=== PATIENT | female | born 1975 | race Caucasian/White ===

== ENCOUNTER → 2018-01-31 07:08 | Outpatient (CLI) | payer BC, SELFPAY ==
[2018-01-31 10:29] LABS: Absolute Lymphocyte Count 1.59 X10^3/ul (0.83-4.51); Basophil# 0.04 X10^3/uL; Basophil% 0.5 % (0-1); Hematocrit 39.9 % (37-47); Hemoglobin 13.3 g/dl (12.0-15.0); Lymphocyte # 1.59 X10^3/ul (4.0); Lymphocyte % 21.1 % (19-41); Mean Corp Hgb Conc 33.3 g/gl (32-36); Mean Corpuscular Hgb 31.9 pg (27.0-32.0); Mean Corpuscular Volume 95.7 fL (81-99); Mean Platelet Vol. 10.4 fl (6.2-12.0); Monocyte# 0.61 X10^3/uL; Monocyte% 8.1 % (0-10); Neutrophil # 4.98 X10^3/uL (2.7-7.7); Platelet Count 283 K/mm3 (150-450); RBC Distribution Width CV 13.1 % (11.6-14.6); RBC Distribution Width SD 44.7 fl (35.1-43.9); Red Blood Count 4.17 M/mm3 (4.2-5.4); White Blood Count 7.5 K/mm3 (4.4-11.0)
[2018-01-31 10:34] LABS: POSITIVE COUNT NO; POSITIVE DIFFERENTIAL NO; POSITIVE MORPHOLOGY NO
[2018-01-31 10:53] LABS: Anion Gap 8 (5-15); BUN 7 mg/dL (7-18); BUN/Creat Ratio 8.9 RATIO (10-20); Chloride 105 mmol/L (98-107); Cholesterol 204 mg/dL (200); Creatinine, Serum 0.79 mg/dL (0.55-1.02); EST Glomerular Filtration Rate 85 mL/min (>60); Est Glom Filt Rate - Afr Amer 103 mL/min (>60); Ferritin 51 ng/mL (8-252); Glucose 83 mg/dL (74-106); High Density Lipoprotein 56 mg/dL; Iron 87 ug/dL (50-170); Potassium 3.6 mmol/L (3.5-5.1); Sodium Level 139 mmol/L (136-145); T4 Free Direct 0.72 ng/dL (0.76-1.46); Triglycerides 93 mg/dL; Very Low Density Lipoprotein 19 mg/dL (5-40)
== END ==
PROVIDERS: Family Provider Family Medicine; PCP Family Medicine; Visit Provider Family Medicine
DX: E03.9 Hypothyroidism, unspecified (principal); R25.2 Cramp and spasm; D64.9 Anemia, unspecified; R45.1 Restlessness and agitation; Z13.220 Encounter for screening for lipoid disorders
CPT/HCPCS: 36415; 80048; 80061; 82728; 83540; 83735; 84439; 84443; 85025

== ENCOUNTER → 2018-07-31 16:20 | Outpatient (CLI) | payer BC, SELFPAY ==
[2018-07-31 18:08] LABS: T4 Free Direct 1.15 ng/dL (0.76-1.46); Thyroid Stim Hormone (TSH) 6.14 uIU/mL (0.358-3.74)
== END ==
LOC: LAB.FUTURE 16:21 → BFHLAB 05-31 08:58
PROVIDERS: Family Provider Family Medicine; PCP Family Medicine; Visit Provider Family Medicine
DX: E03.9 Hypothyroidism, unspecified (principal)
CPT/HCPCS: 36415; 84439; 84443

== ENCOUNTER → 2018-09-25 15:45 | Outpatient (CLI) | payer BC, SELFPAY ==
[2018-09-25 17:10] LABS: T4 Free Direct 1.35 ng/dL (0.76-1.46); Thyroid Stim Hormone (TSH) 0.02 uIU/mL (0.358-3.74)
== END ==
LOC: LAB.FUTURE 15:45 → BFHLAB 05-31 08:58
PROVIDERS: Family Provider Family Medicine; PCP Family Medicine; Visit Provider Family Medicine
DX: E03.9 Hypothyroidism, unspecified (principal)
CPT/HCPCS: 36415; 84439; 84443

== ENCOUNTER → 2019-05-29 11:23 | Outpatient (CLI) | payer BC, SELFPAY ==
[2016-10-17 13:19] VITALS: BMI 29.5
[2019-05-29 16:10] LABS: Thyroid Stim Hormone (TSH) 6.95 uIU/mL (0.358-3.74)
== END ==
PROVIDERS: Family Provider Family Medicine; PCP Family Medicine; Visit Provider Family Medicine
DX: E03.9 Hypothyroidism, unspecified (principal)
CPT/HCPCS: 36415; 84443

== ENCOUNTER → 2019-10-22 | Outpatient (CLI) | payer BC, SELFPAY ==
[2019-10-22 17:30] LABS: T4 Free Direct 1.18 ng/dL (0.76-1.46); Thyroid Stim Hormone (TSH) 6.62 uIU/mL (0.358-3.74)
== END | disposition home or self-care (01) ==
PROVIDERS: Visit Provider Family Medicine
DX: E03.9 Hypothyroidism, unspecified (principal)
CPT/HCPCS: 84439; 84443

== ENCOUNTER → 2020-07-23 | Outpatient (CLI) | payer OTHER, SELFPAY | END | disposition home or self-care (01) | LOC: LABSPEC 13:33 | PROVIDERS: PCP Family Medicine; Visit Provider Family Medicine | DX: U07.1 COVID-19 (principal) | CPT/HCPCS: 87635; U0005; U0003 ==

== ENCOUNTER 2021-09-01 07:23 | Outpatient (CLI) | payer BC, SELFPAY ==
--- NOTE | 2021-09-01 07:30 | US_ITS ---
STUDY: ABDOMINAL ULTRASOUND - RIGHT UPPER QUADRANT REASON FOR VISIT: Female, 45 years old. Chronic intermittent nausea with generalized abdominal pain. TECHNIQUE: Ultrasound evaluation of the right upper quadrant was performed with real-time and static pagan-scale imaging. TECHNICAL QUALITY: Adequate. COMPARISON: None. FINDINGS: Liver: The liver measures 13.7 cm. There is normal echogenicity of the liver. The bile ducts are within normal limits. There is hepatic color flow. The direction of portal flow is hepatopetal. There is no demonstrated mass lesion. Gallbladder: Normal distended gallbladder. The gallbladder wall measures 2 mm. There is a negative sonographic Evans''s sign. There is no pericholecystic fluid. There are no gallstones. Common Bile Duct (C.B.D.): The common bile duct measures 2.5 mm. Pancreas: Normal size of the head, body and tail of the pancreas. There is normal echogenicity of the pancreas. There is no demonstrated pancreatic mass or cyst. Right Kidney: Normal size of the right kidney. The right kidney measures 10 cm. Normal renal cortex. The right cortex measures 1.4 cm. There is no demonstrated renal mass or cyst. There is no right hydronephrosis. US/Abdomen Limited IMPRESSION: Normal right upper quadrant ultrasound examination. Electronically Signed: Yordy Lyman DO at 22:46 EST ,
== END 2021-09-01 23:59 | disposition home or self-care (01) ==
PROVIDERS: PCP Family Medicine; Referring Provider Family Medicine; Visit Provider Family Medicine
DX: R11.0 Nausea (principal)
CPT/HCPCS: 76705

== ENCOUNTER 2021-09-07 11:38 | Outpatient (CLI) | payer BC, SELFPAY ==
[2021-09-07 12:54] LABS: Erythrocyte Sedimentation Rate 8 mm/hr (0-30)
[2021-09-07 13:29] LABS: Vitamin B12 537 pg/mL (211-911)
[2021-09-07 13:44] LABS: CRP < 2.90 mg/L (0.0-3.0); LDH 84 U/L (84-246); Rheumatoid Factor < 10.0 IU/mL (<15); Thyroid Stim Hormone (TSH) 2.56 uIU/mL (0.358-3.74)
[2021-09-08 13:08] LABS: Anti-Centromere B Ab <0.2 AI (0.0-0.9); Anti-Chromatin <0.2 AI (0.0-0.9); Anti-Jo <0.2 AI (0.0-0.9); Anti-Scleroderma-70 AB <0.2 AI (0.0-0.9); RNP Ab 0.2 AI (0.0-0.9); SJOGREN'S Anti-SS-A test 0.2 AI (0.0-0.9); SJOGREN'S Anti-SS-B test < 0.2 AI (0.0-0.9); Smith Ab <0.2 AI (0.0-0.9)
[2021-09-08 16:13] LABS: Anti-dsDNA Ab 2 IU/mL (0-9)
[2021-09-11 11:09] LABS: Cytoplasmic Ab (C-ANCA) <1:20 titer (Neg:<1:20); Endomysial Antibody IgA Negative (Negative); Immunoglobulin A 95 mg/dL (87-352); Immunoglobulin E 50 IU/mL (6-495); Immunoglobulin G 895 mg/dL (586-1602)
[2021-09-11 19:26] LABS: CCP IgG Antibodies 7 units (0-19); Immunoglobulin M 92 mg/dL (26-217); Perinuclear Ab (P-ANCA) <1:20 titer (Neg:<1:20); t-Transglutaminase IgA <2 U/mL (0-3)
== END 2021-09-07 23:59 | disposition home or self-care (01) ==
LOC: LAB 11:39
PROVIDERS: PCP Family Medicine; Visit Provider Internal Medicine Gastroenterology
DX: R10.9 Unspecified abdominal pain (principal); R11.10 Vomiting, unspecified; R19.7 Diarrhea, unspecified
CPT/HCPCS: 36415; 82607; 82784; 82785; 83516; 83615; 84443; 85652; 86140; 86200; 86225; 86235; 86255; 86256; 86431

== ENCOUNTER 2021-09-09 06:52 | Outpatient (CLI) | payer BC, SELFPAY ==
[2021-09-10 16:11] LABS: Giardia Lamblia, Stool EIA Negative (Negative)
[2021-09-21 15:03] LABS: Calprotectin, Stool <16 ug/g (0-120); Fats, Neutral Normal (.); Fats, Total Normal (.)
== END 2021-09-09 23:59 | disposition home or self-care (01) ==
PROVIDERS: PCP Family Medicine; Visit Provider Internal Medicine Gastroenterology
DX: R10.9 Unspecified abdominal pain (principal); R11.10 Vomiting, unspecified; R19.7 Diarrhea, unspecified
CPT/HCPCS: 82705; 83993; 87329; 87493; 87506

== ENCOUNTER 2021-10-05 06:13 | Outpatient (CLI) | payer BC, SELFPAY ==
[2021-10-05 08:41] LABS: HIV - WCH Non-Reactive (Nonreactive)
== END 2021-10-05 23:59 | disposition home or self-care (01) ==
LOC: LAB 06:14
PROVIDERS: PCP Family Medicine; Referring Provider Internal Medicine Gastroenterology; Visit Provider Internal Medicine Gastroenterology
DX: R19.5 Other fecal abnormalities (principal)
CPT/HCPCS: 36415; 86703

== ENCOUNTER 2021-10-11 06:15 | Outpatient (CLI) | payer BC, SELFPAY | END 2021-10-11 23:59 | disposition home or self-care (01) | LOC: LAB 06:16 → LABSPEC 06:19 | PROVIDERS: PCP Family Medicine; Referring Provider Internal Medicine Gastroenterology; Visit Provider Internal Medicine Gastroenterology | DX: R19.5 Other fecal abnormalities (principal) ==

== ENCOUNTER → 2021-10-21 | Outpatient (CLI) | payer BC, SELFPAY ==
--- NOTE | 2021-10-21 13:19 | CT_ITS ---
STUDY: CT ABDOMEN WITHOUT CONTRAST REASON FOR EXAM: Female, 46 years old. abd pain, pancreatic insufficiency -- and oral please RADIATION DOSAGE (If Supplied By Facility): CTDIvol = ( 15.68 ) mGy, DLP = ( 543.21 ) mGycm TECHNIQUE: Transaxial images were obtained without intravenous contrast, and oral contrast. Sagittal and coronal images were reconstructed. Individualized dose optimization techniques were used for this CT. COMPARISON: None. FINDINGS: The visualized lung bases are unremarkable. The visualized portions of the heart are within normal limits. Normal liver. Normal gallbladder and extrahepatic biliary system. Normal spleen. Normal pancreas. Normal bilateral adrenal glands. Normal right kidney. Normal left kidney. Normal visualized stomach. Normal small intestine. Normal colon. The appendix is visualized and appears normal. Normal abdominal aorta. Normal inferior vena cava. Normal retroperitoneum. Normal abdominal wall. Normal osseous structures. CT/Abdomen without IV Contrast IMPRESSION: Normal unenhanced CT of the abdomen. Electronically Signed: Anish Lund MD at 4:37 EDT ,
== END | disposition home or self-care (01) ==
PROVIDERS: PCP Family Medicine; Referring Provider Internal Medicine Gastroenterology; Visit Provider Internal Medicine Gastroenterology
DX: R10.9 Unspecified abdominal pain (principal)
CPT/HCPCS: 74150

== ENCOUNTER 2021-11-24 05:28 | Day surgery (SDC) | payer BC, SELFPAY ==
[2021-11-24 05:57] VITALS: BP 114/83; PULSE 87; RESP 18; TEMP 36.8; O2SAT 99; BMI 29.2
[2021-11-24] MEDS: Lactated Ringers 1,000 ML 15 ML IV (06:10)
--- NOTE | 2021-11-24 06:28 | PCM.HP.BLA ---
History and Physical Date of Admission: 11/24/21 ISAURA MORGAN, is a 45 F who presents to the office today for Evaluation of nausea and diarrhea. Isaura established with this clinic 3 with referral from PCP for symptoms of nausea and diarrhea. Onset early 2020 with intermittent symptoms of diarrhea alternating with constipation and decreased appetite causing weight loss. Hot flashes have been an issue for her lately also. She is a current smoker with two cigarettes a day. Additional medical history includes hypothyroidism, depression (Wellbutrin, Lexapro). US abd 3.9.22 with liver measurement 13.7cm. Overall an unremarkably normal exam. She has been having issues with nausea starting early 2020. Diarrhea and abdominal cramping for the last few weeks. For all of her memory she has had issues with constipation and diarrhea alternating with normal bowel movements with unknown frequency. For the last several weeks there has been just diarrhea. Denies aggravating or alleviating factors. Pepto-bismol helps nausea but does not eliminate it. Denies history of EGD or colonoscopy. Presented to PCP for these issues who has just been monitoring over the last few years, with progression he referred to this clinic. Reports that she has been having increased stress recently with somewhat worsened depression symptoms, but she feels these are manageable and is working on stress reduction. Recently her child was diagnosed with asthma and has been in and out of the hospital for management and this has increased her stress level. ROS Const Constitutional: No anorexia, fatigue, fever(s), weight change or sleep problems Eyes Eyes: No change in vision ENT ENT: No abnormal hearing, difficulty swallowing, mouth lesions, tongue swelling or throat swelling Resp Respiratory: No cough or shortness of breath Cardio Cardiology: No chest pain at rest, chest pain with exertion, shortness of breath or dyspnea on exertion Gastro GI: No difficulty swallowing Genitourinary-Female: No difficulty urinating or burning urination Musc Musculoskeletal: No joint pain, joint swelling, muscle weakness or decreased muscle mass Skin Skin: No hair loss in leg, yellowing of the eye, itchy eyes, rash, skin ulcer or skin swelling Neuro Neurology: No abnormal hearing, abnormal movements, confusion, unsteady gait/balance or memory loss Psych Psychiatric: No anxiety, No confusion and No memory loss Endo Endocrine: No fatigue or weight change Aller/Imm Allergy/Immunologic: No itchy eyes, throat swelling or tongue swelling Levon/Lymp Hematologic/Lymphatic: No easy bleeding, easy bruising or enlarged lymph nodes Exam Const General: cooperative and comfortable Nutritional Appearance: average body habitus and well nourished [facility] Head: normal to inspection Ears: hearing grossly normal bilaterally Nose: external nose normal Face and sinus: normal facial exam Mouth: oral mucosae normal Throat: posterior oropharynx normal Eyes General: appearance normal, both eyes and all related structures Neck Neck: normal visual inspection Chest Chest palpation & inspection: normal inspection of the chest and normal palpation of entire chest wall Resp Effort & Inspection: normal respiratory effort Auscultation: Bilateral: Clear to Auscultation Cardio Palpation: normal PMI Rate: regular rate Rhythm: regular rhythm GI Inspection: normal to inspection Auscultation: normal bowel sounds Percussion: normal to percussion Palpation: no hepatosplenomegaly Skin General: no rashes or lesions noted Neuro General: patient alert Extrem General: normal to inspection Psych Affect: normal affect Quality Reporting Tobacco Screening ([facility] 138) Smoking Status: Current every day smoker Assessment and Plan Assessment and Plan (1) Abdominal pain, vomiting, and diarrhea: Status: Acute Orders: Orders: CRP Today LDH Today Erythrocyte Sed Rate Today STELLA Comprehensive Panel Today ANCA Today Celiac Disease Profile Today Immunoglobulin A Today Immunoglobulin E Today Immunoglobulin G Today Immunoglobulin M Today Calprotectin, Stool Today ENTERIC PATHOGEN PANEL STOOL Today Giardia Lamblia, Stool EIA Today Rheumatoid Factor Today CCP IgG Antibodies Today Fecal Fat, Qualitative Today Thyroid Stim Hormone (TSH) Today CDIFF (PCR) Today Plan - Dr. 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 pylori. We will do a biochemical profile and stool studies along with an upper and lower endoscopy. She was explained alternatives, risk, benefits including not withstanding bleeding, infection, sepsis, perforation, need for emergent urgent . She will have an ASA of 1. Also give her pantoprazole to take 40 mg twice a day due to her frequent usage of ibuprofen and Carafate therapy. I have re-examined the patient. There are no clinical changes since date of exam.
--- NOTE | 2021-11-24 06:30 | EGD_PTH ---
PATIENT: ZACHARIAH MORGAN LOC: EN U#:[id number] AGE/SX: 46/F ROOM: RE11/24/[address]: Dr. Stephen aMrte DO : 1975 BED: DIS: 11/24/2021 SPEC #: [id number] RECD: 11/24/21 12:56 STATUS: TAN ERNESTO #: [id number] RUI: 11/24/21 06:[address]: Stephen Marte DEPT: SURGICAL PATHOLOGY RECD BY: Lucie Mena ENTERED: 11/24/21 13:58 SP TYPE: EGD BIOPSY [facility] DR: Dr. Oscar Blas MD Tissues: A - Duodenum, NOS B - Gastric mucous membrane C - Esophagus, NOS D - Esophagus, NOS E - Gastric mucous membrane F - Rectum, NOS G - Ileum, NOS H - COLON BIOPSY I - Cecum, NOS Procedures: Special Stain Group II Surgery Specimen Level IV Alcian Blue/PAS (control) HEADER OPERATION: Colonoscopy with biopsy and polypectomy, EGD with biopsy [place] [place] PRE-OP DIAGNOSIS: Abdominal pain, vomiting, diarrhea TISSUE SUBMITTED: A ? Duodenal bulb biopsy, B ? Gastric body biopsy, C ? Distal esophagus biopsy, D ? Random esophagus biopsy, E ? Gastric inlet biopsy, F ? Rectal polyp, G ? Terminal ileum biopsy, H ? Random colon biopsy, I ? Cecal cap biopsy MICROSCOPIC DIAGNOSIS A. Duodenal bulb, biopsy: Consistent with gastric metaplasia. B. Gastric body, biopsy: Chronic gastritis. See comment. C. Distal esophagus, biopsy: Gastroesophageal junctional mucosa with chronic inflammation. No evidence of goblet cell metaplasia. See comment. D. Esophagus, random biopsy: No pathologic change. E. Gastric inlet, biopsy: Fragments of benign squamous mucosa. Rare fragments of benign glandular mucosa. F. Rectal polyp, biopsy: Hyperplastic polyp. G. Terminal ileum, biopsy: No pathologic change. H. Colon, random biopsy: Mild melanosis coli. I. Cecal cap, biopsy: Mild cryptitis. See comment. AM:tanja 11/25/2021 COMMENT B. The results of immunohistochemistry for Helicobacter pylori will be reported separately ([id number]). C. Alcian blue/PAS stain with matched control supports the above diagnosis. I. Rare neutrophils are seen in the glandular mucosa. Clinical correlation is suggested. MICROSCOPIC DESCRIPTION Slides are reviewed. GROSS DESCRIPTION A - Received in fixative is one container labeled with the patient's name and designated duodenal bulb biopsy. The specimen consists of two irregular fragments of light chen soft tissue that in aggregate measure 0.5 x 0.3 x 0.1 cm. The specimen is totally submitted in one cassette. B - Received in fixative is one container labeled with the patient's name and designated gastric body biopsy. The specimen consists of multiple irregular fragments of light chen soft tissue that in aggregate measure 1 x 0.2 x 0.1 cm. The specimen is totally submitted in one cassette. C - Received in fixative is one container labeled with the patient's name and designated distal esophagus biopsy. The specimen consists of two irregular fragments of light chen soft tissue that in aggregate measure 0.6 x 0.6 x 0.1 cm. The specimen is totally submitted in one cassette. D - Received in fixative is one container labeled with the patient's name and designated random esophagus biopsy. The specimen consists of multiple irregular fragments of light chen soft tissue that in aggregate measure 1.3 x 0.1 x 0.1 cm. The specimen is totally submitted in one cassette. E - Received in fixative is one container labeled with the patient's name and designated gastric inlet biopsy. The specimen consists of one irregular fragment of light chen soft tissue that measures 0.2 x 0.2 x 0.1 cm. The specimen is totally submitted in one cassette. F - Received in fixative is one container labeled with the patient's name and designated rectal polyp. The specimen consists of one irregular fragment of light chen soft tissue that measures 0.5 x 0.2 x 0.1 cm. The specimen is totally submitted in one cassette. G - Received in fixative is one container labeled with the patient's name and designated terminal ileum biopsy. The specimen consists of two irregular fragments of light chen soft tissue that in aggregate measure 0.6 x 0.3 x 0.1 cm. The specimen is totally submitted in one cassette. H - Received in fixative is one container labeled with the patient's name and designated random colon biopsy. The specimen consists of multiple irregular fragments of light chen soft tissue that in aggregate measure 2 x 1 x 0.1 cm. The specimen is totally submitted in one cassette. I - Received in fixative is one container labeled with the patient's name and designated cecal cap biopsy. The specimen consists of one irregular fragment of light chen soft tissue that measures 0.2 x 0.2 x 0.1 cm. The specimen is totally submitted in one cassette. / AM:tanja 11/24/2021 TC:2 CPT: 04710 x9, 24947
--- NOTE | 2021-11-24 06:30 | IMM_PTH ---
PATIENT: ZACHARIAH MORGAN LOC: EN U#:[id number] AGE/SX: 46/F ROOM: RE11/24/[address]: Dr. Stephen Marte DO : 1975 BED: DIS: 11/24/2021 SPEC #: [id number] RECD: 11/24/21 14:26 STATUS: TAN REQ #: [id number] RUI: 11/24/21 06:[address]: Stephen Marte DEPT: IMMUNOHISTOCHEMISTRY RECD BY: Rebecca Rodríguez ENTERED: 11/24/21 14:28 SP TYPE: IMMUNO OTHR DR: Dr. Oscar Blas MD Tissues: B - Stomach, NOS Procedures: H Pylori (initial) PHYSICIAN & INSTITUTION [place] [id number] SPECIMEN INFORMATION: Tissue Source: B - Gastric body biopsy Clinical Info: Abdominal pain, vomiting and diarrhea Specimen Number: [id number] CPT code: 46258 METHODOLOGY: Deparaffinized sections of prefer/formalin-fixed tissue or PAP/DQ stained slides are incubated with monoclonal/polyclonal antibodies/oligonucleotide probes. Localization is made via biotin free immunoperoxidase method. Appropriate controls are performed and reacted as expected. Results on target cell population are indicated in the following table: RESULTS: ANTIBODY / CLONE RESULT Block B H Pylori (polyclonal) negative These tests were developed and their performance characteristics determined by [facility]. They may not have been cleared or approved by the U.S. Food and Drug Administration. The FDA has determined that such clearance or approval is not necessary. The above immunohistochemical/dualISH markers are ordered and reviewed by the Pathologist. INTERPRETATION: B. Gastric body, biopsy: Negative for Helicobacter pylori organisms. AM:tanja 11/25/2021
[2021-11-24 07:16] VITALS: BP 102/69; BP 114/83; PULSE 84; RESP 16; TEMP 36.1; O2SAT 100
[2021-11-24 07:20] VITALS: BP 100/70; BP 114/83; PULSE 82; RESP 16; O2SAT 98
--- NOTE | 2021-11-24 07:23 | OP.EGD_ITS ---
Patient Name: Isaura Spears Procedure Date: 11/24/2021 6:20 AM Date of : 1975 Age: 46 Procedure: Upper GI endoscopy Indications: Epigastric abdominal pain, Dyspepsia, Indigestion, Failure to respond to medical treatment Providers: Stephen Marte DO Medicines: Monitored Anesthesia Care Patient Profile: This is a 46 year old female. Refer to note in patient chart for documentation of history and physical. Patient has symptoms. The symptoms first began June. Complications: No immediate complications. Procedure: Pre-Anesthesia Assessment: - Prior to the procedure, a History and Physical was performed, and patient medications and allergies were reviewed. The patient is competent. The risks and benefits of the procedure and the sedation options and risks were discussed with the patient. All questions were answered and informed consent was obtained. Patient identification and proposed procedure were verified by the physician in the pre-procedure area. Mental Status Examination: alert and oriented. Airway Examination: normal oropharyngeal airway and neck mobility. Respiratory Examination: clear to auscultation. CV Examination: normal. Prophylactic Antibiotics: The patient does not require prophylactic antibiotics. Prior Anticoagulants: The patient has taken no previous anticoagulant or antiplatelet agents. ASA Grade Assessment: II - A patient with mild systemic disease. After reviewing the risks and benefits, the patient was deemed in satisfactory condition to undergo the procedure. The anesthesia plan was to use moderate sedation / analgesia (conscious sedation). Immediately prior to administration of medications, the patient was re-assessed for adequacy to receive sedatives. The heart rate, respiratory rate, oxygen saturations, blood pressure, adequacy of pulmonary ventilation, and response to care were monitored throughout the procedure. The physical status of the patient was re-assessed after the procedure. After obtaining informed consent, the endoscope was passed under direct vision. Throughout the procedure, the patient's blood pressure, pulse, and oxygen saturations were monitored continuously. The Colonoscope was introduced through the mouth, and advanced to the second part of duodenum. The upper GI endoscopy was accomplished without difficulty. The patient tolerated the procedure well. Scope In: 6:38:37 AM Scope Out: 6:49:02 AM Total Procedure Duration Time 0 hours 10 minutes 25 seconds Findings: A single area of ectopic gastric mucosa was found in the upper third of the esophagus, 23 cm from the incisors. Biopsies were taken with a cold forceps for histology. Verification of patient identification for the specimen was done. Estimated blood loss was minimal. Mucosal changes including longitudinal furrows and small-caliber esophagus were found in the middle third of the esophagus and in the lower third of the esophagus. Biopsies were obtained from the proximal and distal esophagus with cold forceps for histology of suspected eosinophilic esophagitis. Verification of patient identification for the specimen was done. Estimated blood loss was minimal. LA Grade A (one or more mucosal breaks less than 5 mm, not extending between tops of 2 mucosal folds) esophagitis with no bleeding was found 36 to 38 cm from the incisors. Biopsies were taken with a cold forceps for histology. Verification of patient identification for the specimen was done. Estimated blood loss was minimal. Patchy mildly erythematous mucosa without bleeding was found in the gastric body. Biopsies were taken with a cold forceps for histology. Verification of patient identification for the specimen was done. Estimated blood loss was minimal. Patchy mildly erythematous mucosa without active bleeding and with no stigmata of bleeding was found in the duodenal bulb. Biopsies were taken with a cold forceps for histology. Verification of patient identification for the specimen was done. Estimated blood loss was minimal. Impression: - Ectopic gastric mucosa in the upper third of the esophagus. Biopsied. - Esophageal mucosal changes suspicious for eosinophilic esophagitis. Biopsied. - LA Grade A reflux esophagitis. Biopsied. - Erythematous mucosa in the gastric body. Biopsied. - Erythematous duodenopathy. Biopsied. Recommendation: - Discharge patient to home. - Resume previous diet. - Continue present medications. - Await pathology results. Procedure Code(s): --- Professional --- 36163, Esophagogastroduodenoscopy, flexible, transoral; with biopsy, single or multiple CPT copyright 2017 [employer]. All rights reserved. The codes documented in this report are preliminary and upon mellowing machine operator review may be revised to meet current compliance requirements. Stephen Marte DO 11/24/2021 7:23:18 AM This report has been signed electronically. Number of Addenda: 1 Note Initiated On: 11/24/2021 6:20 AM Addendum Number: 1 Addendum Date: 03/29/2022 6:33:36 AM MAC was used as sedation for this procedure. Stephen Marte DO 03/29/2022 6:33:40 AM This report has been signed electronically.
--- NOTE | 2021-11-24 07:24 | OP.CCLET_ITS ---
03/29/2022 Oscar Blas Re : Upper GI endoscopy procedure for Isaura Spears Dear [place] This procedure was performed on Wednesday, November 24, 2021. My impressions and recommendations are as follows: Impressions : - Ectopic gastric mucosa in the upper third of the esophagus. Biopsied. - Esophageal mucosal changes suspicious for eosinophilic esophagitis. Biopsied. - LA Grade A reflux esophagitis. Biopsied. - Erythematous mucosa in the gastric body. Biopsied. - Erythematous duodenopathy. Biopsied. Recommendations : - Discharge patient to home. - Resume previous diet. - Continue present medications. - Await pathology results. My findings are described in the full procedure note, which is enclosed. If I can be of further assistance, please feel free to contact me at . Sincerely, Stephen Marte, 11/24/2021 7:23:18 AM This report has been signed electronically.
[2021-11-24 07:25] VITALS: BP 102/77; BP 114/83; PULSE 86; RESP 16; O2SAT 98
--- NOTE | 2021-11-24 07:28 | OP.CCLET_ITS ---
03/29/2022 Oscar Blas Re : Colonoscopy procedure for Isaura Spears [place] This procedure was performed on Wednesday, November 24, 2021. My impressions and recommendations are as follows: Impressions : - One 5 mm polyp in the rectum, removed with a cold snare. Resected and retrieved. - Congested mucosa in the sigmoid colon, in the transverse colon and in the ascending colon. Biopsied. - The examined portion of the ileum was normal. Biopsied. Recommendations : - Discharge patient to home. - Resume previous diet. - Continue present medications. - Await pathology results. - Repeat colonoscopy in 5 years for surveillance. - Return to GI office. My findings are described in the full procedure note, which is enclosed. If I can be of further assistance, please feel free to contact me at . Sincerely, Stephen Marte, 11/24/2021 7:27:59 AM This report has been signed electronically.
--- NOTE | 2021-11-24 07:28 | OP.COLON_ITS ---
Patient Name: Isaura Spears Procedure Date: 11/24/2021 6:49 AM Date of : 1975 Age: 46 Procedure: Colonoscopy Indications: Screening for colorectal malignant neoplasm Providers: Stephen Marte DO Medicines: Monitored Anesthesia Care Patient Profile: This is a 46 year old female. Refer to note in patient chart for documentation of history and physical. Patient has symptoms. The symptoms first began June. Last Colonoscopy: none. The patient's first colonoscopy is today. Complications: No immediate complications. Procedure: Pre-Anesthesia Assessment: - Prior to the procedure, a History and Physical was performed, and patient medications and allergies were reviewed. The patient is competent. The risks and benefits of the procedure and the sedation options and risks were discussed with the patient. All questions were answered and informed consent was obtained. Patient identification and proposed procedure were verified by the physician in the pre-procedure area. Mental Status Examination: alert and oriented. Airway Examination: normal oropharyngeal airway and neck mobility. Respiratory Examination: clear to auscultation. CV Examination: normal. Prophylactic Antibiotics: The patient does not require prophylactic antibiotics. Prior Anticoagulants: The patient has taken no previous anticoagulant or antiplatelet agents. ASA Grade Assessment: II - A patient with mild systemic disease. After reviewing the risks and benefits, the patient was deemed in satisfactory condition to undergo the procedure. The anesthesia plan was to use moderate sedation / analgesia (conscious sedation). Immediately prior to administration of medications, the patient was re-assessed for adequacy to receive sedatives. The heart rate, respiratory rate, oxygen saturations, blood pressure, adequacy of pulmonary ventilation, and response to care were monitored throughout the procedure. The physical status of the patient was re-assessed after the procedure. After I obtained informed consent, the scope was passed under direct vision. Throughout the procedure, the patient's blood pressure, pulse, and oxygen saturations were monitored continuously. The Colonoscope was introduced through the anus and advanced to the terminal ileum. The colonoscopy was performed without difficulty. The patient tolerated the procedure well. The quality of the bowel preparation was good. Scope In: 6:51:37 AM Scope Withdrawal Time 0 hours 13 minutes 23 seconds Scope Out: 7:11:19 AM Total Procedure Duration Time 0 hours 19 minutes 42 seconds Findings: The perianal and digital rectal examinations were normal. A 5 mm polyp was found in the rectum. The polyp was sessile. The polyp was removed with a cold snare. Resection and retrieval were complete. Verification of patient identification for the specimen was done. Estimated blood loss was minimal. An area of mildly congested mucosa was found in the sigmoid colon, in the transverse colon and in the ascending colon. Biopsies were taken with a cold forceps for histology. Verification of patient identification for the specimen was done. Estimated blood loss was minimal. The terminal ileum appeared normal. Biopsies were taken with a cold forceps for histology. Verification of patient identification for the specimen was done. Estimated blood loss was minimal. Impression: - One 5 mm polyp in the rectum, removed with a cold snare. Resected and retrieved. - Congested mucosa in the sigmoid colon, in the transverse colon and in the ascending colon. Biopsied. - The examined portion of the ileum was normal. Biopsied. Recommendation: - Discharge patient to home. - Resume previous diet. - Continue present medications. - Await pathology results. - Repeat colonoscopy in 5 years for surveillance. - Return to GI office. Procedure Code(s): --- Professional --- 67251, Colonoscopy, flexible; with removal of tumor(s), polyp(s), or other lesion(s) by snare technique 84666, 59, Colonoscopy, flexible; with biopsy, single or multiple CPT copyright 2017 [employer]. All rights reserved. The codes documented in this report are preliminary and upon carpenter streetcar review may be revised to meet current compliance requirements. Stephen Marte DO 11/24/2021 7:27:59 AM This report has been signed electronically. Number of Addenda: 1 Note Initiated On: 11/24/2021 6:49 AM Addendum Number: 1 Addendum Date: 03/29/2022 6:33:48 AM MAC was used as sedation for this procedure. Stephen Marte DO 03/29/2022 6:33:52 AM This report has been signed electronically.
[2021-11-24 07:31] VITALS: BP 110/78; BP 114/83; PULSE 77; RESP 16; TEMP 36.2; O2SAT 98
[2021-11-24 07:44] VITALS: BP 114/83
== END 2021-11-24 07:58 | disposition home or self-care (01) ==
LOC: EN 05:28 → AC 05:29
PROVIDERS: PCP Family Medicine; Referring Provider Family Medicine; Visit Provider Internal Medicine Gastroenterology
PROC: 0DJD8ZZ Inspection of Lower Intestinal Tract, Via Natural or Artificial Opening Endoscopic (ICD-10-PCS; CPT 45378; principal; 2021-11-24 06:25)
DX: Z12.11 Encounter for screening for malignant neoplasm of colon (principal); K29.50 Unspecified chronic gastritis without bleeding; K21.00 Gastro-esophageal reflux disease with esophagitis, without bleeding; K62.89 Other specified diseases of anus and rectum; K62.1 Rectal polyp; F41.9 Anxiety disorder, unspecified; F32.A Depression, unspecified; G25.81 Restless legs syndrome; E03.9 Hypothyroidism, unspecified; Z79.899 Other long term (current) drug therapy; F17.210 Nicotine dependence, cigarettes, uncomplicated
CPT/HCPCS: 45385; 45380; 43239; 88305; 88313; 88342; J7120; J2405

== ENCOUNTER → 2021-12-03 | Outpatient (CLI) | payer BC, SELFPAY ==
[2021-12-06 15:07] LABS: Albumin 3.8 g/dL (2.9-4.4); Alpha-1-Globulins 0.3 g/dL (0.0-0.4); Alpha-2-Globulins 0.6 g/dL (0.4-1.0); Immunoglobulin A 106 mg/dL (87-352); Immunoglobulin G 917 mg/dL (586-1602); Immunoglobulin M 94 mg/dL (26-217); PROEL- TOTAL PROTEIN 6.6 g/dL (6.0-8.5)
== END | disposition home or self-care (01) ==
LOC: LAB 12:33 → LABSPEC 12:34
PROVIDERS: PCP Family Medicine; Visit Provider Internal Medicine Gastroenterology
DX: R19.7 Diarrhea, unspecified (principal)
CPT/HCPCS: 36415; 82784; 83630; 84165; 86334

== ENCOUNTER 2022-05-11 09:58 | Day surgery (SDC) | payer BC, SELFPAY ==
--- NOTE | 2022-05-11 10:13 | PCM.HP.BLA ---
History and Physical Date of Admission: 05/11/22 STELLA MORGAN, is a 46 F who presents to the office today for Follow up visit. Crystal established with this clinic 09.07.21 with referral from PCP for symptoms of nausea and diarrhea. Onset early 2020 with intermittent symptoms of diarrhea alternating with constipation and decreased appetite causing weight loss. Hot flashes have been an issue for her lately also. She is a current smoker with two cigarettes a day. ?PMH includes hypothyroidism, depression (Wellbutrin, Lexapro). Uses NSAIDs frequently for pain. FH mother bone cancer; paternal side with brain, lung and unknown cancers between three people. ?US abd 3..22 with liver measurement 13.7cm. Overall an unremarkably normal exam. Biochemical workup 09.07.21 ESR, LDH, CRP, Vit B12, TSH, GAME, ANCA, STELLA comp all WNL Stool testing for fecal fats, calprotectin and giardia WNL. 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 H.Pylori negative. Colonoscopy Hyperplastic polyp removed from rectum; mild melanosis coli; congested mucosa of sigmoid, transverse and ascending colons; mild cryptitis of cecal cap. Stool lactoferrin and ZHAO ordered. Biochemical workup ZHAO, JULIA, PEP, globulin without pertinent abnormal results. [facility] Crohn?s workup found two of four markers elevated indicating positive IBD disease behavior. Stool testing lactoferrin WNL. Plan last visit 12.09.21: Diarrhea ? most likely bacterial overgrowth that has caused decrease in fecal elastase. Start budesonide. Pancreatic insufficiency ? does not show signs of pancreatic insufficiency. Gastric intestinal metaplasia ? continue PPI, repeat EGD one year. Feels she is doing OK since LV. Diarrhea continues and occurs three days a week, on other days she has 2-3 BM a day with soft stool; nausea is much improved and feels it is food triggered. She would like to pursue treatment for gastric metaplasia because of her strong family history. History of precancer cells in her cervix/uterus prompting total hysterectomy. ROS Const Constitutional: Positive for fatigue; No fever(s) or weight change ENT ENT: No difficulty swallowing Cardio Cardiology: No leg pain with exertion Gastro GI: Positive for bloating, change in bowel habits, diarrhea and nausea/dyspepsia; No abdominal pain, heartburn, difficulty swallowing, Vomiting blood/hematemesis, Blood in stool or vomiting Musc Musculoskeletal: Positive for back pain, sciatica, restless legs and leg pain at night; No joint pain, joint swelling, muscle cramps, muscle weakness, Arthritis or leg pain with exertion Skin Skin: No dry skin, lesions, itchy eyes or rash Neuro Neurology: Positive for restless legs Psych Psychiatric: Positive for anxiety, Positive for depression, Positive for difficulty concentrating, No irritability, No paranoia, No Behavioral Problems, No Compulsive Behavior, No hyperactivity, No inattentiveness, No obsessions/compulsions and No Temper Tantrums Endo Endocrine: Positive for fatigue; No weight change Aller/Imm Allergy/Immunologic: No itchy eyes Exam Const General: cooperative and well developed HENMT Head: normal to inspection and atraumatic Ears: hearing grossly normal bilaterally, EAC's normal and TM abnormal bulging on the left and erythematous on the left Nose: nasal discharge clear Face and sinus: normal facial exam Mouth: oral mucosae normal Throat: abnormal tonsil bilaterally hypertrophy 1+ Resp Effort & Inspection: normal respiratory effort and no audible wheezes Auscultation: Bilateral: Clear to Auscultation Cardio Palpation: normal PMI Rate: regular rate Rhythm: regular rhythm Neuro General: patient alert and CN's II-XI intact bilaterally Psych Appearance: grossly normal Mental Status: mental status grossly normal Quality Reporting Tobacco Screening ([facility]) Smoking Status: Current every day smoker Assessment and Plan Assessment and Plan (1) Crohn disease: ?Status:?Chronic ?Plan: She had biochemical profile consistent with Crohn's disease along with having inflammation on her cecal that and showed cryptitis possibly secondary to Crohn's disease.? She will need to undergo repeat biochemical testing including ESR, CRP, stool for fecal calprotectin and capsule endoscopy for further recommendations regarding treatment.? She is not having less diarrhea at this time compared to how she previously was having diarrhea every day. (2) Gastric intestinal metaplasia: ?Status:?Chronic ?Plan: We will repeat her upper endoscopy and perform an endoscopic lift procedure with removal of the gastric intestinal metaplasia.? At that time capsule endoscopy so the small bowel can also be evaluated. ? ? ? Orders: Orders CRP Today K31.A0 - Gastric intestinal metaplasia, unspecified, K50.90 - Crohn's disease, unspecified, without complications ? Erythrocyte Sed Rate Today K31.A0 - Gastric intestinal metaplasia, unspecified, K50.90 - Crohn's disease, unspecified, without complications ? Calprotectin, Stool Today K31.A0 - Gastric intestinal metaplasia, unspecified, K50.90 - Crohn's disease, unspecified, without complications ? Stool Lactoferrin/WBC Today K31.A0 - Gastric intestinal metaplasia, unspecified, K50.90 - Crohn's disease, unspecified, without complications, K58.9 - Irritable bowel syndrome without diarrhea ? I have examined the patient and the H&P has been reviewed. There are no clinical changes since date of exam.
[2022-05-11 10:21] VITALS: BP 129/83; PULSE 84; RESP 16; TEMP 36.6; O2SAT 100; BMI 28.5
[2022-05-11] MEDS: Lactated Ringers 1,000 ML 15 ML IV (10:25)
--- NOTE | 2022-05-11 11:17 | OP.CCLET_ITS ---
05/11/2022 Oscar Blas Re : Upper GI endoscopy procedure for Isaura Spears Dear Roopa This procedure was performed on Wednesday, May 11, 2022. My impressions and recommendations are as follows: Impressions : - Normal esophagus. - Normal stomach. - No gross lesions in the second portion of the duodenum. - Successful completion of the Video Capsule Enteroscope placement. - No specimens collected. Recommendations : - Discharge patient to home. - Resume previous diet. - Continue present medications. My findings are described in the full procedure note, which is enclosed. If I can be of further assistance, please feel free to contact me at . Sincerely, Stephen Marte, 05/11/2022 11:16:53 AM This report has been signed electronically.
--- NOTE | 2022-05-11 11:17 | OP.EGD_ITS ---
Patient Name: Isaura Spears Procedure Date: 05/11/2022 11:07 AM Date of : 1975 Age: 46 Procedure: Upper GI endoscopy Indications: Epigastric abdominal pain, Iron deficiency anemia, Functional Dyspepsia Providers: Stephen Marte DO Medicines: Monitored Anesthesia Care Patient Profile: This is a 46 year old female. Refer to note in patient chart for documentation of history and physical. Patient has symptoms of chronic abdominal cramping, chronic global abdominal pain and chronic dyspepsia. Complications: No immediate complications. Procedure: Pre-Anesthesia Assessment: - Prior to the procedure, a History and Physical was performed, and patient medications and allergies were reviewed. The risks and benefits of the procedure and the sedation options and risks were discussed with the patient. All questions were answered and informed consent was obtained. Patient identification and proposed procedure were verified by the physician in the pre-procedure area. Mental Status Examination: alert and oriented. Airway Examination: normal oropharyngeal airway and neck mobility. Respiratory Examination: clear to auscultation. CV Examination: normal. Prophylactic Antibiotics: The patient does not require prophylactic antibiotics. Prior Anticoagulants: The patient has taken no previous anticoagulant or antiplatelet agents. ASA Grade Assessment: II - A patient with mild systemic disease. After reviewing the risks and benefits, the patient was deemed in satisfactory condition to undergo the procedure. The anesthesia plan was to use monitored anesthesia care (MAC). Immediately prior to administration of medications, the patient was re-assessed for adequacy to receive sedatives. The heart rate, respiratory rate, oxygen saturations, blood pressure, adequacy of pulmonary ventilation, and response to care were monitored throughout the procedure. The physical status of the patient was re-assessed after the procedure. After obtaining informed consent, the endoscope was passed under direct vision. Throughout the procedure, the patient's blood pressure, pulse, and oxygen saturations were monitored continuously. The gastroscope was introduced through the mouth, and advanced to the second part of duodenum. The upper GI endoscopy was accomplished without difficulty. The patient tolerated the procedure well. Scope In: 11:07:25 AM Scope Out: 11:11:15 AM Total Procedure Duration Time 0 hours 3 minutes 50 seconds Findings: The examined esophagus was normal. The entire examined stomach was normal. No gross lesions were noted in the second portion of the duodenum. Using the endoscope, the video capsule enteroscope was advanced into the second portion of the duodenum. The video capsule was positioned 60 cm from the incisors. Impression: - Normal esophagus. - Normal stomach. - No gross lesions in the second portion of the duodenum. - Successful completion of the Video Capsule Enteroscope placement. - No specimens collected. Recommendation: - Discharge patient to home. - Resume previous diet. - Continue present medications. Procedure Code(s): --- Professional --- 96034, Esophagogastroduodenoscopy, flexible, transoral; diagnostic, including collection of specimen(s) by brushing or washing, when performed (separate procedure) CPT copyright 2017 [employer]. All rights reserved. The codes documented in this report are preliminary and upon dinner cook review may be revised to meet current compliance requirements. Stephen Marte DO 05/11/2022 11:16:53 AM This report has been signed electronically. Number of Addenda: 0 Note Initiated On: 05/11/2022 11:07 AM
[2022-05-11 11:18] VITALS: BP 106/73; BP 129/83; PULSE 72; RESP 18; TEMP 36.8; O2SAT 93
[2022-05-11 11:20] VITALS: BP 104/71; BP 129/83; PULSE 77; RESP 18; O2SAT 94
[2022-05-11 11:25] VITALS: BP 115/78; BP 129/83; PULSE 72; RESP 18; O2SAT 95
[2022-05-11 11:33] VITALS: BP 114/80; BP 129/83; PULSE 78; RESP 18; TEMP 37; O2SAT 94
[2022-05-11 11:50] VITALS: BP 129/83
== END 2022-05-11 12:04 | disposition home or self-care (01) ==
LOC: EN 10:00 → AC 10:00
PROVIDERS: PCP Family Medicine; Referring Provider Internal Medicine Gastroenterology; Visit Provider Internal Medicine Gastroenterology
PROC: 0DJ08ZZ Inspection of Upper Intestinal Tract, Via Natural or Artificial Opening Endoscopic (ICD-10-PCS; CPT 43235; principal; 2022-05-11 10:55)
DX: K50.90 Crohn's disease, unspecified, without complications (principal); R19.7 Diarrhea, unspecified; F41.9 Anxiety disorder, unspecified; F32.A Depression, unspecified; F17.210 Nicotine dependence, cigarettes, uncomplicated; E07.9 Disorder of thyroid, unspecified; Z79.899 Other long term (current) drug therapy
CPT/HCPCS: 43235; J7120; J2405

== ENCOUNTER → 2022-11-03 | Outpatient (CLI) | payer BC, SELFPAY ==
[2022-11-03 10:45] LABS: Erythrocyte Sedimentation Rate 1 mm/hr (0-30)
[2022-11-03 10:47] LABS: Absolute Lymphocyte Count 1.81 X10^3/uL (0.83-4.51); Absolute Neutrophil Count 3.8 X10^3/uL (2.0-7.7); Basophil# 0.07 X10^3/uL; Basophil% 1.1 % (0-1); Eosinophil# 0.22 X10^3/uL; Eosinophils% 3.4 % (0-5); Hematocrit 40.3 % (37-47); Hemoglobin 13.7 g/dL (12.0-15.0); Lymphocyte # 1.81 X10^3/ul (0.83-4.51); Lymphocyte % 27.9 % (19-41); Mean Corpuscular Hgb 33.3 pg (27.0-32.0); Mean Corpuscular Volume 98.1 fL (81-99); Mean Platelet Vol. 9.7 fl (6.2-12.0); Monocyte% 9.3 % (0-10); NRBC Flagged by Analyzer 0 % (0-5); Neutrophil # 3.75 X10^3/uL (2.7-7.7); Neutrophil % 57.8 % (47-70); Platelet Count 323 K/mm3 (150-450); RBC Distribution Width CV 12.9 % (11.6-14.6); RBC Distribution Width SD 46.5 fl (35.1-43.9); Red Blood Count 4.11 M/mm3 (4.2-5.4); White Blood Count 6.5 K/mm3 (4.4-11.0)
[2022-11-03 10:51] LABS: ALB/GLOB Ratio 1.2 RATIO (0.9-2.4); AST(SGOT) 22 U/L (15-37); Alanine Aminotransfer ALT/SGPT 37 U/L (13-56); Albumin, Serum 4.1 g/dL (3.2-5.0); Alkaline Phosphatase 76 U/L (45-117); Anion Gap 7 (5-15); BUN 5 mg/dL (7-18); BUN/Creat Ratio 7.1 RATIO (10-20); CRP < 2.90 mg/L (0.0-3.0); Calcium,Total 8.6 mg/dL (8.5-10.1); Chloride 103 mmol/L (98-107); EST Glomerular Filtration Rate 96 mL/min (>60); Est Glom Filt Rate - Afr Amer 116 mL/min (>60); Globulin 3.4 g/dL (2.2-4.2); Glucose 90 mg/dL (74-106); Potassium 3.9 mmol/L (3.5-5.1); Protein, Total 7.5 g/dL (6.4-8.2); Sodium Level 138 mmol/L (136-145)
[2022-11-04 15:08] LABS: Endomysial Antibody IgA Negative (Negative); Immunoglobulin A 129 mg/dL (87-352); t-Transglutaminase IgA <2 U/mL (0-3)
[2022-11-07 20:07] LABS: Pancreatic Elastase, Fecal 106 (>200)
[2022-11-10 09:08] LABS: Calprotectin, Stool 22 ug/g (0-120)
== END | disposition home or self-care (01) ==
LOC: LAB 08:39
PROVIDERS: PCP Nurse Practitioner Family; Referring Provider Internal Medicine Gastroenterology; Visit Provider Internal Medicine Gastroenterology
DX: K50.90 Crohn's disease, unspecified, without complications (principal)
CPT/HCPCS: 36415; 80053; 82653; 82784; 83516; 83630; 83993; 85025; 85652; 86140; 86255

== ENCOUNTER → 2022-11-16 | Outpatient (CLI) | payer BC, SELFPAY ==
[2022-11-16 18:19] LABS: T4 Free Direct 1.32 ng/dL (0.76-1.46); Thyroid Stim Hormone (TSH) 3.99 uIU/mL (0.358-3.74)
== END | disposition home or self-care (01) ==
LOC: BFHLAB 14:15
PROVIDERS: PCP Nurse Practitioner Family; Referring Provider Nurse Practitioner Family; Visit Provider Nurse Practitioner Family
DX: E03.9 Hypothyroidism, unspecified (principal)
CPT/HCPCS: 36415; 84439; 84443

== ENCOUNTER → 2023-05-09 | Outpatient (CLI) | payer BC, SELFPAY ==
[2023-05-12 09:08] LABS: Alternaria alternata 2.69 kU/L (Class III); Aspergillus fumigatus <0.10 kU/L (Class 0); Bahia Grass <0.10 kU/L (Class 0); Bermuda Grass 0.14 kU/L (Class 0/I); Bluegrass, Kentucky <0.10 kU/L (Class 0); Cat Hair/Dander, Standard <0.10 kU/L (Class 0); Cedar, Mountain <0.10 kU/L (Class 0); Cladosporium herbarum <0.10 kU/L (Class 0); Cockroach, American 0.41 kU/L (Class I); D farinae Mite 0.46 kU/L (Class I); Dog Epithelia <0.10 kU/L (Class 0); Elm, American White <0.10 kU/L (Class 0); Hazelnut Tree <0.10 kU/L (Class 0); Hickory, White <0.10 kU/L (Class 0); Johnson Grass <0.10 kU/L (Class 0); Maple/Box Elder <0.10 kU/L (Class 0); Mucor racemosus <0.10 kU/L (Class 0); Mugwort <0.10 kU/L (Class 0); Mulberry, White <0.10 kU/L (Class 0); Nettle <0.10 kU/L (Class 0); Oak, White <0.10 kU/L (Class 0); Penicillium chrysogen <0.10 kU/L (Class 0); Pigweed, Rough <0.10 kU/L (Class 0); Plantain, English <0.10 kU/L (Class 0); Ragweed, Short/Common 0.14 kU/L (Class 0/I); Sheep Sorrel(Dock) <0.10 kU/L (Class 0); Stemphylium herbarum <0.10 kU/L (Class 0); Sweet Gum <0.10 kU/L (Class 0); Sycamore, American <0.10 kU/L (Class 0)
== END | disposition home or self-care (01) ==
LOC: LAB 08:25
PROVIDERS: PCP Nurse Practitioner Family; Referring Provider Internal Medicine Gastroenterology; Visit Provider Internal Medicine Gastroenterology
DX: R19.7 Diarrhea, unspecified (principal); K50.90 Crohn's disease, unspecified, without complications; K31.A0 Gastric intestinal metaplasia, unspecified
CPT/HCPCS: 36415; 86003

== ENCOUNTER → 2023-05-22 | Outpatient (CLI) | payer BC, SELFPAY | END | disposition home or self-care (01) | LOC: BFHLAB 09:06 | PROVIDERS: PCP Nurse Practitioner Family; Visit Provider Nurse Practitioner Family | DX: E03.9 Hypothyroidism, unspecified (principal) | CPT/HCPCS: 36415; 84439; 84443 ==

== ENCOUNTER → 2023-05-26 | Outpatient (CLI) | payer BC, SELFPAY ==
[2023-06-01 13:07] LABS: Beef <0.10 kU/L (Class 0); Chocolate <0.10 kU/L (Class 0); Codfish <0.10 kU/L (Class 0); Corn <0.10 kU/L (Class 0); Egg, Whole <0.10 kU/L (Class 0); Milk (Cow) <0.10 kU/L (Class 0); Mussels <0.10 kU/L (Class 0); Peanut <0.10 kU/L (Class 0); Pork <0.10 kU/L (Class 0); Salmon <0.10 kU/L (Class 0); Shrimp 0.42 kU/L (Class I); Soybean <0.10 kU/L (Class 0); Tuna <0.10 kU/L (Class 0); Wheat <0.10 kU/L (Class 0)
== END | disposition home or self-care (01) ==
PROVIDERS: PCP Nurse Practitioner Family; Referring Provider Internal Medicine Gastroenterology; Visit Provider Internal Medicine Gastroenterology
DX: R19.7 Diarrhea, unspecified (principal)
CPT/HCPCS: 36415; 86003; 86005

== ENCOUNTER → 2023-09-11 | Outpatient (CLI) | payer BC, SELFPAY ==
--- NOTE | 2023-09-11 07:24 | RAD_ITS ---
INDICATION: BACK PAIN WITH LEFT SIDED RADICULOPATHY EXAMINATION/TECHNIQUE: X-RAY - XR Spine Lumbar Min 4 Views COMPARISON: No relevant prior comparison study available FINDINGS: VERTEBRAE: Preserved vertebral body height. No fracture. 1-2 anterolisthesis of L5 over S1 with bilateral spondylolysis at L5 somewhat obscured by overlying bowel gas on the oblique views. Preservation of the normal lumbar lordosis. No substantial scoliosis. DISCS: Severe narrowing of L5-S1 disc space. The remainder of the disc spaces are within normal limits. INCLUDED ABDOMEN: Nonspecific dilated gaseous small bowel loops with air-fluid levels RAD/L/S Spine Min 4 Views IMPRESSION: Anterolisthesis of L5 over S1 with bilateral spondylolysis and narrowing of L4-L5 disc space. Electronically Signed: Marco Burns MD at 8:16 EDT ,
--- NOTE | 2023-09-11 07:24 | RAD_ITS ---
INDICATION: BACK PAIN WITH LEFT SIDED RADICULOPATHY EXAMINATION/TECHNIQUE: X-RAY - XR Spine Thoracic 3 Views COMPARISON: No relevant prior comparison study available FINDINGS: VERTEBRAE: Preserved vertebral body height. No fracture. No spondylolisthesis. Mild increased kyphosis of the thoracic spine. No substantial scoliosis. DISCS: Disc spaces are within normal limits. Mild endplate spondylosis. INCLUDED CHEST/ABDOMEN: No acute abnormalities. RAD/Thoracic Spine 3 Views IMPRESSION: Mild degenerative changes. Electronically Signed: Marco Burns MD at 9:05 EDT ,
[2023-09-11 11:32] LABS: T4 Free Direct 0.83 ng/dL (0.76-1.46); Thyroid Stim Hormone (TSH) 8.97 uIU/mL (0.358-3.74)
== END | disposition home or self-care (01) ==
PROVIDERS: PCP Nurse Practitioner Family; Referring Provider Nurse Practitioner Family; Visit Provider Nurse Practitioner Family
DX: E03.9 Hypothyroidism, unspecified (principal); M54.50 Low back pain, unspecified; M54.6 Pain in thoracic spine; M54.10 Radiculopathy, site unspecified
CPT/HCPCS: 36415; 72072; 72100; 72110; 84439; 84443

== ENCOUNTER 2023-10-23 07:00 | Outpatient (RCR) | payer BC, SELFPAY ==
--- NOTE | 2023-09-19 07:55 | HP.PTEVAL_ITS ---
Patient's Visit Information Visit Information Visit Information: ZACHARIAH MORGAN is a 47 year old F referred to Physical Therapy by Dr. Fran Pride MD with a diagnosis of Spondylolisthesis, [place]. Date of Evaluation: 09/19/23 Physical Therapist: Jodi Pennington DPT Visit Plan Frequency: 2x /Week Duration: 4 Weeks Plan: Aquatic therapy- focus on core strength/stabilization and decreasing p eripheralization Subjective Subjective: Patient reports that 2 months ago she was stepping outside and she jerked around and hurt her back and it was getting better going to the chiropractor minor adjustments and stim and then helping more a plantar about 4 weeks ago bent over and felt it go and its been really bad ever since- and she continued with chiro and it has not gotten better. So she went to see ortho and he said that she has a spondy that is worse now and he is going to do and MRI and wants you to do PT for a few weeks to see if you can have relief and if not she will go back and see him. She has not continued chiro this week but is not sure if she will or won't go back. She may order a stim unit online. Yesterday was the best day she has had. She is still going to work. 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 The pain is located along both side of the back below the bra line and comes around the flank. Does radiate down the left leg into the calf. Only when she walks or stands- 1/4 a mile. When she sits down the numbness goes away after about 10 minutes. Worst: 8/10 Agg: standing, walking, laying on her belly, flat on her back on a hard surface. Eases: sitting, TENS unit Best: 08/05. Describes the pain as shooting or biting pains with coughing, sneezing when she is changing positions. But when she is just sitting its more dull and achy. She feels that todays its just staying the same but yesterday was a good day. Sleep: disturbed- she can't just roll over. Prior to this she was active but this is limiting her mobility. No loss or change in bowel or bladder. She has had therapy for her shoulder prior and did well. PMHx/Meds: no changes since ortho visit. Objective Objective: Posture: guarded- upright Gait: guarded- decreased arm swing and trunk rotation HR/TR: able no deviation noted Lumbar ROM: Forward Flexion: hands to knees, Extn: mod limited, SB: WNL, Rot: mod limited. All limitations with discomfort- movements with hesitation. All other LE ROM WFL Palpation: tender along paraspinals of the lumbar and thoracic spine left. Strength: Ankle: 5/5 bilateral. Knee: 5/5 Bilateral, Hip: Right: 4+/5 throughout, Left: Flexion: 4/5, Extn: 4/5 IR/ER: 4/5, Abd: 4+/5 Add: 4+/5 all hip testing reports discomfort Flex: HS: severe, Gastroc: severe Reflex: 2+ patellar bilateral Sensation: WNL to gross touch bilateral LE Special Tests: Dural signs: positive All testing performed in sitting due to increased s/s in supine/prone Special Tests L/S Slump test left side: Positive L/S Slump test right side: Positive Balance/Special Test Scores Oswestry Low Back Score: 19 Goals Goal 1:: Patient will report participation in home exercise program activities a minimum of 5 days per week, as adjunct to skilled physical therapy intervention in preparation for independent home management upon discharge. Goal Time Frame: 4-6 Weeks Goal 2:: Patient will maintain proper posture t/o tx session to demo increased core s/s Goal Time Frame: 4-6 Weeks Goal 3:: Patient will report no s/s down her left leg for 1 week Goal Time Frame: 4-6 Weeks Goal 4:: Patient will report 80% improvement Goal Time Frame: 4-6 Weeks Rehabilitation Potential Physical Therapy Diagnosis: Patient presents with decreased ROM, LE and core strength/stabilization, flexibility and muscular endurance leading to increased dural signs with decreased ability to perform ADL's Rehabilitation Potential: Fair Anticipated Interventions Patient/Client Instruction: Educate patient on: Benefits of Fitness Program Therapeutic Exercise to Include: Strength training, Endurance training, Body mechanics, Postural training, Neuromotor development, In an aquatic setting, Dynamic Lumbar Stabilization and Scapular Strength/Stabilization For the Purpose of:: To improve muscle performance and motor function Text: Thank you for the opportunity to evaluate your patient. For Medicare and Medicare HMO plans, please review the plan of care and approve it. It will need to be FAXED BACK to us at [phone] for Medicare purposes. For Medicare only, by signing this I certify the plan of care. Please let me know if there are questions or concerns regarding this plan of care. Physician Signature: Date:
--- NOTE | 2023-10-23 07:16 | HP.PTDCSUM ---
Discharge Summary D/C summary: It has been my pleasure to treat ZACHARIAH MORGAN referred by Dr. Fran Pride MD, with the diagnosis of Spondylolisthesis, Lumbar Region for a total of 9 visit(s). Discharge Date: Please see the following information for a summary of their discharge status. Subjective Subjective: Patient reports that the pain is a lot better but its still the hips- she still having difficulty and pain standing and walking long distances. She walks half a block inside and then her left leg still does the N/T sensation. If she sits down the pain decreases. She feels that she is 50% better. She does not have a return visit to the MD but plans to make and apt when she is finished with PT. The N/T sensation is the same amount. Sleep is still disturbed. She is not as slow with her movements but still not as smooth as before. Pain LB: Pain Intensity (Out of 10): 2 Overall Improvement % Improvement: 50 Objective Objective/Function: Posture: slightly guarded- upright Gait: good arm swing and rotation- good pace HR/TR: able no deviation noted Lumbar ROM: Forward Flexion: hands ankles, Extn: mild limited, SB: WNL, Rot: mod limited. All limitations with mild discomfort- movements with hesitation. All other LE ROM WFL Palpation: not tender to touch Strength: Ankle: 5/5 bilateral. Knee: 5/5 Bilateral, Hip: Right: 4+/5 throughout, Left: 4+/5 throughout no pain Flex: HS: mod, Gastroc: mod Reflex: 2+ patellar bilateral Sensation: WNL to gross touch bilateral LE Special Tests: Dural signs: positive Goals Goal 1:: Patient will report participation in home exercise program activities a minimum of 5 days per week, as adjunct to skilled physical therapy intervention in preparation for independent home management upon discharge. Goal Progress: Goal Met Goal 2:: Patient will maintain proper posture t/o tx session to demo increased core s/s Goal Progress: Progressing Goal 3:: Patient will report no s/s down her left leg for 1 week Goal Progress: Not Progressing Goal 4:: Patient will report 80% improvement Goal Progress: Progressing Plan Plan: 10/22: Discharge to return to MD for further evaluation- educated to continue exercises and when N/T start to attempt to decrease as soon as possible as this is pressure on the nerve root. IE: Aquatic therapy- focus on core strength/stabilization and decreasing peripheralization D/C Information d/c sentence: If there are questions or concerns regarding this patient's physical therapy, please feel free to call me at [phone]. Thank you for the referral of this patient. Sincerely, Jodi Pennington, DPT Balance/Gait/Functional tests Balance/Special Test Scores Oswestry Low Back Score: 22 Improvement % Improvement: 50
== END 2023-10-23 12:23 | disposition home or self-care (01) ==
LOC: PT 07:00
PROVIDERS: PCP Nurse Practitioner Family; Referring Provider Orthopaedic Surgery Orthopaedic Surgery of the Spine; Visit Provider Orthopaedic Surgery Orthopaedic Surgery of the Spine
DX: M43.16 Spondylolisthesis, lumbar region (principal)
CPT/HCPCS: 97014; 97113; 97162; 97164; G0283

== ENCOUNTER → 2023-12-19 | Outpatient (CLI) | payer BC, SELFPAY ==
[2023-12-19 08:45] LABS: ALB/GLOB Ratio 1.2 RATIO (0.9-2.4); AST(SGOT) 29 U/L (15-37); Alanine Aminotransfer ALT/SGPT 46 U/L (13-56); Albumin, Serum 3.6 g/dL (3.2-5.0); Alkaline Phosphatase 55 U/L (45-117); Anion Gap 5 (5-15); BUN 6 mg/dL (7-18); BUN/Creat Ratio 7.4 RATIO (10-20); Calcium,Total 8.9 mg/dL (8.5-10.1); Chloride 103 mmol/L (98-107); Cholesterol 216 mg/dL (200); Creatinine, Serum 0.81 mg/dL (0.55-1.02); EST Glomerular Filtration Rate 81 mL/min (>60); Est Glom Filt Rate - Afr Amer 98 mL/min (>60); Globulin 3.1 g/dL (2.2-4.2); Glucose 87 mg/dL (74-106); High Density Lipoprotein 103 mg/dL; Potassium 3.7 mmol/L (3.5-5.1); Protein, Total 6.7 g/dL (6.4-8.2); Sodium Level 136 mmol/L (136-145); T4 Free Direct 0.83 ng/dL (0.76-1.46); Triglycerides 86 mg/dL; Very Low Density Lipoprotein 17 mg/dL (5-40)
[2023-12-19 09:41] LABS: Absolute Neutrophil Count 3.3 X10^3/uL (2.0-7.7); Basophil# 0.08 X10^3/uL; Basophil% 1.3 % (0-1); Eosinophil# 0.13 X10^3/uL; Hematocrit 40.1 % (37-47); Lymphocyte % 34.4 % (19-41); Mean Corp Hgb Conc 32.4 g/dL (32-36); Mean Corpuscular Hgb 32.3 pg (27.0-32.0); Mean Corpuscular Volume 99.8 fL (81-99); Mean Platelet Vol. 10.1 fl (6.2-12.0); Monocyte# 0.63 X10^3/uL; Monocyte% 9.9 % (0-10); NRBC Flagged by Analyzer 0 % (0-5); Neutrophil # 3.31 X10^3/uL (2.7-7.7); Neutrophil % 51.8 % (47-70); Platelet Count 306 K/mm3 (150-450); RBC Distribution Width CV 12.8 % (11.6-14.6); RBC Distribution Width SD 47.2 fl (35.1-43.9); Red Blood Count 4.02 M/mm3 (4.2-5.4); White Blood Count 6.4 K/mm3 (4.4-11.0)
== END | disposition home or self-care (01) ==
LOC: LAB 08:01
PROVIDERS: PCP Nurse Practitioner Family; Referring Provider Nurse Practitioner Family; Visit Provider Nurse Practitioner Family
DX: Z00.01 Encounter for general adult medical examination with abnormal findings (principal); E03.9 Hypothyroidism, unspecified
CPT/HCPCS: 36415; 80053; 80061; 84439; 84443; 85025

== ENCOUNTER → 2024-01-29 | Outpatient (CLI) | payer BC, SELFPAY ==
[2024-01-29 16:59] LABS: Free T3 1.7 pg/mL (2.18-3.98)
[2024-02-10 02:08] LABS: Anti-Thyroglobulin AB > 2250.0 IU/mL (0.0-0.9); Thyroglobulin RIA 14 ng/mL (.); Thyroid Peroxidase AB 170 IU/mL (0-34); Thyroxin Bind Glob (TBG) 11 ug/mL (13-39)
== END | disposition home or self-care (01) ==
LOC: LAB 14:40
PROVIDERS: PCP Nurse Practitioner Family; Referring Provider Internal Medicine Gastroenterology; Visit Provider Internal Medicine Gastroenterology
DX: R19.5 Other fecal abnormalities (principal); R19.7 Diarrhea, unspecified
CPT/HCPCS: 36415; 84432; 84442; 84481; 86376; 86800

== ENCOUNTER 2024-12-12 21:03 | Emergency (ER) | payer BC, SELFPAY ==
[2024-12-12 21:03] VITALS: BP 126/84; PULSE 90; RESP 16; TEMP 36.6; O2SAT 98; BMI 28.9
--- NOTE | 2024-12-12 22:09 | CT_ITS ---
PROCEDURE: BRAIN/HEAD WITHOUT CONTRAST 12/12/2024 REASON FOR EXAM: HEADACHE TECHNIQUE: BRAIN/HEAD WITHOUT CONTRAST Coronal and Sagittal reconstruction series were provided. One or more dose reduction techniques were used (e.g., Automated exposure control, adjustment of the mA and/or kV according to patient size, use of iterative reconstruction technique. RADIATION DOSE SUMMARY: CTDlvol: 44.99 mGy DLP: 863.60 mGycm COMPARISON: None FINDINGS: CT SCAN OF THE BRAIN WITHOUT IV CONTRAST CLINICAL INDICATION: Migraine headache TECHNIQUE: Axial and reformatted sagittal and coronal images of the brain obtained without IV contrast administration. Normal size of the ventricles and extra-axial spaces for the patient's age. Normal white matter tracts of the supratentorial brain. Normal basal ganglia and thalami. Normal brainstem. Normal cerebellum. There is no demonstrated extra-axial, intraparenchymal, or intraventricular hemorrhage. There are no findings of an acute ischemic infarction. Normal calvarium. There is no demonstrated fracture. Normal soft tissue structures. Normal visualized paranasal sinuses. CT/Brain/Head without Contrast IMPRESSION: Unremarkable CT scan of the brain. Reading [facility]
--- OUTSIDE RECORDS SUMMARY | 2024-12-12 22:12 | XMS RPT_ITS | CCD ---
Author Organization [facility] Care Team Providers Care Service Architect Name Role Phone Dr. Marium Jeffery Primary Care Provider [phone] Dr. Marium Jeffery Referring Provider Dr. Chirag Marte Attending Provider [phone] Dr. Oscar Blas Primary Care Provider [phone] Dr. Oscar Blas Referring Provider Dr. Chirag Marte Other Provider [phone] Oscar Blas MD Primary Care Provider Dr. Oscar Blas Primary Care Provider Dr. Oscar Blas Referring Provider Dr. Letty Kurtz Attending Provider [phone] JASPER Espana Attending Provider Dr. Chirag Marte Attending Provider [phone] Dr. Chirag Marte Referring Provider [phone] Dr. Chirag Marte Other Provider [phone] Dr. Oscar Blas Primary Care Provider Dr. Oscar Blas Referring Provider Dr. Chirag Marte Attending Provider [phone] Dr. Oscar Blas Referring Provider Unavailable Dr. Chirag Marte Attending Provider [phone] JOHN Barajas Primary Care Provider [phone] Oscar Blas MD Primary Care Provider [phone] Karl, MEDICAID NURSE-C [place] Primary Care Provider Karl, MEDICAID NURSE-C [place] Referring Provider Friend, Dr. Mitchell Attending Provider [phone] Dr. Fran Pride Attending Provider Dr. Abdullahi Martinez Attending Provider Roopa URRUTIA, Oscar Valdez Primary Care Provider OSCAR BLAS Primary Care Unavailable DILCIA DELUCA Attending Unavailable ROOPA, OSCAR VALDEZ Primary Care Unavailable ROOPA, OSCAR VALDEZ Referring Unavailable FRIEND, CHIRAG Cantu Referring Unavailable ROOPA, OSCAR VALDEZ Primary Care Unavailable VINITA TOBAR Attending Unavailable Karl, Indy Primary Care Unavailable Friend, Chirag Attending Unavailable Friend, Chirag Referring Unavailable Karl, Indy Primary Care Unavailable Karl, Indy Attending Unavailable Karl, Indy Referring Unavailable Fran Pride Attending Unavailable Fran Pride Referring Unavailable Karl, Indy Primary Care Unavailable Karl, Indy Attending Unavailable Karl, Indy Referring Unavailable Karl, Indy Primary Care Unavailable Friend, Chirag Attending Unavailable Friend, Chirag Referring Unavailable Karl, Indy Primary Care Unavailable Friend, Chirag Referring Unavailable Karl, Indy Primary Care Unavailable Friend, Chirag Attending Unavailable Friend, Chirag Attending Unavailable Karl, Indy Referring Unavailable Karl, Indy Primary Care Unavailable Roopa, Oscar Referring Unavailable Karl, Indy Primary Care Unavailable Friend, Chirag Attending Unavailable Karl, Indy Primary Care Unavailable Friend, Chirag Attending Unavailable Karl, Indy Referring Unavailable Fran Pride Attending Unavailable Karl, Indy Referring Unavailable Karl, Indy Primary Care Unavailable Abdullahi Martinez Attending Unavailable Karl, Indy Primary Care Unavailable Karl, Indy Primary Care Unavailable Karl, Indy Attending Unavailable Allergies Allergy Classification Reported Allergen(s) Allergy Type Date of Onset Reaction(s) Facility (20 sources) Cortisone; Translations: [CORTISONE] Drug Allergy 09-30-2015 Hives [facility] (20 sources) Penicillins; Translations: [PENICILLINS] Allergy to substance 03-09-2005 Unknown [facility] (7 sources) Amoxicillin; Translations: [AMOXICILLIN] Drug Allergy 09-21-2015 Unknown [facility] (7 sources) Doxycycline; Translations: [DOXYCYCLINE] Drug Allergy 09-21-2015 Unknown [facility] (1 source) Cortisone Drug Allergy 09-14-2023 [facility] Repository Medications Current Medications Medication Drug Class(es) Dates Sig (Normalized) Sig (Original) acetaminophen 325 mg / HYDROcodone bitartrate 5 mg oral tablet (4 sources) Opioid Agonist Start: 10-11-2016 take 1 tablet by mouth every four hours as needed Hydrocodone-Aceta minophen Active 1 - 2 TABLET PO EVERY 4 HOURS NEEDED October 11, 2016 11:48am 12 hr buPROPion hydrochloride 150 mg extended release oral tablet (19 sources) Aminoketone Start: 10-11-2016 take 150 mg by mouth twice daily Bupropion Hcl Active 150 MG PO TWICE A DAY October 11, 2016 11:48am Start: 10-11-2016 take 150 mg by mouth twice naresh ly Bupropion Hcl Active 150 MG PO TWICE A DAY October 11, 2016 12:00am take 1 tablet by keeley twice daily buPROPion XL (WELLBUTRIN XL) 150 mg 24 hr tablet Take 150 mg by mouth twice daily. Active Comment on above: Take 150 mg by mouth twice daily. Diltiazem 2% / Lidocaine 5% Ointment (Compound) [Diltiazem 2%/Lidocaine 5% Ointment (Compound)] (Diltiazem 2%/Lidocaine 5% ) ointment (7 sources) Start: 01-17-2022 Diltiazem 2% / Lidocaine 5% Ointment (Compound) [Diltiazem 2%/Lidocaine 5% Ointment (Compound)] (Diltiazem 2%/Lidocaine 5% ) ointment Active 0 .ROUTE January 17, 2022 12:00am apply to area two to three times daily Start: 01-17-2022 Diltiazem 2% / Lidocaine 5% Ointment (Compound) [Diltiazem 2%/Lidocaine 5% Ointment (Compound)] (Diltiazem 2%/Lidocaine 5% ) ointment Active 0 .ROUTE January 16, 2022 11:00pm apply to area two to three times daily docusate sodium 100 mg oral capsule (4 sources) Start: 10-18-2016 take 1 capsule by mouth twice daily Docusate Sodium (Colace) 100 MG capsule Active 100 MG PO TWICE A DAY October 18, 2016 8:05am escitalopram 20 mg oral tablet (19 sources) Serotonin Reuptake Inhibitor Start: 02-06-2014 take 1 tablet by mouth once daily escitalopram oxalate (LEXAPRO) 20 mg tablet Indications: Adjustment disorder with depressed mood Take 1 tablet by mouth once daily. 30 tablet 0 02/06/2014 Active Comment on above: Take 1 tablet by keeley th once daily. ibuprofen 600 mg oral tablet (4 sources) Nonsteroidal Anti-inflammatory Drug Start: 10-18-2016 take 600 mg by mouth every six hours Ibuprofen Active 600 MG PO EVERY 6 HOURS October 18, 2016 8:05am levothyroxine sodium 0.05 mg oral tablet (20 sources) l-Thyroxine Start: 08-29-2015 levothyroxine (SYNTHROID) 50 mcg tablet Take 75 mcg by mouth once daily. 08/29/2015 Active Start: 08-29-2015 levothyroxine (SYNTHROID) 75 mcg tablet Take 175 mcg by mouth once daily. 0 08/29/2015 Active Start: 02-09-2015 take 175 ug by mouth once shailesh y Levothyroxine Active 175 MCG PO DAILY February 09, 2015 10:42am Start: 02-09-2015 End: 09-14-2023 take 250 ug by mouth once daily Levothyroxine Active 2 50 MCG PO DAILY September 14, 2023 8:59am take 1 tablet by keeley th once daily before breakfast levothyroxine (SYNTHROID) 200 mcg tablet Take 200 mcg by mouth daily before breakfast. Active Comment on above: Take 175 mcg by mout h once daily. MEDICATION, NON-DATABASE (6 sources) MEDICATION, NON- DATABASE Amberen Active MEDICATION, NON- DATABASE Amberen 0 Active Comment on above: Amberen naproxen 500 mg oral tablet (2 sources) Nonsteroidal Anti-inflammatory Drug Start: 024 take 500 mg by mouth twice daily Naproxen Active 500 MG PO TWICE A DAY September 14, 2023 12:00am phenazopyridine hydrochloride 200 mg oral tablet (4 sources) Start: 017 take 1 tablet by mouth every eight hours Phenazopyridine (Pyridium) 200 MG tablet Active 200 MG PO EVERY 8 HOURS October 18, 2016 8:05am Completed/Discontinued Medications Medication Drug Class(es) Dates Sig (Normalized) Sig (Original) azithromycin 250 mg oral tablet (7 sources) Macrolide Antimicrobial Start: 02-21-2022 End: 02-21-2022 Azithromycin Discontinued 0 PO .COMPLEX 6 February 21, 2022 12:00am February 21, 2022 7:26am take 500 mg today (day 1), then 250 mg for 4 days (days 2-5) PO benzonatate 100 mg oral capsule (5 sources) Non-narcotic Antitussive Start: 12-19-2018 End: 02-15-2024 take 2 capsules by mouth three times daily as needed for cough benzonatate (TESSALON PERLE) 100 mg capsule Indications: Sinobronchitis Take 2 capsules by mouth three times daily as needed for Cough. 30 capsule 12/19/2018 02/15/2024 Discontinued Comment on above: Take 2 capsules by m outh three times daily as needed for Cough. budesonide 3 mg delayed release oral capsule (20 sources) Corticosteroid Start: 11-30-2021 End: 06-22-2023 take 6 mg by mouth once daily Budesonide Discontinued 6 MG PO DAILY 60 February 13, 2023 10:57am June 22, 2023 10:34am Comment on above: Take 6 mg by mouth o nce daily. cephalexin 500 mg oral capsule (7 sources) Cephalosporin Antibacterial Start: 02-21-2022 End: 03-03-2022 take 500 mg by mouth every twelve hours Cephalexin Discontinued 500 MG PO Q12H 20 February 21, 2022 12:00am March 03, 2022 12:03am doxycycline hyclate 100 mg oral tablet (6 sources) Tetracycline-class Drug Start: 11-08-2022 End: 08-03-2023 take 100 mg by mouth twice daily Doxycycline Hyclate Discontinued 100 MG PO TWICE A DAY 60 November 08, 2022 12:00am August 03, 2023 9:29am folic acid 0.8 mg oral tablet (20 sources) Start: 07-06-2022 End: 04-17-2023 take 0.8 mg by mouth once daily Folic Acid Discontinued 0.8 MG PO DAILY 30 January 09, 2023 9:51am April 17, 2023 12:21pm mesalamine 500 mg extended release oral tablet (6 sources) Aminosalicylate Start: 05-27-2022 End: 07-06-2022 take 2 capsules by mouth twice daily Mesalamine (Pentasa) 500 mg capsule, extended release Discontinued 1000 MG PO TWICE A DAY May 27, 2022 1:00am July 06, 2022 5:33pm pantoprazole 40 mg delayed release oral tablet (17 sources) Proton Pump Inhibitor Start: 09-07-2021 End: 08-03-2023 take 40 mg by mouth once daily Pantoprazole Discontinued 40 MG PO DAILY November 30, 2021 3:08pm August 03, 2023 9:30am Comment on above: Take 40 mg by mouth once daily. sucralfate 100 mg/ml oral suspension (13 sources) Aluminum Complex Start: 09-07-2021 End: 10-07-2021 take 1 mL by mouth twice daily Sucralfate (Carafate) 100 mg/mL suspension Discontinued 10 ML PO TWICE A DAY 600 September 07, 2021 12:00am October 07, 2021 12:03am sulfaSALAzine 500 mg delayed release oral tablet (20 sources) Aminosalicylate Start: 07-06-2022 End: 04-17-2023 take 0.5 g by mouth twice daily Sulfasalazine Discontinued 0.5 GM PO TWICE A DAY January 09, 2023 9:51am April 17, 2023 12:21pm take 500 mg by mouth twice daily SULFASALAZINE ORAL Take 500 mg by mouth two times a day. Active Problems Active Problems Problem Classification Problem Date Documented Da te Episodic/Chronic Abdominal pain (19 sources) Abdominal pain; Translations: [Unspecified abdominal pain] Episodic Adjustment disorders (6 sources) Adjustment disorder with depressed mood; Translations: [Adjustment disorder with depressed mood] Onset: 10-03-2005 05-15-2009 Chronic Anal and rectal conditions (8 sources) Anal fissure; Translations: [Anal fissure, unspecified] Episodic Menstrual disorders (20 sources) Menorrhagia; Translations: [Excessive and frequent menstruation with regular cycle] 10-17-2016 Chronic Nonmalignant breast conditions (8 sources) Fibrocystic disease of breast; Translations: [Diffuse cystic mastopathy of unspecified breast] Onset: 09-30-2015 09-30-2015 Chronic Other acquired deformities (2 sources) Lumbar spondylolisthesis; Translations: [Spondylolisthesis, lumbar region] 09-14-2023 Episodic Other acquired deformities (2 sources) Spondylolisthesis, lumbar region; Translations: [Acquired spondylolisthesis] 09-14-2023 Episodic Other disorders of stomach and duodenum (15 sources) Intestinal metaplasia of gastric mucosa; Translations: [Intestinal metaplasia of stomach] Episodic Other gastrointestinal disorders (6 sources) Irritable bowel syndrome; Translations: [Irritable bowel syndrome without diarrhea] Onset: 03-09-2005 05-15-2009 Chronic Other gastrointestinal disorders (1 source) Intestinal malabsorption; Translations: [Intestinal malabsorption, unspecified] 02-15-2024 Chronic Other gastrointestinal disorders (11 sources) Contents of stool - finding; Translations: [Other fecal abnormalities] 09-23-2021 Episodic Other gastrointestinal disorders (8 sources) Diarrhea; Translations: [Diarrhea, unspecified] 11-30-2021 Episodic Other gastrointestinal disorders (8 sources) Diarrhea, unspecified; Translations: [Diarrhea] Onset: 01-29-2024 08-18-2022 Episodic Other gastrointestinal disorders (1 source) Other fecal abnormalities; Translations: [Other fecal abnormalities] Onset: 02-29-2024 Episodic Other nervous system disorders (13 sources) Abnormal sensation; Translations: [Other disturbances of skin sensation] 04-29-2015 Episodic Other skin disorders (13 sources) Mass of head; Translations: [Localized swelling, mass and lump, head] 04-29-2015 Episodic Otitis media and related conditions (8 sources) Acute left otitis media; Translations: [Otitis media, unspecified, left ear] Episodic Pancreatic disorders (not diabetes) (10 sources) Pancreatic insufficiency; Translations: [Other specified diseases of pancreas] 10-18-2021 Episodic Regional enteritis and ulcerative colitis (16 sources) Crohn's disease; Translations: [Crohn's disease, unspecified, without complications] Onset: 05-09-2023 Chronic Spondylosis; intervertebral disc disorders; other back problems (6 sources) Lumbosacral spondylosis without myelopathy; Translations: [Spondylosis without myelopathy or radiculopathy, lumbosacral region] Onset: 11-24-2000 05-15-2009 Chronic Substance-related disorders (19 sources) Smoker; Translations: [Nicotine dependence, unspecified, uncomplicated] Onset: 07-16-2008 05-15-2009 Chronic Thyroid disorders (9 sources) Hypothyroidism; Translations: [Hypothyroidism, unspecified] Onset: 01-15-2009 05-15-2009 Chronic Unclassified (1 source) Low back pain, unspecified; Translations: [Low back pain, unspecified] Onset: 09-14-2023 Unclassified (1 source) Gastric intestinal metaplasia, unspecified; Translations: [Gastric intestinal metaplasia, unspecified] Onset: 05-09-2023 Past or Other Problems Problem Classification Problem Date Documented Date Episodic/Chronic Hemorrhoids (13 sources) Hemorrhoids; Translations: [Unspecified hemorrhoids] Onset: 03-09-2005 05-15-2009 Episodic Nonmalignant breast conditions (6 sources) Breast lump; Translations: [Unspecified lump in unspecified breast] Onset: 09-30-2015 09-30-2015 Episodic Other screening for suspected conditions (not mental disorders or infectious disease) (16 sources) Patient encounter status; Translations: [Encounter for screening mammogram for malignant neoplasm of breast] Onset: 09-29-2016 Episodic Residual codes; unclassified (6 sources) Family history of ischemic heart disease and other diseases of the circulatory system; Translations: [Family history of other cardiovascular diseases] Onset: 07-16-2008 05-15-2009 Episodic Spondylosis; intervertebral disc disorders; other back problems (8 sources) Low back pain; Translations: [Lumbago] Onset: 03-09-2005 05-15-2009 Episodic Results Test Name Value Interpretation Reference Range Facility [facility] 02-15-2024 CNOV Office Visit (ENAGST ) ZACHARIAH SPEARS ([id number]) 1975 F Date Time Provider Department 02/15/24 9:00 AM VINITA TOBAR During your visit today, we recorded the following information about you: Pulse Blood pressure Weight Height 77/minute 147/97 71.7 kg 1.575 m Jonathan Owens MD 02/15/2024 10:21 AM Addendum PCP: Oscar Blas MD. Referring Provider: Chirag Marte DO. Gastroenterology Subjective The history is provided by the patient. Zachariah Spears is a 48 year old White female with PMHx of Hypothyroidism, fibrocystic disease of breast , Crohn's disease, depression who presented to the endocrine clinic for hypothyroidism evaluation and management. History of present illness Initial History: (02/15/24) 48 year old female was referred by her GI doctor for Hypothyroidism. Was initially diagnosed with hypothyroidism in early . Had evaluation for galactorrhea from right breast in 2008 [place]. At that time TSH was elevated to 21, states that she was already on Synthroid at that time. Underwent milk ducts removal surgery in right breast. No other albs found in [facility] prior to 2008. Follows with Gynecology for yearly mammogram, has a lump in left breast and fibrocystic disease, has undergone breast biopsies in past consistent with fibroadenoma, fibrocystic disease and benign breast tissue. Diagnosed with Crohn's disease 2 years ago- On Budesonide and Sulfasalazine. She had multiple labs done at [facility], records currently unavailable in [facility], will try to get records. During office visit she had TSH from November 2023 which was elevated to 14. Her dose of Levothyroxine was increased to 275 mcg 3 months ago. Patient takes levothyroxine with other medications in morning around 7 am. She takes 275 mcg- 200 mcg +50 mcg +half of 50 mcg tablet. No coffee or food for a couple of hours after medications. Does not take PPI, antacids, multivitamins, calcium biotin supplements. Has chronic diarrhea due to Crohn's which she says is better than before now. No anterior neck enlargement, neck pressure, choking, globus sensation, hoarseness of voice, snoring, or trouble swallowing No history of tempeture intolerance, weight gain, hair loss, dry skin or nail changes. Does have occasional night sweats. No history of radiation treatment for chest, head or neck, prior thyroid US or biopsies. No family history of thyroid conditions or thyroid cancer. Obstetric History: . Last 2009. Menses are regular. Hysterectomy 2015 at [facility], had endometrial biopsies and LEEP due to postcoital bleeding and was advised hysterectomy Review of Systems Constitutional: Positive for malaise/fatigue. Negative for chills, fever and weight loss. Night sweats Eyes: Negative for blurred vision. Respiratory: Negative for cough, shortness of breath and stridor. Cardiovascular: Negative for chest pain and palpitations. Gastrointestinal: Positive for diarrhea (crohns). Negative for nausea and vomiting. Musculoskeletal: Positive for back pain. Negative for myalgias. Neurological: Positive for tremors (anxiety after driving in traffic). Negative for dizziness and headaches. HISTORY REVIEWED (electronic chart updated): PAST MEDICAL HISTORY 05/26/2014: Abnormal findings on diagnostic imaging of breast No date: Adjustment disorder with depressed mood 08/26/2014: Breast lump Comment: bilateral multiple palpable nodularities No date: Carpal tunnel syndrome, bilateral No date: Crohn's disease (HCC) 05/20/2014: Discharge from nipple Comment: right breast, intermittent 08/26/2014: Fibrocystic disease of breast Comment: stable No date: Hypothyroid 01/2005: Irritable bowel syndrome 11/2000: Lumbosacral spondylosis without myelopathy Comment: L5-S1 No date: Tobacco use disorder 02/18/2014: Vitamin D deficiency PAST SURGICAL HISTORY 2003: APPENDECTOMY 05/16/2014: BREAST BIOPSY Comment: right breast 0 oclock excisional biopsy - fibroadenoma. Excisional biopsy left breast 11 oclock - unremarkable adipose tissue, possiblity of a lipoma cannot be exdluded, however clinical and radiographic correlation is required 05/20/2019: BREAST BIOPSY CORE; Left Comment: benign breast tissue with focal stromal fibrosis, 12 oclock 8 cm from nipple No date: CARPAL TUNNEL 05/28/2010: DELIVERY ONLY Comment: , low transverse Dr. Moss 12/01/11: I AND D ABSCESS Comment: anal abscess No date: PAST SURGICAL HISTORY OF Comment: wisdom tooth extraction x 2 2008: PAST SURGICAL HISTORY OF Comment: milk duct removal on right breast FAMILY HISTORY Problem Relation Age of Onset Ischemic Heart Disease Mother heart attack age 55 Allergies Mother Cancer Mother lung and bone Cancer Paternal Uncle lung, metastatic Cancer Paternal Grandfather (more content not included)... [facility] Telephone ([employer]) ZACHARIAH SPEARS ([id number]) 1975 F Date Time Provider Department 02/15/24 VINITA TOBAR During your visit today, we recorded the following information about you: Vinita Tobar MD 02/15/2024 10:49 AM Signed Please obtain the most recent thyroid labs from PCP, or from [facility] lab Marci Chau 02/15/2024 2:07 PM Signed I called the PCP to get thyroid labs records LVM in there office General family medicine # [phone]. Marci Chau February 15, 2024 2:07 PM Aura Mo 02/20/2024 9:33 AM Addendum Sent fax to [phone] to request records for thyroid. Didn't appear anything was sent, didn't see anything in the patients chart that was recent. Fax confirmation job number: [id number] There were a few things in the outside charts scanned into docs for the nurse/MA to review or forward to the doctor. While we wait for the PCP office to send what they have. Aura Mo February 20, 2024 9:32 AM Allergies As of Date: 02/15/2024 Noted Allergy Reaction AMOXICILLIN 09/21/2015 16 - Unknown CORTISONE 09/30/2015 4 - Hives DOXYCYCLINE 09/21/2015 16 - Unknown PENICILLINS 03/09/2005 16 - Unknown Comments: childhood Date Reviewed: 02/15/2024 Reviewed by: Vinita Tobar MD - Fully Assessed Reason for Visit: Release Of Medical Records [2017] Cmt: Thyroid function test Prescriptions as of 02/20/2024 - SULFASALAZINE ORAL Take 500 mg by mouth two times a day. - levothyroxine (SYNTHROID) 200 mcg tablet Take 200 mcg by mouth daily before breakfast. - budesonide, enteric coated (ENTOCORT EC) 3 mg 24 hr capsule Take 6 mg by mouth once daily. - pantoprazole DR (PROTONIX) 40 mg tablet Take 40 mg by mouth once daily. - MEDICATION, NON-DATABASE Amberen - levothyroxine (SYNTHROID) 50 mcg tablet Take 75 mcg by mouth once daily. - buPROPion XL (WELLBUTRIN XL) 150 mg 24 hr tablet Take 150 mg by mouth twice daily. - escitalopram oxalate (LEXAPRO) 20 mg tablet Take 1 tablet by mouth once daily. Problem List As Of Date 02/15/2024 Noted Resolved Irritable Bowel Syndrome [K58.9] 03/09/2005 Unspecified Hemorrhoids without Mention of Comp*03/09/2005 LOW BACK PAIN [M54.50] 03/09/2005 Lumbosacral Spondylosis without Myelopathy [M47*11/24/2000 Adjustment Disorder with Depressed Mood [F43.21]10/03/2005 Routine Gynecological Examination [Z01.419] 07/16/2008 Class: Chronic Family History of Other Cardiovascular Diseases*07/16/2008 Tobacco Use Disorder [F17.200] 07/16/2008 Unspecified Hypothyroidism [E03.9] 01/15/2009 Fibrous breast lumps [N63.0] 09/30/2015 Fibrocystic breast disease (FCBD) in female [N6*09/30/2015 Visit for screening mammogram [Z12.31] 09/29/2016 Abnormal finding on breast imaging [R92.8] 10/13/2017 Encounter Status:Closed by MARCI CHAU on 02/15/24 Normal [facility] Thyroglobulin w/Anti-TG ABon 02-10-2024 Anti-TG AB > 2250.0 High 0.0-0.9 [facility] Comment on above: Order Comment: Reaso n for Laboratory Test hypothyroidism Result Comment: Thyr oglobulin Antibody measured by Abdelrahman Malden Methodology It should be noted that the presence of thyroglobulin antibodies may not be pathogenic nor diagnostic, especially at very low levels. The assay ironworker apprentice shop has found that four percent of individuals without evidence of thyroid disease or autoimmunity will have positive TgAb levels up to 4 IU/mL. Performed By: #### L 3400.2300, L3300.6820, [id number], L3300.6750 ####[facility] [id number] [place], [place], [id number] TG-ANUSHA 14 ng/mL Normal . [facility] Comment on above: Order Comment: Reaso n for Laboratory Test hypothyroidism Result Comment: This test was developed and its performance characteristics determined by [facility]. It has not been cleared or approved by the Food and Drug Administration. Reference Range: Pubertal Children and Adults: <40 According to the National Academy of Clinical Biochemistry, the reference interval for Thyroglobulin (TG) should be related to euthyroid patients and not for patients who underwent thyroidectomy. TG reference intervals for these patients depend on the residual mass of the thyroid tissue left after surgery. Establishing a post-operative baseline is recommended. The assay quantitation limit is 2.0 ng/mL. Performed By: #### L 3400.2300, L3300.6820, [id number], L3300.6750 ####[facility] [id number] [place], [place], [id number] Thyroid Antibodieson 08-17-2 024 THYR PEROX AB 170 IU/mL High 0-34 [facility] Comment on above: Order Comment: Reaso n for Laboratory Test hypothyroidism Performed By: #### L 3400.2300, [id number], [id number], L3300.6750 ####[facility] [facility] [address] [place], [place], [address] Thyroxin Bind Glob (TBG)on 0 02-10-2024 THYROXIN B GLOB 11 ug/mL Low 13-39 [facility] Comment on above: Order Comment: Reaso n for Laboratory Test hypothyroidism Result Comment: Perf ormed at: - [facility] [id number] [employer]: Chele Simms PhD, Phone: [phone] Performed at: [employer] [address] [place] [id number] [employer]: Popeye Whitaker MD, Phone: [phone] Performed at: - [facility] [id number] [employer]: Epifanio Horne MD, Phone: [phone] Performed By: #### L 3400.2300, L3300.6820, L501.44676, L3300.6750 ####[facility] [address] [place], [address] Free T3on 01-29-2024 Free T3 [Mass/Vol] 1.7 pg/mL Low 2.18-3.98 [facility] Comment on above: Order Comment: [id number] Performed By: #### L 3400.2300, L3300.6820, [id number], L3300.6750 ####[facility] [address], [address] Gastroenterology Visit Repor ton 01-29-2024 Gastroenterology Visit Report [facility] [address] [place] [address] OFFICE VISIT Date of Service: 01/29/24 MR#: [id number] Acct: [id number] Name: ZACHARIAH SPEARS Rep #: [id number] : 1975 Provider: Chirag Marte DO Age/Sex: 48/F Location: [facility] Status: Signed Intake Vital Signs 05/11/22 11:22 09/14/23 08:58 Height 5 ft 3 in 5 ft 2 in Intake Visit Reasons: 6 M FU Allergies Penicillins Allergy (Unknown, Verified 09/14/23 08:58) PT UNSURE OF REACTION cortisone Allergy (Verified 09/14/23 08:58) Hives Medications ???Medication ???Instructions ???Recorded ???Confirmed ???Type escitalopram oxalate 20 mg tablet 20 mg PO DAILY 02/09/15 01/29/24 History bupropion HCl 150 mg tablet,12 hr 150 mg PO BID 10/11/16 01/29/24 History sustained-release folic acid 800 mcg tablet 0.8 mg PO DAILY #30 tabs 04/17/23 01/29/24 Rx sulfasalazine 500 mg 0.5 g PO BID #60 tabs 04/17/23 01/29/24 Rx tablet,delayed release budesonide 3 mg 6 mg (2 x 3 mg) PO DAILY #60 ea 06/22/23 01/29/24 Rx capsule,delayed,extend ed release levothyroxine 175 mcg tablet 250 mcg PO DAILY 09/14/23 01/29/24 History naproxen 500 mg tablet 500 mg PO BID 09/14/23 01/29/24 History PFSH Medical History Abdominal pain, vomiting, and diarrhea Alcohol use Anemia Anxiety Back pain Blister Depression History of Crohn's disease History of IBS Leg cramps Migraine headache Pancreatic insufficiency Restless legs Shortness of breath on exertion Smoker Thyroid disease Wears glasses Surgical History History of History of lumpectomy of left breast History of lumpectomy of right breast Hx of appendectomy Hx of breast biopsy Hx of colonoscopy Hx of hysterectomy Hx of shoulder surgery Family History (Updated 09/14/23 @ 09:07 by Julianne Ortiz MA) Mother Cancer Arthritis Lumbar spondylosis Social History (Updated 09/14/23 @ 09:08 by Julianne Ortiz MA) household members: spouse and children Smoking Status: Current every day smoker tobacco type: cigarettes alcohol intake: current HPI HPI Details: ZACHARIAH SPEARS, is a 48 F who presents to the office today for follow up. PMH includes hypothyroidism, depression (Wellbutrin, Lexapro). Uses NSAIDs frequently for pain. FH mother bone cancer; paternal side with brain, lung and unknown cancers between three people. Prior imaging: ? US abd 3.9.22 with liver measurement 13.7cm. Overall an unremarkably normal exam. *BGI established 3.15.22 with referral from PCP for nausea and diarrhea alternating with constipation and decreased appetite causing weight loss; onset early 2020. Hot flashes have been an issue for her lately also. She is a current smoker with two cigarettes a day. ? Biochemical workup ESR, LDH, CRP, Vit B12, TSH, GAME, ANCA, STELLA comp all WNL Stool testing for fecal fats, calprotectin and giardia WNL.? 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 H.Pylori negative. Colonoscopy Hyperplastic polyp removed from rectum; mild melanosis coli; congested mucosa of sigmoid, transverse and ascending colons; mild cryptitis of cecal cap. OV 6.16.22 with continued use of budesonide with 2-3 formed BM/day Biochemical workup ZHAO, JULIA, without pertinent abnormal results. Crohn???s suggestive (ALCA, AMCA) Stool testing elastase, lactoferrin WNL. OV 9.8.22 with varying stool frequency/consistency. Diarrhea continues and occurs three days a week, on other days she has 2-3 BM a day with soft stool; nausea is much improved and feels it is food triggered. She would like to pursue treatment for gastric metaplasia because of her strong family history. History of precancer cells in her cervix/uterus prompting total hysterectomy. EGD with capsule placement . without abnormality noted. Capsule endoscopy placed. Capsule endoscopy one area of erosion with ulcerative base; mild enteritis. Pentasa 1g BID, expensive. Changed to sulfasalazine and folic acid OV 2.23.23 Nausea mostly resolved save dietary triggers. Stools continue to be frequent 4-5 times a day with soft consistency. Since starting sulfasalazine she has had improvement of frequency. OV 5.11.23 BM 2-3 times a day which is not particularly bothersome; notes mild flare this week with increased BM frequency which she feels is r/t not paying attention to her diet. Stop mesalamine, continue budesonide and sulfasalazine. ? (more content not included)... Normal [facility] CBC W/Diff, Automatedon 06-2 Absolute Lymph 2.20 X10 3/uL Normal 0.83-4.51 [facility] Comment on above: Performed By: #### L 500.4100, L506.0400, L100.0100, L500.4050, L501.9520 ####[facility] [address] [place], [address] Absolute Neut 3.3 X10 3/uL Normal 2.0-7.7 [facility] Comment on above: Performed By: #### L 500.4100, L506.0400, L100.0100, L500.4050, L501.9520 ####[facility] [address] [place], [address] Basophils/100 WBC (Bld) 1.3 % High 0-1 [facility] Comment on above: Performed By: #### L 500.4100, L506.0400, L100.0100, L500.4050, L501.9520 ####[facility] [address] [place], [address] Eosinophils/100 WBC (Bld) 2.0 % Normal 0-5 [facility] Comment on above: Performed By: #### L 500.4100, L506.0400, L100.0100, L500.4050, L501.9520 ####[facility] [address] [place], [address] Erythrocyte distribution width (RBC) [Ratio] 12.8 % Normal 11.6-14.6 [facility] Comment on above: Performed By: #### L 500.4100, L506.0400, L100.0100, L500.4050, L501.9520 ####[facility] [address] [place], [address] Hematocrit (Bld) [Volume fraction] 40.1 % Normal 37-47 [facility] Comment on above: Performed By: #### L 500.4100, L506.0400, L100.0100, L500.4050, L501.9520 ####[facility] [address] [place], [address] Hemoglobin (Bld) [Mass/Vol] 13.0 g/dL Normal 12.0-15.0 [facility] Comment on above: Performed By: #### L 500.4100, L506.0400, L100.0100, L500.4050, L501.9520 ####[facility] [address] [place], [address] IG% 0.600 Normal 0.0-0.9 [facility] Comment on above: Result Comment: IG% - Immature Granulocytes (promyelocytes, myelocytes and metamyelocytes) > 1% indicates that a LEFT SHIFT is Present. Performed By: #### L 500.4100, L506.0400, L100.0100, L500.4050, L501.9520 ####[facility] [address] [place], [address] Lymphocytes/100 WBC (Bld) 34.4 % Normal 19-41 [facility] Comment on above: Performed By: #### L 500.4100, L506.0400, L100.0100, L500.4050, L501.9520 ####[facility] [address] [place], [address] MCH (RBC) [Entitic mass] 32.3 pg High 27.0-32.0 [facility] Comment on above: Performed By: #### L 500.4100, L506.0400, L100.0100, L500.4050, L501.9520 ####[facility] [address] [place], [address] MCHC (RBC) [Mass/Vol] 32.4 g/dL Normal 32-36 [facility] Comment on above: Performed By: #### L 500.4100, L506.0400, L100.0100, L500.4050, L501.9520 ####[facility] [address] [place], [address] MCV (RBC) [Entitic vol] 99.8 fL High 81-99 [facility] Comment on above: Performed By: #### L 500.4100, L506.0400, L100.0100, L500.4050, L501.9520 ####[facility] [address] [place], [address] Monocytes/100 WBC (Bld) 9.9 % Normal 0-10 [facility] Comment on above: Performed By: #### L 500.4100, L506.0400, L100.0100, L500.4050, L501.9520 ####[facility] [address] [place], [address] Neutrophils/100 WBC (Bld) 51.8 % Normal 47-70 [facility] Comment on above: Performed By: #### L 500.4100, L506.0400, L100.0100, L500.4050, L501.9520 ####[facility] [address] [place], [address] Nucleated RBC (Bld) [#/Vol] 0 10*3/uL Normal 0-5 [facility] Comment on above: Performed By: #### L 500.4100, L506.0400, L100.0100, L500.4050, L501.9520 ####[facility] [address] [place], [address] Platelet mean volume (Bld) [Entitic vol] 10.1 fL Normal 6.2-12.0 [facility] Comment on above: Performed By: #### L 500.4100, L506.0400, L100.0100, L500.4050, L501.9520 ####[facility] [address] [place], [address] Platelets (Bld) [#/Vol] 306 10*3/uL Normal 150-450 [facility] Comment on above: Performed By: #### L 500.4100, L506.0400, L100.0100, L500.4050, L501.9520 ####[facility] [address] [place], [address] RBC (Bld) [#/Vol] 4.02 10*6/uL Low 4.2-5.4 [facility] Comment on above: Performed By: #### L 500.4100, L506.0400, L100.0100, L500.4050, L501.9520 ####[facility] [address] [place], [address] RDW SD 47.2 fl High 35.1-43.9 [facility] Comment on above: Performed By: #### L 500.4100, L506.0400, L100.0100, L500.4050, L501.9520 ####[facility] [address] [place], [address] WBC (Bld) [#/Vol] 6.4 10*3/uL Normal 4.4-11.0 [facility] Comment on above: Performed By: #### L 500.4100, L506.0400, L100.0100, L500.4050, L501.9520 ####[facility] [address] [place], [address] [facility] Metabolic [facility] 12-19-2023 Albumin [Mass/Vol] 3.6 g/dL Normal 3.2-5.0 [facility] Comment on above: Performed By: #### L 500.4100, L506.0400, L100.0100, L500.4050, L501.9520 #### [facility] [address] [place], [address] Albumin/Globulin [Mass ratio] 1.2 {ratio} Normal 0.9-2.4 [facility] Comment on above: Performed By: #### L 500.4100, L506.0400, L100.0100, L500.4050, L501.9520 #### [facility] [address] [place], [address] ALK P 55 U/L Normal 45-117 [facility] Comment on above: Performed By: #### L 500.4100, L506.0400, L100.0100, L500.4050, L501.9520 #### [facility] [address] [place], [address] ALT [Catalytic activity/Vol] 46 U/L Normal 13-56 [facility] Comment on above: Performed By: #### L 500.4100, L506.0400, L100.0100, L500.4050, L501.9520 #### [facility] [address] [place], [address] AST [Catalytic activity/Vol] 29 U/L Normal 15-37 [facility] Comment on above: Performed By: #### L 500.4100, L506.0400, L100.0100, L500.4050, L501.9520 #### [facility] [address] [place], [address] Bilirubin [Mass/Vol] 0.50 mg/dL Normal 0.20-1.00 [facility] Comment on above: Result Comment: For patients on eltrombopag therapy, use of Dimension [place] TBIL is not recommended. Performed By: #### L 500.4100, L506.0400, L100.0100, L500.4050, L501.9520 #### [facility] [address] [place], [address] BUN/CRE 7.4 RATIO Low 10-20 [facility] Comment on above: Performed By: #### L 500.4100, L506.0400, L100.0100, L500.4050, L501.9520 #### [facility] [address] [place], [address] CA,Total 8.9 mg/dL Normal 8.5-10.1 [facility] Comment on above: Performed By: #### L 500.4100, L506.0400, L100.0100, L500.4050, L501.9520 #### [facility] [address] [place], [address] Chloride [Moles/Vol] 103 mmol/L Normal 98-107 [facility] Comment on above: Performed By: #### L 500.4100, L506.0400, L100.0100, L500.4050, L501.9520 #### [facility] [address] [place], [address] CO2 [Moles/Vol] 28.0 mmol/L Normal 21.0-32.0 [facility] Comment on above: Performed By: #### L 500.4100, L506.0400, L100.0100, L500.4050, L501.9520 #### [facility] [address] [place], [address] Creatinine [Mass/Vol] 0.81 mg/dL Normal 0.55-1.02 [facility] Comment on above: Result Comment: The validity of the calculated GFR GFRAA in patients over 70 years has not been determined. Clinical correlation is essential. Performed By: #### L 500.4100, L506.0400, L100.0100, L500.4050, L501.9520 #### [facility] [address] [place], [address] EST GFR - AA 98 mL/min Normal >60 [facility] Comment on above: Result Comment: Afri can Singaporean GFR Calc Performed By: #### L 500.4100, L506.0400, L100.0100, L500.4050, L501.9520 #### [facility] [address] [place], [address] GAP 5 Normal 5-15 [facility] Comment on above: Performed By: #### L 500.4100, L506.0400, L100.0100, L500.4050, L501.9520 #### [facility] [address] [place], [address] GFR/1.73 sq M.predicted among non-blacks MDRD (S/P/Bld) [Vol rate/Area] 81 mL/min/{1.73_m2} Normal >60 [facility] Comment on above: Result Comment: Non- GFR Calc Performed By: #### L 500.4100, L506.0400, L100.0100, L500.4050, L501.9520 #### [facility] [address] [place], [address] Globulin (S) [Mass/Vol] 3.1 g/dL Normal 2.2-4.2 [facility] Comment on above: Performed By: #### L 500.4100, L506.0400, L100.0100, L500.4050, L501.9520 #### [facility] [address] [place], [address] Glucose [Mass/Vol] 87 mg/dL Normal 74-106 [facility] Comment on above: Performed By: #### L 500.4100, L506.0400, L100.0100, L500.4050, L501.9520 #### [facility] [address] [place], [address] Potassium [Moles/Vol] 3.7 mmol/L Normal 3.5-5.1 [facility] Comment on above: Performed By: #### L 500.4100, L506.0400, L100.0100, L500.4050, L501.9520 #### [facility] [address] [place], [address] Sodium [Moles/Vol] 136 mmol/L Normal 136-145 [facility] Comment on above: Performed By: #### L 500.4100, L506.0400, L100.0100, L500.4050, L501.9520 #### [facility] [address] [place], [address] T PROT 6.7 g/dL Normal 6.4-8.2 [facility] Comment on above: Performed By: #### L 500.4100, L506.0400, L100.0100, L500.4050, L501.9520 #### [facility] [address] [place], [address] Urea nitrogen [Mass/Vol] 6 mg/dL Low 7-18 [facility] Comment on above: Performed By: #### L 500.4100, L506.0400, L100.0100, L500.4050, L501.9520 #### [facility] [address] [place], [address] Lipid Profileon 12-19-2023 Cholesterol [Mass/Vol] 216 mg/dL High 200 [facility] Comment on above: Result Comment: <200 mg/dL Desirable 200-240 mg/dL Borderline >240 mg/dL High Risk Performed By: #### L 500.4100, L506.0400, L100.0100, L500.4050, L501.9520 #### [facility] [address] [place], [address] Cholesterol in HDL [Mass/Vol] 103 mg/dL Normal [facility] Comment on above: Result Comment: The drugs N-Acetylcysteine and Metamizole may falsely depress this assay. Reference Range HDL <40 mg/dL Low HDL Cholesterol HDL >or= 60 mg/dL High HDL Cholesterol Performed By: #### L 500.4100, L506.0400, L100.0100, L500.4050, L501.9520 #### [facility] [address] [place], [address] Cholesterol in LDL [Mass/Vol] 96 mg/dL Normal 0-130 [facility] Comment on above: Performed By: #### L 500.4100, L506.0400, L100.0100, L500.4050, L501.9520 #### [facility] [address] [place], [address] Cholesterol in VLDL [Mass/Vol] 17 mg/dL Normal 5-40 [facility] Comment on above: Performed By: #### L 500.4100, L506.0400, L100.0100, L500.4050, L501.9520 #### [facility] [address] [place], [address] Triglyceride [Mass/Vol] 86 mg/dL Normal [facility] Comment on above: Result Comment: The drugs N-Acetylcysteine and Metamizole may falsely depress this assay. Serum Triglycerides Reference Interval Normal <150 mg/dL Borderline high 150 - 199 mg/dL High 200 - 499 mg/dL Very High > or = 500 mg/dL Performed By: #### L 500.4100, L506.0400, L100.0100, L500.4050, L501.9520 #### [facility] [address] [place], [address] T4 Free Directon 12-19-2023 T4 FREE DIRECT 0.83 ng/dL Normal 0.76-1.46 [facility] Comment on above: Performed By: #### L 500.4100, L506.0400, L100.0100, L500.4050, L501.9520 #### [facility] [address] [place], [address] Thyroid Stim Hormone (TSH)on 12-19-2023 TSH 14.70 uIU/mL High 0.358-3.74 [facility] Comment on above: Performed By: #### L 500.4100, L506.0400, L100.0100, L500.4050, L501.9520 #### [facility] [address] [place], [address] PT D/C Summary (1)on 024 PT D/C Summary (1) [facility] [address] [place] [address] / REHABILITATION SERVICES DISCHARGE SUMMARY MR#: [id number] Acct: [id number] Name: ZACHARIAH SPEARS Rep #: [id number] : 1975 48 From: Jodi Pennington DPT Referring Dr.: Dr. Fran Pride MD Status: REG RCR Insurance: [employer] SELF PAY INSURANCE Discharge Summary D/C summary: It has been my pleasure to treat ZACHARIAH SPEARS referred by Dr. Fran Pride MD, with the diagnosis of Spondylolisthesis, Lumbar Region for a total of 9 visit(s). Discharge Date: Please see the following information for a summary of their discharge status. Subjective Subjective: Patient reports that the pain is a lot better but its still the hips- she still having difficulty and pain standing and walking long distances. She walks half a block inside and then her left leg still does the N/T sensation. If she sits down the pain decreases. She feels that she is 50% better. She does not have a return visit to the MD but plans to make and apt when she is finished with PT. The N/T sensation is the same amount. Sleep is still disturbed. She is not as slow with her movements but still not as smooth as before. Pain LB: Pain Intensity (Out of 10): 2 Overall Improvement % Improvement: 50 Objective Objective/Function: Posture: slightly guarded- upright Gait: good arm swing and rotation- good pace HR/TR: able no deviation noted Lumbar ROM: Forward Flexion: hands ankles, Extn: mild limited, SB: WNL, Rot: mod limited. All limitations with mild discomfort- movements with hesitation. All other LE ROM WFL Palpation: not tender to touch Strength: Ankle: 5/5 bilateral. Knee: 5/5 Bilateral, Hip: Right: 4+/5 throughout, Left: 4+/5 throughout no pain Flex: HS: mod, Gastroc: mod Reflex: 2+ patellar bilateral Sensation: WNL to gross touch bilateral LE Special Tests: Dural signs: positive Goals Goal 1:: Patient will report participation in home exercise program activities a minimum of 5 days per week, as adjunct to skilled physical therapy intervention in preparation for independent home management upon discharge. Goal Progress: Goal Met Goal 2:: Patient will maintain proper posture t/o tx session to demo increased core s/s Goal Progress: Progressing Goal 3:: Patient will report no s/s down her left leg for 1 week Goal Progress: Not Progressing Goal 4:: Patient will report 80% improvement Goal Progress: Progressing Plan Plan: 10/22: Discharge to return to MD for further evaluation- educated to continue exercises and when N/T start to attempt to decrease as soon as possible as this is pressure on the nerve root. IE: Aquatic therapy- focus on core strength/stabilization and decreasing peripheralization D/C Information d/c sentence: If there are questions or concerns regarding this patient's physical therapy, please feel free to call me at [phone]. Thank you for the referral of this patient. Sincerely, Jodi Pennington, DPT Balance/Gait/Functiona l tests Balance/Special Test Scores Oswestry Low Back Score: 22 Improvement % Improvement: 50 10/23/23 0716 CC: MEDICAID NURSENancy Barajas; Dr. Fran Pride MD ELR Signed Normal [facility] Inital Evaluation (1) - PTon 09-19-2023 Inital Evaluation (1) - PT [facility] [address] [place] [address] / REHABILITATION SERVICES INITIAL EVALUATION MR#: [id number] Acct: [id number] Name: ZACHARIAH SPEARS Rep #: [id number] : 1975 47 From: Jodi Pennington DPT Referring Dr.: Dr. Fran Pride MD Status: REG R Insurance: [employer] SELF PAY INSURANCE Patient's Visit Information Visit Information Visit Information: ZACHARIAH SPEARS is a 47 year old F referred to Physical Therapy by Dr. Fran Pride MD with a diagnosis of Spondylolisthesis, [place] Region. Date of Evaluation: 09/19/23 Physical Therapist: Jodi Pennington DPT Visit Plan Frequency: 2x /Week Duration: 4 Weeks Plan: Aquatic therapy- focus on core strength/stabilization and decreasing peripheralization Subjective Subjective: Patient reports that 2 months ago she was stepping outside and she jerked around and hurt her back and it was getting better going to the chiropractor minor adjustments and stim and then helping more a plantar about 4 weeks ago bent over and felt it go and its been really bad ever since- and she continued with chiro and it has not gotten better. So she went to see ortho and he said that she has a spondy that is worse now and he is going to do and MRI and wants you to do PT for a few weeks to see if you can have relief and if not she will go back and see him. She has not continued chiro this week but is not sure if she will or won't go back. She may order a stim unit online. Yesterday was the best day she has had. She is still going to work. 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 The pain is located along both side of the back below the bra line and comes around the flank. Does radiate down the left leg into the calf. Only when she walks or stands- 1/4 a mile. When she sits down the numbness goes away after about 10 minutes. Worst: 02/02 Agg: standing, walking, laying on her belly, flat on her back on a hard surface. Eases: sitting, TENS unit Best: 08/05. Describes the pain as shooting or biting pains with coughing, sneezing when she is changing positions. But when she is just sitting its more dull and achy. She feels that todays its just staying the same but yesterday was a good day. Sleep: disturbed- she can't just roll over. Prior to this she was active but this is limiting her mobility. No loss or change in bowel or bladder. She has had therapy for her shoulder prior and did well. PMHx/Meds: no changes since ortho visit. Objective Objective: Posture: guarded- upright Gait: guarded- decreased arm swing and trunk rotation HR/TR: able no deviation noted Lumbar ROM: Forward Flexion: hands to knees, Extn: mod limited, SB: WNL, Rot: mod limited. All limitations with discomfort- movements with hesitation. All other LE ROM WFL Palpation: tender along paraspinals of the lumbar and thoracic spine left. Strength: Ankle: 5/5 bilateral. Knee: 5/5 Bilateral, Hip: Right: 4+/5 throughout, Left: Flexion: 4/5, Extn: 4/5 IR/ER: 4/5, Abd: 4+/5 Add: 4+/5 all hip testing reports discomfort Flex: HS: severe, Gastroc: severe Reflex: 2+ patellar bilateral Sensation: WNL to gross touch bilateral LE Special Tests: Dural signs: positive All testing performed in sitting due to increased s/s in supine/prone Special Tests L/S Slump test left side: Positive L/S Slump test right side: Positive Balance/Special Test Scores Oswestry Low Back Score: 19 Goals Goal 1:: Patient will report participation in home exercise program activities a minimum of 5 days per week, as adjunct to skilled physical therapy intervention in preparation for independent home management upon discharge. Goal Time Frame: 4-6 Weeks Goal 2:: Patient will maintain proper posture t/o tx session to demo increased core s/s Goal Time Frame: 4-6 Weeks Goal 3:: Patient will report no s/s down her left leg for 1 week Goal Time Frame: 4-6 Weeks Goal 4:: Patient will report 80% improvement Goal Time Frame: 4-6 Weeks Rehabilitation Potential Physical Therapy Diagnosis: Patient presents with decreased ROM, LE and core strength/stabilization , flexibility and muscular endurance leading to increased dural signs with decreased ability to perform ADL's Rehabilitation Potential: Fair Anticipated Interventions Patient/Client Instruction: Educate patient on: Benefits of Fitness Program Therapeutic Exercise to Include: Strength training, Endurance training, Body mechanics, Postural training, Neuromotor development, In an aquatic setting, Dynamic Lumbar Stabilization and Scapular Strength/Stabilization For the Purpose of:: To improve muscle performance and motor function Text: Thank you for the opportunity to evaluate your patient. For Medicare and Medicare HMO plans, please review the plan of ca (more content not included)... Normal [facility] L/S Spine Bending Flex/[place] 09-14-2023 L/S Spine Bending Flex/Ext [facility] [address] [place] [address] L/S Spine Bending Flex/Ext MR#: [id number] Acct: [id number] Name: ZACHARIAH SPEARS Rep #: [id number] : 1975 F 47 From: Dima dodge MD PCP: JOHN Melchor Status: DEP AMB Study: L/S Spine Bending Flex/Ext Date of Exam: 09/13 Exam# [id number] Ordering Dr: Fran Pride MD [id number] STUDY: X-RAY - LUMBAR SPINE REASON FOR EXAM: Female, 47 years old. Low back pain -- Please do flexion-extension only TECHNIQUE: 2 flexion and extension view(s) of the lumbar spine were obtained. COMPARISON: None FINDINGS: Grade 2 anterolisthesis of L5 on S1 with spondylolysis of the pars interarticularis of the L5 vertebrae. This worsens during the flexion maneuver. RAD/L/S Spine Bending Flex/Ext IMPRESSION: Grade 2 anterolisthesis of L5 on S1 with spondylolysis of the pars intraarticularis of the L5 vertebrae. This worsens during the flexion maneuver. Electronically Signed: Dima Zarate MD at 12:20 EDT , CC: JOHN Barajas; Dr. Fran Pride MD Apparel Machinery Instructor: Signed Normal [facility] Orthopedic Visit Reporton Orthopedic Visit Report [facility] [address] [place] [id number] OFFICE VISIT Date of Service: 09/14/23 MR#: [id number] Acct: [id number] Name: ZACHARIAH SPEARS Rep #: [id number] : 1975 Provider: Dr. Fran Pride MD Age/Sex: 47/F Location: [facility] Status: Signed Intake Vital Signs 05/11/22 11:22 09/14/23 08:58 Height 5 ft 3 in 5 ft 2 in Weight: 159 lb 8 oz BMI 29.1 Intake Visit Reasons: LUMBAR SPINE Accompanied by: Self Is patient in pain?: Yes (7) Allergies Penicillins Allergy (Unknown, Verified 09/14/23 08:58) PT UNSURE OF REACTION cortisone Allergy (Verified 09/14/23 08:58) Hives Medications escitalopram oxalate 20 mg tablet 20 mg PO DAILY 02/09/15 [History Confirmed 09/14/23] bupropion HCl 150 mg tablet,12 hr sustained-release 150 mg PO BID 10/11/16 [History Confirmed 09/14/23] Diltiazem 2% / Lidocaine 5% ointment (compound) (Diltiazem 2%/Lidocaine 5% ointment (compound)) #30 grams 01/17/22 [Rx Confirmed 05/11/22] folic acid 800 mcg tablet 0.8 mg PO DAILY #30 tabs 04/17/23 [Rx Confirmed 09/14/23] sulfasalazine 500 mg tablet,delayed release 0.5 g PO BID #60 tabs 04/17/23 [Rx Confirmed 09/14/23] budesonide 3 mg capsule,delayed,extend ed release 6 mg (2 x 3 mg) PO DAILY #60 ea 06/22/23 [Rx Confirmed 09/14/23] levothyroxine 175 mcg tablet 250 mcg PO DAILY 09/14/23 [History Confirmed 09/14/23] naproxen 500 mg tablet 500 mg PO BID 09/14/23 [History Confirmed 09/14/23] [facility] Medical History Abdominal pain, vomiting, and diarrhea Alcohol use Anemia Anxiety Back pain Blister Depression History of Crohn's disease History of IBS Leg cramps Migraine headache Pancreatic insufficiency Restless legs Shortness of breath on exertion Smoker Thyroid disease Wears glasses Surgical History History of History of lumpectomy of left breast History of lumpectomy of right breast Hx of appendectomy Hx of breast biopsy Hx of colonoscopy Hx of hysterectomy Hx of shoulder surgery Family History (Updated 09/14/23 @ 09:07 by Julianne Ortiz MA) Mother Cancer Arthritis Lumbar spondylosis Social History (Updated 09/14/23 @ 09:08 by Julianne Ortiz MA) household members: spouse and children Smoking Status: Current every day smoker tobacco type: cigarettes alcohol intake: current HPI LUMBAR SPINE Details: This documentation accurately reflects the service provided and the decisions made by me, Dr. Fran Pride MD 09/14/23 0856. Part of today???s visit was documented by Julianne DELGADO , acting as scribe. ZACHARIAH SPEARS is a 47 year old F here today for Lumbar Pain. Patient states that it is her lower back. Patient states this has been going on for about 2 months. Patient states when it first happen she was stepping down and she twisted her ankle and she grabbed something for she wouldn't fall and she twisted her back. Patient states that about 2.5 weeks ago she also messed her back up again moving a planter with her . Patient states that if she walks to much she get's numbness and tingling down her left side of her leg. Patient states that has been going on for 2 years or so. Patient has never had injection for her back. Patient has done PT but it was about 18 years ago. Patient takes Naproxen 500mg bid for 2 weeks. Patient goes to a Chiropractor weekly sometimes twice a week and it had been helping but within in the last 2 weeks it hasn't been. Zachariah has now had multiple episodes of severe flareup of the lower back pain going down the left lower extremity. The first episode was about 18 years ago which took a few months to get better with physical therapy. She has been going to a chiropractor for many years now. Every couple of years she started to have a flareup which lasted at least 2 weeks at a time which for which she often has to take time off of work. Over the last 2 years she has also noticed severe radiation of pain going to the left hamstrings and into the calf. She denies any right-sided symptoms. She has not had any epidural injections, and says that she is likely allergic to cortisone as she got severe hives with a left shoulder injection at some point in the past. She has done physical therapy in the past but none recently. She has been doing chiropractic treatment as recently as earlier this week. Her most recent episode was about 2-1/2 weeks ago which caused her severe lower back pain and aggravation of symptoms. She is able to walk less than 2 blocks at a time after which she has significant pain in the back and left leg which makes her stop and sit. She has severe difficulty standing for long peers of time. 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 Normal [facility] L/S Spine Min 4 Viewson 08-24 L/S Spine Min 4 Views [facility] Services [address] [place] [address] L/S Spine Min 4 Views MR#: [id number] Acct: [id number] Name: ZACHARIAH SPEARS Rep #: [id number] : 1975 F 47 From: Marco Narvaez PCP: JOHN Melchor Status: REG CLI Study: L/S Spine Min 4 Views Date of Exam: 09/11/23 Exam# [id number] Ordering Dr: Indy Barajas [id number] INDICATION: BACK PAIN WITH LEFT SIDED RADICULOPATHY EXAMINATION/TECHNIQUE: X-RAY - XR Spine Lumbar Min 4 Views COMPARISON: No relevant prior comparison study available FINDINGS: VERTEBRAE: Preserved vertebral body height. No fracture. 1-2 anterolisthesis of L5 over S1 with bilateral spondylolysis at L5 somewhat obscured by overlying bowel gas on the oblique views. Preservation of the normal lumbar lordosis. No substantial scoliosis. DISCS: Severe narrowing of L5-S1 disc space. The remainder of the disc spaces are within normal limits. INCLUDED ABDOMEN: Nonspecific dilated gaseous small bowel loops with air-fluid levels RAD/L/S Spine Min 4 Views IMPRESSION: Anterolisthesis of L5 over S1 with bilateral spondylolysis and narrowing of L4-L5 disc space. Electronically Signed: Marco Burns MD at 8:16 EDT , CC: JOHN Barajas Apparel Machinery Instructor: Signed Normal [facility] Serum or plasma thyroid stim ulating hormone (TSH) measurement (units/volume)Ordered By: Indy Barajas on 09-11-2023 TSH Qn 8.97 uIU/mL 0.358-3.74 [facility] T4 Free Directon 09-11-2023 T4 FREE DIRECT 0.83 ng/dL Normal 0.76-1.46 [facility] Comment on above: Performed By: #### L 506.0400, L501.9520 #### [facility] [address] [place], [address] Thin prep Papanicolaou smear with manual screeningOrdered By: Indy Barajas on 09-11-2023 Thin prep Papanicolaou smear with manual screening 0.83 ng/dL 0.76-1.46 [facility] Thoracic Spine 3 Viewson Thoracic Spine 3 Views [facility] [address] [place] [address] Thoracic Spine 3 Views MR#: [id number] Acct: [id number] Name: ZACHARIAH SPEARS Rep #: [id number] : 1975 F 47 From: Marco Narvaez PCP: JOHN Melchor Status: REG CLI Study: Thoracic Spine 3 Views Date of Exam: 09/11/23 Exam# [id number] Ordering Dr: Indy Barajas MEDICAID NURSE-C [id number] INDICATION: BACK PAIN WITH LEFT SIDED RADICULOPATHY EXAMINATION/TECHNIQUE: X-RAY - XR Spine Thoracic 3 Views COMPARISON: No relevant prior comparison study available FINDINGS: VERTEBRAE: Preserved vertebral body height. No fracture. No spondylolisthesis. Mild increased kyphosis of the thoracic spine. No substantial scoliosis. DISCS: Disc spaces are within normal limits. Mild endplate spondylosis. INCLUDED CHEST/ABDOMEN: No acute abnormalities. RAD/Thoracic Spine 3 Views IMPRESSION: Mild degenerative changes. Electronically Signed: Marco Burns MD at 9:05 EDT , CC: JOHN Barajas Apparel Machinery Instructor: Signed Normal [facility] Thyroid Stim Hormone (TSH)on 09-11-2023 TSH 8.97 uIU/mL High 0.358-3.74 [facility] Comment on above: Performed By: #### L 506.0400, L501.9520 #### [facility] [address] [place], [address] Gastroenterology Visit Repor ton 08-03-2023 Gastroenterology Visit Report [facility] [address] [place] [address] OFFICE VISIT Date of Service: 08/03/23 MR#: [id number] Acct: [id number] Name: ZACHARIAH SPEARS Brice Rep #: [id number] : 1975 Provider: Chirag Marte DO Age/Sex: 47/F Location: [facility] Status: Signed Intake Vital Signs 05/11/22 11:22 Height 5 ft 3 in Intake Visit Reasons: FU Chief Complaint: follow up abd pain, change in bowel habits Etl Analyst Developer Required: No Is patient in pain?: No Allergies Penicillins Allergy (Unknown, Verified 08/03/23 08:29) PT UNSURE OF REACTION cortisone Allergy (Verified 08/03/23 08:29) Hives Medications escitalopram oxalate 20 mg tablet 20 mg PO DAILY 02/09/15 [History Confirmed 08/03/23] levothyroxine 175 mcg tablet 250 mcg PO DAILY 02/09/15 [History Confirmed 08/03/23] bupropion HCl 150 mg tablet,12 hr sustained-release 150 mg PO BID 10/11/16 [History Confirmed 08/03/23] Diltiazem 2% / Lidocaine 5% ointment (compound) (Diltiazem 2%/Lidocaine 5% ointment (compound)) #30 grams 01/17/22 [Rx Confirmed 05/11/22] folic acid 800 mcg tablet 0.8 mg PO DAILY #30 tabs 04/17/23 [Rx Confirmed 08/03/23] sulfasalazine 500 mg tablet,delayed release 0.5 g PO BID #60 tabs 04/17/23 [Rx Confirmed 08/03/23] budesonide 3 mg capsule,delayed,extend ed release 6 mg (2 x 3 mg) PO DAILY #60 ea 06/22/23 [Rx Confirmed 08/03/23] Is last menstrual period known: No Post menopausal: No Patient : No PFSH Medical History (Updated 05/09/23 @ 08:08 by Jina Hill) Abdominal pain, vomiting, and diarrhea Alcohol use Anemia Anxiety Back pain Blister Depression History of Crohn's disease History of IBS Leg cramps Migraine headache Pancreatic insufficiency Restless legs Shortness of breath on exertion Smoker Thyroid disease Wears glasses Surgical History (Updated 05/09/22 @ 10:55 by Debi Brandon) History of History of lumpectomy of left breast History of lumpectomy of right breast Hx of breast biopsy Hx of colonoscopy Hx of hysterectomy Hx of shoulder surgery Social History Smoking Status: Current every day smoker tobacco type: cigarettes HPI HPI Chief Complaint: follow up abd pain, change in bowel habits Details: ZACHARIAH SPEARS, is a 47 F who presents to the office today for PMH includes hypothyroidism, depression (Wellbutrin, Lexapro). Uses NSAIDs frequently for pain. FH mother bone cancer; paternal side with brain, lung and unknown cancers between three people. Prior imaging: ? US abd 3.03.17 with liver measurement 13.7cm. Overall an unremarkably normal exam. *BGI established 09.07.21 with referral from PCP for nausea and diarrhea alternating with constipation and decreased appetite causing weight loss; onset early 2020. Hot flashes have been an issue for her lately also. She is a current smoker with two cigarettes a day. ? Biochemical workup ESR, LDH, CRP, Vit B12, TSH, GAME, ANCA, STELLA comp all WNL Stool testing for fecal fats, calprotectin and giardia WNL.? 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 H.Pylori negative. Colonoscopy Hyperplastic polyp removed from rectum; mild melanosis coli; congested mucosa of sigmoid, transverse and ascending colons; mild cryptitis of cecal cap. OV 6.16. with continued use of budesonide with 2-3 formed BM/day Biochemical workup ZHAO, JULIA, without pertinent abnormal results. Crohn???s suggestive (ALCA, AMCA) Stool testing elastase, lactoferrin WNL. OV 9.8.22 with varying stool frequency/consistency. Diarrhea continues and occurs three days a week, on other days she has 2-3 BM a day with soft stool; nausea is much improved and feels it is food triggered. She would like to pursue treatment for gastric metaplasia because of her strong family history. History of precancer cells in her cervix/uterus prompting total hysterectomy. EGD with capsule placement 05.11.22 without abnormality noted. Capsule endoscopy placed. Capsule endoscopy one area of erosion with ulcerative base; mild enteritis. Pentasa 1g BID, expensive. Changed to sulfasalazine and folic acid OV 2..23 Nausea mostly resolved save dietary triggers. Stools continue to be frequent 4-5 times a day with soft consistency. Since starting sulfasalazine she has had improvement of frequency. OV 5..23 BM 2-3 times a day which is not particularly bothersome; notes mild flare this week with increased BM frequency which she feels is r/t not paying attention to her diet. Stop mesalamine, contin (more content not included)... Normal [facility] L5500.0550on 06-01-2023 BEEF <0.10 Normal Class 0 [facility] Comment on above: Performed By: #### L 5500.0550 #### [facility] [address] [place], [place], [address] CHOCOLATE <0.10 Normal Class 0 [facility] Comment on above: Performed By: #### L 5500.0550 #### [facility] [address] [place], [place], [address] CODFISH <0.10 Normal Class 0 [facility] Comment on above: Performed By: #### L 5500.0550 #### [facility] [address] [place], [place], [address] COMMENT Comment Normal . [facility] Comment on above: Result Comment: Mara solomon of Specific IgE Class Description of Class ----- < 0.10 0 Negative 0.10 - 0.31 0/I Equivocal/Low 0.32 - 0.55 I Low 0.56 - 1.40 II Moderate 1.41 - 3.90 III High 3.91 - 19.00 IV Very High 19.01 - 100.00 V Very High >100.00 Very High Performed By: #### L 5500.0550 #### [facility] [address] [place], [address] CORN <0.10 Normal Class 0 [facility] Comment on above: Performed By: #### L 5500.0550 #### [facility] [address] [place], [address] EGG, WHOLE <0.10 Normal Class 0 [facility] Comment on above: Result Comment: Perf ormed at: [facility] - [facility] [address] [id number] [employer] Oil Press Tender: Epifanio Horne MD, Phone: [phone] Performed By: #### L 5500.0550 #### [facility] [address] [place], [address] MILK (COW) <0.10 Normal Class 0 [facility] Comment on above: Performed By: #### L 5500.0550 #### [facility] [address] [place], [address] MUSSELS <0.10 Normal Class 0 [facility] Comment on above: Performed By: #### L 5500.0550 #### [facility] [address] [place], [address] PEANUT <0.10 Normal Class 0 [facility] Comment on above: Performed By: #### L 5500.0550 #### [facility] [address] [place], [address] PORK <0.10 Normal Class 0 [facility] Comment on above: Performed By: #### L 5500.0550 #### [facility] [address] [place], [address] SALMON <0.10 Normal Class 0 [facility] Comment on above: Performed By: #### L 5500.0550 #### [facility] [address] [place], [address] SHRIMP 0.42 kU/L Abnormal Class I [facility] Comment on above: Performed By: #### L 5500.0550 #### [facility] [address] [place], [place], [id number] SOYBEAN <0.10 Normal Class 0 [facility] Comment on above: Performed By: #### L 5500.0550 #### [facility] [address] [place], [place], [id number] TUNA <0.10 Normal Class 0 [facility] Comment on above: Performed By: #### L 5500.0550 #### [facility] [address] [place], [address] WHEAT <0.10 Normal Class 0 [facility] Comment on above: Performed By: #### L 5500.0550 #### [facility] [address] [place], [address] Chocolate IgE serumOrdered B y: Chirag Marte on 05-26-2023 Chocolate IgE Qn (S) <0.10 kU/L Class 0 [facility] - Miscellaneous t estsOrdered By: Chirag Marte on 05-26-2023 Service comment (Unsp spec) [Interp] Comment . [facility] Comment on above: Levels of Specific I gE Class Description of Class ----- < 0.10 0 Negative 0.10 - 0.31 0/I Equivocal/Low 0.32 - 0.55 I Low 0.56 - 1.40 II Moderate 1.41 - 3.90 III High 3.91 - 19.00 IV Very High 19.01 - 100.00 V Very High >100.00 Very High No Panel InformationOrdered By: Chirag Marte on 05-26-2023 Mussel Allergen IgE Antibody <0.10 kU/L Class 0 [facility] Shrimp Allergen 0.42 kU/L Class I [facility] Serum beef IgE antibody assa y (units/volume)Ordered By: Chirag Marte on 05-26-2023 Beef IgE Qn (S) <0.10 kU/L Class 0 [facility] Serum codfish IgE antibody a ssay (units/volume)Ordered By: Chirag Marte on 05-26-2023 Codfish IgE Qn (S) <0.10 kU/L Class 0 [facility] Serum corn IgE antibody assa y (units/volume)Ordered By: Chirag Marte on 05-26-2023 Novi IgE Qn (S) <0.10 kU/L Class 0 [facility] Serum cow milk IgE antibody assay (units/volume)Ordered By: Chirag Marte on 05-26-2023 Cow milk IgE Qn (S) <0.10 kU/L Class 0 [facility] Serum peanut IgE antibody as say (units/volume)Ordered By: Chirag Marte on 05-26-2023 Peanut IgE Qn (S) <0.10 kU/L Class 0 [facility] Serum pork IgE antibody assa y (units/volume)Ordered By: Chirag Marte on 05-26-2023 Pork IgE Qn (S) <0.10 kU/L Class 0 [facility] Serum salmon IgE antibody as say (units/volume)Ordered By: Chirag Marte on 05-26-2023 Gwinn IgE Qn (S) <0.10 kU/L Class 0 [facility] Serum soybean IgE antibody a ssay (units/volume)Ordered By: Chirag Marte on 05-26-2023 Soybean IgE Qn (S) <0.10 kU/L Class 0 [facility] Serum tuna IgE antibody assa y (units/volume)Ordered By: Chirag Marte on 05-26-2023 Tuna IgE Qn (S) <0.10 kU/L Class 0 [facility] Serum wheat IgE antibody ass ay (units/volume)Ordered By: Chirag Marte on 05-26-2023 Wheat IgE Qn (S) <0.10 kU/L Class 0 [facility] Serum whole egg IgE antibody assay (units/volume)Ordered By: Chirag Marte on 05-26-2023 Whole Egg IgE Qn (S) <0.10 kU/L Class 0 [facility] Comment on above: Performed at: [address] [id number] Director: Epifanio Horne MD, Phone: [phone] Laboratory - Chemistry and C hemistry - challengeOrdered By: Indy Barajas on 05-22-2023 Free T4 [Mass/Vol] 1.10 ng/dL 0.76-1.46 [facility] No Panel InformationOrdered By: Indy Barajas on 05-22-2023 Thyroid Stimulating Hormone (TSH) 5.30 uIU/mL 0.358-3.74 [facility] T4 Free Directon 05-22-2023 T4 FREE DIRECT 1.10 ng/dL Normal 0.76-1.46 [facility] Comment on above: Performed By: #### L 506.0400, L501.9520 ####[facility] [address] [place], [place], [id number] Thyroid Stim Hormone (TSH)on 05-22-2023 TSH 5.30 uIU/mL High 0.358-3.74 [facility] Comment on above: Performed By: #### L 506.0400, L501.9520 ####[facility] [address] [place], [place], [id number] Allergens, Zone 8on 05-12-20 23 A. ALTERNATA 2.69 kU/L Abnormal Class III [facility] Comment on above: Order Comment: Test( s) [id number] Cockroach, Singaporean; [id number] [place], White; [id number] Sweet Gum were developed and had performance characteristics determined by [employer]. These tests have not been cleared or approved by the U.S. Food and Drug Administration. The FDA has determined that such clearance or approval is not necessary. These tests are used for clinical purposes. These should not be regarded as investigational or for research. Performed By: #### L 5500.0600 #### [facility] [address] [place], [address] ASPERGILLUS FUM <0.10 Normal Class 0 [facility] Comment on above: Order Comment: Test( s) 701291-B394-TaU Cockroach, Singaporean; 826981- X267-ZoB [place], [place]; 712135-A111-EuY Sweet Gum were developed and had performance characteristics determined by [facility]. These tests have not been cleared or approved by the U.S. Food and Drug Administration. The FDA has determined that such clearance or approval is not necessary. These tests are used for clinical purposes. These should not be regarded as investigational or for research. Performed By: #### L 5500.0600 #### [facility] [address] [place], [address] BAHIA GRASS <0.10 Normal Class 0 [facility] Comment on above: Order Comment: Test( s) 955904-M416-JiW Cockroach, [place]; 603961- G079-YmQ [place], [place]; 279834-B165-CzU Sweet Gum were developed and had performance characteristics determined by [facility]. These tests have not been cleared or approved by the U.S. Food and Drug Administration. The FDA has determined that such clearance or approval is not necessary. These tests are used for clinical purposes. These should not be regarded as investigational or for research. Performed By: #### L 5500.0600 #### [facility] [address] [place], [address] BERMUDA GRASS 0.14 kU/L Abnormal Class 0/I [facility] Comment on above: Order Comment: Test( s) 730797-A508-IcK Cockroach, Singaporean; 769064- O858-CnI [place], White; 749687-L694-SzM Sweet Gum were developed and had performance characteristics determined by [facility]. These tests have not been cleared or approved by the U.S. Food and Drug Administration. The FDA has determined that such clearance or approval is not necessary. These tests are used for clinical purposes. These should not be regarded as investigational or for research. Performed By: #### L 5500.0600 #### [facility] [address] [place], [address] [place], [place] <0.10 Normal Class 0 [facility] Comment on above: Order Comment: Test( s) 584642-Z125-YvC Cockroach, Singaporean; 640546- F382-BbT [place], White; 650787-O997-PbV Sweet Gum were developed and had performance characteristics determined by [facility]. These tests have not been cleared or approved by the U.S. Food and Drug Administration. The FDA has determined that such clearance or approval is not necessary. These tests are used for clinical purposes. These should not be regarded as investigational or for research. Performed By: #### L 5500.0600 #### [facility] [address] [place], [address] CAT HAIR/DANDER <0.10 Normal Class 0 [facility] Comment on above: Order Comment: Test( s) 023880-W048-LrQ Cockroach, Singaporean; 459868- Z088-BdU [place], White; 779734-K394-KrV Sweet Gum were developed and had performance characteristics determined by [facility]. These tests have not been cleared or approved by the U.S. Food and Drug Administration. The FDA has determined that such clearance or approval is not necessary. These tests are used for clinical purposes. These should not be regarded as investigational or for research. Performed By: #### L 5500.0600 #### [facility] [address] [place], [address] CLADOSPOR HERB <0.10 Normal Class 0 [facility] Comment on above: Order Comment: Test( s) 646008-Q673-WfP Cockroach, Singaporean; 607168- K968-RyH [place], [place]; 474476-S583-QzD Sweet Gum were developed and had performance characteristics determined by [facility]. These tests have not been cleared or approved by the U.S. Food and Drug Administration. The FDA has determined that such clearance or approval is not necessary. These tests are used for clinical purposes. These should not be regarded as investigational or for research. Performed By: #### L 5500.0600 #### [facility] [address] [place], [address] COCKROACH,AMER 0.41 kU/L Abnormal Class I [facility] Comment on above: Order Comment: Test( s) 487466-P422-GmX Cockroach, Singaporean; 167299- S544-YaL [place], White; 372178-I022-KwU Sweet Gum were developed and had performance characteristics determined by [facility]. These tests have not been cleared or approved by the U.S. Food and Drug Administration. The FDA has determined that such clearance or approval is not necessary. These tests are used for clinical purposes. These should not be regarded as investigational or for research. Performed By: #### L 5500.0600 #### [facility] [address] [place], [address] COMMENT Comment Normal . [facility] Comment on above: Order Comment: Test( s) 582052-F815-EnW Cockroach, Singaporean; 935827- H596-DyC [place], White; 110055-N958-QuH Sweet Gum were developed and had performance characteristics determined by [facility]. These tests have not been cleared or approved by the U.S. Food and Drug Administration. The FDA has determined that such clearance or approval is not necessary. These tests are used for clinical purposes. These should not be regarded as investigational or for research. Result Comment: Mara solomon of Specific IgE Class Description of Class ----- < 0.10 0 Negative 0.10 - 0.31 0/I Equivocal/Low 0.32 - 0.55 I Low 0.56 - 1.40 II Moderate 1.41 - 3.90 III High 3.91 - 19.00 IV Very High 19.01 - 100.00 V Very High >100.00 Very High Performed By: #### L 5500.0600 #### [facility] [address] [place], [address] D FARINAE MITE 0.46 kU/L Abnormal Class I [facility] Comment on above: Order Comment: Test( s) 065522-V659-BzT Cockroach, [place]; 309955- H147-YaF [place], White; 009496-E361-LqX Sweet Gum were developed and had performance characteristics determined by [facility]. These tests have not been cleared or approved by the U.S. Food and Drug Administration. The FDA has determined that such clearance or approval is not necessary. These tests are used for clinical purposes. These should not be regarded as investigational or for research. Performed By: #### L 5500.0600 #### [facility] [address] [place], [address] D PTERONYSSINUS 0.50 kU/L Abnormal Class I [facility] Comment on above: Order Comment: Test( s) 657468-T951-RaQ Cockroach, [place]an; 616363- G834-UgI [place], White; 998360-G677-NfA Sweet Gum were developed and had performance characteristics determined by [facility]. These tests have not been cleared or approved by the U.S. Food and Drug Administration. The FDA has determined that such clearance or approval is not necessary. These tests are used for clinical purposes. These should not be regarded as investigational or for research. Performed By: #### L 5500.0600 #### [facility] [address] [place], [address] DOG EPITHELIA <0.10 Normal Class 0 [facility] Comment on above: Order Comment: Test( s) 904211-K121-XcE Cockroach, [place]an; 960082- N830-NfW [place], White; 086753-L625-AtZ Sweet Gum were developed and had performance characteristics determined by [facility]. These tests have not been cleared or approved by the U.S. Food and Drug Administration. The FDA has determined that such clearance or approval is not necessary. These tests are used for clinical purposes. These should not be regarded as investigational or for research. Performed By: #### L 5500.0600 #### [facility] [address] [place], [place], [id number] ELM,AMER WHITE <0.10 Normal Class 0 [facility] Comment on above: Order Comment: Test( s) 287706-R998-JfX Cockroach, Singaporean; 586537- D378-WhU [place], White; 212829-L483-HiV Sweet Gum were developed and had performance characteristics determined by [facility]. These tests have not been cleared or approved by the U.S. Food and Drug Administration. The FDA has determined that such clearance or approval is not necessary. These tests are used for clinical purposes. These should not be regarded as investigational or for research. Performed By: #### L 5500.0600 #### [facility] [address] [place], [address] HAZELNUT TREE <0.10 Normal Class 0 [facility] Comment on above: Order Comment: Test( s) 134784-C245-MeG Cockroach, Singaporean; 379481- X352-AdA [place], White; 657095-B698-UbE Sweet Gum were developed and had performance characteristics determined by [facility]. These tests have not been cleared or approved by the U.S. Food and Drug Administration. The FDA has determined that such clearance or approval is not necessary. These tests are used for clinical purposes. These should not be regarded as investigational or for research. Performed By: #### L 5500.0600 #### [facility] [address] [place], [address] HICKORY, WHITE <0.10 Normal Class 0 [facility] Comment on above: Order Comment: Test( s) 213561-Y604-VeU Cockroach, [place]an; 143177- I163-GbJ [place], White; 169719-Q388-PkZ Sweet Gum were developed and had performance characteristics determined by [facility]. These tests have not been cleared or approved by the U.S. Food and Drug Administration. The FDA has determined that such clearance or approval is not necessary. These tests are used for clinical purposes. These should not be regarded as investigational or for research. Performed By: #### L 5500.0600 #### [facility] [address] [place], [address] LACHELLE GRASS <0.10 Normal Class 0 [facility] Comment on above: Order Comment: Test( s) 718295-P091-VwX Cockroach, Singaporean; 245584- Z597-EfX [place], White; 390595-L123-YgB Sweet Gum were developed and had performance characteristics determined by [facility]. These tests have not been cleared or approved by the U.S. Food and Drug Administration. The FDA has determined that such clearance or approval is not necessary. These tests are used for clinical purposes. These should not be regarded as investigational or for research. Performed By: #### L 5500.0600 #### [facility] [address] [facility] [place], [address] MAPLE/BOX ELDER <0.10 Normal Class 0 [facility] Comment on above: Order Comment: Test( s) 675932-N294-JsV Cockroach, Singaporean; 216256- F817-LrF [place], White; 613590-K626-DbI Sweet Gum were developed and had performance characteristics determined by [facility]. These tests have not been cleared or approved by the U.S. Food and Drug Administration. The FDA has determined that such clearance or approval is not necessary. These tests are used for clinical purposes. These should not be regarded as investigational or for research. Performed By: #### L 5500.0600 #### [facility] [address] [place], [address] MOUNTAIN CEDAR <0.10 Normal Class 0 [facility] Comment on above: Order Comment: Test( s) 868416-F302-GjT Cockroach, Singaporean; 334976- X785-TlD [place], White; 881560-I278-MoA Sweet Gum were developed and had performance characteristics determined by [facility]. These tests have not been cleared or approved by the U.S. Food and Drug Administration. The FDA has determined that such clearance or approval is not necessary. These tests are used for clinical purposes. These should not be regarded as investigational or for research. Performed By: #### L 5500.0600 #### [facility] [address] [place], [place], [address] MUCOR RACEMOSUS <0.10 Normal Class 0 [facility] Comment on above: Order Comment: Test( s) 929298-T275-VlK Cockroach, [place]; 608836- B361-TpT [place], White; 601610-A321-DcE Sweet Gum were developed and had performance characteristics determined by [facility]. These tests have not been cleared or approved by the U.S. Food and Drug Administration. The FDA has determined that such clearance or approval is not necessary. These tests are used for clinical purposes. These should not be regarded as investigational or for research. Performed By: #### L 5500.0600 #### [facility] [address] [place], [address] MUGWORT <0.10 Normal Class 0 [facility] Comment on above: Order Comment: Test( s) 273840-F389-ZvO Cockroach, Singaporean; 252332- T926-UhR [place], White; 049356-E950-NnY Sweet Gum were developed and had performance characteristics determined by [facility]. These tests have not been cleared or approved by the U.S. Food and Drug Administration. The FDA has determined that such clearance or approval is not necessary. These tests are used for clinical purposes. These should not be regarded as investigational or for research. Performed By: #### L 5500.0600 #### [facility] [address] [place], [place], [address] MULBERRY, WHITE <0.10 Normal Class 0 [facility] Comment on above: Order Comment: Test( s) 126451-K381-NdH Cockroach, Singaporean; 512609- P809-PdF [place], White; 667028-Y992-KsD Sweet Gum were developed and had performance characteristics determined by [facility]. These tests have not been cleared or approved by the U.S. Food and Drug Administration. The FDA has determined that such clearance or approval is not necessary. These tests are used for clinical purposes. These should not be regarded as investigational or for research. Performed By: #### L 5500.0600 #### [facility] [address] [place], [place], [address] NETTLE <0.10 Normal Class 0 [facility] Comment on above: Order Comment: Test( s) 559016-K834-OtY Cockroach, Singaporean; 482138- X586-XwS [place], White; 373075-P141-WoY Sweet Gum were developed and had performance characteristics determined by [facility]. These tests have not been cleared or approved by the U.S. Food and Drug Administration. The FDA has determined that such clearance or approval is not necessary. These tests are used for clinical purposes. These should not be regarded as investigational or for research. Result Comment: Perf ormed at: - [facility] [id number] [employer] Tender: Epifanio Horne MD, Phone: [phone] Performed By: #### L 5500.0600 #### [facility] [address] [place], [place], [address] OAK, WHITE <0.10 Normal Class 0 [facility] Comment on above: Order Comment: Test( s) 188340-J448-ZsZ Cockroach, Singaporean; 130231- D321-AkJ [place], White; 127645-B033-LoO Sweet Gum were developed and had performance characteristics determined by [facility]. These tests have not been cleared or approved by the U.S. Food and Drug Administration. The FDA has determined that such clearance or approval is not necessary. These tests are used for clinical purposes. These should not be regarded as investigational or for research. Performed By: #### L 5500.0600 #### [facility] [address] [place], [place], [address] PEN CHRYSOGEN <0.10 Normal Class 0 [facility] Comment on above: Order Comment: Test( s) 225207-Z278-VuE Cockroach, [place]an; 072942- K702-LfX [place], White; 859392-C222-JeL Sweet Gum were developed and had performance characteristics determined by [facility]. These tests have not been cleared or approved by the U.S. Food and Drug Administration. The FDA has determined that such clearance or approval is not necessary. These tests are used for clinical purposes. These should not be regarded as investigational or for research. Performed By: #### L 5500.0600 #### [facility] [address] [place], [address] PIGWEED, ROUGH <0.10 Normal Class 0 [facility] Comment on above: Order Comment: Test( s) 207432-X205-FuP Cockroach, Singaporean; 080195- V578-KmS [place], White; 774144-M343-RzN Sweet Gum were developed and had performance characteristics determined by [facility]. These tests have not been cleared or approved by the U.S. Food and Drug Administration. The FDA has determined that such clearance or approval is not necessary. These tests are used for clinical purposes. These should not be regarded as investigational or for research. Performed By: #### L 0.0600 #### [facility] [address] [place], [address] PLANTAIN,ENGLSH <0.10 Normal Class 0 [facility] Comment on above: Order Comment: Test( s) 579446-U000-ByU Cockroach, Singaporean; 052733- K878-YtQ [place], White; 410656-J768-FzO Sweet Gum were developed and had performance characteristics determined by [facility]. These tests have not been cleared or approved by the U.S. Food and Drug Administration. The FDA has determined that such clearance or approval is not necessary. These tests are used for clinical purposes. These should not be regarded as investigational or for research. Performed By: #### L 5500.0600 #### [facility] [address] [place], [address] RAGWEED SH/COM 0.14 kU/L Abnormal Class 0/I [facility] Comment on above: Order Comment: Test( s) 054349-Z941-CuY Cockroach, Singaporean; 841552- C787-OmX [place], White; 955155-K668-QzM Sweet Gum were developed and had performance characteristics determined by [facility]. These tests have not been cleared or approved by the U.S. Food and Drug Administration. The FDA has determined that such clearance or approval is not necessary. These tests are used for clinical purposes. These should not be regarded as investigational or for research. Performed By: #### L 5500.0600 #### [facility] [address] [facility] [place], [place], [address] SHEEP SORREL <0.10 Normal Class 0 [facility] Comment on above: Order Comment: Test( s) 548031-N168-DgF Cockroach, Singaporean; 080282- P888-JzK [place], White; 411237-U745-VhO Sweet Gum were developed and had performance characteristics determined by [facility]. These tests have not been cleared or approved by the U.S. Food and Drug Administration. The FDA has determined that such clearance or approval is not necessary. These tests are used for clinical purposes. These should not be regarded as investigational or for research. Performed By: #### L 0.0600 #### [facility] [address] [facility] [place], [place], [id number] STEMPHYLIUM HER <0.10 Normal Class 0 [facility] Comment on above: Order Comment: Test( s) 382333-Q990-NzW Cockroach, Singaporean; 394151- J087-YgJ [place], White; 985663-Z508-MaP Sweet Gum were developed and had performance characteristics determined by [facility]. These tests have not been cleared or approved by the U.S. Food and Drug Administration. The FDA has determined that such clearance or approval is not necessary. These tests are used for clinical purposes. These should not be regarded as investigational or for research. Performed By: #### L 5500.0600 #### [facility] [address] [facility] [place], [address] SWEET GUM <0.10 Normal Class 0 [facility] Comment on above: Order Comment: Test( s) 316449-H417-FoQ Cockroach, Singaporean; 126098- M175-PyQ [place], White; 163302-W079-VrK Sweet Gum were developed and had performance characteristics determined by [facility]. These tests have not been cleared or approved by the U.S. Food and Drug Administration. The FDA has determined that such clearance or approval is not necessary. These tests are used for clinical purposes. These should not be regarded as investigational or for research. Performed By: #### L 5500.0600 #### [facility] [address] [place], [place], [address] SYCAMORE, AMER <0.10 Normal Class 0 [facility] Comment on above: Order Comment: Test( s) 294674-O072-KaY Cockroach, Singaporean; 597131- C872-RhM [place], White; 120160-J272-JzW Sweet Gum were developed and had performance characteristics determined by [facility]. These tests have not been cleared or approved by the U.S. Food and Drug Administration. The FDA has determined that such clearance or approval is not necessary. These tests are used for clinical purposes. These should not be regarded as investigational or for research. Performed By: #### L 5500.0600 #### [facility] [address] [place], [place], [address] [facility] [id number] Author: Coordinator, Mammography Service: ? Author Type: Physician Type: Letter Filed: 05/15/2023 11:34 PM Note Text: [facility] [address] [place] [address] May 11, 2023 PID: [id number] Zachariah Spears [address] [place] [address] Dear Ms. Spears, We are pleased to inform you that the results of your recent breast imaging exam on 05/11/2023 are normal. Early detection of cancer is very important. We also understand recommendations regarding breast cancer screening are controversial. Please discuss with your primary care provider which strategy is best for you and whether a mammogram is right for you. Your imaging studies and report will be kept on file at [facility] as part of your permanent medical record and are available for your continuing care. Thank you for allowing us to help in meeting your health care needs. Sincerely, Dr. Luna Interpreting Radiologist Sales Department Clerk Center (Normal over 40) Normal [facility] CNOVon 05-11-2023 CNOV Office Visit ([facility] R) CATHYZACHARIAH Narvaez ([id number]) 1975 F Date Time Provider Department 05/11/23 10:00 AM DILCIA DELUCA [facility] During your visit today, we recorded the following information about you: Pulse Blood pressure Weight Height 81/minute 115/80 70.3 kg 1.6 m Aspen Ann NA 05/11/2023 10:03 AM Signed Patient presents for follow up after imaging. Denies any new concerns. KRYSTEN Chun Mary K, MD 05/11/2023 4:41 PM Signed Dilcia Deluca MD [facility] [address] [place], [place] [id number] HPI: Ms. Spears is a White 47 year old woman who presents for follow up breast examination after bilateral screening mammogram. The patient denies any new findings or changes on her self breast exam. FAMILY HISTORY Problem Relation Age of Onset Ischemic Heart Disease Mother heart attack age 55 Allergies Mother Cancer Mother lung and bone Cancer Paternal Uncle lung, metastatic Cancer Paternal Grandfather lung Cancer Paternal Uncle lung Allergies Brother PAST MEDICAL HISTORY Diagnosis Date Abnormal findings on diagnostic imaging of breast 05/26/2014 Adjustment disorder with depressed mood Breast lump 08/26/2014 bilateral multiple palpable nodularities Carpal tunnel syndrome, bilateral Crohn's disease (HCC) Discharge from nipple 05/20/2014 right breast, intermittent Fibrocystic disease of breast 08/26/2014 stable Hypothyroid Irritable bowel syndrome 01/2005 Lumbosacral spondylosis without myelopathy 11/2000 L5-S1 Tobacco use disorder Vitamin D deficiency 02/18/2014 PAST SURGICAL HISTORY Procedure Laterality Date APPENDECTOMY 2003 BREAST BIOPSY 05/16/2014 right breast 0 oclock excisional biopsy - fibroadenoma. Excisional biopsy left breast 11 oclock - unremarkable adipose tissue, possiblity of a lipoma cannot be exdluded, however clinical and radiographic correlation is required BREAST BIOPSY CORE Left 05/20/2019 benign breast tissue with focal stromal fibrosis, 12 oclock 8 cm from nipple CARPAL TUNNEL DELIVERY ONLY 05/28/2010 , low transverse Dr. Moss I AND D ABSCESS 12/01/11 anal abscess PAST SURGICAL HISTORY OF wisdom tooth extraction x 2 PAST SURGICAL HISTORY OF 2009 milk duct removal on right breast Social History Tobacco Use Smoking status: Former Packs/day: 0.50 Years: 11.00 Additional pack years: 0.00 Total pack years: 5.50 Types: Cigarettes Quit date: 12/11/2018 Years since quittin.4 Smokeless tobacco: Never Tobacco comments: started 25yo Vaping Still vaping Vaping Use Vaping Use: current everyday user Substance Use Topics Alcohol use: No Drug use: No Comment: caffeine AGE AT MEN[place]HE 17 AGE AT FIRST 35 FAMILY HISTORY OF BREAST CANCER No (IF YES) NUMBER OF FIRST DEGREE RELATIVES WITH BREAST CANCER 0 PREVIOUS BREAST BIOPSIES Yes (x4) (IF YES) PREVIOUS BREAST BIOPSY WITH ATYPICAL HYPERPLASIA No RACE DOT MODEL RISK 5 YEAR 2.6 DOT MODEL RISK LIFETIME 17.9 LAB AND IMAGING RESULTS: BILATERAL DIGITAL SCREENING MAMMOGRAM TOMOSYNTHESIS WITH CAD: 05/11/2023 HISTORY: Visit For Screening Mammogram Routine screening mammogram. Patient reports no breast problems. RESULT: TECHNIQUE: The study was acquired using full field digital technology and interpreted from soft copy. Digital Breast Tomosynthesis (DBT) images were obtained and used to assist in the interpretation of this examination. Current study was also evaluated with a Computer Aided Detection (CAD). Comparison is made to exams dated: 10/08/2019 mammogram, 10/08/2019 ultrasound, 05/06/2021 mammogram, 05/10/2022 mammogram, and 11/05/2018 mammogram - [facility]. There are scattered areas of fibroglandular density. There are benign post operative findings and a biopsy clip in the right breast. There also is a biopsy clip in the left breast. No significant masses, calcifications, or other findings are seen in either breast. There has been no significant interval change. IMPRESSION IMPRESSION: BENIGN FINDING There is no mammographic evidence of malignancy. A 1 year screening mammogram is recommended. Juno carlos/mati:05/11/2023 14:49:26 Pediatric Psychiatrist(s): RT Gokul(R)(M), [facility] letter sent: Normal over 40 Mammogram BI-RADS: 2 Benign finding Review of Systems Constitutional: Negative for chills and fever. PHYSICAL EXAMINATION: BP 115/80 Pulse 81 Ht 160 cm (5' 3) Wt 70.3 kg (155 lb) LMP 01/21/2013 BMI 27.46 kg/m? General appearance: Well appearing, alert, in no acute distress Skin: skin color, texture, turgor normal, no suspicious rashes or lesions Eyes: Anicteric sclera, Pupils are equally round and reactive Extremities: No clubbing, cyanosis, or edema. Neuro: Alert and (more content not included)... Normal [facility] SCREENING W TOMOon 05-11 [facility] SCREENING W MANUELA * * *Final Report* * * DATE OF EXAM: May 11 2023 9:24AM [id number] - ALBINO SCREENING W MANUELA / PROCEDURE REASON: Visit for screening mammogram * * * * Physician Interpretation * * * * #[id number] - [facility] SCREENING W MANUELA BILATERAL DIGITAL SCREENING MAMMOGRAM TOMOSYNTHESIS WITH CAD: 05/11/2023 HISTORY: Visit For Screening Mammogram\ Routine screening mammogram. Patient reports no breast problems. RESULT: TECHNIQUE: The study was acquired using full field digital technology and interpreted from soft copy. Digital Breast Tomosynthesis (DBT) images were obtained and used to assist in the interpretation of this examination. Current study was also evaluated with a Computer Aided Detection (CAD). Comparison is made to exams dated: 10/08/2019 mammogram, 10/08/2019 ultrasound, 05/06/2021 mammogram, 05/10/2022 mammogram, and 11/05/2018 mammogram - [facility]. There are scattered areas of fibroglandular density. There are benign post operative findings and a biopsy clip in the right breast. There also is a biopsy clip in the left breast. No significant masses, calcifications, or other findings are seen in either breast. There has been no significant interval change. IMPRESSION: BENIGN FINDING There is no mammographic evidence of malignancy. A 1 year screening mammogram is recommended. Juno carlos/mati:05/11/2023 14:49:26 Pediatric Psychiatrist(s): RT Gokul(R)(M), [facility] letter sent: Normal over 40 Mammogram BI-RADS: 2 Benign finding Multiple national specialty organizations have released breast cancer screening guidelines for women at average risk for developing breast cancer - guidelines that are based on both evidence and opinion, yet differ on when to start and how often to screen for breast cancer. With representation from Breast Imaging, Internal Medicine, Women's Health, Family Medicine, and Medical/Surgical Oncology, the [facility] has carefully reviewed the data and reached the following consensus: 1) All women should engage in shared decision-making with their providers to decide when to start and how often to screen; 2) All women should have the opportunity to start screening mammography at age 40; 3) For women ages 45-55, we recommend annual screening mammograms; 4) For women ages 55 and over, we support both the transition from an annual to a biennial interval if this aligns more with patient's values and preferences, or continuation with annual screening; 5) All women should discuss with their providers when to stop screening mammograms. [employer] Instructor: Mati Transcribe Date/Time: May 11 2023 9:09A Dictated by : JUNO LUNA MD This examination was interpreted and the report reviewed and electronically signed by: JUNO LUNA MD on May 11 2023 2:49PM EST [id number] Normal [facility] Alternaria alternata IgE ser umOrdered By: Chirag Marte on 05-09-2023 A. alternata IgE Qn (S) 2.69 kU/L Class III [facility] Gastroenterology Visit Repor ton 05-09-2023 Gastroenterology Visit Report [facility] [address] [place] [address] OFFICE VISIT Date of Service: 05/09/23 MR#: [id number] Acct: [id number] Name: ZACHARIAH SPEARS Rep #: [id number] 1 : 1975 Provider: Chirag Marte DO Age/Sex: 47/F Location: [facility] Status: Signed Intake Vital Signs 05/11/22 11:22 Height 5 ft 3 in Intake Visit Reasons: 6 MO FU Allergies Penicillins Allergy (Unknown, Unverified 05/11/22 10:16) PT UNSURE OF REACTION cortisone Allergy (Verified 05/11/22 10:16) Hives PFSH Medical History (Updated 05/09/23 @ 08:08 by Jina Hill) Abdominal pain, vomiting, and diarrhea Alcohol use Anemia Anxiety Back pain Blister Depression History of Crohn's disease History of IBS Leg cramps Migraine headache Pancreatic insufficiency Restless legs Shortness of breath on exertion Smoker Thyroid disease Wears glasses Surgical History (Updated 05/09/22 @ 10:55 by Debi Brandon) History of History of lumpectomy of left breast History of lumpectomy of right breast Hx of breast biopsy Hx of colonoscopy Hx of hysterectomy Hx of shoulder surgery Social History Smoking Status: Current every day smoker tobacco type: cigarettes HPI HPI Details: ZACHARIAH SPEARS, is a 47 F who presents to the office today for PMH includes hypothyroidism, depression (Wellbutrin, Lexapro). Uses NSAIDs frequently for pain. FH mother bone cancer; paternal side with brain, lung and unknown cancers between three people. Prior imaging: ? US abd 3.9.22 with liver measurement 13.7cm. Overall an unremarkably normal exam. *BGI established 09.07.21 with referral from PCP for nausea and diarrhea alternating with constipation and decreased appetite causing weight loss; onset early 2020. Hot flashes have been an issue for her lately also. She is a current smoker with two cigarettes a day. ? Biochemical workup ESR, LDH, CRP, Vit B12, TSH, GAME, ANCA, STELLA comp all WNL Stool testing for fecal fats, calprotectin and giardia WNL.? 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 H.Pylori negative. Colonoscopy Hyperplastic polyp removed from rectum; mild melanosis coli; congested mucosa of sigmoid, transverse and ascending colons; mild cryptitis of cecal cap. OV 6.16.22 with continued use of budesonide with 2-3 formed BM/day Biochemical workup ZHAO, JULIA, without pertinent abnormal results. Crohn???s suggestive (ALCA, AMCA) Stool testing elastase, lactoferrin WNL. OV 9.8.22 with varying stool frequency/consistency. Diarrhea continues and occurs three days a week, on other days she has 2-3 BM a day with soft stool; nausea is much improved and feels it is food triggered. She would like to pursue treatment for gastric metaplasia because of her strong family history. History of precancer cells in her cervix/uterus prompting total hysterectomy. EGD with capsule placement 05.11.22 without abnormality noted. Capsule endoscopy placed. Capsule endoscopy one area of erosion with ulcerative base; mild enteritis. Pentasa 1g BID, expensive. Changed to sulfasalazine and folic acid OV 2.23.23 Nausea mostly resolved save dietary triggers. Stools continue to be frequent 4-5 times a day with soft consistency. Since starting sulfasalazine she has had improvement of frequency. OV 5.11.23 BM 2-3 times a day which is not particularly bothersome; notes mild flare this week with increased BM frequency which she feels is r/t not paying attention to her diet. Stop mesalamine, continue budesonide and sulfasalazine. ? Biochemical CBC, ESR, CMP, LFT, CRP, celiac without pertinent abnormality. ? Stool calprotectin, lactoferrin.? Elastase L106 Contact 11.08.22 with elastase abnormality. Would like to start with doxycycline to treat suspected SIBO and will update clinic in 2-3 weeks. OV 05.09.23 reports that she is doing well overall. Will intermittently have abdominal cramping, bloating and loose stools; she will have a restricted diet for that day and will self-resolve. Notes milk products are a trigger. Continues to avoid raw vegetables/salads. ROS Const Constitutional: Positive for fatigue; No fever(s) or weight change ENT ENT: No difficulty swallowing Cardio Cardiology: No leg pain with exertion Gastro GI: Positive for bloating, change in bowel habits, diarrhea and nausea/dyspepsia; No abdominal pain, heartburn, diffi (more content not included)... Normal [facility] Laboratory - Miscellaneous t estsOrdered By: Chirag Marte on 05-09-2023 Service comment (Unsp spec) [Interp] Comment . [facility] Comment on above: Levels of Specific I gE Class Description of Class ----- < 0.10 0 Negative 0.10 - 0.31 0/I Equivocal/Low 0.32 - 0.55 I Low 0.56 - 1.40 II Moderate 1.41 - 3.90 III High 3.91 - 19.00 IV Very High 19.01 - 100.00 V Very High >100.00 Very High No Panel InformationOrdered By: Chirag Marte on 05-09-2023 Aspergillus fumigatus Allergen <0.10 kU/L Class 0 [facility] Common Ragweed (Short) Allergen 0.14 kU/L Class 0/I [facility] Latvian Plantain Allergen (RAST) <0.10 kU/L Class 0 [facility] Maple ([place]) Allergen IgE Ab <0.10 kU/L Class 0 [facility] [place] Tree Allergen <0.10 kU/L Class 0 [facility] Rough pigweed specific IgE a ntibody assayOrdered By: Chirag Marte on 05-09-2023 Rough Pigweed IgE Qn (S) <0.10 kU/L Class 0 [facility] Serum Bermuda grass IgE anti body assay (units/volume)Ordered By: Chirag Marte on 05-09-2023 Bermuda grass IgE Qn (S) 0.14 kU/L Class 0/I [facility] Serum Cladosporium herbarum IgE antibody assay (units/volume)Ordered By: Chirag Marte on 05-09-2023 C. herbarum IgE Qn (S) <0.10 kU/L Class 0 [facility] Serum Dermatophagoides farin ae specific IgE antibody assay (units/volume)Ordered By: Chirag Marte on 05-09-2023 Singaporean house dust mite IgE Qn (S) 0.46 kU/L Class I [facility] Serum house dust mi te IgE antibody assay (units/volume)Ordered By: Chirag Marte on 05-09-2023 house dust mite IgE Qn (S) 0.50 kU/L Class I [facility] Serum Lachelle grass IgE anti body assay (units/volume)Ordered By: Chirag Marte on 05-09-2023 Lachelle grass IgE Qn (S) <0.10 kU/L Class 0 [facility] Serum [place] blue grass Ig E antibody assay (units/volume)Ordered By: Chirag Marte on 05-09-2023 [place] blue grass IgE Qn (S) <0.10 kU/L Class 0 [facility] Serum Mucor racemosus IgE an tibody assay (units/volume)Ordered By: Chirag Marte on 05-09-2023 Mucor racemosus IgE Qn (S) <0.10 kU/L Class 0 [facility] Serum Penicillium notatum Ig E antibody assay (units/volume)Ordered By: Chirag Marte on 05-09-2023 P. notatum IgE Qn (S) <0.10 kU/L Class 0 [facility] Serum Periplaneta americana IgE antibody assay (units/volume)Ordered By: Chirag Marte on 05-09-2023 Singaporean Cockroach IgE Qn (S) 0.41 kU/L Class I [facility] Serum bahia grass IgE antibo dy assay (units/volume)Ordered By: Chirag Marte on 05-09-2023 Bahia grass IgE Qn (S) <0.10 kU/L Class 0 [facility] Serum cat dander IgE antibod y assay (units/volume)Ordered By: Chirag Marte on 05-09-2023 Cat dander IgE Qn (S) <0.10 kU/L Class 0 [facility] Serum dog epithelium IgE ant ibody assay (units/volume)Ordered By: Chirag Marte on 05-09-2023 Dog epithelium IgE Qn (S) <0.10 kU/L Class 0 [facility] Serum hazelnut pollen IgE an tibody assay (units/volume)Ordered By: Chirag Marte on 05-09-2023 Hazelnut Pollen IgE Qn (S) <0.10 kU/L Class 0 [facility] Serum mountain cedar specifi c IgE antibody assayOrdered By: Chirag Marte on 05-09-2023 Mountain Juniper IgE Qn (S) <0.10 kU/L Class 0 [facility] Serum mugwort IgE antibody a ssay (units/volume)Ordered By: Chirag Marte on 05-09-2023 Mugwort IgE Qn (S) <0.10 kU/L Class 0 [facility] Serum nettle IgE antibody as say (units/volume)Ordered By: Chirag Marte on 05-09-2023 Nettle IgE Qn (S) <0.10 kU/L Class 0 [facility] Comment on above: Performed at: [facility] [address] [id number] Director: Epifanio Horne MD, Phone: [phone] Serum sheep sorrel IgE antib mindi assay (units/volume)Ordered By: Chirag Marte on 05-09-2023 She[place] IgE Qn (S) <0.10 kU/L Class 0 [facility] Serum sweet gum IgE radioall ergosorbent test (RAST) class determinationOrdered By: Chirag Marte on 05-09-2023 Serum sweet gum IgE radioallergosorbent test (RAST) class determination <0.10 kU/L Class 0 [facility] Serum white elm IgE antibody assay (units/volume)Ordered By: Chirag Marte on 05-09-2023 White Elm IgE Qn (S) <0.10 kU/L Class 0 [facility] Serum white hickory IgE anti body assay (units/volume)Ordered By: Chirag Marte on 05-09-2023 White [place] IgE Qn (S) <0.10 kU/L Class 0 [facility] Serum white mulberry IgE ant ibody assay (units/volume)Ordered By: Chirag Marte on 05-09-2023 White mulberry IgE Qn (S) <0.10 kU/L Class 0 [facility] Serum white oak IgE antibody assay (units/volume)Ordered By: Chirag Marte on 05-09-2023 [place] IgE Qn (S) <0.10 kU/L Class 0 [facility] Stemphylium herbarum IgE ser umOrdered By: Chirag Marte on 05-09-2023 Stemphylium botryosum IgE Qn (S) <0.10 kU/L Class 0 [facility] Laboratory - Chemistry and C hemistry - challengeOrdered By: Indy Barajas on 11-16-2022 Free T4 [Mass/Vol] 1.32 ng/dL 0.76-1.46 [facility] No Panel InformationOrdered By: Indy Barajas on 11-16-2022 Thyroid Stimulating Hormone (TSH) 3.99 uIU/mL 0.358-3.74 [facility] Absolute lymphocyte countOrd ered By: Chirag Marte on 11-03-2022 Lymphocytes Auto (Unsp spec) [#/Vol] 1.81 10*3/uL 0.83-4.51 [facility] Basophil percentageOrdered B y: Chirag Marte on 11-03-2022 Basophils/100 WBC (Bld) 1.1 % 0-1 [facility] Bilirubin [Mass/Vol] 0.40 mg/dL 0.20-1.00 [facility] Comment on above: For patients on eltr ombopag therapy, use of Dimension [place] TBIL is not recommended. Chloride [Moles/Vol] 103 mmol/L 98-107 [facility] Eosinophils/100 WBC (Bld) 3.4 % 0-5 [facility] Glucose [Mass/Vol] 90 mg/dL 74-106 [facility] Neutrophils (Bld) [#/Vol] 3.8 10*3/uL 2.0-7.7 [facility] Neutrophils/100 WBC (Bld) 57.8 % 47-70 [facility] Potassium [Moles/Vol] 3.9 mmol/L 3.5-5.1 [facility] Protein [Mass/Vol] 7.5 g/dL 6.4-8.2 [facility] Sodium [Moles/Vol] 138 mmol/L 136-145 [facility] WBC (Bld) [#/Vol] 6.5 10*3/uL 4.4-11.0 [facility] Blood erythrocytes count (nu mber/volume)Ordered By: Chirag Marte on 11-03-2022 RBC (Bld) [#/Vol] 4.11 10*6/uL 4.2-5.4 [facility] Blood hemoglobin measurement (mass/volume)Ordered By: Chirag Marte on 11-03-2022 Hemoglobin (Bld) [Mass/Vol] 13.7 g/dL 12.0-15.0 [facility] Blood lymphocytes/100 leukoc ytesOrdered By: Chirag Marte on 11-03-2022 Lymphocytes/100 WBC (Bld) 27.9 % 19-41 [facility] Blood monocytes/100 leukocyt esOrdered By: Chirag Marte on 11-03-2022 Monocytes/100 WBC (Bld) 9.3 % 0-10 [facility] Blood platelet mean volumeOr dered By: Chirag Marte on 05-11-2023 Platelet mean volume (Bld) [Entitic vol] 9.7 fL 6.2-12.0 [facility] Determination of erythrocyte mean corpuscular volume (MCV)Ordered By: Chirag Marte on 11-03-2022 MCV (RBC) [Entitic vol] 98.1 fL 81-99 [facility] Erythrocyte sedimentation ra teOrdered By: Chirag Marte on 11-03-2022 ESR (Bld) [Velocity] 1 mm[facility]h 0[facility] Hemat[facility] Auto (Bld) [Volum e fraction]Ordered By: Chirag Marte on 11-03-2022 Hematocrit (Bld) [Volume fraction] 40.3 % 37-47 [facility] Laboratory - Chemistry and C hemistry - challengeOrdered By: Chirag Marte on 11-03-2022 ALP [Catalytic activity/Vol] 76 U/L 45-117 [facility] ALT [Catalytic activity/Vol] 37 U/L 13-56 [facility] CO2 [Moles/Vol] 28.0 mmol/L 21.0-32.0 [facility] Globulin (S) [Mass/Vol] 3.4 g/dL 2.2-4.2 [facility] Urea nitrogen/Creatinine [Mass ratio] 7.1 mg/mg 10-20 [facility] Laboratory - Hematology and Cell countsOrdered By: Chirag Marte on 11-03-2022 Erythrocyte distribution width (RBC) [Entitic vol] 46.5 fL 35.1-43.9 [facility] Erythrocyte distribution width (RBC) [Ratio] 12.9 % 11.6-14.6 [facility] Immature granulocytes/100 WBC (Bld) 0.500 % 0.0-0.9 [facility] Comment on above: IG% - Immature Granu locytes (promyelocytes, myelocytes and metamyelocytes) > 1% indicates that a LEFT SHIFT is Present. MCH (RBC) [Entitic mass] 33.3 pg 27.0-32.0 [facility] Nucleated RBC/100 WBC (Bld) [Ratio] 0 % 0-5 [facility] MCHC Auto (RBC) [Mass/Vol]Or dered By: Chirag Marte on 11-03-2022 MCHC (RBC) [Mass/Vol] 34.0 g/dL 32-36 [facility] No Panel InformationOrdered By: Chirag Marte on 11-03-2022 Stool Pancreatic Elastase 106 >200 [facility] Comment on above: Result Units: ug Domonique st./gResults verified by repeat testing Severe Pancreatic Insufficiency: <100 Moderate Pancreatic Insufficiency: 100 - 200 Normal: >200Performed at: [facility] [id number] Director: Epifanio Horne MD, Phone: [phone] Stool Calprotectin 22 ug/g 0-120 [facility] Comment on above: Concentration Interp retation Follow-Up<16 - 50 ug/g Normal None>50 -120 ug/g Borderline Re-evaluate in 4-6 weeks >120 ug/g Abnormal Repeat as clinically indicatedPerformed at: [facility] [id number] Director: Epifanio Horne MD, Phone: [phone] Endomysial IgA Antibody Negative Negative [facility] Estimated GFR (MDRD) Amer 116 mL/min >60 [facility] Comment on above: GFR Calc Estimated GFR (MDRD) Non-Af Amer 96 mL/min >60 [facility] Comment on above: Non- GFR Calc Platelets bldOrdered By: Misael Marte on 11-03-2022 Platelets (Bld) [#/Vol] 323 10*3/uL 150-450 [facility] Serum IgA measurement (units /volume)Ordered By: Chirag Marte on 11-03-2022 IgA Qn (S) 129 mg/dL 87-352 [facility] Comment on above: Performed at: [facility] [employer] [address] [id number] Director: Chele Simms PhD, Phone: [phone] Serum or plasma C reactive p rotein measurement (mass/volume)Ordered By: Chirag Marte on 11-03-2022 CRP [Mass/Vol] mg/L 0.0-3.0 [facility] Comment on above: C-Reactive Protein ( CRP) provides useful information for thediagnosis, therapy and monitoring of inflammatory processesand associated diseases. For the evaluation of Relative Riskfor Cardiovascular Disease, a High Sensitivity CRP (HSCRP)should be ordered. Serum or plasma albumin abby urement (mass/volume)Ordered By: Chirag Marte on 11-03-2022 Albumin [Mass/Vol] 4.1 g/dL 3.2-5.0 [facility] Serum or plasma albumin/glob ulin mass ratioOrdered By: Chirag Marte on 11-03-2022 Albumin/Globulin [Mass ratio] 1.2 {ratio} 0.9-2.4 [facility] Serum or plasma calcium abby urement (mass/volume)Ordered By: Chirag Marte on 11-03-2022 Calcium [Mass/Vol] 8.6 mg/dL 8.5-10.1 [facility] Serum or plasma creatinine m easurement (mass/volume)Ordered By: Chirag Marte on 11-03-2022 Creatinine [Mass/Vol] 0.70 mg/dL 0.55-1.02 [facility] Comment on above: The validity of the calculated GFR & GFRAA in patients over 70 years has not been determined. Clinical correlation is essential. Serum or plasma urea nitroge n measurement (mass/volume)Ordered By: Chirag Marte on 11-03-2022 Urea nitrogen [Mass/Vol] 5 mg/dL 7-18 [facility] Serum tissue transglutaminas e IgA antibody assay (units/volume)Ordered By: Chirag Marte on 11-03-2022 tTG IgA Qn (S) <2 U/mL 0-3 [facility] Comment on above: Negative 0 - 3 Weak Positive 4 - 10 Positive >10 Tissue Transglutaminase (tTG) has been identified as the endomysial antigen. Studies have demonstr- ated that endomysial IgA antibodies have over 99% specificity for gluten sensitive enteropathy. Stool lactoferrin detection by immunoassayOrdered By: Chirag Marte on 11-03-2022 Lactoferrin IA Ql (Stl) [facility] Thin prep Papanicolaou smear with manual screeningOrdered By: Chirag Marte on 11-03-2022 Thin prep Papanicolaou smear with manual screening 22 U/L 15-37 [facility] Thin prep Papanicolaou smear with manual screening 7 11-07 [facility] ALBINO SCREENING W Carole 05-10 [facility] No Panel Informationon 10-10 Miscellaneous Test See comment [facility] Work Phone: Comment on above: TEST RESULT LIMITSPa ncreatic Elastase, Fecal 214 ug Elast./g >200 Severe Pancreatic Insufficiency: <100 Moderate Pancreatic Insufficiency: 100 - 200 Normal: >200 TESTING PERFORMED AT [facility]. ORIGINAL REPORT ON FILE IN LAB CONTAINS ADDITIONAL TEST SITE INFORMATION. HIV 1 and HIV-2 antibody ass ay with HIV-1 p24 antigen detectionon 10-05-2021 HIV 1+2 Ab+HIV1 p24 Ag IA Ql Non-Reactive Nonreactive [facility] Work Phone: Giardia lamblia ag stool EIA on 09-08-2021 G. lamblia Ag IA Ql (Stl) Negative Negative [facility] [facility] Work Phone: Comment on above: Performed at: [address] [id number] Director: Chele Simms PhD, Phone: [phone] No Panel Informationon 09-08 Enteric Bacteriology Norovirus [facility] Work Phone: Miscellaneous Test See comment [facility] Work Phone: Comment on above: TEST RESULT LIMITSPa ncreatic Elastase, Fecal 67 Low ug Elast./g >200 Results verified by repeat testing Severe Pancreatic Insufficiency: <100 Moderate Pancreatic Insufficiency: 100 - 200 Normal: >200 TESTING PERFORMED AT [facility]. ORIGINAL REPORT ON FILE IN LAB CONTAINS ADDITIONAL TEST SITE INFORMATION. Stool Calprotectin <16 ug/g [facility] Work Phone: Comment on above: Concentration Interp retation Follow-Up<16 - 50 ug/g Normal None>50 -120 ug/g Borderline Re-evaluate in 4-6 weeks >120 ug/g Abnormal Repeat as clinically indicatedPerformed at: [facility] Network [employer] [id number] Director: Chele Simms PhD, Phone: [phone] at: [facility] Network [employer] [id number] Director: Epifanio Horne MD, Phone: [phone] Stool Neutral Fats Normal [facility] Work Phone: Comment on above: Normal (<60 Droplets /HPF) Qualitative fecal fat or lip idson 09-08-2021 Fat Ql (Stl) Normal [facility] Work Phone: Comment on above: Normal (<100 Droplet s/HPF) Atypical perinuclear antineu trophil cytoplasmic antibodies measurementon 09-07-2021 Neutrophil cytoplasmic Ab.perinuclear.atypical IF (S) [Titer] <1:20 titer Neg:<1:20 [facility] Work Phone: Comment on above: The atypical pANCA p attern has been observed in asignificant percentage of patients with ulcerative colitis,primary sclerosing cholangitis and autoimmune hepatitis. Basophil percentageon 2021 Basophil percentage 0.2 AI [facility] Work Phone: Basophil percentage < 0.2 AI [facility] Work Phone: Erythrocyte sedimentation ra kalpana 09-07-2021 ESR (Bld) [Velocity] 8 mm/h 0-30 [facility] Work Phone: Laboratory - Chemistry and C hemistry - challengeon 09-07-2021 Cobalamin (Vitamin B12) [Mass/Vol] 537 pg/mL 211-911 [facility] Work Phone: No Panel Informationon 09-07 Centromere B Antibody <0.2 AI [facility] Work Phone: Endomysial IgA Antibody Negative Negative [facility] Work Phone: Immunoglobulin E 50 IU/mL [facility] Work Phone: THREAD ROLLER Antibody 0.2 AI [facility] Work Phone: Thyroid Stimulating Hormone (TSH) 2.56 uIU/mL 0.358-3.74 [facility] Work Phone: Serum DNA double strand anti body assay (units/volume)on 09-07-2021 DNA double strand Ab Qn (S) 2 [IU]/mL [facility] Work Phone: Comment on above: Negative <5 Equivoca l 5 - 9 Positive >9 Serum Trisha-1 antibody assay (u nits/volume)on 09-07-2021 Trisha-1 extractable nuclear Ab Qn (S) <0.2 [facility] Work Phone: Serum Scl-70 extractable nuc lear antibody assay (units/volume)on 09-07-2021 SCL-70 extractable nuclear Ab Qn (S) <0.2 [facility] Work Phone: Serum Ash extractable nucl ear antibody detectionon 09-07-2021 Ash extractable nuclear Ab Ql (S) <0.2 [facility] Work Phone: Serum classic neutrophil cyt oplasmic antibody assay (units/volume)on 09-07-2021 Neutrophil cytoplasmic Ab.classic Qn (S) <1:20 titer Neg:<1:20 [facility] Work Phone: Serum cyclic citrullinated p eptide IgG antibody assay (units/volume)on 09-07-2021 Cyclic citrullinated peptide IgG Qn 7 units [facility] Work Phone: Comment on above: Negative <20 Weak po sitive 20 - 39 Moderate positive 40 - 59 Strong positive >59 Serum or plasma C reactive p rotein measurement (mass/volume)on 09-07-2021 CRP [Mass/Vol] mg/L 0.0-3.0 [facility] Work Phone: Comment on above: C-Reactive Protein ( CRP) provides useful information for thediagnosis, therapy and monitoring of inflammatory processesand associated diseases. For the evaluation of Relative Riskfor Cardiovascular Disease, a High Sensitivity CRP (HSCRP)should be ordered. Serum or plasma IgA measurem ent (mass/volume)on 09-07-2021 IgA [Mass/Vol] 95 mg/dL [facility] Work Phone: Serum or plasma IgG measurem ent (mass/volume)on 09-07-2021 IgG [Mass/Vol] 895 mg/dL [facility] Work Phone: Serum or plasma IgM measurem ent (mass/volume)on 09-07-2021 IgM [Mass/Vol] 92 mg/dL [facility] Work Phone: Comment on above: Performed at: [address] [id number] Director: Chele Simms PhD, Phone: [phone] at: [facility] Lab[address] [id number] Director: Epifanio Horne MD, Phone: [phone] Serum perinuclear neutrophil cytoplasmic antibody titer by immunofluorescenceon 09-07-2021 Neutrophil cytoplasmic Ab.perinuclear IF (S) [Titer] <1:20 titer Neg:<1:20 [facility] Work Phone: Comment on above: The presence of posi tive fluorescence exhibiting P-ANCA orC-ANCA patterns alone is not specific for the diagnosis ofWegener's Granulomatosis (WG) or microscopic polyangiitis.Decisions about treatment should not be based solely onANCA IFA results. The International ANCA Group Consensusrecommends follow up testing of positive sera with both AR-3 and MPO-ANCA enzyme immunoassays. As many as 5% serumsamples are positive only by EIA. Ref. AM J Clin Jciziq6260;111:507-513. Serum rheumatoid factor dete ctionon 09-07-2021 Rheumatoid factor Ql (S) < 10.0 IU/mL <15 [facility] Work Phone: Serum tissue transglutaminas e IgA antibody assay (units/volume)on 09-07-2021 tTG IgA Qn (S) <2 U/mL [facility] Work Phone: Comment on above: Negative 0 - 3 Weak Positive 4 - 10 Positive >10 Tissue Transglutaminase (tTG) has been identified as the endomysial antigen. Studies have demonstr- ated that endomysial IgA antibodies have over 99% specificity for gluten sensitive enteropathy. Thin prep Papanicolaou smear with manual screeningon 09-07-2021 Thin prep Papanicolaou smear with manual screening 84 U/L 84-246 [facility] Work Phone: CNPRosey [facility] ZACH[facility] ([id number]) 1975 F Date Time Provider Department 05/13/21 MADISON JOHNSON [facility] During your visit today, we recorded the following information about you: Madison Johnson APRN.CNP 05/13/2021 8:51 AM Signed Patient notified that labs were normal. If no resolution please follow up with PCP Madison Johnson APRN.CNP Allergies As of Date: 05/13/2021 Noted Allergy Reaction AMOXICILLIN 09/21/2015 16 - Unknown CORTISONE 09/30/2015 4 - Hives DOXYCYCLINE 09/21/2015 16 - Unknown PENICILLINS 03/09/2005 16 - Unknown Comments: childhood Date Reviewed: 05/12/2021 Reviewed by: Ankita Bates MA - Fully Assessed Reason for Visit: Results [95] Prescriptions as of 05/13/2021 - benzonatate (TESSALON PERLE) 100 mg capsule Take 2 capsules by mouth three times daily as needed for Cough. - MEDICATION, NON-DATABASE Amberen - levothyroxine (SYNTHROID) 75 mcg tablet Take 175 mcg by mouth once daily. - buPROPion XL (WELLBUTRIN XL) 150 mg 24 hr tablet Take 150 mg by mouth twice daily. - escitalopram oxalate (LEXAPRO) 20 mg tablet Take 1 tablet by mouth once daily. Problem List As Of Date 05/13/2021 Noted Resolved Irritable Bowel Syndrome [K58.9] 03/09/2005 Unspecified Hemorrhoids without Mention of Comp*03/09/2005 LOW BACK PAIN [M54.50] 03/09/2005 Lumbosacral Spondylosis without Myelopathy [M47*11/24/2000 Adjustment Disorder with Depressed Mood [F43.21]10/03/2005 Routine Gynecological Examination [Z01.419] 07/16/2008 Class: Chronic Family History of Other Cardiovascular Diseases*07/16/2008 Tobacco Use Disorder [F17.200] 07/16/2008 Unspecified Hypothyroidism [E03.9] 01/15/2009 Fibrous breast lumps [N63.0] 09/30/2015 Fibrocystic breast disease (FCBD) in female [N6*09/30/2015 Visit for screening mammogram [Z12.31] 09/29/2016 Abnormal finding on breast imaging [R92.8] 10/13/2017 Encounter Status:Closed by MADISON JOHNSON on 05/13/21 Normal [facility] CBC and Differentialon 05-12 Abs Baso 0.09 k/uL Normal <0.11 [facility] Comment on above: Performed By: #### C BCDIF #### [employer] [facility] [address] [place], [place] [address] Abs [place] 0.69 k/uL Normal <0.87 [facility] Comment on above: Performed By: #### C BCDIF #### [facility] [address] [place], [place] [address] Abs Neut 4.89 k/uL Normal 1.45-7.50 [facility] Comment on above: Performed By: #### C BCDIF #### [place] [address] [place], [place] [address] Absolute nRBC <0.01 Normal <0.01 [facility] Comment on above: Performed By: #### C BCDIF #### [place] [address] [place] [id number] Basophils/100 WBC (Bld) 1.1 % Normal C [facility] Comment on above: Performed By: #### C BCDIF #### [place] [address] [place] [address] DTYPE Auto Diff Normal [facility] Comment on above: Performed By: #### C BCDIF #### [place] [address] [place] [address] Eosinophils (Bld) [#/Vol] 0.19 10*3/uL Normal <0.46 [facility] Comment on above: Performed By: #### C BCDIF #### [place] [address] [place], [place] [address] Eosinophils/100 WBC (Bld) 2.4 % Normal [facility] Comment on above: Performed By: #### C BCDIF #### [place] [address] [place] [id number] Erythrocyte distribution width (RBC) [Ratio] 12.8 % Normal 11.5-15.0 [facility] Comment on above: Performed By: #### C BCDIF #### [place] [address] [place] [id number] Hematocrit (Bld) [Volume fraction] 39.1 % Normal 36.0-46.0 [facility] Comment on above: Performed By: #### C BCDIF #### [facility] [address] [place], [place] [address] Hemoglobin (Bld) [Mass/Vol] 12.6 g/dL Normal 11.5-15.5 [facility] Comment on above: Performed By: #### C BCDIF #### [place] [address] [place], [place] [address] Lymphocytes (Bld) [#/Vol] 2.00 10*3/uL Normal 1.00-4.00 [facility] Comment on above: Performed By: #### C BCDIF #### [place] [address] [place], [place] [address] Lymphocytes/100 WBC (Bld) 25.4 % Normal [facility] Comment on above: Performed By: #### C BCDIF #### [place] [address] MCH 31.1 pG Normal 26.0-34.0 [facility] Comment on above: Performed By: #### C BCDIF #### [place] [address] MCHC (RBC) [Mass/Vol] 32.2 g/dL Normal 30.5-36.0 [facility] Comment on above: Performed By: #### C BCDIF #### [place] [address] MCV (RBC) [Entitic vol] 96.5 fL Normal 80.0-100.0 [facility] Comment on above: Performed By: #### C BCDIF #### [place] [address] [place] [address] Monocytes/100 WBC (Bld) 8.8 % Normal [facility] Comment on above: Performed By: #### C BCDIF #### [place] [address] [place] [address] Neutrophils/100 WBC (Bld) 62.3 % Normal [facility] Comment on above: Performed By: #### Bo BCDIF #### [place] [address] [place] [id number] NRBCs 0.0 /100 WBC Normal 0 [facility] Comment on above: Performed By: #### Bo BCDIF #### [place] [address] Platelet mean volume (Bld) [Entitic vol] 10.8 fL Normal 9.0-12.7 [facility] Comment on above: Performed By: #### Bo BCDIF #### [place] [address] Platelets (Bld) [#/Vol] 315 10*3/uL Normal 150-400 [facility] Comment on above: Performed By: #### Bo BCDIF #### [place] [address] RBC (Bld) [#/Vol] 4.05 10*6/uL Normal 3.90-5.20 [facility] Comment on above: Performed By: #### Bo BCDIF #### [place] [address] WBC (Bld) [#/Vol] 7.86 10*3/uL Normal 3.70-11.00 [facility] Comment on above: Performed By: #### C BCDIF #### [place] [address] [place] 05-12-2021 CNOV Office Visit ([facility] ) ZACHARIAH SPEARS ([id number]) 1975 F Date Time Provider Department 05/12/21 12:30 PM MADISON JOHNSON During your visit today, we recorded the following information about you: Temperature Pulse Respiration Blood pressure 98.2 degrees 82/minute 14/minute 112/72 Weight 76.7 kg Madison Johnson APRN.SQUARE SHEAR OPERATOR 05/12/2021 1:37 PM Signed Will check cbc and call with results Would advise to monitor for any ill symptoms or dental pain If develop see dentist or Dr. Blas Tylenol (generic acetaminophen) 500 mg-2 tabs every 8 hrs. as needed for fever and aches Ibuprofen 600 mg (3-200mg tablets) every 6 hours If no improvement after 1-2 weeks advise to follow up with Dr. Roopa Johnson APRN.SQUARE SHEAR OPERATOR 05/12/2021 1:42 PM Signed Subjective The history is provided by the patient. No human geography instructor was used. HPI Zachariah Spears is a 45 year old female who presents today for CC of pain in anterior neck that started over the past 3 days. She denies any ill symptoms, ear pain or dental pain. She has not used any treatment or medications. No new medications or immunizations BP 112/72 Pulse 82 Temp 36.8 ?C (98.2 ?F) Resp 14 Wt 76.7 kg (169 lb) LMP 01/21/2013 SpO2 98% BMI 29.94 kg/m? Social History Tobacco Use - Smoking status: Former Smoker Packs/day: 0.50 Years: 11.00 Pack years: 5.50 Types: Cigarettes Quit date: 12/11/2018 Years since quittin.4 - Smokeless tobacco: Never Used - Tobacco comment: started 25yo Vaping Still vaping Vaping Use - Vaping Use: Never used Substance Use Topics - Alcohol use: No - Drug use: No Comment: caffeine PAST MEDICAL HISTORY Diagnosis Date - Abnormal findings on diagnostic imaging of breast 05/26/2014 - Adjustment disorder with depressed mood - Breast lump 08/26/2014 bilateral multiple palpable nodularities - Carpal tunnel syndrome, bilateral - Discharge from nipple 05/20/2014 right breast, intermittent - Fibrocystic disease of breast 08/26/2014 stable - Hypothyroid - Irritable bowel syndrome 01/2005 - Lumbosacral spondylosis without myelopathy 11/2000 L5-S1 - Tobacco use disorder - Vitamin D deficiency 02/18/2014 I have confirmed and edited as necessary, the [facility] Review of Systems Constitutional: Negative for chills and fever. HENT: Negative for congestion, ear pain, sinus pain and sore throat. Respiratory: Negative for cough, sputum production, shortness of breath and wheezing. Cardiovascular: Negative for chest pain. Musculoskeletal: Positive for neck pain. Negative for myalgias. Neurological: Negative for headaches. Objective Physical Exam Vitals and nursing note reviewed. HENT: Head: Normocephalic and atraumatic. Right Ear: Tympanic membrane, ear canal and external ear normal. Left Ear: Tympanic membrane, ear canal and external ear normal. Mouth/Throat: Pharynx: Uvula midline. Neck: Thyroid: No thyroid mass, thyromegaly or thyroid tenderness. Trachea: Trachea normal. Meningeal: Brudzinski's sign and Kernig's sign absent. Musculoskeletal: Cervical back: Full passive range of motion without pain and normal range of motion. Lymphadenopathy: Head: Right side of head: No submental, submandibular or tonsillar adenopathy. Left side of head: No submental, submandibular or tonsillar adenopathy. Cervical: Cervical adenopathy present. Right cervical: No superficial, deep or posterior cervical adenopathy. Left cervical: Deep cervical adenopathy present. No superficial or posterior cervical adenopathy. Skin: General: Skin is warm and dry. Neurological: Mental Status: She is alert. Psychiatric: Mood and Affect: Affect normal. ASSESSMENT/PLAN: 1. Neck pain - ICD9: 723.1, ICD10: M54.2 Possible deep lymphadenopathy Will check cbc and call with results Would advise to monitor for any ill symptoms or dental pain If develop see dentist or Dr. Blas Tylenol (generic acetaminophen) 500 mg-2 tabs every 8 hrs. as needed for fever and aches Ibuprofen 600 mg (3-200mg tablets) every 6 hours If no improvement after 1-2 weeks advise to follow up with Dr. Blas - CBC + DIFF Diagnosis and treatment plan were discussed and questions were answered to the patient's satisfaction. Pt acknowledged understanding of concepts and follow up plan. Specific signs and symptoms that would indicate the need for higher level of care were discussed in detail warranting prompt ER evaluation. Madison Johnson, PRINT SHOP HELPER.SQUARE SHEAR OPERATOR Referring Provider: SELF [200] Allergies As of Date: 05/12/2021 Noted Allergy Reaction AMOXICILLIN 09/21/2015 16 - Unknown CORTISONE 09/30/2015 4 - Hives DOXYCYCLINE 09/21/2015 16 - Unknown PENICILLINS 03/09/2005 16 - Unknown Comments: childhood Date Reviewed: 05/12/2021 Reviewed by: Ankita Bates MA - Fully Assessed Reason for Visit: Neck Pain [135] Cmt: L (more content not included)... Normal [facility] DIAGNOSTIC BILon 020 [facility] DIAGNOSTIC ESAU * * *Final Report* * * DATE OF EXAM: Oct 08 2019 1:42PM AAW 0620 - [facility] DIAGNOSTIC ESAU / PROCEDURE REASON: Breast pain, left * * * * Physician Interpretation * * * * #[id number] - [facility] DIAGNOSTIC ESAU #[id number] - [facility] US BREAST LTD LT BILATERAL DIGITAL DIAGNOSTIC MAMMOGRAM WITH CAD: 10/08/2019 HISTORY: Patient presents with left breast pain. RESULT: TECHNIQUE: The study was acquired using full field digital technology and interpreted from soft copy. Current study was also evaluated with a Computer Aided Detection (CAD). Comparison is made to exams dated: 11/05/2018 mammogram, 10/26/2017 mammogram, 05/15/2017 mammogram, and 03/08/2016 mammogram - [facility]. There are scattered fibroglandular elements in both breasts. There is a biopsy clip in both breasts. No significant masses, calcifications, or other findings are seen in either breast. IMPRESSION: INCOMPLETE: NEEDS ADDITIONAL IMAGING EVALUATION There is no abnormality seen in the left breast to correspond with the pain indicated by a triangular marker, however, ultrasound is recommended. LIMITED ULTRASOUND OF LEFT BREAST: 10/08/2019 RESULT: Comparison is made to exams dated: 11/05/2018 mammogram, 10/26/2017 mammogram, 05/15/2017 mammogram, and 03/08/2016 mammogram - [facility]. Real-time ultrasound of the left breast 5-7 o'clock region was performed on the areas of interest. Tanner scale images of the real-time examination were reviewed. No suspicious solid or cystic masses are seen at the 5-7 o'clock position 2-5 cmfn at the site of the patient's reported pain. IMPRESSION: NEGATIVE There is no sonographic evidence of malignancy. There are no abnormalities seen in the left breast to correspond with the pain at 5, 6, and 7 o'clock, however, clinical correlation and clinical followup are recommended. A 1 year screening mammogram is recommended. SUMMARY: The patient is under the care of Dr. Dilcia Deluca. Nelia aldana/mati:10/08/2019 14:46:53 Multiple national specialty organizations have released breast cancer screening guidelines for women at average risk for developing breast cancer - guidelines that are based on both evidence and opinion, yet differ on when to start and how often to screen for breast cancer. With representation from Breast Imaging, Internal Medicine, Women's Health, Family Medicine, and Medical/Surgical Oncology, the [facility] has carefully reviewed the data and reached the following consensus: 1) All women should engage in shared decision-making with their providers to decide when to start and how often to screen; 2) All women should have the opportunity to start screening mammography at age 40; 3) For women ages 45-55, we recommend annual screening mammograms; 4) For women ages 55 and over, we support both the transition from an annual to a biennial interval if this aligns more with patient's values and preferences, or continuation with annual screening; 5) All women should discuss with their providers when to stop screening mammograms. Pediatric Psychiatrist(s): Donn Lara(Yoli)(M), [facility]; Jodi Luna R.D.M.S., [facility] OVERALL STUDY BIRADS: 1 Negative Apparel Machinery Instructor: Mati Transcribe Date/Time: Oct 08 2019 1:42P Dictated by : NELIA LARES MD This examination was interpreted and the report reviewed and electronically signed by: NELIA LARES MD on Oct 08 2019 2:46PM EST Normal [facility] US BREAST LTD LTon 10-07 [facility] US BREAST LTD LT * * *Final Report* * * DATE OF EXAM: Oct 08 2019 2:47PM AAW 0593 - [facility] US BREAST LTD LT / PROCEDURE REASON: Breast pain, left * * * * Physician Interpretation * * * * #[id number] - [facility] DIAGNOSTIC ESAU #[id number] - [facility] US BREAST LTD LT BILATERAL DIGITAL DIAGNOSTIC MAMMOGRAM WITH CAD: 10/08/2019 HISTORY: Patient presents with left breast pain. RESULT: TECHNIQUE: The study was acquired using full field digital technology and interpreted from soft copy. Current study was also evaluated with a Computer Aided Detection (CAD). Comparison is made to exams dated: 11/05/2018 mammogram, 10/26/2017 mammogram, 05/15/2017 mammogram, and 03/08/2016 mammogram - [facility]. There are scattered fibroglandular elements in both breasts. There is a biopsy clip in both breasts. No significant masses, calcifications, or other findings are seen in either breast. IMPRESSION: INCOMPLETE: NEEDS ADDITIONAL IMAGING EVALUATION There is no abnormality seen in the left breast to correspond with the pain indicated by a triangular marker, however, ultrasound is recommended. LIMITED ULTRASOUND OF LEFT BREAST: 10/08/2019 RESULT: Comparison is made to exams dated: 11/05/2018 mammogram, 10/26/2017 mammogram, 05/15/2017 mammogram, and 03/08/2016 mammogram - [facility]. Real-time ultrasound of the left breast 5-7 o'clock region was performed on the areas of interest. Tanner scale images of the real-time examination were reviewed. No suspicious solid or cystic masses are seen at the 5-7 o'clock position 2-5 cmfn at the site of the patient's reported pain. IMPRESSION: NEGATIVE There is no sonographic evidence of malignancy. There are no abnormalities seen in the left breast to correspond with the pain at 5, 6, and 7 o'clock, however, clinical correlation and clinical followup are recommended. A 1 year screening mammogram is recommended. SUMMARY: The patient is under the care of Dr. Dilcia Deluca. Nelia aldana/mati:10/08/2019 14:46:53 Multiple national specialty organizations have released breast cancer screening guidelines for women at average risk for developing breast cancer - guidelines that are based on both evidence and opinion, yet differ on when to start and how often to screen for breast cancer. With representation from Breast Imaging, Internal Medicine, Women's Health, Family Medicine, and Medical/Surgical Oncology, the [facility] has carefully reviewed the data and reached the following consensus: 1) All women should engage in shared decision-making with their providers to decide when to start and how often to screen; 2) All women should have the opportunity to start screening mammography at age 40; 3) For women ages 45-55, we recommend annual screening mammograms; 4) For women ages 55 and over, we support both the transition from an annual to a biennial interval if this aligns more with patient's values and preferences, or continuation with annual screening; 5) All women should discuss with their providers when to stop screening mammograms. Pediatric Psychiatrist(s): Donn Lara(Yoli)(M), [facility]; Gabby MartinSRoberto, [facility] OVERALL STUDY BIRADS: 1 Negative Apparel Machinery Instructor: Mati Transcribe Date/Time: Oct 08 2019 1:42P Dictated by : NELIA LARES MD This examination was interpreted and the report reviewed and electronically signed by: NELIA LARES MD on Oct 08 2019 2:46PM EST [facility] [facility] 05-20-20 19 [facility] DIAGNOSTIC LT * * *Final Report* * * * * * SEE BOTTOM OF REPORT FOR ADDENDED TEXT * * * DATE OF EXAM: May 20 2019 11:07AM AAW 0621 - [facility] DIAGNOSTIC LT / PROCEDURE REASON: Abnormal finding on breast imaging * * * * Physician Interpretation * * * * FINAL REPORT #[id number] - [facility] US BIOPSY BREAST LT #[id number] - [facility] DIAGNOSTIC LT #[id number] - MRI BREAST CLIP PLACEMENT LT -NB ULTRASOUND GUIDED BIOPSY LEFT BREAST WITH MARKING DEVICE INSERTED AND POST DIGITAL MAMMOGRAPHIC, ULTRASOUND, AND MRI IMAGIN05/20/2019 HISTORY: Ultrasound guided biopsy left breast. PATIENT CONSENT: A time out was performed immediately prior to procedure start with the nursing and radiology team, correctly identifying the patient name, date of , procedure, anatomy (including marking of site and side), patient position, relevant diagnostic and radiology test results, safety precautions, and procedure-specific equipment needs. The procedure was explained to the patient including the risks, benefits and alternatives. Medications were also reviewed. The risks, including but not limited to infection and bleeding, were reviewed by the performing physician and the patient agreed to undergo the procedure. Dr. Lares and a mechanical engineering technologist were present throughout the entire procedure. Audible Time Out Time: 1019 Procedure Start Time: 1021 Procedure Stop Time: 1037 Dr. Lares performed the entire procedure without an assistant hairstylist. PROCEDURE: Correlation is made to exams dated: 05/13/2019 ultrasound - [facility] and 05/06/2019 breast MRI - [facility]. An ultrasound guided biopsy using real-time ultrasound was performed for the concerning lesion located in the left breast at 12 o'clock middle depth. This was described on the previous ultrasound and MRI reports. The skin was prepped in the usual manner. Local anesthetic was administered to the access site. A skin leanna was made in the breast. The abnormality was approached from the lateral aspect. A 14 gauge biopsy needle was placed adjacent to the abnormality under ultrasound guidance. Once the needle was documented to be in the correct location, three cores were obtained using a Filmzu biopsy device. A coil type clip was inserted into the biopsy cavity. A skin closure strip and a sterile dressing were applied to the access site. Post procedure digital mammographic, ultrasound, and MRI imaging demonstrates the location device at the targeted area. The specimens were sent to the laboratory for pathological analysis. IMPRESSION: ULTRASOUND GUIDED BIOPSY BENIGN Ultrasound guided biopsy of the lesion in the left breast at 12 o'clock middle depth was successful with no apparent post procedure complications. Pathology indicates benign stromal fibrosis. Pathology results are concordant with imaging findings. A follow-up breast MRI in 6 months is recommended to demonstrate stability. SUMMARY: Pathology results are as follows: FINAL DIAGNOSIS: BREAST, LEFT, CORE BIOPSIES AT 12 O'CLOCK 8 CM FROM THE NIPPLE - BENIGN BREAST TISSUE WITH FOCAL STROMAL FIBROSIS. The patient is under the care of Dr. Dilcia Deluca for follow up of the above benign concordant biopsy results. The patient should return in 6 months for follow up imaging. Nelia aldana/mati:05/22/2019 15:53:34 Attending Technologist(s): Delores Victoria, [facility] Pediatric Psychiatrist(s): Donn Travis(MR), [facility]; Ana Garcia [facility], [facility]; Patricia Torres, [facility] Multiple national specialty organizations have released breast cancer screening guidelines for women at average risk for developing breast cancer - guidelines that are based on both evidence and opinion, yet differ on when to start and how often to screen for breast cancer. With representation from Breast Imaging, Internal Medicine, Women's Health, Family Medicine, and Medical/Surgical Oncology, the [facility] has carefully reviewed the data and reached the following consensus: 1) All women should engage in shared decision-making with their providers to decide when to start and how often to screen; 2) All women should have the opportunity to start screening mammography at age 40; 3) For women ages 45-55, we recommend annual screening mammograms; 4) For women ages 55 and over, we support both the transition from an annual to a biennial interval if this aligns more with patient's values and preferences, or continuation with annual screening; 5) All women should discuss with their providers when to stop screening mammograms. Apparel Machinery Instructor: Mati Transcribe Date/Time: May 20 2019 9:46A Dictated by : NELIA LARES MD This examination was interpreted and the report reviewed and electronically signed by: NELIA LARES MD on May 20 2019 1:39PM EST This document has been addended by: NELIA LARES MD on May 22 2019 3:53PM EST Normal [facility] US BIOPSY BREAST LTon [facility] US BIOPSY BREAST LT * * *Final Repor t* * * * * * SEE BOTTOM OF REPORT FOR ADDENDED TEXT * * * DATE OF EXAM: May 20 2019 10:44AM AAW 0597 - [facility] US BIOPSY BREAST LT / PROCEDURE REASON: Abnormal finding on breast imaging * * * * Physician Interpretation * * * * FINAL REPORT #[id number] - [facility] US BIOPSY BREAST LT #[id number] - [facility] #[id number] - MRI BREAST CLIP PLACEMENT LT -NB ULTRASOUND GUIDED BIOPSY LEFT BREAST WITH MARKING DEVICE INSERTED AND POST DIGITAL MAMMOGRAPHIC, ULTRASOUND, AND MRI IMAGIN05/20/2019 HISTORY: Ultrasound guided biopsy left breast. PATIENT CONSENT: A time out was performed immediately prior to procedure start with the nursing and radiology team, correctly identifying the patient name, date of , procedure, anatomy (including marking of site and side), patient position, relevant diagnostic and radiology test results, safety precautions, and procedure-specific equipment needs. The procedure was explained to the patient including the risks, benefits and alternatives. Medications were also reviewed. The risks, including but not limited to infection and bleeding, were reviewed by the performing physician and the patient agreed to undergo the procedure. Dr. Lares and a mechanical engineering technologist were present throughout the entire procedure. Audible Time Out Time: 1019 Procedure Start Time: 1021 Procedure Stop Time: 1037 Dr. Lares performed the entire procedure without an assistant hairstylist. PROCEDURE: Correlation is made to exams dated: 05/13/2019 ultrasound - [facility] and 05/06/2019 breast MRI - [facility]. An ultrasound guided biopsy using real-time ultrasound was performed for the concerning lesion located in the left breast at 12 o'clock middle depth. This was described on the previous ultrasound and MRI reports. The skin was prepped in the usual manner. Local anesthetic was administered to the access site. A skin leanna was made in the breast. The abnormality was approached from the lateral aspect. A 14 gauge biopsy needle was placed adjacent to the abnormality under ultrasound guidance. Once the needle was documented to be in the correct location, three cores were obtained using a BARD biopsy device. A coil type clip was inserted into the biopsy cavity. A skin closure strip and a sterile dressing were applied to the access site. Post procedure digital mammographic, ultrasound, and MRI imaging demonstrates the location device at the targeted area. The specimens were sent to the laboratory for pathological analysis. IMPRESSION: ULTRASOUND GUIDED BIOPSY BENIGN Ultrasound guided biopsy of the lesion in the left breast at 12 o'clock middle depth was successful with no apparent post procedure complications. Pathology indicates benign stromal fibrosis. Pathology results are concordant with imaging findings. A follow-up breast MRI in 6 months is recommended to demonstrate stability. SUMMARY: Pathology results are as follows: FINAL DIAGNOSIS: BREAST, LEFT, CORE BIOPSIES AT 12 O'CLOCK 8 CM FROM THE NIPPLE - BENIGN BREAST TISSUE WITH FOCAL STROMAL FIBROSIS. The patient is under the care of Dr. Dilcia Deluca for follow up of the above benign concordant biopsy results. The patient should return in 6 months for follow up imaging. Nelia aldana/mati:05/22/2019 15:53:34 Attending Technologist(s): Delores Victoria, [facility] Pediatric Psychiatrist(s): Donn Travis(MR), [facility]; Ana Garcia, [facility], [facility]; Patricia Torres, [facility] [place] Multiple national specialty organizations have released breast cancer screening guidelines for women at average risk for developing breast cancer - guidelines that are based on both evidence and opinion, yet differ on when to start and how often to screen for breast cancer. With representation from Breast Imaging, Internal Medicine, Women's Health, Family Medicine, and Medical/Surgical Oncology, the [facility] has carefully reviewed the data and reached the following consensus: 1) All women should engage in shared decision-making with their providers to decide when to start and how often to screen; 2) All women should have the opportunity to start screening mammography at age 40; 3) For women ages 45-55, we recommend annual screening mammograms; 4) For women ages 55 and over, we support both the transition from an annual to a biennial interval if this aligns more with patient's values and preferences, or continuation with annual screening; 5) All women should discuss with their providers when to stop screening mammograms. Apparel Machinery Instructor: Mati Transcribe Date/Time: May 20 2019 9:46A Dictated by : NELIA LARES MD This examination was interpreted and the report reviewed and electronically signed by: NELIA LARES MD on May 20 2019 1:39PM EST This document has been addended by: NELIA LARES MD on May 22 2019 3:53PM EST Normal [facility] MRI BREAST CLIP PLACEMENT LT -NBon 05-20-2019 MRI BREAST CLIP PLACEMENT LT -NB * * *Final Report* * * * * * SEE BOTTOM OF REPORT FOR ADDENDED TEXT * * * DATE OF EXAM: May 20 2019 11:40AM [facility] 0765 - MRI BREAST CLIP PLACEMENT LT -NB / PROCEDURE REASON: Breast lump * * * * Physician Interpretation * * * * FINAL REPORT #[id number] - [facility] US BIOPSY BREAST LT #[id number] - [facility] DIAGNOSTIC LT #[id number] - MRI BREAST CLIP PLACEMENT LT -NB ULTRASOUND GUIDED BIOPSY LEFT BREAST WITH MARKING DEVICE INSERTED AND POST DIGITAL MAMMOGRAPHIC, ULTRASOUND, AND MRI IMAGIN05/20/2019 HISTORY: Ultrasound guided biopsy left breast. PATIENT CONSENT: A time out was performed immediately prior to procedure start with the nursing and radiology team, correctly identifying the patient name, date of , procedure, anatomy (including marking of site and side), patient position, relevant diagnostic and radiology test results, safety precautions, and procedure-specific equipment needs. The procedure was explained to the patient including the risks, benefits and alternatives. Medications were also reviewed. The risks, including but not limited to infection and bleeding, were reviewed by the performing physician and the patient agreed to undergo the procedure. Dr. Lares and a mechanical engineering technologist were present throughout the entire procedure. Audible Time Out Time: 1019 Procedure Start Time: 1021 Procedure Stop Time: 1037 Dr. Lares performed the entire procedure without an assistant hairstylist. PROCEDURE: Correlation is made to exams dated: 05/13/2019 ultrasound - [facility] and 05/06/2019 breast MRI - [facility]. An ultrasound guided biopsy using real-time ultrasound was performed for the concerning lesion located in the left breast at 12 o'clock middle depth. This was described on the previous ultrasound and MRI reports. The skin was prepped in the usual manner. Local anesthetic was administered to the access site. A skin leanna was made in the breast. The abnormality was approached from the lateral aspect. A 14 gauge biopsy needle was placed adjacent to the abnormality under ultrasound guidance. Once the needle was documented to be in the correct location, three cores were obtained using a BARD biopsy device. A coil type clip was inserted into the biopsy cavity. A skin closure strip and a sterile dressing were applied to the access site. Post procedure digital mammographic, ultrasound, and MRI imaging demonstrates the location device at the targeted area. The specimens were sent to the laboratory for pathological analysis. IMPRESSION: ULTRASOUND GUIDED BIOPSY BENIGN Ultrasound guided biopsy of the lesion in the left breast at 12 o'clock middle depth was successful with no apparent post procedure complications. Pathology indicates benign stromal fibrosis. Pathology results are concordant with imaging findings. A follow-up breast MRI in 6 months is recommended to demonstrate stability. SUMMARY: Pathology results are as follows: FINAL DIAGNOSIS: BREAST, LEFT, CORE BIOPSIES AT 12 O'CLOCK 8 CM FROM THE NIPPLE - BENIGN BREAST TISSUE WITH FOCAL STROMAL FIBROSIS. The patient is under the care of Dr. Dilcia Deluca for follow up of the above benign concordant biopsy results. The patient should return in 6 months for follow up imaging. Nelia aldana/mati:05/22/2019 15:53:34 Attending Technologist(s): Delores Victoria, [facility] Pediatric Psychiatrist(s): Donn Travis(MR), [facility]; Ana Garcia [facility], [facility]; Patricia Torres, [facility] Multiple national specialty organizations have released breast cancer screening guidelines for women at average risk for developing breast cancer - guidelines that are based on both evidence and opinion, yet differ on when to start and how often to screen for breast cancer. With representation from Breast Imaging, Internal Medicine, Women's Health, Family Medicine, and Medical/Surgical Oncology, the [facility] has carefully reviewed the data and reached the following consensus: 1) All women should engage in shared decision-making with their providers to decide when to start and how often to screen; 2) All women should have the opportunity to start screening mammography at age 40; 3) For women ages 45-55, we recommend annual screening mammograms; 4) For women ages 55 and over, we support both the transition from an annual to a biennial interval if this aligns more with patient's values and preferences, or continuation with annual screening; 5) All women should discuss with their providers when to stop screening mammograms. Apparel Machinery Instructor: Mati Transcribe Date/Time: May 20 2019 9:46A Dictated by : NELIA LARES MD This examination was interpreted and the report reviewed and electronically signed by: NELIA LARES MD on May 20 2019 1:39PM EST This document has been addended by: NELIA LARES MD on May 22 2019 3:53PM EST Normal [facility] Surgical Tissue Examon 05-20 Surgical Tissue Exam Test performed at [place] [address] NAME: ZACHARIAH SPEARS REQUESTING: DILCIA DELUCA M.D. COPY TO: NELIA LARES; [facility] RADI[facility] FINAL DIAGNOSIS: BREAST, LEFT, CORE BIOPSIES AT 12 O'CLOCK 8 CM FROM THE NIPPLE - BENIGN BREAST TISSUE WITH FOCAL STROMAL FIBROSIS. SEE COMMENT. COMMENT: Sections demonstrate fragments of benign fibrofatty tissue with only rare disrupted fragments of glandular epithelium present. Definite findings to explain the presence of a mass lesion are not seen. OPERATIVE PROCEDURE: Ultrasound guided left breast biopsy CLINICAL INFORMATION: Left breast mass 12:00 8 cm FN clip: Coil; low suspicion mass r/o malignancy GROSS DESCRIPTION: Obtained 1021 formalin 1022 Received in formalin labeled left breast, 12 o'clock, 8 cm from nipple, are multiple yellow-white soft segments of tissue aggregating to 0.8 x 0.4 x <0.1 cm. The specimens are totally submitted in formalin in one cassette. Time removed from patient is 10:21; time placed in formalin is 10:22. KVB:blanca ALEXIS M.D., PATHOLOGIST (Electronic signature on file) Signed out: 05/22/2019 15:35 PRINTED: 05/22/2019 Page 1 of 1 Normal [facility] Comment on above: Performed By: #### S URG #### [facility] [address] US BREAST LTD LTon 05-13 [facility] US BREAST LTD LT * * *Final Report* * * DATE OF EXAM: May 13 2019 2:01PM AAW 0593 - [employer] BREAST LTD LT / PROCEDURE REASON: Abnormal finding on breast imaging * * * * Physician Interpretation * * * * #[id number] - [facility] [employer] BREAST LTD LT LIMITED ULTRASOUND OF LEFT BREAST: 05/13/2019 HISTORY: Second look ultrasound following abnormal MRI. RESULT: Comparison is made to exam dated: 05/06/2019 breast MRI - [facility]. Color flow, real-time, and continuous wave Doppler ultrasound of the left breast 12 o'clock region were performed. Tanner scale images of the real-time examination were reviewed. There is 0.6 cm x 0.4 cm x 0.6 cm area with an indistinct margin in the left breast at 12 o'clock posterior depth 8 cm from the nipple. This area is of mixed echogenicity. IMPRESSION: SUSPICIOUS FINDING - BIOPSY SHOULD BE CONSIDERED The 0.6 cm x 0.4 cm x 0.6 cm area in the left breast is suspicious of malignancy. An ultrasound guided biopsy is recommended. This is in the expected location of the MRI finding. Therefore, Ultrasound guided biopsy recommended with a post biopsy T1 to follow to confirm clip is at the site of concern. If the clip is not at the MRI finding, patient understands she may need an MRI guided biopsy. SUMMARY: These results and recommendations were discussed with the patient. She signed informed consent in the office today. Dr. Neeraj amado/mati:05/13/2019 14:10:35 Pediatric Psychiatrist(s): Aura Torre R.D.M.S., [facility] Ultrasound BI-RADS: 4 Suspicious finding - Biopsy should be considered Multiple national specialty organizations have released breast cancer screening guidelines for women at average risk for developing breast cancer - guidelines that are based on both evidence and opinion, yet differ on when to start and how often to screen for breast cancer. With representation from Breast Imaging, Internal Medicine, Women's Health, Family Medicine, and Medical/Surgical Oncology, the [facility] has carefully reviewed the data and reached the following consensus: 1) All women should engage in shared decision-making with their providers to decide when to start and how often to screen; 2) All women should have the opportunity to start screening mammography at age 40; 3) For women ages 45-55, we recommend annual screening mammograms; 4) For women ages 55 and over, we support both the transition from an annual to a biennial interval if this aligns more with patient's values and preferences, or continuation with annual screening; 5) All women should discuss with their providers when to stop screening mammograms. Apparel Machinery Instructor: Mati Transcribe Date/Time: May 13 2019 12:48P Dictated by : NEERAJ ROJO MD This examination was interpreted and the report reviewed and electronically signed by: NEERAJ ROJO MD on May 13 2019 2:10PM EST Normal [facility] MRI BREAST WO/W IVCON BILon 05-06-2019 MRI BREAST WO/W IVCON ESAU * * *Final Report* * * DATE OF EXAM: May 06 2019 2:14PM [facility] 0773 - MRI BREAST WO/W IVCON ESAU / PROCEDURE REASON: multiple diagnoses * * * * Physician Interpretation * * * * #[id number] - MRI BREAST WO/W IVCON ESAU SCREENING BREAST MRI OF BOTH BREASTS- WITH CAD: 05/06/2019 CLINICAL: Patient at documented high risk for breast cancer, presenting for MRI screening exam. Comparison is made to exams dated: 05/04/2018 breast MRI, 10/12/2017 breast MRI, 09/26/2016 breast MRI, 09/11/2015 breast MRI - [facility], 10/26/2017 MRI biopsy - [facility], and 11/05/2018 mammogram - [facility]. Interpretation of this MRI was correlated with available mammograms, previous MRI scans, and clinical information. MRI images were obtained with a dedicated breast coil. TECHNIQUE: MRI images were obtained with a dedicated breast coil. The patient was studied using the dedicated breast coil in the Siemens 1.5 Manju scanner. Initial axial STIR imaging was carried out followed by axial T1-weighted GRE imaging both before and after IV administration of 16 ml of Prohance. Subsequently, subtraction imaging and 3-D reconstruction were completed on an independent workstation. An additional 4 minute high resolution sequence was performed after the first two 1 minute post-contrast sequences. RESULT: Bilateral background breast enhancement is mild. Current study was also evaluated with a Computer Aided Detection (CAD) system. There is 0.6 cm oval mass in the left breast at 12 o'clock middle depth. This shows homogeneous enhancement. This is best seen, for example, on axial subtraction image 417, TP3, Dynacad 3. It is T2 hyperintense and subthreshold on the angiographic map. However, the finding is new compared to prior MRI exams. No suspicious masses, abnormal enhancement, or other significant abnormalities are seen in the right breast. Clip artifact is demonstrated at the site of prior benign MRI guided biopsy. There are no abnormalities seen in the axillary nodes region or internal mammary nodes. IMPRESSION: SUSPICIOUS OF MALIGNANCY The 0.6 cm oval mass in the left breast at 12 o'clock middle depth is at a low suspicion for malignancy. A second look ultrasound is recommended. If no sonographic correlate is identified, MRI guided biopsy is recommended in this high risk patient, as the finding is new. No MRI evidence of malignancy in the right breast. SUMMARY: The patient is under the care of Dr. Dilcia Deluca for the above results and follow up. Nelia aldana/mati:05/06/2019 15:39:55 Pediatric Psychiatrist(s): Jane Kay RT (R) (MR), [facility] MRI BI-RADS: 4a Suspicious abnormality - low suspicion for malignancy Apparel Machinery Instructor: Mati Transcribe Date/Time: May 06 2019 1:48P Dictated by : NELIA LARES MD This examination was interpreted and the report reviewed and electronically signed by: NELIA LARES MD on May 06 2019 3:39PM EST Normal [facility] Vital Signs Date Time Vital Sign Value Performing Clinician María miguel 02-15-2024 09:03-0400 Body height 157.5 cm Vinita Tobar MD Work Phone: [facility] 02-15-2024 09:03-0400 Body mass index (BMI) [Ratio] 28.9 kg/m2 Vinita Tobar MD Work Phone: [facility] 02-15-2024 09:03-0400 Body weight 71.67 kg Vinita Tobar MD Work Phone: [facility] 02-15-2024 09:03-0400 Diastolic blood pressure 97 mm[Hg] Vinita Tobar MD Work Phone: [facility] 02-15-2024 09:03-0400 Heart rate 77 /min Vinita Tobar MD Work Phone: [facility] 02-15-2024 09:03-0400 Systolic blood pressure 147 mm[Hg] Vinita Tobar MD Work Phone: [facility] 09-14-2023 08:58-0400 Body height 157.48 cm MEDICAID NURSE-Bo Barajas Work Phone: [facility] 09-14-2023 08:58-0400 Body mass index (BMI) [Ratio] 29.1 kg/m2 MEDICAID NURSE-Bo Barajas Work Phone: [facility] 09-14-2023 08:58-0400 Body weight 72.34 kg MEDICAID NURSE-Bo Barajas Work Phone: [facility] [facility]23 10:01-0500 Body height 160 cm Dilcia Deluca MD Work Phone: [facility] 05-11-2023 10:01-0500 Body weight 70.31 kg Dilcia Deluca MD Work Phone: [facility] 05-11-2023 10:01-0500 Diastolic blood pressure 80 mm[Hg] Dilcia Deluca MD Work Phone: [facility] 05-11-2023 10:01-0500 Heart rate 81 /min Dilcia Deluca MD Work Phone: [facility] 05-11-2023 10:01-0500 Systolic blood pressure 115 mm[Hg] Dilcia Deluca MD Work Phone: [facility] 05-11-2022 11:33-0500 Body temperature 98.6 [degF] Dr. Oscar Blas Work Phone: [facility] Work Phone: 05-11-2022 11:33-0500 Diastolic blood pressure 80 mm[Hg] Dr. Oscar Blsa Work Phone: [facility] Work Phone: 05-11-2022 11:33-0500 Heart rate 78 /min Dr. Oscar Blas Work Phone: [facility] Work Phone: 05-11-2022 11:33-0500 Respiratory rate 18 /min Dr. Oscar Blas Work Phone: [facility] Work Phone: 05-11-2022 11:33-0500 SaO2% (BldA) [Mass fraction] 94 % Dr. Oscar Blas Work Phone: [facility] Work Phone: 05-11-2022 11:33-0500 Systolic blood pressure 114 mm[Hg] Dr. Oscar Blas Work Phone: [facility] Work Phone: 05-11-2022 11:22-0500 Body height 160.[address] Oscar Blas Work Phone: [facility] Work Phone: 05-11-2022 10:21-0500 Body mass index (BMI) [Ratio] 28.5 kg/m2 Dr. Oscar Blas Work Phone: [facility] Work Phone: 05-11-2022 10:21-0500 Body weight [address] Oscar Blas Work Phone: [facility] Work Phone: 02-21-2022 07:11-0400 Body mass index (BMI) [Ratio] 29.6 kg/m2 Dr. Oscar Blas Work Phone: [facility] Work Phone: 02-21-2022 07:11-0400 Body temperature 98.5 [degF] Dr. Oscar Blas Work Phone: [facility] Work Phone: 02-21-2022 07:11-0400 Body weight 73.[address] Oscar Blas Work Phone: [facility] Work Phone: 02-21-2022 07:11-0400 Diastolic blood pressure 72 mm[Hg] Dr. Oscar Blas Work Phone: [facility] Work Phone: 02-21-2022 07:11-0400 Heart rate 86 /min Dr. Oscar Blas Work Phone: [facility] Work Phone: 02-21-2022 07:11-0400 Respiratory rate 14 /min Dr. Oscar Blas Work Phone: [facility] Work Phone: 02-21-2022 07:11-0400 SaO2% (BldA) [Mass fraction] 99 % Dr. Oscar Blas Work Phone: [facility] Work Phone: 02-21-2022 07:11-0400 Systolic blood pressure 124 mm[Hg] Dr. Oscar Blas Work Phone: [facility] Work Phone: 01-17-2022 14:07-0400 Body mass index (BMI) [Ratio] 30.6 kg/m2 Dr. Oscar Blas Work Phone: [facility] Work Phone: 01-17-2022 14:07-0400 Body temperature 97.9 [degF] Dr. Oscar Blas Work Phone: [facility] Work Phone: 01-17-2022 14:07-0400 Body weight 75.[address] Oscar Blas Work Phone: [facility] Work Phone: 01-17-2022 14:07-0400 Diastolic blood pressure 75 mm[Hg] Dr. Oscar Blas Work Phone: [facility] Work Phone: 01-17-2022 14:07-0400 Heart rate 70 /min Dr. Oscar Blas Work Phone: [facility] Work Phone: 01-17-2022 14:07-0400 Respiratory rate 18 /min Dr. Oscar Blas Work Phone: [facility] Work Phone: 01-17-2022 14:07-0400 SaO2% (BldA) [Mass fraction] 98 % Dr. Oscar Blas Work Phone: [facility] Work Phone: 01-17-2022 14:07-0400 Systolic blood pressure 123 mm[Hg] Dr. Oscar Blas Work Phone: [facility] Work Phone: 11-24-2021 07:31-0400 Body temperature 97.2 [degF] Dr. Marium Jeffery Work Phone: [facility] Work Phone: 11-24-2021 07:31-0400 Diastolic blood pressure 78 mm[Hg] Dr. Marium Jeffery Work Phone: [facility] Work Phone: 11-24-2021 07:31-0400 Heart rate 77 /min Dr. Marium Jeffery Work Phone: [facility] Work Phone: 11-24-2021 07:31-0400 Respiratory rate 16 /min Dr. Marium Jeffery Work Phone: [facility] Work Phone: 11-24-2021 07:31-0400 SaO2% (BldA) [Mass fraction] 98 % Dr. Marium Jeffery Work Phone: [facility] Work Phone: 11-24-2021 07:31-0400 Systolic blood pressure 110 mm[Hg] Dr. Marium Jeffery Work Phone: [facility] Work Phone: 11-24-2021 05:57-0400 Body height 160.[address] Marium Jeffery Work Phone: [facility] Work Phone: 11-24-2021 05:57-0400 Body mass index (BMI) [Ratio] 29.2 kg/m2 Dr. Marium Jeffery Work Phone: [facility] Work Phone: 11-24-2021 05:57-04[address] Body weight [address] Marium Jeffery Work Phone: [facility] Work Phone: Encounters Encounter Date Encounter Type Care Provider Facility Start: 02-15-2024 End: 02-15-2024 Telephone encounter Vinita Tobar MD Work Phone: [facility] Comment on above: Release Of Medical R ecords (Thyroid function test) Start: 02-15-2024 End: 02-15-2024 Patient encounter procedure Vinita Tobar MD Work Phone: [facility] Comment on above: Acquired hypothyroid ism (Primary Dx); Intestinal malabsorption, unspecified type Start: 02-15-2024 End: 02-15-2024 ambulatory CHIRAG Cantu FRIEND Facility[facility] Start: 01-29-2024 End: 01-29-2024 ambulatory Chirag Friend Facility:[facility] Start: 01-29-2024 End: 01-29-2024 ambulatory Chirag Stonewall Facility:[facility] Start: 12-25-2023 Encounter for genera l adult medical examination with abnormal findings Indy Barajas [facility] Start: 12-19-2023 End: 12-19-2023 ambulatory Indy Bowmangar Facility:[facility] Start: 10-23-2023 End: 10-23-2023 ambulatory MEDICAID NURSE-C Indy Barajas Work Phone: [facility] Work Phone: Start: 10-23-2023 End: 10-23-2023 Discharged Recurring MEDICAID NURSE-C Indy Barajas Work Phone: [facility] Work Phone: Start: 09-14-2023 End: 09-14-2023 ambulatory Franmagdi Pride Facility:[facility] Start: 09-14-2023 End: 09-14-2023 Patient encounter procedure MEDICAID NURSE-C Indy Barajas Work Phone: [facility] Work Phone: Start: 09-11-2023 End: 09-11-2023 ambulatory MEDICAID NURSE-C Indy Barajas Work Phone: [facility] Work Phone: Start: 09-11-2023 End: 09-11-2023 Patient encounter procedure MEDICAID NURSE-C Indy Barajas Work Phone: [facility] Work Phone: Start: 09-11-2023 End: 09-11-2023 ambulatory Indy Barajas Facility:[facility] Start: 08-03-2023 End: 08-03-2023 Patient encounter procedure MEDICAID NURSE-C Indy Barajas Work Phone: [facility] Work Phone: Start: 08-03-2023 End: 08-03-2023 ambulatory Indy Karl Facility:[facility] Start: 05-26-2023 End: 05-26-[address] Oscar Blas [facility] Work Phone: Start: 05-26-2023 End: 05-26-[address] Oscar Blas [facility] Work Phone: Start: 05-26-2023 End: 05-26-2023 ambulatory [facility] Facility:[facility] Start: 05-22-2023 End: 05-22-[address] Moore Roopa [facility] Work Phone: Start: 05-22-2023 End: 05-22-[address] Oscar Blas [facility] Start: 05-22-2023 End: 05-22-2023 ambulatory [facility] Facility:[facility] Start: 05-11-2023 Documentation procedure Mammog priyank Coordinator [facility] Start: 05-11-2023 Letter encounter Mammography Coordinator [place] [facility] NOT LISTED Start: 05-11-2023 End: 05-11-2023 Patient encounter procedure Dilcia Deluca MD Work Phone: [facility] Comment on above: Fibrocystic breast d isease (FCBD) in female, unspecified laterality (Primary Dx); Visit for screening mammogram Start: 05-11-2023 End: 05-11-2023 ambulatory DILCIA DELUCA Facility:[facility] Start: 05-11-2023 End: 05-11-2023 Subsequent hospital visit by physician [facility] Comment on above: screen Start: 05-09-2023 End: 05-09-[address] Oscar Blas [facility] Work Phone: Start: 05-09-2023 End: 05-09-[address] Oscar Blas [facility] Work Phone: Start: 05-09-2023 End: 05-09-2023 ambulatory Chirag Marte Facility:[facility] Start: 11-16-2022 End: 11-16-[address] Oscar Blas Work Phone: [facility] Work Phone: Start: 11-16-2022 End: 11-16-[address] [facility] Start: 11-03-2022 End: 11-03-[address] Oscar Blas Work Phone: [facility] Start: 08-18-2022 End: 08-18-[address] Oscar Blas Work Phone: [facility] Start: 05-11-2022 End: 05-11-[address] Oscar Blas Work Phone: [facility] Start: 05-11-2022 Non-patient / Non-visit Dr. Rios Blas Work Phone: [facility] Start: 05-11-2022 End: 05-11-2022 Admission to same day surgery center Dr. Oscar Blas Work Phone: [facility] Start: 05-11-2022 End: 05-11-[address] Oscar Blas Work Phone: [facility] Work Phone: Start: 05-10-2022 End: 05-10-2022 Subsequent hospital visit by physician [facility] Comment on above: Visit for screening mammogram [Z12.31] Start: 03-03-2022 End: 03-03-[address] Oscar Blas Work Phone: [facility] Start: 02-21-2022 End: 02-21-[address] Oscar Blas Work Phone: [facility] Start: 01-17-2022 End: 01-17-[address] Oscar Blas Work Phone: [facility] Start: 12-03-2021 End: 12-03-[address] Marium Jeffery Work Phone: [facility] Spec[facility] Start: 11-24-2021 Non-patient / Non-visit Dr. Davie Jeffery Work Phone: [facility] Start: 11-24-2021 End: 11-24-2021 Admission to same day surgery center Dr. Marium Jeffery Work Phone: [facility] Start: 10-21-2021 End: 10-21-[address] Marium Jeffery Work Phone: [facility] Start: 10-11-2021 End: 10-11-[address] Marium Jeffery Work Phone: [facility] Start: 10-05-2021 End: 10-05-[address] Marium Jeffery Work Phone: [facility] Start: 09-09-2021 End: 09-09-[address] Marium Jeffery Work Phone: [facility] Start: 09-07-2021 End: 09-07-[address] Marium Jeffery Work Phone: [facility] Start: 09-07-2021 End: 09-07-[address] Marium Jeffery Work Phone: [facility] Start: 09-01-2021 End: 09-01-[address] Marium Jeffery Work Phone: [facility] Start: 05-15-2009 Patient encounter status [facility] Work Phone: Procedures Date Procedure Procedure Detail Performing Clinician Start: 09-14-2023 X-ray of lumbosacral spine MEDICAID NURSE-C Indy E dgar Work Phone: Start: 09-11-2023 Radiography of thoracic spine MEDICAID NURSE-C Racpillo cheung Karl Work Phone: Start: 09-11-2023 X-ray of lumbosacral spine MEDICAID NURSE-C Indy E dgar Work Phone: Start: 05-11-2023 Screening digital breast tomosynthesis sherron Deluca MD Work Phone: Start: 05-11-[address] Oscar valadez Work Phone: Start: 05-10-2022 ALBINO SCREENING W MANUELA Deluca MD Work Phone: Start: 05-10-2022 Mammography [facility] Start: 12-03-2021 End: 12-03-[address] Marium cheung Work Phone: Start: 11-24-[address] Marium Jeffery Work Phone: Start: 10-21-2021 CT of abdomen without contrast Dr. Connie Jeffery Work Phone: Start: 09-08-2021 End: 09-08-[address] Erich Jeffery Work Phone: Start: 09-08-[address] Marium Jeffery Work Phone: Start: 09-01-[address] Marium grewal Work Phone: Start: 12-15-2011 Lipid 1996 panel - Serum or Plasma Dilcia Deluca MD Work Phone: Lactoferrin measurement Dr. Oscar Blas Work Phone: Plan of Treatment Date Care Activity Detail Author Start: 05-21-2024 End: 05-21-2024 Patient encounter procedure 05/21/2024 11:40 AM EST Office Visit [facility] [address] [place] [address] Vinita Tobar MD [facility] [place] [address] [facility] General Endocrinology Comment on above: 3 months Start: 05-17-2024 End: 08-13-2024 Thyrotropin [Units/volume] in Serum or Plasma THYROID STIMULATING HORMONE Lab Routine Acquired hypothyroidism Expected: 05/17/2024 (Approximate), Expires: 08/13/2024 [facility] Work Phone: Comment on above: Expected: 05/17/2024 (Approximate), Expires: 08/13/2024 Start: 05-17-2024 End: 08-13-2024 Thyroxine (T4) free [Mass/volume] in Serum or Plasma T4 FREE/FREE THYROXINE Lab Routine Acquired hypothyroidism Expected: 05/17/2024 (Approximate), Expires: 08/13/2024 [facility] Comment on above: Expected: 05/17/2024 (Approximate), Expires: 08/13/2024 Start: 05-11-2024 Mammography Mammogram Screening [facility] Start: 05-11-2024 Screening for malign ant neoplasm of breast Mammogram Screening [facility] Start: 02-25-2024 Influenza vaccination Influenza Vacc ine (#1) [facility] Start: 09-14-2023 Patient referral [facility] Work Phone: Start: 09-14-2023 X-ray of lumbosacral spine L/S Spine Bending Flex/Ext [facility] Start: 09-14-2023 XR Spine Lumbar and Sacrum Views [facility] Start: 05-26-2023 [facility] Start: 05-10-2023 Mammography MAMMOGRAM [facility] Start: 05-09-2023 [facility] Start: 02-24-2023 Covid-19 Vaccine ( season) Covid-19 Vaccine ( season) [facility] Start: 02-24-2023 Influenza vaccination Influenza Vacc ine (#1) [facility] Start: 06-26-2022 Depression Assessment Depression Ass essment [facility] Start: 05-11-2022 Patient discharge [facility] Work Phone: Start: 02-24-2022 Influenza vaccination INFLUENZA (#1) [facility] Start: 11-24-2021 Colonoscopy w/biopsy single/multiple COLONOSCOPY AND BIOPSY [facility] Work Phone: Start: 11-24-2021 Colsc flx w/rmvl of tumor polyp lesion snare tq COLONOSCOPY W/LESION REMOVAL [facility] Work Phone: Start: 11-24-2021 Egd transoral biopsy single/multiple EGD BIOPSY SINGLE/MULTIPLE [facility] Work Phone: Start: 2021 COLOGUARD (FIT-DNA) COLOGUARD (FIT-D NA) [facility] Start: 2021 Colonoscopy COLONOSCOPY [facility] Start: 2021 COLORECTAL CANCER SCREENING COLORECTAL CANCER SCREENING [facility] Start: [address] COLONOGRAPHY [facility] Start: 2021 DIABETES SCREEN DIABETES SCREEN [facility] Start: 2021 Diabetes Screening Diabetes Screenin g [facility] Start: 2021 FECAL OCCULT BLOOD FECAL OCCULT BLOO D [facility] Start: 2021 Lipid 1996 panel - Serum or Plasma Lipid Screening [facility] Start: 2021 Lipid panel Lipid Screening [facility] Start: 2021 LIPID SCREEN LIPID SCREEN [facility] Start: 2021 Screening for malign ant neoplasm of colon [facility] Start: 2021 [facility] Start: 03-27-2022 COVID-19 VACCINE (4 - Booster for Moderna series) COVID-19 VACCINE (4 - Booster for Moderna series) [facility] Start: 06-26-2021 DEPRESSION ASSESSMENT DEPRESSION ASS ESSMENT [facility] Start: 08-23-2020 Urine microalbumin profile [facility] Start: 11-28-2015 PAP TESTING PAP TESTING [facility] Start: 11-28-2015 Screening for malign ant neoplasm of cervix Cervical Cancer Screening [facility] Start: 2006 HPV TESTING HPV TESTING [facility] Start: 10-15-1995 Hepatitis B Vaccine (1 of 3 - 19+ 3-dose series) Hepatitis B Vaccine (1 of 3 - 19+ 3-dose series) [facility] Start: 10-15-1995 Shingrix Vaccine (1 of 2) Shingrix Vaccine (1 of 2) [facility] Start: 1994 ANNUAL PCP TEAM PRODUCT AMBASSADOR ALMA DISEASE VISIT ANNUAL PCP TEAM CHRONIC DISEASE VISIT [facility] Start: 1994 Anxiety Screening Anxiety Screening [facility] Start: 1994 Depression Screening Depression Scre ening [facility] Start: 1994 HEPATITIS C SCREENING HEPATITIS C [facility] Start: 1994 Hepatitis C screening Hepatitis C [facility] Start: 1994 HIV SCREENING HIV SCREENING [facility] Start: 1994 HIV screening HIV Screening [facility] Start: 1982 Pneumococcal vaccination Pneumococcal Vaccine (1 of 2 - PCV) [facility] Start: 1976 HEPATITIS B (1 of 3 - 3-dose series) HEPATITIS B (1 of 3 - 3-dose series) [facility] Start: 1976 Hepatitis B Vaccine (1 of 3 - 3-dose series) Hepatitis B Vaccine (1 of 3 - 3-dose series) [facility] Alternaria alternata IgE Ab [Units/volume] in Serum [facility] Singaporean Cockroach I gE Ab [Units/volume] in Serum [facility] Singaporean house dust mite IgE Ab [Units/volume] in Serum [facility] Aspergillus fumigatu s RAST [facility] Bahia grass IgE Ab [Units/volume] in Serum [facility] Beef IgE Ab [Units/volume] in Serum [facility] Bermuda grass IgE Ab [Units/volume] in Serum [facility] Box elder RAST [facility] C reactive protein [Mass/volume] in Serum or Plasma [facility] Work Phone: Cat dander IgE Ab [Units/volume] in Serum [facility] Chocolate IgE Ab [Units/volume] in Serum [facility] Cladosporium herbaru m IgE Ab [Units/volume] in Serum [facility] Codfish IgE Ab [Units/volume] in Serum [facility] Common Ragweed IgE A b [Units/volume] in Serum [facility] Novi IgE Ab [Units/volume] in Serum [facility] Cow milk IgE Ab [Units/volume] in Serum [facility] Dog epithelium IgE A b [Units/volume] in Serum [facility] Erythrocyte sedimentation rate [facility] Work Phone: house dust mite IgE Ab [Units/volume] in Serum [facility] Hazelnut Pollen IgE Ab [Units/volume] in Serum [facility] Lachelle grass IgE Ab [Units/volume] in Serum [facility] [place] blue grass IgE Ab [Units/volume] in Serum [facility] Lactoferrin [Presenc e] in Stool by Immunoassay [facility] Work Phone: End: 06-09-2024 ALBINO SCREENING W MANUELA ALBINO SCREENING W MANUELA Radiology Routine Visit for screening mammogram 1 Occurrences starting 05/11/2023 until 06/09/2024 [facility] Work Phone: Comment on above: 1 Occurrences starti ng 05/11/2023 until 06/09/2024 Mountain Juniper IgE Ab [Units/volume] in Serum [facility] MR Lumbar spine [facility] Mucor racemosus IgE Ab [Units/volume] in Serum [facility] Mugwort IgE Ab [Units/volume] in Serum [facility] [place] RAST [facility] Nettle IgE Ab [Units/volume] in Serum [facility] Patient referral [facility] Work Phone: Peanut IgE Ab [Units/volume] in Serum [facility] Penicillium notatum IgE Ab [Units/volume] in Serum [facility] Plantain (Latvian) RAST [facility] Pork IgE Ab [Units/volume] in Serum [facility] Protein measurement [facility] Work Phone: Rough Pigweed IgE Ab [Units/volume] in Serum [facility] Gwinn IgE Ab [Units/volume] in Serum [facility] Sheep [place] IgE Ab [Units/volume] in Serum [facility] Shrimp IgE Ab [Units/volume] in Serum [facility] Soybean IgE Ab [Units/volume] in Serum [facility] Stemphylium botryosu m IgE Ab [Units/volume] in Serum [facility] Sweet gum RAST [facility] Tree pollen RAST [facility] Tuna IgE Ab [Units/volume] in Serum [facility] Wheat IgE Ab [Units/volume] in Serum [facility] White Elm IgE Ab [Units/volume] in Serum [facility] White Macungie IgE Ab [Units/volume] in Serum [facility] [place] IgE Ab [Units/volume] in Serum [facility] Whole Egg IgE Ab [Units/volume] in Serum [facility] Immunizations Immunization Date Immunization Notes Care Provider Roxy avera [facility] 03-26-[address] Marium Jeffery Work Phone: [facility] 08-23-2010 tetanus toxoid, redu juliette diphtheria toxoid, and acellular pertussis vaccine, adsorbed [facility] Work Phone: Payers Date Payer Category Payer Self-pay [id number] 2021 Unknown [id number] 2021 Unknown [id number] Unknown [id number] 2.16.8 [id number] Unknown [id number] 2.16.8 [id number] Unknown [id number] 2.16.8 [id number] Unknown [id number] 2.16.8 [id number] Unknown [id number] 2.16.8 [id number] Unknown [id number] 2.16.8 [id number] Unknown [id number] 2.16.8 [id number] Unknown [id number] 2.16.8 [id number] Unknown [id number] 2.16.8 [id number] Unknown [id number] 2.16.8 [id number] Unknown [id number] 2.16.8 [id number] Unknown [id number] 2.16.8 [id number] Social History Date Type Detail Facility Start: 09-07-2021 End: 09-14-2023 Tobacco smoking status MNIS Unknown if ever smoked [facility] Start: 1975 Sex Assigned At Female [facility] Start: 05-10-2022 Tobacco smoking stat us MNIS Ex-smoker [facility] End: 12-11-2018 History of tobacco use Current smoker [facility] Start: 12-12-2007 End: 12-11-2018 History of tobacco use Cigarette Smoker [facility] Start: 05-10-2022 End: 05-11-2023 Cigarettes smoked current (pack per day) - Reported 0.5 [facility] Start: 05-10-2022 End: 02-15-2024 Tobacco use and exposure Smokeless tobacco non-user [facility] Start: 05-10-2022 End: 02-15-2024 Alcohol intake Current non-drinker of alcohol (finding) [facility] Start: 05-10-2022 Tobacco Comment started 25yo V aping Still vaping [facility] Start: 1975 Sex Assigned At Not on file C [facility] Start: 04-30-2022 End: 05-10-2022 Exposure to SARS-CoV-2 (event) Not sure [facility] Start: 05-11-2023 End: 02-15-2024 Tobacco use panel [facility] National Score (1-10 0), lower number is lower risk 72 [facility] Start: 12-12-2007 Tobacco smoking stat us NHIS Smokes tobacco daily [facility] Goals Date Patient Goal Desired Activity /State Mental Status Date Assessment Result Facility 05-11-2022 Cognitive function Voice/Name [facility] Work Phone: 11-24-2021 Cognitive function Voice/Name [facility] Work Phone: 11-24-2021 Cognitive function Patient [place] arechigaion Person;Place;Time [facility] Work Phone: Clinical Notes 05-12-2021 to 02-15-2024 Telephone Encounter - Marci Chau - 02/15/2024 2:06 PM EDTTelephone Encounter - Marci Chau - 02/15/2024 2:06 PM EDTTelephone Encounter - Vinita Tobar MD - 02/15/2024 10:48 AM EDT Note Date & Type Note Facility 02-15-2024 Telephone encounter Note I called the PCP to get thyroid labs records LVM in there office General family medicine # [phone]. Marci Chau February 15, 2024 2:07 PM [facility] 02-15-2024 Miscellaneous Notes I called the PCP to get thyroid labs records LVM in there office General family medicine # [phone]. Marci Chau February 15, 2024 2:07 PM Please obtain the most recent thyroid labs from PCP, or from [facility] lab documented in this encounter [facility] 02-15-2024 Telephone encounter Note Please obtain the most recent thyroid labs from PCP, or from [facility] lab [facility] Work Phone: 02-15-2024 Instructions Vinita Tobar MD - 02/15/2024 9:45 AM EDT Levothyroxine Use Guidelines: To ensure optimal absorption and effectiveness of levothyroxine (brand names are Tirosint, Synthroid, Levoxyl, Unithroid, or generic levothyroxine), it is important to follow these guidelines: Timing of Administration: In the morning: Ideally, take it first thing in the morning upon waking up. At bedtime: If no other medications or supplements are taken at that time and it has been a few hours after the last meal. In the middle of the night: Consider taking it when waking up to urinate, allowing several hours before consuming any other beverages, food, or medications. Water Only: Take levothyroxine with water, avoiding other types of beverages. Coffee Interference: Wait at least one hour before consuming coffee after taking levothyroxine, as coffee has been shown to interfere with its absorption. Separation from Other Medications: Take levothyroxine at least one hour before any other medications or supplements. Certain medications and supplements, such as antacids, calcium supplements, and iron supplements, should be by at least three hours. Empty Stomach: Take levothyroxine one hour before food or at least three or more hours after a meal. Missed Dose: If a dose is missed, it is acceptable to take two pills the following day to compensate for the missed dose. It is important to follow these guidelines consistently to ensure optimal absorption and effectiveness of levothyroxine in managing hypothyroidism. It is crucial to establish a consistent routine for medication administration to ensure the effectiveness of treatment. You may use strategies such as using pill organizers or setting reminders Biotin interference: Please be aware that the use of bqcf-rqy-[id number] Biotin (in high doses) can interfere with the thyroid hormone level results. Biotin can be found in Biotin supplements, Vuno-mmwl-rtqf vitamin formulations, and some B-Complex vitamins. Please refrain from taking any of the biotin supplements in any form for at least 48-72 hours prior to any lab tests. Monitoring thyroid levels: Kindly complete the blood test, if feasible, in the week preceding your appointment. This will enable timely dose adjustment during the appointment if needed. documented in this encounter [facility] 02-15-2024 History of Presen t illness Narrative PCP: Oscar Blas MD. Referring Provider: Chirag Marte DO. Gastroenterology Subjective The history is provided by the patient. Zachariah Spears is a 48 year old White female with PMHx of Hypothyroidism, fibrocystic disease of breast , Crohn's disease, depression who presented to the endocrine clinic for hypothyroidism evaluation and management. History of present illness Initial History: (02/15/24) 48 year old female was referred by her GI doctor for Hypothyroidism. Was initially diagnosed with hypothyroidism in early 1999s. Had evaluation for galactorrhea from right breast in 2008 [place]. At that time TSH was elevated to 21, states that she was already on Synthroid at that time. Underwent milk ducts removal surgery in right breast. No other albs found in [facility] prior to 2008. Follows with Gynecology for yearly mammogram, has a lump in left breast and fibrocystic disease, has undergone breast biopsies in past consistent with fibroadenoma, fibrocystic disease and benign breast tissue. Diagnosed with Crohn's disease 2 years ago- On Budesonide and Sulfasalazine. She had multiple labs done at [facility], records currently unavailable in [facility], will try to get records. During office visit she had TSH from November 2023 which was elevated to 14. Her dose of Levothyroxine was increased to 275 mcg 3 months ago. Patient takes levothyroxine with other medications in morning around 7 am. She takes 275 mcg- 200 mcg +50 mcg +half of 50 mcg tablet. No coffee or food for a couple of hours after medications. Does not take PPI, antacids, multivitamins, calcium biotin supplements. Has chronic diarrhea due to Crohn's which she says is better than before now. No anterior neck enlargement, neck pressure, choking, globus sensation, hoarseness of voice, snoring, or trouble swallowing No history of tempeture intolerance, weight gain, hair loss, dry skin or nail changes. Does have occasional night sweats. No history of radiation treatment for chest, head or neck, prior thyroid US or biopsies. No family history of thyroid conditions or thyroid cancer. Obstetric History: . Last 2009. Menses are regular. Hysterectomy 2016 at [facility], had endometrial biopsies and LEEP due to postcoital bleeding and was advised hysterectomy Review of Systems Constitutional: Positive for malaise/fatigue. Negative for chills, fever and weight loss. Night sweats Eyes: Negative for blurred vision. Respiratory: Negative for cough, shortness of breath and stridor. Cardiovascular: Negative for chest pain and palpitations. Gastrointestinal: Positive for diarrhea (crohns). Negative for nausea and vomiting. Musculoskeletal: Positive for back pain. Negative for myalgias. Neurological: Positive for tremors (anxiety after driving in traffic). Negative for dizziness and headaches. HISTORY REVIEWED (electronic chart updated): PAST MEDICAL HISTORY 05/26/2014: Abnormal findings on diagnostic imaging of breast No date: Adjustment disorder with depressed mood 08/26/2014: Breast lump Comment: bilateral multiple palpable nodularities No date: Carpal tunnel syndrome, bilateral No date: Crohn's disease (HCC) 05/20/2014: Discharge from nipple Comment: right breast, intermittent 08/26/2014: Fibrocystic disease of breast Comment: stable No date: Hypothyroid 01/2005: Irritable bowel syndrome 11/2000: Lumbosacral spondylosis without myelopathy Comment: L5-S1 No date: Tobacco use disorder 02/18/2014: Vitamin D deficiency PAST SURGICAL HISTORY 2003: APPENDECTOMY 05/16/2014: BREAST BIOPSY Comment: right breast 0 oclock excisional biopsy - fibroadenoma. Excisional biopsy left breast 11 oclock - unremarkable adipose tissue, possiblity of a lipoma cannot be exdluded, however clinical and radiographic correlation is required 05/20/2019: BREAST BIOPSY CORE; Left Comment: benign breast tissue with focal stromal fibrosis, 12 oclock 8 cm from nipple No date: CARPAL TUNNEL 05/28/2010: DELIVERY ONLY Comment: , low transverse Dr. Moss 12/01/11: I & D ABSCESS Comment: anal abscess No date: PAST SURGICAL HISTORY OF Comment: wisdom tooth extraction x 2 2009: PAST SURGICAL HISTORY OF Comment: milk duct removal on right breast FAMILY HISTORY Problem Relation Age of Onset Ischemic Heart Disease Mother heart attack age 55 Allergies Mother Cancer Mother lung and bone Cancer Paternal Uncle lung, metastatic Cancer Paternal Grandfather lung Cancer Paternal Uncle lung Allergies Brother Social History Tobacco Use Smoking status: Every Day Current packs/day: 0.00 Average packs/day: 0.5 packs/day for 11.0 years (5.5 ttl pk-yrs) Types: Cigarettes Start date: 12/12/2007 Last attempt to quit: 12/11/2018 Years since quittin.1 Smokeless tobacco: Never Tobacco comments: started 25yo Vaping Still vaping Vaping Use Vaping status: current everyday user Substance Use Topics Alcohol use: No Drug use: No Comment: caffeine Current Outpatient Medications Medication Sig Dispense Refill SULFASALAZINE ORAL Take 500 mg by mouth two times a day. levothyroxine (SYNTHROID) 200 mcg tablet Take 200 mcg by mouth daily before breakfast. budesonide, enteric coated (ENTOCORT EC) 3 mg 24 hr capsule Take 6 mg by mouth once daily. pantoprazole DR (PROTONIX) 40 mg tablet Take 40 mg by mouth once daily. MEDICATION, NON-DATABASE Amberen levothyroxine (SYNTHROID) 50 mcg tablet Take 75 mcg by mouth once daily. buPROPion XL (WELLBUTRIN XL) 150 mg 24 hr tablet Take 150 mg by mouth twice daily. escitalopram oxalate (LEXAPRO) 20 mg tablet Take 1 tablet by mouth once daily. 30 tablet 0 No current facility-administered medications for this visit. Objective BP 147/97 Pulse 77 Ht 5' 2 (1.58m) Wt 158 lb (71.7kg) LMP 01/21/2013 BMI 28.89 kg/(m^2). Physical examination Physical Exam HENT: Mouth/Throat: Mouth: Mucous membranes are moist. Eyes: General: No scleral icterus. Neck: Comments: Thyroid not enlarged Cardiovascular: Rate and Rhythm: Normal rate and regular rhythm. Heart sounds: Normal heart sounds. Pulmonary: Effort: No respiratory distress. Breath sounds: Normal breath sounds. Abdominal: General: There is no distension. Palpations: Abdomen is soft. Tenderness: There is no abdominal tenderness. Musculoskeletal: General: No swelling. Skin: General: Skin is warm. Neurological: Mental Status: She is alert and oriented to person, place, and time. Labs and imaging data: Reviewed 01/02/2009- TSH -21.6 ([facility]) during workup for galactorrhea- right nipple discharge, started on Synthroid 150 mcg, surgery on right breast 01/15/2009- OV with PCP- synthroid decreased to 100 mcg 03/13/2009- TSH-3.38 (0.50-6.0) Vian 03/16/2009- Synthroid increased to 112 mcg 05/15/2009- TSH-1.65 (0.50-6.0) 08/23/2010- TSH 19.7, T4 8.4 (5.0-11.0) 08/24/2010- TSH 12.1, T4-10.2 (5.0-11.0)- Synthroid 9 pills a week (average daily 144 mcg) 10/12/2010- TSH 4.34, FT4- 3.14 (1.0-4.2)-Dose increased to 150 mcg daily 03/14/2011- TSH- 0.563, FT4-3.12 12/15/2011- TSH-1.61 12/10/2012- TSH -2.5 (0.4-5.0) 05/09/2014- TSH- 3.290 (0.358-3.7) ?dose increased to 175 mcg Right breast surgery-in 2008 Right breast biopsy- Fibrocystic change Excisional biopsy of right breast- Fibroadenoma Core biopsy of right breast- Benign breast tissue Left breast core biopsy- Benign breast tissue Gets yearly mammogram- Last 04/2023 Previous medical records: Pending Assessment & Plan Assessment: 48 yr old female with PMH od hypothyroidism, Crohns disease, fibrocystic breast disease presented for evaluation and management of hypothyroidism. She is currently on high dose of Thyroid supplementation likely due to decreased GI absorption due to Crohn's and taking synthroid with other medications. Encounter Diagnosis ICD-10-CM 1. Acquired hypothyroidism E03.9 THYROID STIMULATING HORMONE T4 FREE/FREE THYROXINE 2. Intestinal malabsorption, unspecified type K90.9 Plan: Patient is on higher dose compared to weight based dose - On 275 mcg, likely related to decreased GI absorption secondary to Crohn's and taking synthroid with other medications. Also she breaks 50 mcg tablet to take 275 mcg total. Discussed switching Levothyroxine to night time. Eats dinner around 5:30 pm and goes to bed at 9 pm. Discussed importance of taking it on empty stomach and few hours from food and other medications. Will recheck thyroid levels in 3 months after she changes time of medication. Will continue same dose in the interim. Discussed possibility of considering Tirosint solution/capsule if absorption remains an issue Will try to obtain records from [facility] Follow up in 3 months. Labs before I discussed the plan of care with the patient in details including different treatment options and side effects of medications prescribed in this visit. Complications of untreated or uncontrolled disease were also discussed. Patient expressed understanding and agreement. Return in about 3 months (around 05/17/2024). Jonathan Owens MD PGY-2 Internal Medicine 02/15/24 Attending Note I personally saw and examined the patient. I reviewed the resident's note. I agree with the resident's assessment and plan unless otherwise noted. Signature: Vinita Tobar MD Date: 02/15/2024 Time: 10:43 AM This note was partially generated using [employer] voice recognition system, and there may be some incorrect words, spellings, and punctuation that were not intended as it appear in the note. documented in this encounter [facility] 02-15-2024 Note HNO ID: [id number] Author: VINITA TOBAR MD Service: ? Author Type: Resident Type: Progress Notes Filed: 02/15/2024 10:46 Note Text: PCP: Oscar Blas MD. Referring Provider: Chirag Marte DO. Gastroenterology Subjective The history is provided by the patient. Zachariah Spears is a 48 year old White female with PMHx of Hypothyroidism, fibrocystic disease of breast , Crohn's disease, depression who presented to the endocrine clinic for hypothyroidism evaluation and management. History of present illness Initial History: (02/15/24) 48 year old female was referred by her GI doctor for Hypothyroidism. Was initially diagnosed with hypothyroidism in early . Had evaluation for galactorrhea from right breast in 2008 [place]. At that time TSH was elevated to 21, states that she was already on Synthroid at that time. Underwent milk ducts removal surgery in right breast. No other albs found in [facility] prior to 2008. Follows with Gynecology for yearly mammogram, has a lump in left breast and fibrocystic disease, has undergone breast biopsies in past consistent with fibroadenoma, fibrocystic disease and benign breast tissue. Diagnosed with Crohn's disease 2 years ago- On Budesonide and Sulfasalazine. She had multiple labs done at [facility], records currently unavailable in [facility], will try to get records. During office visit she had TSH from November 2023 which was elevated to 14. Her dose of Levothyroxine was increased to 275 mcg 3 months ago. Patient takes levothyroxine with other medications in morning around 7 am. She takes 275 mcg- 200 mcg +50 mcg +half of 50 mcg tablet. No coffee or food for a couple of hours after medications. Does not take PPI, antacids, multivitamins, calcium biotin supplements. Has chronic diarrhea due to Crohn's which she says is better than before now. No anterior neck enlargement, neck pressure, choking, globus sensation, hoarseness of voice, snoring, or trouble swallowing No history of tempeture intolerance, weight gain, hair loss, dry skin or nail changes. Does have occasional night sweats. No history of radiation treatment for chest, head or neck, prior thyroid US or biopsies. No family history of thyroid conditions or thyroid cancer. Obstetric History: . Last 2009. Menses are regular. Hysterectomy 2015 at [facility], had endometrial biopsies and LEEP due to postcoital bleeding and was advised hysterectomy Review of Systems Constitutional: Positive for malaise/fatigue. Negative for chills, fever and weight loss. Night sweats Eyes: Negative for blurred vision. Respiratory: Negative for cough, shortness of breath and stridor. Cardiovascular: Negative for chest pain and palpitations. Gastrointestinal: Positive for diarrhea (crohns). Negative for nausea and vomiting. Musculoskeletal: Positive for back pain. Negative for myalgias. Neurological: Positive for tremors (anxiety after driving in traffic). Negative for dizziness and headaches. HISTORY REVIEWED (electronic chart updated): PAST MEDICAL HISTORY 05/26/2014: Abnormal findings on diagnostic imaging of breast No date: Adjustment disorder with depressed mood 08/26/2014: Breast lump Comment: bilateral multiple palpable nodularities No date: Carpal tunnel syndrome, bilateral No date: Crohn's disease (HCC) 05/20/2014: Discharge from nipple Comment: right breast, intermittent 08/26/2014: Fibrocystic disease of breast Comment: stable No date: Hypothyroid 01/2005: Irritable bowel syndrome 11/2000: Lumbosacral spondylosis without myelopathy Comment: L5-S1 No date: Tobacco use disorder 02/18/2014: Vitamin D deficiency PAST SURGICAL HISTORY 2003: APPENDECTOMY 05/16/2014: BREAST BIOPSY Comment: right breast 0 oclock excisional biopsy - fibroadenoma. Excisional biopsy left breast 11 oclock - unremarkable adipose tissue, possiblity of a lipoma cannot be exdluded, however clinical and radiographic correlation is required 05/20/2019: BREAST BIOPSY CORE; Left Comment: benign breast tissue with focal stromal fibrosis, 12 oclock 8 cm from nipple No date: CARPAL TUNNEL 05/28/2010: DELIVERY ONLY Comment: , low transverse Dr. Moss 12/01/11: I AND D ABSCESS Comment: anal abscess No date: PAST SURGICAL HISTORY OF Comment: wisdom tooth extraction x 2 2008: PAST SURGICAL HISTORY OF Comment: milk duct removal on right breast FAMILY HISTORY Problem Relation Age of Onset Ischemic Heart Disease Mother heart attack age 55 Allergies Mother Cancer Mother lung and bone Cancer Paternal Uncle lung, metastatic Cancer Paternal Grandfather lung Cancer Paternal Uncle lung Allergies Brother Social History Tobacco Use Smoking status: Every Day Current packs/day: 0.00 Average packs/day: 0.5 packs/day for 11.0 years (5.5 ttl pk-yrs) Types: Cigarettes Start date: 12/12/2007 Last attempt to (more content not included)... [facility] 10-23-2023 Discharge summary Note Date/Time October 23, 2023 7:16am [facility] Physical [facility] [address] [place] [address]. [address] [place] [address] / REHABILITATION SERVICES DISCHARGE SUMMARY MR#: [id number] Acct: [id number] Name: ZACHARIAH SPEARS Rep #: [id number] 02 : 1975 48 From: Jodi Pennington DP T Referring Dr.: Dr. Fran Pride MD Status: REG RCR Insurance: [employer]ANCE Discharge Summary D/C summary: It has been my pleasure to treat ZACHARIAH SPEARS referred by Dr. Fran Pride MD, with the diagnosis of Spondylolisthesis, Lumbar Region for a total of9 visit(s). Discharge Date: Please see the following information for a summary of their discharge status. Subjective Subjective: Patient reports that the pain is a lot better but its still the hips- she still having difficulty and pain standing and walking long distances. She walks half a block inside and then her left leg still does the N/T sensation. If she sits down the pain decreases. She feels that she is 50% better. She does not have a return visit to the MD but plans to make and apt when she is finished with PT. The N/T sensation is the same amount. Sleep isstill disturbed. She is not as slow with her movements but still not as smooth as before. Pain LB: Pain Intensity (Out of 10): 2 Overall Improvement % Improvement: 50 Objective Objective/Function: Posture: slightly guarded- upright Gait: good arm swing and rotation- good pace HR/TR: able no deviation noted Lumbar ROM: Forward Flexion: hands ankles, Extn: mild limited, SB: WNL, Rot: modlimited. All limitations with mild discomfort- movements with hesitation. All other LE ROM WFL Palpation: not tender to touch Strength: Ankle: 5/5 bilateral. Knee: 5/5 Bilateral, Hip: Right: 4+/5 throughout, Left: 4+/5 throughout no pain Flex: HS: mod, Gastroc: mod Reflex: 2+ patellar bilateral Sensation: WNL to gross touch bilateral LE Special Tests: Dural signs: positive Goals Goal 1:: Patient will report participation in home exercise program activities aminimum of 5 days per week, as adjunct to skilled physical therapy intervention in preparation for independent home management upon discharge. Goal Progress: Goal Met Goal 2:: Patient will maintain proper posture t/o tx session to demo increased core s/s Goal Progress: Progressing Goal 3:: Patient will report no s/s down her left leg for 1 week Goal Progress: Not Progressing Goal 4:: Patient will report 80% improvement Goal Progress: Progressing Plan Plan: 10/22: Discharge to return to MD for further evaluation- educated to continue exercises and when N/T start to attempt to decrease as soon as possibleas this is pressure on the nerve root. IE: Aquatic therapy- focus on core strength/stabilization and decreasing peripheralization D/C Information d/c sentence: If there are questions or concerns regarding this patient's physical therapy, please feel free to call me at [phone]. Thank you for the referral of thispatient. Sincerely, Jodi Pennington, DPT Balance/Gait/Functional tests Balance/Special Test Scores Oswestry Low Back Score: 22 Improvement % Improvement: 50 <Electronically signed by Jodi Pennington DPT> 10/23/23 0716 CC: JOHN Barajas; Dr. Fran Pride MD ~ ELR Signed [facility] Work Phone: [phone]) 858-464111-16-2023 Miscellaneous Notes* Letter - Coordinator, Mammography - 05/11/2023 2:49 PM EST [facility] [address] [place] [id number] May 11, 2023 PID: [id number] Zachariah Spears [address] [place] [address] Dear Ms. Spears, We are pleased to inform you that the results of your recent breast imaging exam on 05/11/2023 are normal. Early detection of cancer is very important. We also understand recommendations regarding breast cancer screening are controversial. Please discuss with your primary care provider which strategy is best for you and whether a mammogram is right for you. Your imaging studies and report will be kept on file at [facility] as part of your permanent medical record and are available for your continuing care. Thank you for allowing us to help in meeting your health care needs. Sincerely, Dr. Luna Interpreting Radiologist [facility] (Normal over 40) [facility]23 NoteHNO ID: [id number] Author: Dilcia Deluca MD Service: ? Author Type: Physician Type: Progress Notes Filed: 05/11/2023 4:41 PM Note Text: Dilcia Deluca MD [facility] [address] [place] [address] HPI: Ms. Spears is a White 47 year old woman who presents for follow up breast examination after bilateral screening mammogram. The patient denies any new findings or changes on her self breast exam. FAMILY HISTORY Problem Relation Age of Onset Ischemic Heart Disease Mother heart attack age 55 Allergies Mother Cancer Mother lung and bone Cancer Paternal Uncle lung, metastatic Cancer Paternal Grandfather lung Cancer Paternal Uncle lung Allergies Brother PAST MEDICAL HISTORY Diagnosis Date Abnormal findings on diagnostic imaging of breast 05/26/2014 Adjustment disorder with depressed mood Breast lump 08/26/2014 bilateral multiple palpable nodularities Carpal tunnel syndrome, bilateral Crohn's disease (HCC) Discharge from nipple 05/20/2014 right breast, intermittent Fibrocystic disease of breast 08/26/2014 stable Hypothyroid Irritable bowel syndrome 01/2005 Lumbosacral spondylosis without myelopathy 11/2000 L5-S1 Tobacco use disorder Vitamin D deficiency 02/18/2014 PAST SURGICAL HISTORY Procedure Laterality Date APPENDECTOMY 2003 BREAST BIOPSY 05/16/2014 right breast 0 oclock excisional biopsy - fibroadenoma. Excisional biopsy left breast 11 oclock - unremarkable adipose tissue, possiblity of a lipoma cannot be exdluded, however clinical and radiographic correlation is required BREAST BIOPSY CORE Left 05/20/2019 benign breast tissue with focal stromal fibrosis, 12 oclock 8 cm from nipple CARPAL TUNNEL DELIVERY ONLY 05/28/2010 , low transverse Dr. Moss I AND D ABSCESS 12/01/11 anal abscess PAST SURGICAL HISTORY OF wisdom tooth extraction x 2 PAST SURGICAL HISTORY OF 2009 milk duct removal on right breast Social History Tobacco Use Smoking status: Former Packs/day: 0.50 Years: 11.00 Additional pack years: 0.00 Total pack years: 5.50 Types: Cigarettes Quit date: 12/11/2018 Years since quittin.4 Smokeless tobacco: Never Tobacco comments: started 25yo Vaping Still vaping Vaping Use Vaping Use: current everyday user Substance Use Topics Alcohol use: No Drug use: No Comment: caffeine AGE AT [place] 17 AGE AT FIRST 35 FAMILY HISTORY OF BREAST CANCER No (IF YES) NUMBER OF FIRST DEGREE RELATIVES WITH BREAST CANCER 0 PREVIOUS BREAST BIOPSIES Yes (x4) (IF YES) PREVIOUS BREAST BIOPSY WITH ATYPICAL HYPERPLASIA No RACE DOT MODEL RISK 5 YEAR 2.6 DOT MODEL RISK LIFETIME 17.9 LAB AND IMAGING RESULTS: BILATERAL DIGITAL SCREENING MAMMOGRAM TOMOSYNTHESIS WITH CAD: 05/11/2023 HISTORY: Visit For Screening Mammogram Routine screening mammogram. Patient reports no breast problems. RESULT: TECHNIQUE: The study was acquired using full field digital technology and interpreted from soft copy. Digital Breast Tomosynthesis (DBT) images were obtained and used to assist in the interpretation of this examination. Current study was also evaluated with a Computer Aided Detection (CAD). Comparison is made to exams dated: 10/08/2019 mammogram, 10/08/2019 ultrasound, 05/06/2021 mammogram, 05/10/2022 mammogram, and 11/05/2018 mammogram - [facility]. There are scattered areas of fibroglandular density. There are benign post operative findings and a biopsy clip in the right breast. There also is a biopsy clip in the left breast. No significant masses, calcifications, or other findings are seen in either breast. There has been no significant interval change. IMPRESSION IMPRESSION: BENIGN FINDING There is no mammographic evidence of malignancy. A 1 year screening mammogram is recommended. Juno carlos/mati:05/11/2023 14:49:26 Pediatric Psychiatrist(s): RT Gokul(Yoli)(M), [facility] letter sent: Normal over 40 Mammogram BI-RADS: 2 Benign finding Review of Systems Constitutional: Negative for chills and fever. PHYSICAL EXAMINATION: BP 115/80 Pulse 81 Ht 160 cm (5' 3) Wt 70.3 kg (155 lb) LMP 01/21/2013 BMI 27.46 kg/m? General appearance: Well appearing, alert, in no acute distress Skin: skin color, texture, turgor normal, no suspicious rashes or lesions Eyes: Anicteric sclera, Pupils are equally round and reactive Extremities: No clubbing, cyanosis, or edema. Neuro: Alert and oriented times three Physical Exam Chest: Breasts: Breasts are symmetrical. Right: No swelling, inverted nipple, mass, nipple discharge, skin change or tenderness. Left: Mass (1 cm lump located at 1:00 6 cm from the nipple) present. No swelling, inverted nipple, nipple discharge, skin change or tenderness. Comments: Bilateral areas of thickening clinically consistent with fibrocystic di (more content not included)...[facility] 05-11-2023 History of Present illness Narrative* Dilcia Deluca MD - 05/11/2023 10:19 AM EST Images from the original note were not included. Dilcia Deluca MD [facility] [address] [place] [address] HPI: Ms. Spears is a White 47 year old woman who presents for follow up breast examination after bilateral screening mammogram. The patient denies any new findings or changes on her self breast exam. FAMILY HISTORY Problem Relation Age of Onset Ischemic Heart Disease Mother heart attack age 55 Allergies Mother Cancer Mother lung and bone Cancer Paternal Uncle lung, metastatic Cancer Paternal Grandfather lung Cancer Paternal Uncle lung Allergies Brother PAST MEDICAL HISTORY Diagnosis Date Abnormal findings on diagnostic imaging of breast 05/26/2014 Adjustment disorder with depressed mood Breast lump 08/26/2014 bilateral multiple palpable nodularities Carpal tunnel syndrome, bilateral Crohn's disease (HCC) Discharge from nipple 05/20/2014 right breast, intermittent Fibrocystic disease of breast 08/26/2014 stable Hypothyroid Irritable bowel syndrome 01/2005 Lumbosacral spondylosis without myelopathy 11/2000 L5-S1 Tobacco use disorder Vitamin D deficiency 02/18/2014 PAST SURGICAL HISTORY Procedure Laterality Date APPENDECTOMY 2003 BREAST BIOPSY 05/16/2014 right breast 0 oclock excisional biopsy - fibroadenoma. Excisional biopsy left breast 11 oclock - unremarkable adipose tissue, possiblity of a lipoma cannot be exdluded, however clinical and radiographic correlation is required BREAST BIOPSY CORE Left 05/20/2019 benign breast tissue with focal stromal fibrosis, 12 oclock 8 cm from nipple CARPAL TUNNEL DELIVERY ONLY 05/28/2010 , low transverse Dr. Moss I & D ABSCESS 12/01/11 anal abscess PAST SURGICAL HISTORY OF wisdom tooth extraction x 2 PAST SURGICAL HISTORY OF 2009 milk duct removal on right breast Social History Tobacco Use Smoking status: Former Packs/day: 0.50 Years: 11.00 Additional pack years: 0.00 Total pack years: 5.50 Types: Cigarettes Quit date: 12/11/2018 Years since quittin.4 Smokeless tobacco: Never Tobacco comments: started 25yo Vaping Still vaping Vaping Use Vaping Use: current everyday user Substance Use Topics Alcohol use: No Drug use: No Comment: caffeine AGE AT [place] 17 AGE AT FIRST 35 FAMILY HISTORY OF BREAST CANCER No (IF YES) NUMBER OF FIRST DEGREE RELATIVES WITH BREAST CANCER 0 PREVIOUS BREAST BIOPSIES Yes (x4) (IF YES) PREVIOUS BREAST BIOPSY WITH ATYPICAL HYPERPLASIA No RACE DOT MODEL RISK 5 YEAR 2.6 DOT MODEL RISK LIFETIME 17.9 LAB & IMAGING RESULTS: BILATERAL DIGITAL SCREENING MAMMOGRAM TOMOSYNTHESIS WITH CAD: 05/11/2023 HISTORY: Visit For Screening Mammogram Routine screening mammogram. Patient reports no breast problems. RESULT: TECHNIQUE: The study was acquired using full field digital technology and interpreted from soft copy. Digital Breast Tomosynthesis (DBT) images were obtained and used to assist in the interpretation of this examination. Current study was also evaluated with a Computer Aided Detection (CAD). Comparison is made to exams dated: 10/08/2019 mammogram, 10/08/2019 ultrasound, 05/06/2021 mammogram, 05/10/2022 mammogram, and 11/05/2018 mammogram - [facility]. There are scattered areas of fibroglandular density. There are benign post operative findings and a biopsy clip in the right breast. There also is a biopsy clip in the left breast. No significant masses, calcifications, or other findings are seen in either breast. There has been no significant interval change. IMPRESSION IMPRESSION: BENIGN FINDING There is no mammographic evidence of malignancy. A 1 year screening mammogram is recommended. Juno carlos/mati:05/11/2023 14:49:26 Pediatric Psychiatrist(s): RT Gokul(Yoli)(M), [facility] letter sent: Normal over 40 Mammogram BI-RADS: 2 Benign finding Review of Systems Constitutional: Negative for chills and fever. PHYSICAL EXAMINATION: BP 115/80 Pulse 81 Ht 160 cm (5' 3) Wt 70.3 kg (155 lb) LMP 01/21/2013 BMI 27.46 kg/m General appearance: Well appearing, alert, in no acute distress Skin: skin color, texture, turgor normal, no suspicious rashes or lesions Eyes: Anicteric sclera, Pupils are equally round and reactive Extremities: No clubbing, cyanosis, or edema. Neuro: Alert and oriented times three Physical Exam Chest: Breasts: Breasts are symmetrical. Right: No swelling, inverted nipple, mass, nipple discharge, skin change or tenderness. Left: Mass (1 cm lump located at 1:00 6 cm from the nipple) present. No swelling, inverted nipple, nipple discharge, skin change or tenderness. Comments: Bilateral areas of thickening clinically consistent with fibrocystic disease Lymphadenopathy: Upper Body: Right upper body: No axillary adenopathy. Left upper body: No axillary adenopathy. Plan IMPRESSION / PLAN: Ms. Spears is a White 47 year old woman who presents for follow up breast examination after bilateral screening mammogram. The patient denies any new findings or changes on her self breast exam. Clinical breast examination finds a 1 cm rubbery lump located in the left breast at 1 o'clock 6 cm from the nipple. Overall this has benign features. There are no skin changes, nipple discharge or palpable lymphadenopathy. The right breast is unremarkable. She has bilateral areas of thickening clinically consistent with fibrocystic disease. Bilateral screening mammogram performed today was reviewed, both films and reports. The imaging wasread as negative. A prescription was provided for screening mammogram in 1 year. She will follow up after the breast imaging. DIAGNOSIS: Encounter Diagnosis ICD-10-CM 1. Fibrocystic breast disease (FCBD) in female, unspecified laterality N60.19 2. Visit for screening mammogram Z12.31 Monthly self breast exams encouraged. I discussed my findings and recommendations with the patient. Ms. Spears is in agreement with theplan. Dilcia Deluca [facility]* Aspen Ann NA - 05/11/2023 10:02 AM EST Patient presents for follow up after imaging. Denies any new concerns. KRYSTEN Chun [facility] History of Present illness Narrative* Claire Tomlin RT(Yoli) - 05/11/2023 9:00 AM EST Radiology Service Progress Note PATIENT NAME: Zachariah Spears DATE OF SERVICE: May 11, 2023 TIME: 9:11 AM PATIENT IDENTITY VERIFICATION COMPLETED USING TWO (2) IDENTIFIERS: Name and Date of confirmedby patient verbally. FALL SCREENING: Has the patient had 2 falls in the last year or 1 fall with injury or currently using an Ambulatory Assistive Device (Walker, Cane, Wheelchair, Crutches, etc.)? No PATIENT GENDER DATA: Female. status: : No status: NO. PATIENT RELEVANT IMPLANT DATA REVIEWED: Not Applicable RADIOLOGY DEPARTMENT: Mammography PERIPHERAL IV DATA: Not applicable SIGNED BY: RT Gokul(Yoli) May 11, 2023 9:11 AM [facility]23 NoteHNO ID: [id number] Author: Claire Tomlin RT(Yoli) Service: ? Author Type: Technologist Type: Progress Notes Filed: 05/11/2023 9:24 AM Note Text: Radiology Service Progress Note PATIENT NAME: Zachariah Spears DATE OF SERVICE: May 11, 2023 TIME: 9:11 AM PATIENT IDENTITY VERIFICATION COMPLETED USING TWO (2) IDENTIFIERS: Name and Date of confirmed by patient verbally. FALL SCREENING: Has the patient had 2 falls in the last year or 1 fall with injury or currently using an Ambulatory Assistive Device (Walker, Cane, Wheelchair, Crutches, etc.)? No PATIENT GENDER DATA: Female. status: : No status: NO. PATIENT RELEVANT IMPLANT DATA REVIEWED: Not Applicable RADIOLOGY DEPARTMENT: Mammography PERIPHERAL IV DATA: Not applicable SIGNED BY: RT Gokul(Yoli) May 11, 2023 9:11 AM[facility] History of Present illness Narrative* RT Reid(R) - 05/10/2022 9:30 AM EST Radiology Service Progress Note PATIENT NAME: Zachariah Spears DATE OF SERVICE: May 10, 2022 TIME: 9:52 AM PATIENT IDENTITY VERIFICATION COMPLETED USING TWO (2) IDENTIFIERS: Name and Date of confirmedby patient verbally. FALL SCREENING: Has the patient had 2 falls in the last year or 1 fall with injury or currently using an Ambulatory Assistive Device (Walker, Cane, Wheelchair, Crutches, etc.)? No PATIENT GENDER DATA: Female. status: : No status: NO. PATIENT RELEVANT IMPLANT DATA REVIEWED: Not Applicable RADIOLOGY DEPARTMENT: Mammography PERIPHERAL IV DATA: Not applicable SIGNED BY: RT Reid(R) May 10, 2022 9:52 AM documented in this [facility]-2021 NoteHNO ID: [id number] Author: Madison Johnson APRN.SQUARE SHEAR OPERATOR Service: ? Author Type: Nurse Practitioner Type: Progress Notes Filed: 05/12/2021 1:42 PM Note Text: Subjective The history is provided by the patient. No human geography instructor was used. HPI Zachariah Spears is a 45 year old female who presents today for CC of pain in anterior neck that started over the past 3 days. She denies any ill symptoms, ear pain or dental pain. She has not used any treatment or medications. No new medications or immunizations BP 112/72 Pulse 82 Temp 36.8 ?C (98.2 ?F) Resp 14 Wt 76.7 kg (169 lb) LMP 01/21/2013 SpO2 98% BMI 29.94 kg/m? Social History Tobacco Use - Smoking status: Former Smoker Packs/day: 0.50 Years: 11.00 Pack years: 5.50 Types: Cigarettes Quit date: 12/11/2018 Years since quittin.4 - Smokeless tobacco: Never Used - Tobacco comment: started 25yo Vaping Still vaping Vaping Use - Vaping Use: Never used Substance Use Topics - Alcohol use: No - Drug use: No Comment: caffeine PAST MEDICAL HISTORY Diagnosis Date - Abnormal findings on diagnostic imaging of breast 05/26/2014 - Adjustment disorder with depressed mood - Breast lump 08/26/2014 bilateral multiple palpable nodularities - Carpal tunnel syndrome, bilateral - Discharge from nipple 05/20/2014 right breast, intermittent - Fibrocystic disease of breast 08/26/2014 stable - Hypothyroid - Irritable bowel syndrome 01/2005 - Lumbosacral spondylosis without myelopathy 11/2000 L5-S1 - Tobacco use disorder - Vitamin D deficiency 02/18/2014 I have confirmed and edited as necessary, the [facility] Review of Systems Constitutional: Negative for chills and fever. HENT: Negative for congestion, ear pain, sinus pain and sore throat. Respiratory: Negative for cough, sputum production, shortness of breath and wheezing. Cardiovascular: Negative for chest pain. Musculoskeletal: Positive for neck pain. Negative for myalgias. Neurological: Negative for headaches. Objective Physical Exam Vitals and nursing note reviewed. HENT: Head: Normocephalic and atraumatic. Right Ear: Tympanic membrane, ear canal and external ear normal. Left Ear: Tympanic membrane, ear canal and external ear normal. Mouth/Throat: Pharynx: Uvula midline. Neck: Thyroid: No thyroid mass, thyromegaly or thyroid tenderness. Trachea: Trachea normal. Meningeal: Brudzinski's sign and Kernig's sign absent. Musculoskeletal: Cervical back: Full passive range of motion without pain and normal range of motion. Lymphadenopathy: Head: Right side of head: No submental, submandibular or tonsillar adenopathy. Left side of head: No submental, submandibular or tonsillar adenopathy. Cervical: Cervical adenopathy present. Right cervical: No superficial, deep or posterior cervical adenopathy. Left cervical: Deep cervical adenopathy present. No superficial or posterior cervical adenopathy. Skin: General: Skin is warm and dry. Neurological: Mental Status: She is alert. Psychiatric: Mood and Affect: Affect normal. ASSESSMENT/PLAN: 1. Neck pain - ICD9: 723.1, ICD10: M54.2 Possible deep lymphadenopathy Will check cbc and call with results Would advise to monitor for any ill symptoms or dental pain If develop see dentist or Dr. Blas Tylenol (generic acetaminophen) 500 mg-2 tabs every 8 hrs. as needed for fever and aches Ibuprofen 600 mg (3-200mg tablets) every 6 hours If no improvement after 1-2 weeks advise to follow up with Dr. Blas - CBC + DIFF Diagnosis and treatment plan were discussed and questions were answered to the patient's satisfaction. Pt acknowledged understanding of concepts and follow up plan. Specific signs and symptoms that would indicate the need for higher level of care were discussed in detail warranting prompt ER evaluation. Madison Johnson APRN.[facility] note* Diagnosis Onset Date Resolution Status Abdominal pain, vomiting, and diarrhea acute [facility] Work Phone: Evaluation note* Diagnosis Visit for screening mammogram Other screening mammogram documented in this encounter [facility] note* Diagnosis Onset Date Resolution Status Anal fissure acute Acute left otitis media acut e Crohn disease chronic Gastric intestinal metaplasia chronic [facility] Work Phone: Evaluation note* Diagnosis Onset Date Resolution Status Diarrhea acute Crohn disease chronic Gastric intestinal metaplasia chronic Diarrhea acute Crohn disease chronic Gastric intestinal metaplasia [facility] Work Phone: Evaluation note* Diagnosis Onset Date Resolution Status Crohn disease chronic Diarrhea chronic Gastric intestinal metaplasia [facility] Work Phone: Evaluation note* Diagnosis Fibrocystic breast disease (FCBD) in female, unspecified laterality- Primary Visit for screening mammogram Other screening mammogram documented in this encounter [facility] note* Diagnosis Visit for screening mammogram Other screening mammogram documented in this encounter [facility] note* Diagnosis Onset Date Resolution Status Crohn disease chronic Diarrhea chronic Gastric intestinal metaplasia chronic Spondylolisthesis, lumbar region acute [facility] Work Phone: Evaluation note* Diagnosis Acquired hypothyroidism- Primary Unspecified hypothyroidism Intestinal malabsorption, unspecified type documented in this encounter [facility] Discharge instructionsAmbulatory Orders* Physical Therapy Referral Location: None Selected [facility] Work Phone: Reason for referral (narrative)* Diagnostic Procedure Only (Routine) - Closed Specialty Diagnoses / Procedures Referred By Yevgeniy t Referred To Contact [facility] Diagnoses Visit for screening mammogram Procedures ALBINO SCREENING W MANUELA SCREENING BREAST DGTL MANUELA UNI/BILAT ADD ON SCREENING MAMMOGRAPHY BI 2-VIEW BREAST INC Dilcia Riojas MD [address] [facility] [place] [address] [facility] [address] [place] [address] Referral ID Status Reason Start Date Expiration Date V isits Requested Visits Authorized [id number] Closed Auto-Generate d Referral 05/06/2021 06/05/2022 1 1 [facility] for referral (narrative)* Diagnostic Procedure Only (Routine) - Pending Review Specialty Diagnoses / Procedures Referred By Yevgeniy t Referred To Contact [facility] Diagnoses Visit for screening mammogram Procedures ALBINO SCREENING W MANUELA SCREENING DIGITAL BREAST TOMOSYNTHESIS BI SCREENING MAMMOGRAPHY BI 2-VIEW BREAST INC Dilcia Riojas MD [address] [place] [address] [facility] [address] [place] [address] Referral ID Status Reason Start Date Expiration Date Visits Requested Visits Authorized [id number] Pending Review Auto-Generat ed Referral 06/09/2024 1 1 [facility] for referral (narrative)* Diagnostic Procedure Only (Routine) - Closed Specialty Diagnoses / Procedures Referred By Yevgeniy nolasco Referred To Contact [facility] Diagnoses Visit for screening mammogram Procedures ALBINO SCREENING W MANUELA SCREENING DIGITAL BREAST TOMOSYNTHESIS BI SCREENING MAMMOGRAPHY BI 2-VIEW BREAST INC Dilcia Riojas MD [address] [place] [address] [facility] [address] [place] [address] Referral ID Status Reason Start Date Expiration Date V isits Requested Visits Authorized [id number] Closed Auto-Generate d Referral 05/10/2022 06/09/2023 1 1 [facility] for visit Narrative* Diagnostic Procedure Only (Routine) - Closed Specialty Diagnoses / Procedures Referred By Yevgeniy nolasco Referred To Contact [facility] Diagnoses Visit for screening mammogram Procedures ALBINO SCREENING W MANUELA SCREENING BREAST DGTL MANUELA UNI/BILAT ADD ON SCREENING MAMMOGRAPHY BI 2-VIEW BREAST INC Dilcia Riojas MD [address] [place] [address] [facility] [address] [place] [address] Referral ID Status Reason Start Date Expiration Date V isits Requested Visits Authorized [id number] Closed Auto-Generate d Referral 05/06/2021 06/05/2022 1 [facility] Diagnostic Procedure Only (Routine) - Closed Specialty Diagnoses / Procedures Referred By Contac t Referred To Contact [facility] Diagnoses Visit for screening mammogram Procedures ALBINO SCREENING W MANUELA SCREENING DIGITAL BREAST TOMOSYNTHESIS BI SCREENING MAMMOGRAPHY BI 2-VIEW BREAST INC Dilcia Riojas MD [address] [place] [address] [facility] [address] [place] [address] Referral ID Status Reason Start Date Expiration Date V isits Requested Visits Authorized [id number] Closed Auto-Generate d Referral 05/10/2022 06/09/2023 1 1 [facility] Summary Purpose Family History No Family History Records Found Relationship Condition Age at Onset Recorded Date/T shane mother Malignant neoplasm Unknown Arthritis Unknown Spondylosis of lumbar spine Unknown Advance Directives No Advanced Directives Records Found Advance Directive Response Recorded Date/ Time Advance Directives No April 1:44pm Living Will No October 17, 2016 1:19pm Power of Nicker And Breaker No October 17 1:19pm Advance Directive Response Recorded Date/ Time Advance Directives No April 1:44pm Living Will No November 17, 2021 2 :47pm Power of Nicker And Breaker No November 17, 2021 2:47pm Advance Directive Response Recorded Date/ Time Advance Directives No April 11:22am Living Will No May 11, 2 022 11:22am Power of Nicker And Breaker No May 11, 2022 11:22am Advance Directive Response Recorded Date/ Time Advance Directives No April 12:22pm Living Will No May 11, 2 022 12:22pm Power of Nicker And Breaker No May 11, 2022 12:22pm Chief Complaint and Reason for Visit Chief Complaint CHRONIC NAUSEA CHRONIC NAUSEA, DIARRHEA E ORDERS EORDERS Reason for Visit Abdominal pain, vomi ting, and diarrhea Chief Complaint CHRONIC NAUSEA CHRONIC NAUSEA, DIARRHEA E ORDERS EORDERS E ORDER Reason for Visit Abdominal pain, vomi ting, and diarrhea Chief Complaint CHRONIC NAUSEA CHRONIC NAUSEA, DIARRHEA E ORDERS EORDERS E ORDER EORDER- DROPOFF R19.5 Other fecal abnormalities Reason for Visit Abdominal pain, vomi ting, and diarrhea Chief Complaint CHRONIC NAUSEA CHRONIC NAUSEA, DIARRHEA E ORDERS EORDERS E ORDER EORDER- DROPOFF R19.5 Other fecal abnormalities E ORDER Reason for Visit Abdominal pain, vomi ting, and diarrhea Chief Complaint Hemorrhoids SORE THROAT/COUGH/ILL X3DAYS 3 MO FU CAP ENDO Reason for Visit Anal fissure Acute left otitis media Crohn disease Gastric intestinal metaplasia Chief Complaint f/u 2 M FU E ORDERS Reason for Visit Diarrhea Crohn disease Gastric intestinal metaplasia Diarrhea Crohn disease Gastric intestinal metaplasia Chief Complaint 6 MO FU E ORDER Reason for Visit Crohn disease Diarrhea Gastric intestinal metaplasia Chief Complaint FU LUMBAR SPINE Room 1 Reason for Visit Crohn disease Diarrhea Gastric intestinal metaplasia Spondylolisthesis, lumbar region Chief Complaint FU LUMBAR SPINE Room 1 SPONDYLOLISTHESIS RX HERE Reason for Visit Crohn disease Diarrhea Gastric intestinal metaplasia Spondylolisthesis, lumbar region Additional Source Comments INFORMATION SOURCE (unrecogn ized section and content) DATE CREATED AUTHOR 11/28/2019 [facility] DATE CREATED AUTHOR AUTHOR'S ORGANIZ ATION 07/24/2021 [facility] DATE CREATED AUTHOR AUTHOR'S ORGANIZ ATION 02/22/2024 [facility] DATE CREATED AUTHOR AUTHOR'S ORGANIZ ATION 03/01/2024 [facility] Goals (unrecognized section and content) Goals may be documented in a n alternate sectionGoals may be documented in an alternate sectionGoals may be documented in an alternate sectionGoals may be documented in an alternate sectionGoals may be documented in an alternate sectionGoals may be documented in an alternate sectionGoals may be documented in an alternate sectionGoals may be documented in an alternate sectionGoals may be documented in an alternate sectionGoals may be documented in an alternate sectionGoals may be documented in an alternate sectionGoals may be documented in an alternate section Source Comments (unrecognize d section and content) In the event this informatio n is protected by the Federal Confidentiality of Alcohol and Drug Abuse Patient Records regulations: The Federal rules restrict any use of the information to criminally investigate or prosecute any alcohol or drug abuse patient.[facility] the event this information is protected by the Federal Confidentiality of Alcohol and Drug Abuse Patient Records regulations: The Federal rules restrict any use of the information to criminally investigate or prosecute any alcohol or drug abuse patient.[facility] Center[facility] the event this information is protected by the Federal Confidentiality of Alcohol and Drug Abuse Patient Records regulations: The Federal rules restrict any use of the information to criminally investigate or prosecute any alcohol or drug abuse patient.[facility] the event this information is protected by the Federal Confidentiality of Alcohol and Drug Abuse Patient Records regulations: The Federal rules restrict any use of the information to criminally investigate or prosecute any alcohol or drug abuse patient.[facility] the event this information is protected by the Federal Confidentiality of Alcohol and Drug Abuse Patient Records regulations: The Federal rules restrict any use of the information to criminally investigate or prosecute any alcohol or drug abuse patient.[facility] Center[facility] the event this information is protected by the Federal Confidentiality of Alcohol and Drug Abuse Patient Records regulations: The Federal rules restrict any use of the information to criminally investigate or prosecute any alcohol or drug abuse patient.[facility] Care Teams (unrecognized sec tion and content) Service Architect Relationship Specialty Start Date End Date Oscar Blas MD PCP - General Family Medicine 02/06/14 Team Status: Active Member Role Status Dates Dr. Oscar Blas MD Family Provider Active JOHN Melchor Primary Care Provider Active Team Status: Inactive Member Role Status Dates Dr. Oscar Blas MD Primary Care Provider, Referring Provider Active Dr. Chirag Marte DO Attending Provider Active Team Status: Inactive Member Role Status Dates JOHN Melchor Primary Care Provider Active Dr. Chirag Marte DO Attending Provider, Referring Provider Active Team Status: Inactive Member Role Status Dates JOHN Melchor Primary Care Provide r, Attending Provider, Referring Provider Active Team Status: Inactive Member Role Status Dates Dr. Oscar Blas MD Referring Provider Active Dr. Chirag Marte DO Attending Provider Active JOHN Melchor Primary Care Provider Active Service Architect Relationship Specialty Start Date End Date Oscar Blas MD PCP - General Family Medicine 02/06/14 Service Architect Relationship Specialty Start Date End Date Oscar Blas MD PCP - General Family Medicine 02/06/14 Service Architect Relationship Specialty Start Date End Date Oscar Blas MD PCP - General Family Medicine 02/06/14 Team Status: Inactive Member Role Status Dates Indy Barajas , MEDICAID NURSE-C Primary Care Provider, Attending P rovider Active Team Status: Inactive Member Role Status Dates Indy Barajas , MEDICAID NURSE-C Primary Care Provider, Referring P rovider Active Dr. Chirag Marte DO Attending Provider Active Team Status: Inactive Member Role Status Dates Indy Barajas , MEDICAID NURSE-C Primary Care Provider, Referring P rovider Active Dr. Fran Pride MD Attending Provider Active Team Status: Inactive Member Role Status Dates Indy Barajas , MEDICAID NURSE-C Primary Care Provider Active Dr. Abdullahi Martinez MD Attending Provider Active Team Status: Inactive Member Role Status Dates Indy Barajas , MEDICAID NURSE-C Primary Care Provider Active Dr. Fran Pride MD Attending Provider, Referring Pr ovider Active Service Architect Relationship Specialty Start Date End Date Oscar Blas MD PCP - General Family Medicine 02/06/14 Service Architect Relationship Specialty Start Date End Date Oscar Blas MD PCP - General Family Medicine 02/06/14 Reason for Visit (unrecogniz ed section and content) Reason Comments Follow Up Tests Results Reason Comments Thyroid Problem Reason Comments Release Of Medical Records Thyroid funct ion test FOR RECORDS PERTAINING TO PATIENTS WHO ARE OR HAVE BEEN ENROLLED IN A CHEMICAL DEPENDENCY/SUBSTANCEABUSE PROGRAM, SOME INFORMATION MAY BE OMITTED. This clinical summary was aggregated from multiple sources. Caution should be exercised in using it in the provision of clinical care. This summary normalizes information from multiple sources, and as a consequence, information in this document may materially change the coding, format and clinical context of patient data. In addition, data may be omitted in some cases. CLINICAL DECISIONS SHOULD BE BASED ON THE PRIMARY CLINICAL RECORDS. [facility] [employer] [facility]. provides no warranty or guarantee of the accuracy or completeness of information in this document.
--- NOTE | 2024-12-12 22:25 | EX.ED.DYSGE1 ---
HPI History of Present Illness Chief Complaint: Headache Informant: patient and family Narrative Narrative: Patient is a 49-year-old female with past med history of anxiety depression Crohn's disease and migraine headache. She states roughly 12 hours ago she began with a generalized frontal headache that is sensitive to light and sound. She states the headache came on gradually and increased over the course of hours. She denies any recent trauma. She denies any recent sick symptoms or travel outside the country. She states she took medication without any symptom improvement and the headache has continued to worsen. Secondary to this she presents for evaluation [facility] Medical History History of Crohn's disease Wears glasses Depression Anxiety Alcohol use Blister Thyroid disease Anemia Restless legs Back pain Migraine headache History of IBS Smoker Shortness of breath on exertion Leg cramps Pancreatic insufficiency Abdominal pain, vomiting, and diarrhea Home Medications ?Medication ?Instructions ?Recorded ?Last Taken ?Type escitalopram oxalate 20 mg tablet 20 mg PO DAILY 02/09/15 12/12/24 History bupropion HCl 150 mg tablet,12 hr 150 mg PO BID 10/11/16 12/12/24 History sustained-release folic acid 800 mcg tablet 0.8 mg PO DAILY #30 tabs 04/17/23 12/12/24 Rx levothyroxine 175 mcg tablet 250 mcg PO DAILY 09/14/23 12/12/24 History naproxen 500 mg tablet 500 mg PO BID 09/14/23 Unknown History budesonide 3 mg 6 mg (2 x 3 mg) PO DAILY #60 caps 06/24/24 12/12/24 Rx capsule,delayed,extended release sulfasalazine 500 mg 0.5 g PO BID #60 tabs 10/01/24 12/12/24 Rx tablet,delayed release Allergy/AdvReac Type Severity Reaction Status Date / Time Penicillins Allergy Unknown PT UNSURE Verified 12/12/24 21:03 OF REACTION cortisone Allergy Hives Verified 12/12/24 21:03 Family History (Updated 09/14/23 @ 09:07 by Julianne Ortiz MA) Mother Cancer Arthritis Lumbar spondylosis Surgical History Hx of appendectomy Hx of colonoscopy History of lumpectomy of right breast History of lumpectomy of left breast History of Hx of shoulder surgery Hx of breast biopsy Hx of hysterectomy Social History (Updated 09/14/23 @ 09:08 by Julianne Ortiz MA) household members: spouse and children Smoking Status: Current every day smoker tobacco type: cigarettes alcohol intake: current ROS ROS ED Constitutional Constitutional ED: Denies chills or fever(s) Eyes Eyes: Reports other Details: Positive photophobia ENT ENT ED: Denies ear pain, rhinorrhea or sore throat Cardiovascular Cardiovascular: Denies chest pain Respiratory/Chest Respiratory/Chest: Denies cough or dyspnea Gastrointestinal Gastrointestinal: Reports nausea; Denies abdominal pain, diarrhea or vomiting Genitourinary Genitourinary ED: Denies dysuria Musculoskeletal Musculoskeletal: Denies neck pain Integumentary Denies rash Neurologic Neurologic: Reports headache(s); Denies paresthesias or weakness Psychiatric Psychiatric: Reports anxiety and depression Hematologic/Lymphatic Hematologic/Lymphatic: Denies easy bleeding or easy bruising EXAM Physical Exam Const Vital Signs: 12/12/24 21:03 Temperature 98 F Temperature Source Oral Pulse Rate 90 Respiratory Rate 16 Blood Pressure 126/84 H Blood Pressure Mean 98 Pulse Ox 98 Oxygen Delivery Method Room Air Positive well nourished and well developed General Appearance ED: well developed; Negative for pallor HEENT HEENT Narrative: Normocephalic atraumatic No tongue or lip swelling no oral lesions no airway edema or compromise Posterior pharynx without secondary findings to suggest infection Eyes PERRL and EOMs intact bilaterally Neck supple Neck Narrative: No nuchal rigidity or meningeal signs Resp normal respiratory effort and clear to auscultation bilaterally Cardio regular rate and regular rhythm Extremity normal to inspection Neuro oriented x3, CN's II-XII intact bilaterally and no sensory deficits noted Neuro Narrative: GCS of 15 Cranial nerves II through XII are grossly intact without focal neurologic deficit No pronator drift no dysmetria no truncal ataxia NIH stroke scale score of 0 Sensorium / Orientation: alert Motor Exam: strength 5/5 throughout Psych mental status grossly normal Skin no rashes or lesions noted and no wounds General Skin Exam: Negative for jaundice or pallor MDM MDM MDM Narrative Medical decision making narrative: Patient arrived to the ER with stable vitals and a nonfocal neurologic exam. There is no report or signs of trauma and no physical exam findings to suggest infections I lower concern for meningitis or subarachnoid or subdural hemorrhage. However as she did report her headache was more intense than her previous/normal headaches I did elect to perform a head CT. Head CT revealed no acute brain pathology. After receiving IV fluids Toradol Benadryl and Reglan patient reported resolution of her headache. Her vitals remained stable and her neurologic exam normal. Therefore at this time with resolution of symptoms and a normal neurologic exam as well as normal head CT there is no need for further workup and patient is otherwise safe for discharge History & Record Review Discussion w/independent historian: Patient and Family Radiography Diagnostic Testing: Clinical Impression(s) from Imaging Studies Brain CT 12/12/24 22:09 IMPRESSION: Unremarkable CT scan of the brain. Reading [facility] Dis[facility] Plan Triage Chief Complaint: Headache ED Provider: Iglesia Gurrola Dx/Rx/DC Orders Clinical Impression: Cephalgia, Crohn disease, Anxiety and depression, Hypothyroidism Instructions: ED Headache Unspecified Prescriptions: No Action naproxen 500 mg tablet 500 mg PO BID escitalopram oxalate 20 MG tablet 20 mg PO DAILY Patient Comments: DEPRESSION levothyroxine 175 mcg tablet 250 mcg PO DAILY bupropion HCl 150 MG tablet sustained-release 12 hr 150 mg PO BID Patient Comments: DEPRESSION folic acid 800 mcg tablet 0.8 mg PO DAILY Qty: 30 2RF budesonide 3 mg capsule,delayed,extend.release 6 mg PO DAILY Qty: 60 3RF sulfasalazine 500 mg tablet,delayed release (DR/EC) 0.5 g PO BID Qty: 60 2RF Primary Care Provider: Indy Barajas Referrals: Indy Barajas, HANDLE ATTACHER-C [Primary Care Provider] - Activity Restrictions/Additional Instructions: Your head CT showed no sign of intracranial process indicating your headache is just a more intense version of your migraines. Continue your home medication as directed by your doctor and return to the ER should you have any further concerns. Print Language: Kenyan Disposition Disposition: Home, Self Care
[2024-12-12] MEDS: 0.9% Normal Saline (1000mL) 1,000 ML 999 ML IV (23:02)
[2024-12-12] MEDS: Metoclopramide 10 MG/2 ML Vial IV (23:03)
[2024-12-12] MEDS: Ketorolac 30 MG/ML Syringe IV (23:04)
[2024-12-12] MEDS: DiphenhydrAMINE 50 MG/ML Syringe IV (23:04)
[2024-12-13 00:04] VITALS: BP 113/63; PULSE 116; RESP 20; TEMP 36.6; O2SAT 100
== END 2024-12-13 00:05 | disposition home or self-care (01) ==
PROVIDERS: Emergency Provider Emergency Medicine; PCP Nurse Practitioner Family; Visit Provider Emergency Medicine
DX: R51.9 Headache, unspecified (principal); K50.90 Crohn's disease, unspecified, without complications; F17.210 Nicotine dependence, cigarettes, uncomplicated; E03.9 Hypothyroidism, unspecified; F41.9 Anxiety disorder, unspecified; F32.A Depression, unspecified; Z79.899 Other long term (current) drug therapy; Z90.49 Acquired absence of other specified parts of digestive tract; Z90.710 Acquired absence of both cervix and uterus
CPT/HCPCS: 70450; 96361; 96374; 96375; 99282; A4216

== ENCOUNTER 2024-12-30 10:37 | Emergency (ER) | payer BC, SELFPAY ==
[2024-12-30] VITALS (8 sets, daily range): BP systolic 121–130; BP diastolic 79–95; PULSE 83–100; RESP 13–18; TEMP 37.1; O2SAT 95–100; BMI 28.8
[2024-12-30 12:02] LABS: Hematocrit 36.9 % (37-47); Hemoglobin 13.0 g/dL (12.0-15.0); Immature Granulocytes Count 0.070 X10^3/uL (0.0-0.0); Mean Corp Hgb Conc 35.2 g/dL (32-36); Mean Corpuscular Volume 94.6 fL (81-99); Mean Platelet Vol. 8.8 fl (6.2-12.0); NRBC Flagged by Analyzer 0 % (0-5); Platelet Count 374 K/mm3 (150-450); RBC Distribution Width CV 12.9 % (11.6-14.6); RBC Distribution Width SD 44.5 fl (35.1-43.9); Red Blood Count 3.90 M/mm3 (4.2-5.4); White Blood Count 7.4 K/mm3 (4.4-11.0)
[2024-12-30 12:11] LABS: D-Dimer Quantitative (DVT/PE) 1.01 FEU/ug/m (0.27-0.49)
[2024-12-30] MEDS: 0.9% Normal Saline (1000mL) 1,000 ML 1000 ML IV (12:43)
[2024-12-30 12:51] LABS: Anion Gap 16 (5-15); BUN 6 mg/dL (4-19); BUN/Creat Ratio 9.2 RATIO (10-20); Calcium,Total 9.0 mg/dL (7.6-11.0); Carbon Dioxide 20.2 mmol/L (21.0-32.0); Chloride 96 mmol/L (98-108); Estimated Creatinine Clearance 101.20 ml/min (50-250); Glucose 97 mg/dL (70-99); Potassium 4.4 mmol/L (3.3-5.1); Pro- Brain NATRIURETIC PEPTIDE 913 pg/mL (<=450); Troponin T High Sensitivity 10 ng/L (<=14)
[2024-12-30 15:20] LABS: Troponin T High Sens 2 HR 8 ng/L (<=14)
== END 2024-12-30 16:15 | disposition home or self-care (01) ==
PROVIDERS: Emergency Provider Surgery; PCP Nurse Practitioner Family; Visit Provider Surgery
DX: R07.9 Chest pain, unspecified (principal); Z79.899 Other long term (current) drug therapy; Z90.49 Acquired absence of other specified parts of digestive tract; Z90.710 Acquired absence of both cervix and uterus; F17.290 Nicotine dependence, other tobacco product, uncomplicated; R11.2 Nausea with vomiting, unspecified; R79.89 Other specified abnormal findings of blood chemistry; F32.A Depression, unspecified
CPT/HCPCS: 71046; 71275; 80048; 83880; 84484; 85025; 85379; 93005; 96361; 96374; 99284; Q9967; A4216; J2405

== ENCOUNTER → 2025-01-06 | Outpatient (CLI) | payer BC, SELFPAY | END | disposition home or self-care (01) | LOC: BFHLAB 12:59 | PROVIDERS: PCP Nurse Practitioner Family; Visit Provider Nurse Practitioner Family | DX: A69.20 Lyme disease, unspecified (principal); R53.83 Other fatigue | CPT/HCPCS: 36415; 86617 ==

== ENCOUNTER → 2025-01-15 | Outpatient (CLI) | payer BC, SELFPAY ==
--- NOTE | 2025-01-15 07:14 | MRI_ITS ---
PROCEDURE: SPINE LUMBAR (ROUTINE) 01/15/2025 REASON FOR EXAM: PAIN, PARS DEFECT SPONDYLOLISTHESIS TECHNIQUE: SPINE LUMBAR (ROUTINE) COMPARISON: Lumbar spine radiographs on 12/14/2019 FINDINGS: There are bilateral L5 pars defects resulting in 9 mm anterolisthesis of L5 on S1. There is T1 and T2 hyperintense signal at the inferior endplate of L5 and superior endplate of S1, in keeping with Modic type 2 endplate changes. Conus medullaris terminates at T12-L1. Spinal cord signal is unremarkable. Visualized contents of the posterior abdomen and pelvis are unremarkable. L1-2: No significant disc bulge. No neural foraminal or spinal canal stenosis. L2-3: No significant disc bulge. No neural foraminal or spinal canal stenosis. L3-4: No significant disc bulge. No neural foraminal or spinal canal stenosis. L4-5: Tiny central disc protrusion. No significant neural foraminal or spinal canal stenosis. L5-S1: Anterolisthesis of L5 on S1, as detailed above, results in moderate to severe neural foraminal stenosis bilaterally. No significant spinal canal stenosis. MRI/Spine Lumbar (Routine) IMPRESSION: Bilateral L5 pars defects resulting in 9 mm anterolisthesis of L5 on S1, and mo [id number] bilateral neural foraminal stenosis at L5-S1. Reading Location: [id number]
--- OUTSIDE RECORDS SUMMARY | 2025-01-15 07:20 | XMS RPT_ITS | CCD ---
Author Organization [facility] Care Team Providers Care Admitting Coordinator Name Role Phone Dr. Marium Jeffery Primary Care Provider [phone] Dr. Marium Jeffery Referring Provider Dr. Chirag Matta Attending Provider [phone] Dr. Oscar Blas Primary Care Provider [phone] Dr. Oscar Blas Referring Provider Dr. Chirag Matta Other Provider [phone] Oscar Blas MD Primary Care Provider Dr. Oscar Blas Primary Care Provider Dr. Oscar Blas Referring Provider Dr. Letty Kurtz Attending Provider JASPER Espana Attending Provider Dr. Chirag Matta Attending Provider [phone] Dr. Chirag Matta Referring Provider [phone] Dr. Chirag Matta Other Provider [phone] Dr. Oscar Blas Primary Care Provider Dr. Oscar Blas Referring Provider Dr. Chirag Matta Attending Provider [phone] Dr. Oscar Blas Referring Provider Unavailable Dr. Chirag Matta Attending Provider [phone] JOHN Barajas Primary Care Provider [phone] Oscar Blas MD Primary Care Provider Karl, LEVELER HELPER-C Indy Primary Care Provider Karl, LEVELER HELPER-C [place] Referring Provider [phone] Chirag Matta Attending Provider Dr. Fran Pride Attending Provider Dr. Abdullahi Martinez Attending Provider Roopa URRUTIA, Oscar Valdez Primary Care Provider [phone] OSCAR BLAS Primary Care Unavailable DILCIA DELUCA Attending Unavailable ROOPA, OSCAR VALDEZ Primary Care Unavailable ROOPA, OSCAR VALDEZ Referring Unavailable CHIRAG MATTA Referring Unavailable ROOPA, OSCAR VALDEZ Primary Care Unavailable VINITA TOBAR Attending Unavailable Karl LEVELER HELPER-C, [place] Primary Care Provider Dr. Iglesia Gurrola DO Emergency Provider Karl LEVELER HELPER-C, [place] Referring Provider Shannon Meredith Attending Provider Dr. Abdullahi Martinez MD Attending Provider Dr. Iglesia Gurrola DO Attending Provider Dr. Dane Bush DO Emergency Provider Dr. Dane Bush DO Attending Provider Karl LEVELER HELPER-C, [place] Attending Provider Dane Bush Attending Unavailabl e Karl, Indy Primary Care Unavailable Shannon Johnson Attending Unavailable Shannon Johnson Referring Unavailable Karl, Indy Primary Care Unavailable Karl, Indy Primary Care Unavailable Karl, Indy Referring Unavailable Chirag Matta Attending Unavailable Karl, Indy Primary Care Unavailable Shannon Johnson Attending Unavailable Karl, Indy Referring Unavailable Abdullahi Martinez Attending Unavailable Karl, Indy Primary Care Unavailable Karl, Indy Attending Unavailable Karl, Indy Primary Care Unavailable Karl, Indy Primary Care Unavailable Chirag Matta Attending Unavailable Chirag Matta Referring Unavailable Karl, Indy Primary Care Unavailable Iglesia Gurrola Attending Unavailable Allergies Allergy Classification Reported Allergen(s) Allergy Type Date of Onset Reaction(s) Facility (20 sources) Cortisone; Translations: [CORTISONE] Drug Allergy 09-30-2015 Hives [facility] (20 sources) Penicillins; Translations: [PENICILLINS] Allergy to substance 03-09-2005 Unknown [facility] (7 sources) Amoxicillin; Translations: [AMOXICILLIN] Drug Allergy 09-21-2015 Unknown [facility] (7 sources) Doxycycline; Translations: [DOXYCYCLINE] Drug Allergy 09-21-2015 Unknown [facility] (1 source) Cortisone Drug Allergy 12-30-2024 [facility] Repository Medications Current Medications Medication Drug Class(es) [...] hydrochloride 150 mg extended release oral tablet (20 sources) Aminoketone Start: 10-11-2016 take 150 mg by mouth twice daily Bupropion Hcl Active 150 MG PO TWICE A DAY October 11, 2016 11:48am Start: 10-11-2016 take 1 tablet by keeley th twice daily Bupropion Hcl 150 MG tablet sustained-release 12 hr Active 150 mg PO TWICE A DAY October 11, 2016 12:00am take 1 tablet by keeley th twice daily buPROPion XL (WELLBUTRIN XL) 150 mg 24 hr tablet Take 150 mg by mouth twice daily. Active Comment on above: Take 150 mg by mouth twice daily. docusate sodium 100 mg oral capsule (4 sources) Start: 10-19-19 17 take 1 capsule by mouth twice daily Docusate Sodium (Colace) 100 MG capsule Active 100 MG PO TWICE A DAY October 18, 2016 8:05am escitalopram 20 mg oral tablet (20 sources) Serotonin Reuptake Inhibitor Start: 02-07-20 14 take 1 tablet by mouth once daily Escitalopram Oxalate 20 MG tablet Active 20 mg PO DAILY February 09, 2015 12:00am Comment on above: Take 1 tablet by keeley th once daily. ibuprofen 600 mg oral tablet (4 sources) Nonsteroidal Anti-inflammatory Drug Start: 10-19-19 take 600 mg by mouth every six hours Ibuprofen Active 600 MG PO EVERY 6 HOURS October 18, 2016 8:05am levothyroxine sodium 0.05 mg oral tablet (20 sources) l-Thyroxine Start: 12-31-19 Levothyroxine (Levoxyl) 200 mcg tablet Active 200 ug PO DAILY December 30, 2024 12:00am WITH 50MCG TAB TOTAL DAILY DOSE = 250MCG Start: 12-30-2024 take 4 tablets by mo uth once daily Levothyroxine (Levoxyl) 50 mcg tablet Active 50 ug PO DAILY December 30, 2024 12:00am WITH 200MCG TAB TOTAL DAILY DOSE = 250MCG Start: 08-29-2015 levothyroxine (SYNTHROID) 50 mcg tablet Take 75 mcg by mouth once daily. 08/29/2015 Active Start: 08-29-2015 levothyroxine (SYNTHROID) 75 mcg tablet Take 175 mcg by mouth once daily. 0 08/29/2015 Active Start: 02-09-2015 take 175 ug by mouth once shailesh y Levothyroxine Active 175 MCG PO DAILY February 09, 2015 10:42am Start: 02-09-2015 End: 12-30-2024 Levothyroxine 175 mcg tablet Discontinued 250 ug PO DAILY September 14, 2023 8:59am December 30, 2024 11:47am Start: 02-09-2015 End: 09-14-2023 take 250 ug by mouth once daily Levothyroxine Active 2 50 MCG PO DAILY September 14, 2023 8:59am take 1 tablet by keeley once daily before breakfast levothyroxine (SYNTHROID) 200 mcg tablet Take 200 mcg by mouth daily before breakfast. Active Comment on above: Take 175 mcg by mout h once daily. MEDICATION, NON-DATABASE (6 sources) MEDICATION, NON- DATABASE Amberen Active MEDICATION, NON- DATABASE Amberen 0 Active Comment on above: Amberen phenazopyridine hydrochloride 200 mg oral tablet (4 sources) Start: 7 take 1 tablet by mouth every eight hours Phenazopyridine (Pyridium) 200 MG tablet Active 200 MG PO EVERY 8 HOURS October 18, 2016 8:05am traMADol hydrochloride 50 mg oral tablet (2 sources) Opioid Agonist Start: 5 take 1 tablet by mouth every six hours as needed for pain Tramadol 50 mg tablet Active 50 mg PO EVERY 6 HOURS as needed for pain December 30, 2024 12:00am Completed/Discontinued Medications Medication Drug Class(es) Dates Sig (Normalized) Sig (Original) azithromycin 250 mg oral tablet (12 sources) Macrolide Antimicrobial Start: 02-21-2022 End: 02-21-2022 take 2-5 tablets by mouth once daily Azithromycin 250 mg tablet Discontinued 0 PO .COMPLEX 6 0 February 21, 2022 12:00am February 21, 2022 [...] capsule (20 sources) Corticosteroid Start: 11-30-2021 End: 06-24-2024 take 2 capsules by mouth once daily Budesonide 3 mg capsule,delayed,ext end.release Discontinued 6 mg PO DAILY 60 3 March 26, 2024 11:01am June 24, 2024 12:55pm Start: 11-30-2021 End: 06-22-2023 take 6 mg by mouth once daily Budesonide Discontinued 6 MG PO DAILY 60 February 13, 2023 10:57am June 22, 2023 10:34am Comment on above: Take 6 mg by mouth o nce daily. cephalexin 500 mg oral capsule (12 sources) Cephalosporin Antibacterial Start: 2 End: take 1 capsule by mouth every twelve hours Cephalexin 500 mg capsule Discontinued 500 mg PO Q12H 20 10 0 February 21, 2022 12:00am March 02, 2022 12:00am March 03, 2022 12:03am Diltiazem 2% / Lidocaine 5% Ointment (Compound) [Diltiazem 2%/Lidocaine 5% Ointment (Compound)] (Diltiazem 2%/Lidocaine 5% ) ointment (12 sources) Start: End: Diltiazem 2% / Lidocaine 5% Ointment (Compound) [Diltiazem 2%/Lidocaine 5% Ointment (Compound)] (Diltiazem 2%/Lidocaine 5% ) ointment Discontinued 0 .Route 30 January 17, 2022 12:00am January 29, 2024 1:59pm apply to area two to three times daily Start: 01-17-2022 End: 01-29-2024 Diltiazem 2% / Lidocaine 5% Ointment (Compound) [Diltiazem 2%/Lidocaine 5% Ointment (Compound)] (Diltiazem 2%/Lidocaine 5% ) ointment Discontinued 0 .Route January 17, 2022 12:00am January 29, 2024 1:59pm apply to area two to three times [...] to area two to three times daily doxycycline hyclate 100 mg oral tablet (11 sources) Tetracycline-class Drug Start: 11-08-2022 End: 08-03-2023 take 1 tablet by mouth twice daily Doxycycline Hyclate 100 mg tablet Discontinued 100 mg PO TWICE A DAY 60 0 November 08, 2022 12:00am August 03, 2023 9:29am folic acid 0.8 mg oral tablet (20 sources) Start: 07-06-2022 End: 04-17-2023 take 0.8 mg by mouth once daily Folic Acid 800 mcg tablet Discontinued 0.8 mg PO DAILY 30 2 January 09, 2023 9:51am April 17, 2023 12:21pm Start: 07-06-2022 End: 04-17-2023 take 0.8 mg by mouth once daily Folic Acid Discontinued 0.8 MG PO DAILY January 09, 2023 9:51am April 17, 2023 12:21pm mesalamine 500 mg extended release oral tablet (11 sources) Aminosalicylate Start: 05-27-2022 End: 07-06-2022 take 2 capsules by mouth twice daily Mesalamine (Pentasa) 500 mg capsule, extended release Discontinued 1000 mg PO TWICE A DAY 120 2 May 27, 2022 1:00am July 06, 2022 5:33pm methocarbamol 500 mg oral tablet (3 sources) Muscle Relaxant Start: 12-13-2024 End: 12-30-2024 take 1 tablet by mouth three times daily as needed for pain Methocarbamol 500 mg tablet Discontinued 500 mg PO THREE TIMES A DAY as needed for pain/spasms 30 December 13, 2024 12:00am December 30, 2024 11:49am naproxen 500 mg oral tablet (7 sources) Nonsteroidal Anti-inflammatory Drug Start: 09-14-2023 End: 12-13-2024 take 1 tablet by mouth twice daily Naproxen 500 mg tablet Discontinued 500 mg PO TWICE A DAY September 14, 2023 12:00am December 13, 2024 10:22am pantoprazole 40 mg delayed release oral tablet (20 sources) Proton Pump Inhibitor Start: 09-07-2021 End: 08-03-2023 take 1 tablet by mouth once daily Pantoprazole 40 mg tablet,delayed release (DR/EC) Discontinued 40 mg PO DAILY 30 November 30, 2021 3:08pm August 03, 2023 9:30am Comment on above: Take 40 mg by mouth once daily. sucralfate 100 mg/ml oral suspension (18 sources) Aluminum Complex Start: 09-07-2021 End: 10-07-2021 take 1 mL by mouth twice daily Sucralfate (Carafate) 100 mg/mL suspension Discontinued 10 mL PO TWICE A DAY 600 30 0 September 07, 2021 12:00am October 06, 2021 12:00am October 07, 2021 12:03am sulfaSALAzine 500 mg delayed release oral tablet (20 sources) Aminosalicylate Start: 07-06-2022 End: 12-24-2024 take 0.5 g by mouth twice daily Sulfasalazine 500 mg tablet,delayed release (DR/EC) Discontinued 0.5 g PO TWICE A DAY 60 2 October 01, 2024 3:05pm December 24, 2024 6:48am Start: 07-06-2022 End: 04-17-2023 take 0.5 g by mouth twice daily Sulfasalazine Discontinued 0.5 GM PO TWICE A DAY 60 January 09, 2023 9:51am April 17, 2023 12:21pm take 500 mg by mouth twice daily SULFASALAZINE ORAL Take 500 mg by mouth two times a day. Active Problems Active Problems Problem Classification Problem Date Documented Da te Episodic/Chronic Abdominal pain (20 sources) Abdominal pain; Translations: [Unspecified abdominal pain] Episodic Adjustment disorders (6 sources) Adjustment disorder with depressed mood; Translations: [Adjustment disorder with depressed mood] Onset: 10-03-2005 05-15-2009 Chronic Anal and rectal conditions (13 sources) Anal fissure; Translations: [Anal fissure, unspecified] Episodic Anxiety disorders (5 sources) Mixed anxiety and depressive disorder; Translations: [Anxiety disorder, unspecified] 12-12-2024 Chronic Headache; including migraine (5 sources) Headache; Translations: [Headache] 12-12-2024 Episodic Headache; including migraine (1 source) Headache; including migraine; Translations: [Headache, unspecified] Onset: 12-19-2024 Hemorrhoids (18 sources) Hemorrhoids; Translations: [Unspecified hemorrhoids] Onset: 03-09-2005 05-15-2009 Episodic Menstrual disorders (20 sources) Menorrhagia; Translations: [Excessive and frequent menstruation with regular cycle] 10-17-2016 Chronic Nonmalignant breast conditions (8 sources) Fibrocystic disease of breast; Translations: [Diffuse cystic mastopathy of unspecified breast] Onset: 09-30-2015 09-30-2015 Chronic Nonspecific chest pain (3 sources) Chest pain; Translations: [Chest pain, unspecified] Onset: 01-03-2025 12-30-2024 Episodic Other acquired deformities (7 sources) Lumbar spondylolisthesis; Translations: [Spondylolisthesis, lumbar region] 09-14-2023 Episodic Other acquired deformities (2 sources) Spondylolisthesis, lumbar region; Translations: [Acquired spondylolisthesis] 09-14-2023 Episodic Other acquired deformities (5 sources) Spondylolysis; Translations: [Spondylolisthesis, site unspecified] 12-13-2024 Episodic Other acquired deformities (1 source) Spondylolisthesis, site unspecified; Translations: [Spondylolisthesis, site unspecified] Onset: 01-13-2025 Episodic Other disorders of stomach and duodenum (20 sources) Intestinal metaplasia of gastric mucosa; Translations: [Intestinal metaplasia of stomach] Episodic Other gastrointestinal disorders (6 sources) Irritable bowel syndrome; Translations: [Irritable bowel syndrome without diarrhea] Onset: 03-09-2005 05-15-2009 Chronic Other gastrointestinal disorders (1 source) Intestinal malabsorption; Translations: [Intestinal malabsorption, unspecified] 02-15-2024 Chronic Other gastrointestinal disorders (16 sources) Contents of stool - finding; Translations: [Other fecal abnormalities] 09-23-2021 Episodic Other gastrointestinal disorders (13 sources) Diarrhea; Translations: [Diarrhea, unspecified] 11-30-2021 Episodic Other infections; including parasitic (1 source) Lyme disease, unspecified; Translations: [Lyme disease, unspecified] Onset: 01-10-2025 Episodic Other nervous system disorders (18 sources) Abnormal sensation; Translations: [Other disturbances of skin sensation] 04-29-2015 Episodic Comment on above: left lateral upper f orehead by the hairline Other skin disorders (18 sources) Mass of head; Translations: [Localized swelling, mass and lump, head] 04-29-2015 Episodic Comment on above: 2 cm painful soft ti ssue mass left lateral upper forehead by the hairline Otitis media and related conditions (13 sources) Acute left otitis media; Translations: [Otitis media, unspecified, left ear] Episodic Pancreatic disorders (not diabetes) (15 sources) Pancreatic insufficiency; Translations: [Other specified diseases of pancreas] 10-18-2021 Episodic Regional enteritis and ulcerative colitis (20 sources) Crohn's disease; Translations: [Crohn's disease, unspecified, without complications] Chronic Spondylosis; intervertebral disc disorders; other back problems (6 sources) Lumbosacral spondylosis without myelopathy; Translations: [Spondylosis without myelopathy or radiculopathy, lumbosacral region] Onset: 11-24-2000 05-15-2009 Chronic Spondylosis; intervertebral disc disorders; other back problems (19 sources) Low back pain; Translations: [Lumbago] Onset: 03-09-2005 05-15-2009 Episodic Substance-related disorders (20 sources) Smoker; Translations: [Nicotine dependence, unspecified, uncomplicated] Onset: 07-16-2008 05-15-2009 Chronic Thyroid disorders (13 sources) Hypothyroidism; Translations: [Hypothyroidism, unspecified] Onset: 01-15-2009 05-15-2009 Chronic Thyroid disorders (5 sources) Disorder of thyroid gland; Translations: [Disorder of thyroid, unspecified] 02-14-2024 Episodic Comment on above: ON MED Unclassified (2 sources) Low back pain, unspecified; Translations: [Low back pain, unspecified] Onset: 12-13-2024 Past or Other Problems Problem Classification Problem Date Documented Da te Episodic/Chronic Nonmalignant breast conditions (6 sources) Breast lump; Translations: [Unspecified lump in unspecified breast] Onset: 09-30-2015 09-30-2015 Episodic Other gastrointestinal disorders (8 sources) Diarrhea, unspecified; Translations: [Diarrhea] Onset: 01-29-2024 08-18-2022 Episodic Other gastrointestinal disorders (1 source) Other fecal abnormalities; Translations: [Other fecal abnormalities] Onset: 02-29-2024 Episodic Other screening for suspected conditions (not mental disorders or infectious disease) (16 sources) Patient encounter status; Translations: [Encounter for screening mammogram for malignant neoplasm of breast] Onset: 09-29-2016 Episodic Residual codes; unclassified (6 sources) Family history of ischemic heart disease and other diseases of the circulatory system; Translations: [Family history of other cardiovascular diseases] Onset: 07-16-2008 05-15-2009 Episodic Results Test Name Value Interpretation Reference Range Facility Lyme AntibodiesGinaon Lyme Additional Comment Normal . [facility] Comment on above: Result Comment: Per CDC criteria, the Lyme IgG Immunoblot is interpreted as positive if IgG-class antibodies are detected to 5 or more B. burgdorferi proteins, and the Lyme IgM Immunoblot is interpreted as positive if IgM-class antibodies are detected to 2 or more B. burgdorferi proteins. Immunoblot patterns not meeting these criteria should not be interpreted as positive. Epitopes from certain B. burgdorferi proteins (e.g., p41) are conserved across other bacteria, which may lead to the detection of IgM-and/or IgG class antibodies on the Lyme disease immunoblots in patients without Lyme disease. Immunoblot should only be ordered on specimens that are positive or equivocal by an FDA-licensed Lyme disease antibody screening test (e.g., EIA). Results of the Lyme IgM immunoblot should not be considered in patients with 30 or more days of symptoms. Performed at: [address] [id number] Boat Pilot: Epifanio Horne MD, Phone: [phone] Performed By: #### L 6999.5800 ####[facility] [place], [address] LYME IgG INTERP Positive Abnormal Negative [facility] Comment on above: Result Comment: Sonya foley Requested Flag Performed By: #### L 6999.580 ####[facility] [address] [place], [address] LYME IgM INTERP Positive Abnormal Negative [facility] Comment on above: Result Comment: Sonya foley Requested Flag Please Note: Lyme immunoblot alone is not recommended for the diagnosis of Lyme disease. Current guidelines recommend the use of a two-tiered approach to Lyme serology testing to improve the sensitivity and specificity of testing. [facility] offers test code 202683 Lyme Disease Serology with Reflex to aid in the diagnosis of Lyme Disease. Performed By: #### L 6999.5800 ####[facility] [address] [place], [address] P18 Ab Present Normal . [facility] Comment on above: Performed By: #### L 6999.5800 ####[facility] [address] [place], [address] P23 Ab Present Normal . [facility] Comment on above: Performed By: #### L 6999.580 ####[facility] [address] [place], [address] P28 Ab Absent Normal . [facility] Comment on above: Performed By: #### L 7000.5800 ####[facility] [address] [place], [address] P30 Ab Absent Normal . [facility] Comment on above: Performed By: #### L 0.5800 ####[facility] [address] [place], [address] P39 Ab Present Normal . [facility] Comment on above: Performed By: #### L 6999.5800 ####[facility] [address] [place], [address] P41 Ab Present Normal . [facility] Comment on above: Performed By: #### L 6999.5800 ####[facility] [address] [place], [address] P45 Ab Absent Normal . [facility] Comment on above: Performed By: #### L 7000.5800 ####[facility] [address] [place], [address] P58 Ab Present Normal . [facility] Comment on above: Performed By: #### L 7000.5800 ####[facility] [address] [place], [address] P66 Ab Absent Normal . [facility] Comment on above: Performed By: #### L 7000.5800 ####[facility] [address] [place], [address] P93 Ab Present Normal . [facility] Comment on above: Performed By: #### L 7000.5800 ####[facility] [address] [place], [address] 12 Lead EKGon 12-30-2024 12 Lead EKG [facility] [address] [place] [address] 12 Lead EKG 12/30/24 1045 MR#: [id number] Acct: [id number] Name: ZACHARIAH SPEARS Rep #: [id number] : 1975 49 From: Abdullahi Martinez MD Attending Dr: Status: DEP ER Ordering Dr: Dane Bush DO Date: 5 Location: ED Sex: F C Admitted: Test Reason : CP Blood Pressure : */* mmHG Vent. Rate : 86 BPM Atrial Rate : 86 BPM P-R Int : 144 ms QRS Dur : 96 ms QT Int : 362 ms P-R-T Axes : 30 71 -29 degrees QTcB Int : 433 ms Normal sinus rhythm ST T wave abnormality, consider inferior ischemia ST T wave abnormality, consider anterior ischemia Abnormal ECG Confirmed by ABDULLAHI MARTINEZ MD ([id number]), graphic editor BENSON CINTRON ([id number]) on 12/31/2024 8:24:16 AM Referred By: TB/AK Confirmed By: ABDULLAHI MARTINEZ MD 12/31/24823 Date Abdullahi Martinez MD CC: LEVELER HELPER-C Indy Barajas; Dr. Dane Bush, DO Signed Normal [facility] Absolute lymphocyte countOrd ered By: Dane Bush on 12-30-2024 Lymphocytes Auto (Unsp spec) [#/Vol] 0.75 10*3/uL Low 0.83-4.51 [facility] Absolute neutrophil countOrd ered By: Dane Bush on 12-30-2024 Neutrophils (Bld) [#/Vol] 6.1 10*3/uL 2.0-7.7 [facility] Anion gap in Serum or Plasma Ordered By: Dane Bush on 12-30-2024 Anion gap [Moles/Vol] 16 mmol/L High 5-15 [facility] Automated lymphocyte count a s percentage of total leukocytesOrdered By: Dane Bush on 12-30-2024 Lymphocytes/100 WBC Auto (Unsp spec) 10.2 % Low 19-41 [facility] BUN/creatinine ratioOrdered By: Dane Bush on 12-30-2024 Urea nitrogen/Creatinine [Mass ratio] 9.2 mg/mg Low 10-20 [facility] Basic Metabolic Profile (BMP )on 12-30-2024 BUN/CRE 9.2 RATIO Low 10-20 [facility] Comment on above: Performed By: #### L 503.7505, L501.4021, L100.0100, L500.2500 #### [facility] [address] [place], [address] Calcium [Mass/Vol] 9.0 mg/dL Normal 7.6-11.0 [facility] Comment on above: Performed By: #### L 503.7505, L501.4021, L100.0100, L500.2500 #### [facility] [address] [place], [address] Chloride [Moles/Vol] 96 mmol/L Low 98-108 [facility] Comment on above: Performed By: #### L 503.7505, L501.4021, L100.0100, L500.2500 #### [facility] [address] [place], [address] CO2 [Moles/Vol] 20.2 mmol/L Low 21.0-32.0 [facility] Comment on above: Performed By: #### L 503.7505, L501.4021, L100.0100, L500.2500 #### [facility] [address] [place], [address] Creatinine [Mass/Vol] 0.63 mg/dL Low 0.70-1.20 [facility] Comment on above: Performed By: #### L 503.7505, L501.4021, L100.0100, L500.2500 #### [facility] [address] [place], [address] ECRCL 101.20 ml/min Normal 50-250 [facility] Comment on above: Performed By: #### L 503.7505, L501.4021, L100.0100, L500.2500 #### [facility] [address] [place], [address] GAP 16 High 5-15 [facility] Comment on above: Performed By: #### L 503.7505, L501.4021, L100.0100, L500.2500 #### [facility] [address] [place], [address] GFR/1.73 sq M.predicted among non-blacks MDRD (S/P/Bld) [Vol rate/Area] 110 mL/min/{1.73_m2} Normal >60 [facility] Comment on above: Result Comment: mL/m in/1.73m2 CKD-EPI Creatinine Equation (2020) Performed By: #### L 503.7505, L501.4021, L100.0100, L500.2500 #### [facility] [address] [place], [address] Glucose [Mass/Vol] 97 mg/dL Normal 70-99 [facility] Comment on above: Performed By: #### L 503.7505, L501.4021, L100.0100, L500.2500 #### [facility] [address] [place], [address] Potassium [Moles/Vol] 4.4 mmol/L Normal 3.3-5.1 [facility] Comment on above: Result Comment: Hemo lysis present, Results??could be affected. ?? Performed By: #### L 503.7505, L501.4021, L100.0100, L500.2500 #### [facility] [facility] [address] [place], [address] Sodium [Moles/Vol] 133 mmol/L Normal 133-145 [facility] Comment on above: Performed By: #### L 503.7505, L501.4021, L100.0100, L500.2500 #### [facility] [address] [place], [address] Urea nitrogen [Mass/Vol] 6 mg/dL Normal 4-19 [facility] Comment on above: Performed By: #### L 503.7505, L501.4021, L100.0100, L500.2500 #### [facility] [address] [place], [address] Basophil percentageOrdered B y: Dane Bush on 12-30-2024 Basophils/100 WBC (Bld) 0.5 % 0-1 [facility] CBC W/Diff, Automatedon Absolute Lymph 0.75 X10 3/uL Low 0.83-4.51 [facility] Comment on above: Performed By: #### L 503.7505, L501.4021, L100.0100, L500.2500 #### [facility] [address] [place], [address] Absolute Neut 6.1 X10 3/uL Normal 2.0-7.7 [facility] Comment on above: Performed By: #### L 503.7505, L501.4021, L100.0100, L500.2500 #### [facility] [address] [place], [address] Basophils/100 WBC (Bld) 0.5 % Normal 0-1 [facility] Comment on above: Performed By: #### L 503.7505, L501.4021, L100.0100, L500.2500 #### [facility] [address] [place], [address] Eosinophils/100 WBC (Bld) 0.5 % Normal 0-5 [facility] Comment on above: Performed By: #### L 503.7505, L501.4021, L100.0100, L500.2500 #### [facility] [address] [place], [address] Erythrocyte distribution width (RBC) [Ratio] 12.9 % Normal 11.6-14.6 [facility] Comment on above: Performed By: #### L 503.7505, L501.4021, L100.0100, L500.2500 #### [facility] [address] [place], [address] Hematocrit (Bld) [Volume fraction] 36.9 % Low 37-47 [facility] Comment on above: Performed By: #### L 503.7505, L501.4021, L100.0100, L500.2500 #### [facility] [address] [place], [address] Hemoglobin (Bld) [Mass/Vol] 13.0 g/dL Normal 12.0-15.0 [facility] Comment on above: Performed By: #### L 503.7505, L501.4021, L100.0100, L500.2500 #### [facility] [address] [place], [address] IG% 1.000 High 0.0-0.9 [facility] Comment on above: Result Comment: IG% - Immature Granulocytes (promyelocytes, myelocytes and metamyelocytes) > 1% indicates that a LEFT SHIFT is Present. Performed By: #### L 503.7505, L501.4021, L100.0100, L500.2500 #### [facility] [address] [place], [address] Lymphocytes/100 WBC (Bld) 10.2 % Low 19-41 [facility] Comment on above: Performed By: #### L 503.7505, L501.4021, L100.0100, L500.2500 #### [facility] [address] [place], [address] MCH (RBC) [Entitic mass] 33.3 pg High 27.0-32.0 [facility] Comment on above: Performed By: #### L 503.7505, L501.4021, L100.0100, L500.2500 #### [facility] [address] [place], [address] MCHC (RBC) [Mass/Vol] 35.2 g/dL Normal 32-36 [facility] Comment on above: Performed By: #### L 503.7505, L501.4021, L100.0100, L500.2500 #### [facility] [address] [place], [address] MCV (RBC) [Entitic vol] 94.6 fL Normal 81-99 [facility] Comment on above: Performed By: #### L 503.7505, L501.4021, L100.0100, L500.2500 #### [facility] [address] [place], [address] Monocytes/100 WBC (Bld) 5.4 % Normal 0-10 [facility] Comment on above: Performed By: #### L 503.7505, L501.4021, L100.0100, L500.2500 #### [facility] [address] [place], [address] Neutrophils/100 WBC (Bld) 82.4 % High 47-70 [facility] Comment on above: Performed By: #### L 503.7505, L501.4021, L100.0100, L500.2500 #### [facility] [address] [place], [address] Nucleated RBC (Bld) [#/Vol] 0 10*3/uL Normal 0-5 [facility] Comment on above: Performed By: #### L 503.7505, L501.4021, L100.0100, L500.2500 #### [facility] [address] [place], [address] Platelet mean volume (Bld) [Entitic vol] 8.8 fL Normal 6.2-12.0 [facility] Comment on above: Performed By: #### L 503.7505, L501.4021, L100.0100, L500.2500 #### [facility] [address] [place], [address] Platelets (Bld) [#/Vol] 374 10*3/uL Normal 150-450 [facility] Comment on above: Performed By: #### L 503.7505, L501.4021, L100.0100, L500.2500 #### [facility] [address] [place], [address] RBC (Bld) [#/Vol] 3.90 10*6/uL Low 4.2-5.4 [facility] Comment on above: Performed By: #### L 503.7505, L501.4021, L100.0100, L500.2500 #### [facility] [address] [place], [address] RDW SD 44.5 fl High 35.1-43.9 [facility] Comment on above: Performed By: #### L 503.7505, L501.4021, L100.0100, L500.2500 #### [facility] [address] [place], [address] WBC (Bld) [#/Vol] 7.4 10*3/uL Normal 4.4-11.0 [facility] Comment on above: Performed By: #### L 503.7505, L501.4021, L100.0100, L500.2500 #### [facility] [address] [place], [address] CTA Chest W/WO Contraston CTA Chest W/WO Contrast [facility] Imaging Services [address] [place], [place] [address] CTA Chest W/WO Contrast MR#: [id number] Acct: [id number] Name: ZACHARIAH SPEARS Rep #: [id number] : 1975 F 49 From: Dima dodge MD PCP: JOHN Melchor Status: REG ER Study: CTA Chest W/WO Contrast Date of Exam: 12/30/24 Exam# [id number] Ordering Dr: Dane Bush DO PROCEDURE: CTA CHEST W/WO CONTRAST 12/30/2024 REASON FOR EXAM: PE Elevated D-dimer and chest pain. TECHNIQUE: CTA CHEST W/WO CONTRAST Multiplanar Sagittal and Coronal images were obtained. One or more dose reduction techniques were used (e.g., Automated exposure control, adjustment of the mA and/or kV according to patient size, use of iterative reconstruction technique). CONTRAST: Isovue 370 VOLUME: 100 mL RADIATION DOSE SUMMARY: CTDlvol: 11.6 mGy DLP: 399.01 mGycm COMPARISON: Prior chest radiograph done earlier in the day. FINDINGS: Hardware: None Lymph nodes: None Heart: Unremarkable. No evidence of coronary artery calcification. Thoracic Aorta: Unremarkable Pulmonary Vessels: No evidence of pulmonary embolism. Lungs and Airways: Lungs are clear. No focal infiltrate is seen. Pleura: No pleural effusion. Upper Abdomen: Unremarkable. Bones: Degenerative changes of the thoracic spine. CT/CTA Chest W/WO Contrast IMPRESSION: No acute abnormality is seen. Reading Location: [facility] CC: LEVELER HELPER-C Indy Barajas; Dr. Dane Bush DO Grants Analyst: Signed Normal [facility] Carbon dioxide, total [Moles /volume] in Central venous bloodOrdered By: Dane Bush on 12-30-2024 CO2 [Moles/Vol] 20.2 mmol/L Low 21.0-32.0 [facility] Chest PA and Lateralon 12-30 Chest PA and Lateral [facility] Imaging Services [address] [place] [address] Chest PA and Lateral MR#: [id number] Acct: [id number] Name: ZACHARIAH SPEARS Rep #: [id number] : 1975 F 49 From: Dima dodge MD PCP: Indy Barajas NP-C Status: REG ER Study: Chest PA and Lateral Date of Exam: 12/30/24 Exam# [id number] Ordering Dr: Dane Bush DO PROCEDURE: CHEST PA AND LATERAL 12/30/2024 REASON FOR EXAM: CHEST PAIN TECHNIQUE: CHEST PA AND LATERAL COMPARISON: None FINDINGS: Hardware: EKG electrodes are seen. Heart: The heart size is normal. Mediastinum: The mediastinal contour is unremarkable. Lungs: The lungs are clear. Bones: The bones are unremarkable. RAD/Chest PA and Lateral IMPRESSION: NO ACUTE FINDINGS. Reading Location: [facility] CC: LEVELER HELPER-C Indy Barajas; Dr. Dane Bush DO Grants Analyst: Signed Normal [facility] Chloride assayOrdered By: Cristóbal Bush on 12-30-2024 Chloride [Moles/Vol] 96 mmol/L Low 98-108 [facility] D-Dimer Quantitative (DVT/PE )on 12-30-2024 D-DIMER QUANT 1.01 FEU/ug/m Invalid Interpretation Code 0.27-0.49 [facility] Comment on above: Result Comment: CRIT ICAL VALUE CALLED TO Lex GERMAIN 12/30/24 1211 Pamela Alfaro. RESULTS READ BACK BY SAME. D-Dimer ELEVATED (>0.49): Additional studies and clinical assessments are indicated to conclude diagnosis of: Deep Vein Thrombosis (DVT) or Pulmonary Embolism (PE) Performed By: #### L 300.8000 #### [facility] [address] [place], [place], [address] Emergency Department Summary on 12-30-2024 Emergency Department Summary [facility] Medical Records Department [address] [place] [address] Emergency Department Summary 12/30/24 MR#: [id number] Acct: [id number] Name: ZACHARIAH SPEARS Rep #: [id number] : 1975 49 From: Dane Bush DO PCP: Indy Barajas LEVELER HELPER-C Status:DEP ER Location: ED HPI History of Present Illness Chief Complaint: Chest Pain Narrative Narrative: Chief complaint and HPI: Chest pain. 49-year-old female with past medical history of Crohn's disease, hypothyroidism, tobacco abuse presents for evaluation of chest pain. Onset of chest pain was prior to arrival. Associated symptom was nausea and vomiting. She states the chest pain lasted about a minute but the nausea has continued. She did have 1 episode of emesis. She denies any abdominal pain. She denies any fever, chills, URI symptoms, shortness of breath, bilateral lower extremity swelling or pain. Denies a history of DVT/PE, recent trauma or surgery. Her mother had an KS in her 50s. No reported history of cardiac disease in herself. Review of systems: See HPI Medications: As listed on the chart Allergies: As listed on the chart PFSH: Per chart Vital signs: As listed on the chart. Reviewed. Physical exam: Gen: A O x3, NAD Head: Normocephalic, atraumatic Eyes: No sclera icterus, conjunctiva clear ENT: Moist mucous membranes Neck: Trachea midline, No JVD CV: RRR, no murmurs, no peripheral edema Resp: Lungs CTA BL, no w/r/c GI: Abd soft, non-distended, non-tender, no r/r/g Musc: Full ROM, no deformity Skin: Warm, dry Neuro: Alert, oriented, grossly intact, sensation intact Psych: Cooperative, appropriate mood and affect [facility] Medical History History of Crohn's disease Wears glasses Depression Anxiety Alcohol use Blister Thyroid disease Anemia Restless legs Back pain Migraine headache History of IBS Smoker Shortness of breath on exertion Leg cramps Pancreatic insufficiency Abdominal pain, vomiting, and diarrhea Home Medications ???Medication ???Instructions ???Recorded ???Last Taken ???Type escitalopram oxalate 20 mg tablet 20 mg PO DAILY 02/09/15 12/30/24 History bupropion HCl 150 mg tablet,12 hr 150 mg PO BID 10/11/16 12/30/24 H istory sustained-release folic acid 800 mcg tablet 0.8 mg PO DAILY #30 tabs 04/17/23 12/29/24 Rx budesonide 3 mg 6 mg (2 x 3 mg) PO DAILY #60 caps 06/24/24 12/30/24 Rx capsule,delayed,extend ed release sulfasalazine 500 mg 0.5 g PO BID #60 tabs 12/24/2401/17 Rx tablet,delayed release levothyroxine 200 mcg tablet 200 mcg PO DAILY 12/30/24 12/30/24 History (Levoxyl) levothyroxine 50 mcg tablet 50 mcg PO DAILY 12/30/24 12/30/24 History (Levoxyl) tramadol 50 mg tablet 50 mg PO Q6H PRN pain 12/30/2412/18 History Allergy/AdvReac Type Severity Reaction Status Date / Time Penicillins Allergy Unknown PT UNSURE Verified 12/30/24 10:40 OF REACTION cortisone Allergy Hives Verified 12/30/24 10:40 Family History Mother Cancer Arthritis Lumbar spondylosis Surgical History Hx of appendectomy Hx of colonoscopy History of lumpectomy of right breast History of lumpectomy of left breast History of Hx of shoulder surgery Hx of breast biopsy Hx of hysterectomy Social History household members: spouse and children Smoking Status: Current every day smoker tobacco type: e-cigarettes alcohol intake: current EXAM Physical Exam Const Vital Signs: 12/30/24 10:38 12/30/24 11:38 12/30/24 12:00 Temperature 98.7 F Temperature Source Oral Pulse Rate 100 85 85 Respiratory Rate 16 14 13 Respiratory Effort Blood Pressure 130/95 H 128/95 H 121/91 H Blood Pressure Mean 106 106 101 Pulse Ox 100 99 100 Oxygen Delivery Method Room Air Room Air Room Air 12/30/24 12:01 12/30/24 13:00 12/30/24 14:00 Temperature Temperature Source Pulse Rate 83 85 Respiratory Rate 16 13 Respiratory Effort Normal Non-Labored Blood Pressure 128/84 H 124/81 H Blood Pressure Mean 98 95 Pulse Ox 99 95 Oxygen Delivery Method Room Air Room Air 12/30/24 15:00 12/30/24 16:00 12/30/24 16:15 Temperature 98.7 F Temperature Source Pulse Rate 85 87 87 Respiratory Rate 18 15 15 Respiratory Effort Blood Pressure 127/79 H 128/80 H 128/80 H Blood Pressure Mean 95 96 96 Pulse Ox 97 98 98 Oxygen Delivery Method Room Air Room Air MDM MDM MDM Narrative Medical decision making narrative: 49-year-old female with past medical history of Crohn's disease, hypothyroidism, tobacco (more content not included)... Normal [facility] Emergency Department Summary [facility] Medical Records Department [address] [place] [address] Emergency Department Summary 12/30/24 MR#: [id number] Acct: [id number] Name: JACKLYNZACHARIAH SUERO Brice Rep #: [id number] : 1975 49 From: Dane Bush DO PCP: JOHN Melchor Status:DEP ER Location: ED HPI History of Present Illness Chief Complaint: Chest Pain Narrative Narrative: Chief complaint and HPI: Chest pain. 49-year-old female with past medical history of Crohn's disease, hypothyroidism, tobacco abuse presents for evaluation of chest pain. Onset of chest pain was prior to arrival. Associated symptom was nausea and vomiting. She states the chest pain lasted about a minute but the nausea has continued. She did have 1 episode of emesis. She denies any abdominal pain. She denies any fever, chills, URI symptoms, shortness of breath, bilateral lower extremity swelling or pain. Denies a history of DVT/PE, recent trauma or surgery. Her mother had an KS in her 50s. No reported history of cardiac disease in herself. Review of systems: See HPI Medications: As listed on the chart Allergies: As listed on the chart PFSH: Per chart Vital signs: As listed on the chart. Reviewed. Physical exam: Gen: A O x3, NAD Head: Normocephalic, atraumatic Eyes: No sclera icterus, conjunctiva clear ENT: Moist mucous membranes Neck: Trachea midline, No JVD CV: RRR, no murmurs, no peripheral edema Resp: Lungs CTA BL, no w/r/c GI: Abd soft, non-distended, non-tender, no r/r/g Musc: Full ROM, no deformity Skin: Warm, dry Neuro: Alert, oriented, grossly intact, sensation intact Psych: Cooperative, appropriate mood and affect PFSH COUNTS INCLUDE 234 BEDS AT [facility] Medical History History of Crohn's disease Wears glasses Depression Anxiety Alcohol use Blister Thyroid disease Anemia Restless legs Back pain Migraine headache History of IBS Smoker Shortness of breath on exertion Leg cramps Pancreatic insufficiency Abdominal pain, vomiting, and diarrhea Home Medications ???Medication ???Instructions ???Recorded ???Last Taken ???Type escitalopram oxalate 20 mg tablet 20 mg PO DAILY 02/09/15 12/12/24 History bupropion HCl 150 mg tablet,12 hr 150 mg PO BID 10/11/16 12/12/24 H istory sustained-release folic acid 800 mcg tablet 0.8 mg PO DAILY #30 tabs 04/17/23 12/12/24 Rx levothyroxine 175 mcg tablet 250 mcg PO DAILY 09/14/23 12/12/24 History budesonide 3 mg 6 mg (2 x 3 mg) PO DAILY #60 caps 06/24/24 12/12/24 Rx capsule,delayed,extend ed release methocarbamol 500 mg tablet 500 mg PO TID PRN pain/spasms #30 12/13/24 Unknown Rx tabs sulfasalazine 500 mg 0.5 g PO BID #60 tabs 12/24/24 Unk nown Rx tablet,delayed release Allergy/AdvReac Type Severity Reaction Status Date / Time Penicillins Allergy Unknown PT UNSURE Verified 12/30/24 10:40 OF REACTION cortisone Allergy Hives Verified 12/30/24 10:40 Family History Mother Cancer Arthritis Lumbar spondylosis Surgical History Hx of appendectomy Hx of colonoscopy History of lumpectomy of right breast History of lumpectomy of left breast History of Hx of shoulder surgery Hx of breast biopsy Hx of hysterectomy Social History household members: spouse and children Smoking Status: Current every day smoker tobacco type: cigarettes alcohol intake: current EXAM Physical Exam Const Vital Signs: 12/30/24 10:38 Temperature 98.7 F Temperature Source Oral Pulse Rate 100 Respiratory Rate 16 Blood Pressure 130/95 H Blood Pressure Mean 106 Pulse Ox 100 Oxygen Delivery Method Room Air MDM MDM MDM Narrative Medical decision making narrative: EKG: Interpreted by me/EM physician: EKG shows normal sinus rhythm with nonspecific ST changes. Heart rate 86. Diagnostic: Interpreted by me/EM physician: Discharge Plan Triage Chief Complaint: Chest Pain ED Provider: Dane Bush Dx/Rx/DC Orders Prescriptions: No Action methocarbamol 500 mg tablet 500 mg PO TID PRN (Reason: pain/spasms) Qty: 30 0RF escitalopram oxalate 20 MG tablet 20 mg PO DAILY Patient Comments: DEPRESSION levothyroxine 175 mcg tablet 250 mcg PO DAILY bupropion HCl 150 MG tablet sustained-release 12 hr 150 mg PO BID Patient Comments: DEPRESSION folic acid 800 mcg tablet 0.8 mg PO DAILY Qty: 30 2RF budesonide 3 mg capsule,delayed,extend .release 6 mg PO DAILY Qty: 60 3RF sulfasalazine 500 mg tablet,delayed release (DR/EC) 0.5 g PO BID Qty: 60 2RF Primary Care Provider: Indy Barajas Referrals: Indy Barajas, LEVELER HELPER-C [Primary Care Provid (more content not included)... Normal [facility] Eosinophil percentageOrdered By: Dane Bush on 12-30-2024 Eosinophils/100 WBC (Bld) 0.5 % 0-5 [facility] Erythrocyte distribution wid th ratioOrdered By: Dane Bush on 12-30-2024 Erythrocyte distribution width (RBC) [Ratio] 12.9 % 11.6-14.6 [facility] Erythrocyte distribution wid th standard deviationOrdered By: Dane York on 12-30-2024 Erythrocyte distribution width (RBC) [Ratio] 44.5 fl High 35.1-43.9 [facility] Glomerular filtration rate ( GFR) estimation/1.73 sq m using serum, plasma, or whole bOrdered By: Dane Bush on 12-30-2024 GFR/1.73 sq M.predicted among non-blacks MDRD (S/P/Bld) [Vol rate/Area] 110 mL/min/{1.73_m2} >60 [facility] Comment on above: mL/min/1.73m2 CKD-EP I Creatinine Equation (2020) Hematocrit Auto (Bld) [Volum e fraction]Ordered By: Danealivia Bush on 12-30-2024 Hematocrit (Bld) [Volume fraction] 36.9 % Low 37-47 [facility] Hemoglobin measurementOrdere d By: [facility] on 12-30-2024 Hemoglobin (Bld) [Mass/Vol] 13.0 g/dL 12.0-15.0 [facility] Immature granulocytes/100 WB C Auto (Bld)Ordered By: [facility] on 12-30-2024 Immature granulocytes/100 WBC (Bld) 1.000 % High 0.0-0.9 [facility] Comment on above: IG% - Immature Granu locytes (promyelocytes, myelocytes and metamyelocytes) > 1% indicates that a LEFT SHIFT is Present. L499.0042on 12-30-2024 Trop T High Sen 8 ng/L Normal <=14 [facility] Comment on above: Performed By: #### L 499.0042 ####[facility] [address] [place], [address] L501.4021on 12-30-2024 Trop T High Sen 10 ng/L Normal <=14 [facility] Comment on above: Result Comment: Hemo lysis present, Results??could be affected. ?? Performed By: #### L 503.7505, L501.4021, L100.0100, L500.2500 #### [facility] [address] [place], [address] L503.7505on 12-30-2024 Natriuretic peptide B (Bld) [Mass/Vol] 913 pg/mL High <=450 [facility] Comment on above: Result Comment: Hear t Failure Unlikely: < 300 pg/mL Heart Failure Likely < 50 Years: > 450 pg/mL 50-75 Years: > 900 pg/mL >75 Years: > 1800 pg/mL Performed By: #### L 503.7505, L501.4021, L100.0100, L500.2500 #### [facility] [address] [place], [address] MCV (mean corpuscular volume ) determinationOrdered By: Dane Bush on 12-30-2024 MCV (RBC) [Entitic vol] 94.6 fL 81-99 [facility] Mean corpuscular hemoglobin (MCH) determinationOrdered By: Dane Bush on 12-30-2024 MCH (RBC) [Entitic mass] 33.3 pg High 27.0-32.0 [facility] Mean corpuscular hemoglobin concentration (MCHC) determinationOrdered By: Danealivia Bush on 12-30-2024 MCHC (RBC) [Mass/Vol] 35.2 g/dL 32-36 [facility] Mean platelet volume determi nationOrdered By: Dane Bush on 12-30-2024 Platelet mean volume (Bld) [Entitic vol] 8.8 fL 6.2-12.0 [facility] Monocyte percentageOrdered B y: Dane Bush on 12-30-2024 Monocytes/100 WBC (Bld) 5.4 % 0-10 [facility] Natriuretic peptide.B prohor paula N-Terminal [Mass/volume] in Serum or PlasmaOrdered By: Dane Bush on 12-30-2024 Natriuretic peptide.B prohormone N-Terminal [Mass/Vol] 913 pg/mL High <450 [facility] Comment on above: Heart Failure Unlike ly: < 300 pg/mLHeart Failure Likely< 50 Years: > 450 pg/mL50-75 Years: > 900 pg/mL>75 Years: > 1800 pg/mL Neutrophil percentageOrdered By: Dane Bush on 12-30-2024 Neutrophils/100 WBC (Bld) 82.4 % High 47-70 [facility] Nucleated red blood cell per centageOrdered By: Dane Bush on 12-30-2024 Nucleated RBC/100 WBC (Bld) [Ratio] 0 % 0-5 [facility] Platelet countOrdered By: Cristóbal Bush on 12-30-2024 Platelets (Bld) [#/Vol] 374 10*3/uL 150-450 [facility] Potassium measurement (mass/ volume)Ordered By: Dane Bush on 12-30-2024 Potassium (Unsp spec) [Mass/Vol] 4.4 mmol/L 3.3-5.1 [facility] Comment on above: Hemolysis present, R esults could be affected. RBC Auto (Bld) [#/Vol]Ordere d By: Dane Bush on 12-30-2024 RBC (Bld) [#/Vol] 3.90 10*6/uL Low 4.2-5.4 [facility] Serum creatinine measurement (mass/volume)Ordered By: Dane Bush on 12-30-2024 Creatinine [Mass/Vol] 0.63 mg/dL Low 0.70-1.20 [facility] Serum glucose measurement (m ass/volume)Ordered By: Dane Bush on 12-30-2024 Glucose [Mass/Vol] 97 mg/dL 70-99 [facility] Serum or plasma calcium abby urement (mass/volume)Ordered By: Dane York on 12-30-2024 Calcium [Mass/Vol] 9.0 mg/dL 7.6-11.0 [facility] Serum or plasma urea nitroge n measurement (mass/volume)Ordered By: Dane Bush on 12-30-2024 Urea nitrogen [Mass/Vol] 6 mg/dL 4-19 [facility] Sodium levelOrdered By: Uriel Bush on 12-30-2024 Sodium [Moles/Vol] 133 mmol/L 133-145 [facility] Troponin T.cardiac [Mass/vol ume] in Serum or Plasma by High sensitivity methodOrdered By: Dane Bush on 12-30-2024 Troponin T.cardiac High sensitivity method [Mass/Vol] 8 ng/L <14 [facility] Troponin T.cardiac High sensitivity method [Mass/Vol] 10 ng/L <14 [facility] Comment on above: Hemolysis present, R esults could be affected. White blood cell (WBC) count Ordered By: Dane Bush on 12-30-2024 WBC (Bld) [#/Vol] 7.4 10*3/uL 4.4-11.0 [facility] L/S Spine Min 4 Viewson 11-25 L/S Spine Min 4 Views [facility] Imaging Services [address] [place] [address] L/S Spine Min 4 Views MR#: [id number] Acct: [id number] Name: ZACHARIAH SPEARS Rep #: [id number] : 1975 F 49 From: Antwon Rodgers MD PCP: JOHN Melchor Status: DEP AMB Study: L/S Spine Min 4 Views Date of Exam: 12/13/24 Exam# [id number] Ordering Dr: Shannon Johnson EXAM: XR Lumbosacral Spine, 4 or 5 Views CLINICAL INDICATION: CHRONIC PAIN TECHNIQUE: Frontal and lateral views of the lumbar spine. Indication extension and flexion views were obtained. COMPARISON: XR Lumbosacral Spine dated 09/14/2023 FINDINGS: VERTEBRAE: Anterior spondylolisthesis of L5 over S1 by 11 mm without significant change during flexion or extension. Associated pars defect. This could be further evaluated with MRI. Moderate endplate degenerative change and disc disease of L5-S1. No acute fracture. SACRUM/COCCYX: Unremarkable as visualized. No acute fracture. DISC SPACES: No acute findings. No significant narrowing. SOFT TISSUES: Unremarkable. RAD/L/S Spine Min 4 Views IMPRESSION: Anterior spondylolisthesis of L5 over S1 by 11 mm without significant change during flexion or extension. Associated pars defect. This could be further evaluated with MRI. Reading Location: [facility] CC: JOHN Barajas; JASPER Spicer Grants Analyst: Signed Normal [facility] Orthopedic Visit Reporton Orthopedic Visit Report [facility] [address] [place] [address] [place] [address] OFFICE VISIT Date of Service: 12/13/24 MR#: [id number] Acct: [id number] Name: ZACHARIAH SPEARS Rep #: [id number] : 1975 Provider: JASPER Spicer Age/Sex: 49/F Location[place] [facility] [place] Status: Signed Intake Vital Signs 09/14/23 08:58 12/12/24 21:03 Height 5 ft 2 in 5 ft 2 in Intake Visit Reasons: LUMBAR SPINE Chief Complaint: lumbar spine Is patient in pain?: Yes (lumbar spine) Pain scale (1-10): 4 Allergies Penicillins Allergy (Unknown, Verified 12/13/24 10:22) PT UNSURE OF REACTION cortisone Allergy (Verified 12/13/24 10:22) Hives Medications ???Medication ???Instructions ???Recorded ???Confirmed ???Type escitalopram oxalate 20 mg tablet 20 mg PO DAILY 02/09/15 12/13/24 History bupropion HCl 150 mg tablet,12 hr 150 mg PO BID 10/11/16 12/13/24 H istory sustained-release folic acid 800 mcg tablet 0.8 mg PO DAILY #30 tabs 04/17/23 12/13/24 Rx levothyroxine 175 mcg tablet 250 mcg PO DAILY 09/14/23 12/13/24 History budesonide 3 mg 6 mg (2 x 3 mg) PO DAILY #60 caps 06/24/24 12/13/24 Rx capsule,delayed,extend ed release sulfasalazine 500 mg 0.5 g PO BID #60 tabs 10/01/24 Rx tablet,delayed release methocarbamol 500 mg tablet 500 mg PO TID PRN pain/spasms #30 12/13/24 12/13/24 Rx tabs PFSH Medical History History of Crohn's disease Wears glasses Depression Anxiety Alcohol use Blister Thyroid disease Anemia Restless legs Back pain Migraine headache History of IBS Smoker Shortness of breath on exertion Leg cramps Pancreatic insufficiency Abdominal pain, vomiting, and diarrhea Surgical History Hx of appendectomy Hx of colonoscopy History of lumpectomy of right breast History of lumpectomy of left breast History of Hx of shoulder surgery Hx of breast biopsy Hx of hysterectomy Family History Mother Cancer Arthritis Lumbar spondylosis Social History household members: spouse and children Smoking Status: Current every day smoker tobacco type: cigarettes alcohol intake: current HPI LUMBAR SPINE Details: This documentation accurately reflects the service provided and the decisions made by , JASPER Spicer 12/13/24 1019. Part of today???s visit was documented by Dinorah Higuera RN, acting as scribe. ZACHARIAH SPEARS is a 49 year old F here today for lumbar spine pain. Last weekend she was lifting things moving them around and this exacerbated her pain. She was lifting an outdoor bar set. Pain started right away, she was lifting around 100 pounds. Since then she reports right sided low back pain that wraps into her hip. She reports numbness and tingling into the left leg. She has a left- sided leg pain that goes down the back of the leg to the calf. Recently she was having some rendon tingling on the left leg. At the beginning of the week the pain was bad and she was very stiff and was not able to do much. She completed physical therapy back in October 2023 and went for 4 to 6 weeks 2 times per week. She was taught a home exercise program and has been completing the stretches and exercises 3-4 times a week since therapy was completed. Walking increases her pain. She can only walk about 20 feet over the last week. prior to this she could walk for about 200 feet at a time before needing to rest. Her walking distance has continued to decrease with time. Standing in one spot for 5-10 minutes increases her pain. She does get an improvement in her symptoms when she sits down and bends forward. No walker or cane. She has a history of a reaction to a cortisone injection which gave her hives. Because of this she does not believe that she is able to have an epidural steroid injection. She will take Advil otc and Excedrin migraine with only mild relief. She has seen the chiropractor Dr. Duncan who she has seen for several years, no significant benefit from an adjustment this last week, no worsening. She also has a TENs unit at home and has tried ice/heat without much benefit. No diabetes, no heart or lung issues, no blood thinners. History of a C section incision. Ortho Exam General General: Yes no acute distress Neurologic: Yes alert and Yes oriented x3 Spine SPINE TESTING CERVICAL THORACIC LUMBAR Musculoskeletal Strength 0=absent - 5=normal Details: Neurological exam of the lower extremities shows 5x5 power. Normal sensations across all dermatomes. No hyperreflexia. There is midline and right sided paraspinal tenderness. Coding Level of Care Code Off vi (more content not included)... Normal [facility] Brain/Head without Contrasto n 12-12-2024 Brain/Head without Contrast [facility] Services [address] [place] [address] Brain/Head without Contrast MR#: [id number] Acct: [id number] Name: ZACHARIAH SPEARS Rep #: [id number] : 1975 F 49 From: Ivory zepeda MD PCP: JOHN Melchor Status: REG ER Study: Brain/Head without Contrast Date of Exam: 11/24 03/20 Exam# [id number] Ordering Dr: Iglesia Gurrola DO PROCEDURE: BRAIN/HEAD WITHOUT CONTRAST 12/12/2024 REASON FOR EXAM: HEADACHE TECHNIQUE: BRAIN/HEAD WITHOUT CONTRAST Coronal and Sagittal reconstruction series were provided. One or more dose reduction techniques were used (e.g., Automated exposure control, adjustment of the mA and/or kV according to patient size, use of iterative reconstruction technique. RADIATION DOSE SUMMARY: CTDlvol: 44.99 mGy DLP: 863.60 mGycm COMPARISON: None FINDINGS: CT SCAN OF THE BRAIN WITHOUT IV CONTRAST CLINICAL INDICATION: Migraine headache TECHNIQUE: Axial and reformatted sagittal and coronal images of the brain obtained without IV contrast administration. Normal size of the ventricles and extra-axial spaces for the patient's age. Normal white matter tracts of the supratentorial brain. Normal basal ganglia and thalami. Normal brainstem. Normal cerebellum. There is no demonstrated extra-axial, intraparenchymal, or intraventricular hemorrhage. There are no findings of an acute ischemic infarction. Normal calvarium. There is no demonstrated fracture. Normal soft tissue structures. Normal visualized paranasal sinuses. CT/Brain/Head without Contrast IMPRESSION: Unremarkable CT scan of the brain. [facility] CC: JOHN Barajas; Iglesia Gurrola DO Grants Analyst: Signed Normal [facility] Emergency Department Summary on 12-12-2024 Emergency Department Summary [facility] Medical Records Department [address] [place] [address] Emergency Department Summary 12/12/24 MR#: [id number] Acct: [id number] Name: ZACHARIAH SPEARS Rep #: [id number] : 1975 49 From: Iglesia Gurrola DO PCP: JOHN Melchor Status:REG ER Location: ED HPI History of Present Illness Chief Complaint: Headache Informant: patient and family Narrative Narrative: Patient is a 49-year-old female with past med history of anxiety depression Crohn's disease and migraine headache. She states roughly 12 hours ago she began with a generalized frontal headache that is sensitive to light and sound. She states the headache came on gradually and increased over the course of hours. She denies any recent trauma. She denies any recent sick symptoms or travel outside the country. She states she took medication without any symptom improvement and the headache has continued to worsen. Secondary to this she presents for evaluation [facility] Medical History History of Crohn's disease Wears glasses Depression Anxiety Alcohol use Blister Thyroid disease Anemia Restless legs Back pain Migraine headache History of IBS Smoker Shortness of breath on exertion Leg cramps Pancreatic insufficiency Abdominal pain, vomiting, and diarrhea Home Medications ???Medication ???Instructions ???Recorded ???Last Taken ???Type escitalopram oxalate 20 mg tablet 20 mg PO DAILY 02/09/15 12/12/24 History bupropion HCl 150 mg tablet,12 hr 150 mg PO BID 10/11/16 12/12/24 H istory sustained-release folic acid 800 mcg tablet 0.8 mg PO DAILY #30 tabs 04/17/23 12/12/24 Rx levothyroxine 175 mcg tablet 250 mcg PO DAILY 09/14/23 12/12/24 History naproxen 500 mg tablet 500 mg PO BID 09/14/23 Unknown His tory budesonide 3 mg 6 mg (2 x 3 mg) PO DAILY #60 caps 06/24/24 12/12/24 Rx capsule,delayed,extend ed release sulfasalazine 500 mg 0.5 g PO BID #60 tabs 10/01/24 Rx tablet,delayed release Allergy/AdvReac Type Severity Reaction Status Date / Time Penicillins Allergy Unknown PT UNSURE Verified 12/12/24 21:03 OF REACTION cortisone Allergy Hives Verified 12/12/24 21:03 Family History (Updated 09/14/23 @ 09:07 by Julianne Ortiz MA) Mother Cancer Arthritis Lumbar spondylosis Surgical History Hx of appendectomy Hx of colonoscopy History of lumpectomy of right breast History of lumpectomy of left breast History of Hx of shoulder surgery Hx of breast biopsy Hx of hysterectomy Social History (Updated 09/14/23 @ 09:08 by Julianne Ortiz MA) household members: spouse and children Smoking Status: Current every day smoker tobacco type: cigarettes alcohol intake: current ROS ROS ED Constitutional Constitutional ED: Denies chills or fever(s) Eyes Eyes: Reports other Details: Positive photophobia ENT ENT ED: Denies ear pain, rhinorrhea or sore throat Cardiovascular Cardiovascular: Denies chest pain Respiratory/Chest Respiratory/Chest: Denies cough or dyspnea Gastrointestinal Gastrointestinal: Reports nausea; Denies abdominal pain, diarrhea or vomiting Genitourinary Genitourinary ED: Denies dysuria Musculoskeletal Musculoskeletal: Denies neck pain Integumentary Denies rash Neurologic Neurologic: Reports headache(s); Denies paresthesias or weakness Psychiatric Psychiatric: Reports anxiety and depression Hematologic/Lymphatic Hematologic/Lymphatic: Denies easy bleeding or easy bruising EXAM Physical Exam Const Vital Signs: 12/12/24 21:03 Temperature 98 F Temperature Source Oral Pulse Rate 90 Respiratory Rate 16 Blood Pressure 126/84 H Blood Pressure Mean 98 Pulse Ox 98 Oxygen Delivery Method Room Air Positive well nourished and well developed General Appearance ED: well developed; Negative for pallor HEENT HEENT Narrative: Normocephalic atraumatic No tongue or lip swelling no oral lesions no airway edema or compromise Posterior pharynx without secondary findings to suggest infection Eyes PERRL and EOMs intact bilaterally Neck supple Neck Narrative: No nuchal rigidity or meningeal signs Resp normal respiratory effort and clear to auscultation bilaterally Cardio regular rate and regular rhythm Extremity normal to inspection Neuro oriented x3, CN's II-XII intact bilaterally and no sensory deficits noted Neuro Narrative: GCS of 15 Cranial nerves II through XII are grossly intact without focal neurologic deficit No pronator drift no dysmetria no truncal ataxia NIH stroke scale score of 0 Sensorium / Orientation: alert Motor Exam: strength 5/5 throughout Psych mental status grossly normal Skin (more content not included)... Normal [facility] CNOVon 02-15-2024 CNOV Office Visit (ENAGST ) ZACHARIAH SPEARS ([id number]) 1975 F Date Time Provider Department 02/15/24 9:00 AM VINITA TOBARST During your visit today, we recorded the following information about you: Pulse Blood pressure Weight Height 77/minute 147/97 71.7 kg 1.575 m Jonathan Owens MD 02/15/2024 10:21 AM Addendum PCP: Oscar Blas MD. Referring Provider: Chirag Matta DO. Gastroenterology Subjective The history is provided [...] [place]actorr[place] breast [place] 2008 [place]. At that time TSH was elevated to 21, states that she was already on Synthroid at that time. Underwent milk ducts removal surgery in right breast. No other albs found in [facility] prior to 2008. Follows with Gynecology for yearly mammogram, has a lump in left breast and fibrocystic disease, has undergone breast biopsies in past consistent with fibroadenoma, fibrocystic disease and benign breast tissue. Diagnosed with Crohn's disease 2 years ago- On Budesonide and Sulfasalazine. She had multiple labs done at [facility], records currently unavailable in [facility], will try to get records. During [...] 2009. Menses are regular. Hysterectomy 2016 at [facility], had endometrial biopsies and LEEP due to [...] Paternal Grandfather (more content not included)... Normal [facility] Nicki 02-15-2024 LYNDON Telephone (ENAGST) ZACHARIAH SPEARS ([id number]) 1975 F Date Time Provider Department 02/15/24 VINITA TOBAR During your visit today, we recorded the following information about you: Vinita Tobar MD 02/15/2024 10:49 AM Signed Please obtain the most recent thyroid labs from PCP, or from [facility] lab Roque Chaulloydnarciso 02/15/2024 2:07 PM Signed I called the PCP to get thyroid labs records LVM in there office General family medicine # [phone]. Marci Chau February 15, 2024 2:07 PM Aura Mo 02/20/2024 9:33 AM Addendum Sent fax to [phone] to request records for thyroid. Didn't appear anything was sent, didn't see anything in the patients chart that was recent. Fax confirmation job number: [id number] There were a few things in the "outside charts" scanned into docs for the nurse/MA to [...] Status:Closed by MARCI CHAU on 02/15/24 Normal [facility] Thyroglobulin w/Anti-TG ABon 02-10-2024 Anti-TG AB > 2250.0 High 0.0-0.9 [facility] Comment on above: Order Comment: Reaso n for Laboratory Test hypothyroidism Result Comment: Thyr oglobulin Antibody measured by Abdelrahman Laura Methodology It should be noted that the presence of thyroglobulin antibodies may not be pathogenic nor diagnostic, especially at very low levels. The assay transonic engineer has found that four percent of individuals without evidence of thyroid disease or autoimmunity will have positive TgAb levels up to 4 IU/mL. Performed By: #### L 3400.2300, L3300.6820, L501.62391, L3300.6750 ####[facility] [id number] [place], [place], [id number] TG-AUNSHA 14 ng/mL Normal . [facility] Comment on above: Order Comment: Reaso n for Laboratory Test hypothyroidism Result Comment: This test was developed and its performance characteristics determined by [facility]. It has not been cleared or approved [...] ng/mL. Performed By: #### L 3400.2300, L3300.6820, L501.06280, L3300.6750 ####[facility] [address] [place], [place], [address] Thyroid Antibodieson 024 THYR PEROX AB 170 IU/mL High 0-34 [facility] Comment on above: Order Comment: Reaso n for Laboratory Test hypothyroidism Performed By: #### L 3400.2300, L3300.6820, L501.55593, L3300.6750 #### [facility] [address] [facility] [address] [place], [place], [id number] Thyroxin Bind Glob (TBG)on 0 02-10-2024 THYROXIN B GLOB 11 ug/mL Low 13-39 [facility] Comment on above: Order Comment: Reaso n for Laboratory Test hypothyroidism Result Comment: Perf ormed at: - [facility] [id number] Boat Pilot: Chele Simms PhD, Phone: [phone] Performed at: [facility] [address] [place] [id number] Boat Pilot: Popeye Whitaker MD, Phone: [phone] Performed at: [facility] [address] [id number] Boat Pilot: Epifanio Horne MD, Phone: [phone] Performed By: #### L 3400.2300, L3300.6820, L501.80629, L3300.6750 ####[facility] [address] [place], [place], [id number] Free T3on 01-29-2024 Free T3 [Mass/Vol] 1.7 pg/mL Low 2.18-3.98 [facility] Comment on above: Order Comment: [id number] Performed By: #### L 3400.2300, L3300.6820, L501.97841, L3300.6750 #### [facility] [address] [place], [address] Gastroenterology Visit Repor ton 01-29-2024 Gastroenterology Visit Report [facility] [address] [place] [address] OFFICE VISIT Date of Service: 01/29/24 MR#: [id number] Acct: [id number] Name: ZACHARIAH SPEARS Rep #: [id number] : 1975 Provider: Chirag Matta DO Age/Sex: 48/F Location: [facility] [place] Status: Signed Intake Vital Signs 05/11/22 11:22 [...] 500 mg PO BID 09/14/23 01/29/24 History COUNTS INCLUDE 234 BEDS AT THE [facility] Medical History Abdominal pain, vomiting, and [...] Overall an unremarkably normal exam. *BGI established 3.15. with referral from PCP for nausea and [...] prompting total hysterectomy. EGD with capsule placement 11.16. without abnormality noted. Capsule endoscopy placed. Capsule [...] sulfasalazine. ? (more content not included)... Normal [facility] Serum or plasma thyroid stim ulating hormone (TSH) measurement (units/volume)Ordered By: Indy Barajas on 09-11-2023 TSH Qn 8.97 uIU/mL 0.358-3.74 [facility] Thin prep Papanicolaou smear with manual screeningOrdered By: Indy Barajas on 09-11-2023 Thin prep Papanicolaou smear with manual screening 0.83 ng/dL 0.76-1.46 [facility] Chocolate IgE serumOrdered B y: Chirag Matta on 05-26-2023 Chocolate IgE Qn (S) <0.10 kU/L Class 0 [facility] Laboratory - Miscellaneous t estsOrdered By: Chirag Matta on 05-26-2023 Service comment (Unsp spec) [Interp] Comment . [facility] Comment on above: Levels of Specific I gE Class Description of Class ----- < 0.10 0 Negative 0.10 - 0.31 0/I Equivocal/Low 0.32 - 0.55 I Low 0.56 - 1.40 II Moderate 1.41 - 3.90 III High 3.91 - 19.00 IV Very High 19.01 - 100.00 V Very High >100.00 Very High No Panel InformationOrdered By: Chirag Matta on 05-26-2023 Mussel Allergen IgE Antibody <0.10 kU/L Class 0 [facility] Shrimp Allergen 0.42 kU/L Class I [facility] Serum beef IgE antibody assa y (units/volume)Ordered By: Chirag Matta on 05-26-2023 Beef IgE Qn (S) <0.10 kU/L Class [address] [facility] Serum codfish IgE antibody a ssay (units/volume)Ordered By: Chirag Matta on 05-26-2023 Codfish IgE Qn (S) <0.10 kU/L Class 0 [facility] Serum corn IgE antibody assa y (units/volume)Ordered By: Chirag Matta on 05-26-2023 Knippa IgE Qn (S) <0.10 kU/L Class [address] [facility] Serum cow milk IgE antibody assay (units/volume)Ordered By: Chirag Matta on 05-26-2023 Cow milk IgE Qn (S) <0.10 kU/L Class 0 [facility] Serum peanut IgE antibody as say (units/volume)Ordered By: Chirag Matta on 05-26-2023 Peanut IgE Qn (S) <0.10 kU/L Class [address] [facility] Serum pork IgE antibody assa y (units/volume)Ordered By: Chirag Matta on 05-26-2023 Pork IgE Qn (S) <0.10 kU/L Class [address] [facility] Serum salmon IgE antibody as say (units/volume)Ordered By: Chirag Matta on 05-26-2023 Indianola IgE Qn (S) <0.10 kU/L Class [address] [facility] Serum soybean IgE antibody a ssay (units/volume)Ordered By: Chirag Matta on 05-26-2023 Soybean IgE Qn (S) <0.10 kU/L Class 0 [facility] Serum tuna IgE antibody assa y (units/volume)Ordered By: Chirag Matta on 05-26-2023 Tuna IgE Qn (S) <0.10 kU/L Class [address] [facility] Serum wheat IgE antibody ass ay (units/volume)Ordered By: Chirag Matta on 05-26-2023 Wheat IgE Qn (S) <0.10 kU/L Class [address] [facility] Serum whole egg IgE antibody assay (units/volume)Ordered By: Chirag Matta on 05-26-2023 Whole Egg IgE Qn (S) <0.10 kU/L Class 0 [facility] Comment on above: Performed at: [address] [id number] Director: Epifanio Horne MD, Phone: [phone] Laboratory - Chemistry and C hemistry - challengeOrdered By: Indy Barajas on 05-22-2023 Free T4 [Mass/Vol] 1.10 ng/dL 0.76-1.46 [facility] No Panel InformationOrdered By: Indy Barajas on 05-22-2023 Thyroid Stimulating Hormone (TSH) 5.30 uIU/mL 0.358-3.74 [facility] CNCOon 05-11-2023 CNCO HNO ID: [id number] Author: Coordinator, Mammography Service: ? Author Type: Physician Type: Letter Filed: 05/15/2023 11:34 PM Note Text: [facility] [address] [place] [id number] May 11, 2023 PID: [id number] Zachariah Spears [address] [id number] Dear Ms. Spears, We are pleased to [...] report will be kept on file at [facility] as part of your permanent medical record and are available for your continuing care. Thank you for allowing us to help in meeting your health care needs. Sincerely, Dr. Luna Interpreting Radiologist [facility] (Normal over 40) Normal [facility] CNOVon 05-11-2023 CNOV Office Visit (AGGBRC R) ZACHARIAH SPEARS ([id number]) 1975 F Date Time Provider Department 05/11/23 10:00 AM DILCIA DELUCA AGGBRCR During your visit today, we recorded the following information about you: Pulse Blood pressure Weight Height 81/minute 115/80 70.3 kg 1.6 m Aspen Ann NA 05/11/2023 10:03 AM Signed Patient presents for follow up after imaging. Denies any new concerns. KRYSTEN Chun Mary K, MD 05/11/2023 4:41 PM Signed Dilcia Deluca MD [facility] [address] [place], [place] [id number] HPI: Ms. Spears is a White 47 [...] extraction x 2 PAST SURGICAL HISTORY OF 2008 milk duct removal on right breast Social [...] mammogram, 05/10/2022 mammogram, and 11/05/2018 mammogram - [facility]. There are scattered areas of fibroglandular density. [...] screening mammogram is recommended. Juno carlos/mati:05/11/2023 14:49:26 Lactation Coordinator(s): RT Gokul(R)(M), [facility] letter sent: Normal over 40 Mammogram BI-RADS: 2 Benign finding Review of Systems Constitutional: Negative for chills and fever. PHYSICAL EXAMINATION: BP 115/80 Pulse 81 Ht 160 cm (5' 3") Wt 70.3 kg (155 lb) LMP 01/21/2013 BMI 27.46 kg/m? General appearance: Well appearing, alert, in no acute distress Skin: skin color, texture, turgor normal, no suspicious rashes or lesions Eyes: Anicteric sclera, Pupils are equally round and reactive Extremities: No clubbing, cyanosis, or edema. Neuro: Alert and (more content not included)... Normal [facility] SCREENING W TOMOon 05-11 [facility] SCREENING W MANUELA * * *Final Report* * * DATE OF EXAM: May 11 2023 9:24AM AA [id number] - [facility] SCREENING W MANUELA / PROCEDURE REASON: Visit for screening mammogram * * * * Physician Interpretation * * * * #[id number] - [facility] SCREENING W MANUELA BILATERAL DIGITAL SCREENING MAMMOGRAM TOMOSYNTHESIS WITH CAD: 05/11/2023 HISTORY: Visit For Screening Mammogram\\ Routine screening mammogram. Patient reports no breast [...] mammogram, 05/10/2022 mammogram, and 11/05/2018 mammogram - [facility]. There are scattered areas of fibroglandular density. [...] screening mammogram is recommended. Juno carlos/mati:05/11/2023 14:49:26 Lactation Coordinator(s): RT Gokul(R)(M), [facility] letter sent: Normal over 40 Mammogram BI-RADS: [...] Health, Family Medicine, and Medical/Surgical Oncology, the [facility] has carefully reviewed the data and reached [...] their providers when to stop screening mammograms. Grants Analyst: Mati Transcribe Date/Time: May 11 2023 9:09A Dictated by : JUNO LUNA MD This examination was interpreted and the report reviewed and electronically signed by: JUNO LUNA MD on May 11 2023 2:49PM EST [id number] Normal [facility] Alternaria alternata IgE ser umOrdered By: Chirag Matta on 05-09-2023 A. alternata IgE Qn (S) 2.69 kU/L Class III [facility] Laboratory - Miscellaneous t estsOrdered By: Chirag Matta on 05-09-2023 Service comment (Unsp spec) [Interp] Comment . [facility] Comment on above: Levels of Specific I gE Class Description of Class ----- < 0.10 0 Negative 0.10 - 0.31 0/I Equivocal/Low 0.32 - 0.55 I Low 0.56 - 1.40 II Moderate 1.41 - 3.90 III High 3.91 - 19.00 IV Very High 19.01 - 100.00 V Very High >100.00 Very High No Panel InformationOrdered By: Chirag Matta on 05-09-2023 Aspergillus fumigatus Allergen <0.10 kU/L Class [address] [facility] Common Ragweed (Short) Allergen 0.14 kU/L Class 0/I [facility] Kenyan Plantain Allergen (RAST) <0.10 kU/L Class 0 [facility] Maple (Poc[place]as) Allergen IgE Ab <0.10 kU/L Class [address] [facility] [place] Tree Allergen <0.10 kU/L Class 0 [facility] Rough pigweed specific IgE a ntibody assayOrdered By: Chirag Matta on 05-09-2023 Rough Pigweed IgE Qn (S) <0.10 kU/L Class [address] [facility] Serum Bermuda grass IgE anti body assay (units/volume)Ordered By: Chirag Matta on 05-09-2023 Bermuda grass IgE Qn (S) 0.14 kU/L Class 0/I [facility] Serum Cladosporium herbarum IgE antibody assay (units/volume)Ordered By: Chirag Matta on 05-09-2023 C. herbarum IgE Qn (S) <0.10 kU/L Class 0 [facility] Serum Dermatophagoides farin ae specific IgE antibody assay (units/volume)Ordered By: Chirag Matta on 05-09-2023 Macanese house dust mite IgE Qn (S) 0.46 kU/L Class I [facility] Serum house dust mi te IgE antibody assay (units/volume)Ordered By: Chirag Matta on 05-09-2023 house dust mite IgE Qn (S) 0.50 kU/L Class I [facility] Serum Carlos grass IgE anti body assay (units/volume)Ordered By: Chirag Matta on 05-09-2023 Carlos grass IgE Qn (S) <0.10 kU/L Class [address] [facility] Serum [place] blue grass Ig E antibody assay (units/volume)Ordered By: Chirag Matta on 05-09-2023 [place] blue grass IgE Qn (S) <0.10 kU/L Class [address] [facility] Serum Mucor racemosus IgE an tibody assay (units/volume)Ordered By: Chirag Matta on 05-09-2023 Mucor racemosus IgE Qn (S) <0.10 kU/L Class [address] [facility] Serum Penicillium notatum Ig E antibody assay (units/volume)Ordered By: Chirag Matta on 05-09-2023 P. notatum IgE Qn (S) <0.10 kU/L Class 0 [facility] Serum Periplaneta americana IgE antibody assay (units/volume)Ordered By: Chirag Matta on 05-09-2023 Macanese Cockroach IgE Qn (S) 0.41 kU/L Class I [facility] Serum bahia grass IgE antibo dy assay (units/volume)Ordered By: Chirag Matta on 05-09-2023 Bahia grass IgE Qn (S) <0.10 kU/L Class 0 [facility] Serum cat dander IgE antibod y assay (units/volume)Ordered By: Chirag Matta on 05-09-2023 Cat dander IgE Qn (S) <0.10 kU/L Class 0 [facility] Serum dog epithelium IgE ant ibody assay (units/volume)Ordered By: Chirag Matta on 05-09-2023 Dog epithelium IgE Qn (S) <0.10 kU/L Class [address] [facility] Serum hazelnut pollen IgE an tibody assay (units/volume)Ordered By: Chirag Matta on 05-09-2023 Hazelnut Pollen IgE Qn (S) <0.10 kU/L Class [address] [facility] Serum mountain cedar specifi c IgE antibody assayOrdered By: Chirag Matta on 05-09-2023 Mountain Juniper IgE Qn (S) <0.10 kU/L Class [address] [facility] Serum mugwort IgE antibody a ssay (units/volume)Ordered By: Chirag Matta on 05-09-2023 Mugwort IgE Qn (S) <0.10 kU/L Class 0 [facility] Serum nettle IgE antibody as say (units/volume)Ordered By: Chirag Matta on 05-09-2023 Nettle IgE Qn (S) <0.10 kU/L Class [address] [facility] Comment on above: Performed at: [address] [id number] Director: Epifanio Horne MD, Phone: [phone] Serum sheep sorrel IgE antib mindi assay (units/volume)Ordered By: Chirag Matta on 05-09-2023 Sheep [place] IgE Qn (S) <0.10 kU/L Class 0 [facility] Serum sweet gum IgE radioall ergosorbent test (RAST) class determinationOrdered By: Chirag Matta on 05-09-2023 Serum sweet gum IgE radioallergosorbent test (RAST) class determination <0.10 kU/L Class [address] [facility] Serum white elm IgE antibody assay (units/volume)Ordered By: Chirag Matta on 05-09-2023 White Elm IgE Qn (S) <0.10 kU/L Class 0 [facility] Serum white hickory IgE anti body assay (units/volume)Ordered By: Chirag Matta on 05-09-2023 White [place] IgE Qn (S) <0.10 kU/L Class [address] [facility] Serum white mulberry IgE ant ibody assay (units/volume)Ordered By: Chirag Matta on 05-09-2023 White mulberry IgE Qn (S) <0.10 kU/L Class [address] [facility] Serum white oak IgE antibody assay (units/volume)Ordered By: Chirag Matta on 05-09-2023 Barton IgE Qn (S) <0.10 kU/L Class 0 [facility] Stemphylium herbarum IgE ser umOrdered By: Chirag Matta on 05-09-2023 Stemphylium botryosum IgE Qn (S) <0.10 kU/L Class [address] [facility] Laboratory - Chemistry and C hemistry - challengeOrdered By: Indy Barajas on 11-16-2022 Free T4 [Mass/Vol] 1.32 ng/dL 0.76-1.46 [facility] No Panel InformationOrdered By: Indy Barajas on 11-16-2022 Thyroid Stimulating Hormone (TSH) 3.99 uIU/mL 0.358-3.74 [facility] Absolute lymphocyte countOrd ered By: Chirag Matta on 11-03-2022 Lymphocytes Auto (Unsp spec) [#/Vol] 1.81 10*3/uL 0.83-4.51 [facility] Basophil percentageOrdered B y: Chirag Matta on 11-03-2022 Basophils/100 WBC (Bld) 1.1 % 0-1 [facility] Bilirubin [Mass/Vol] 0.40 mg/dL 0.20-1.00 [facility] Comment on above: For patients on eltr ombopag therapy, use of Dimension [place] TBIL is not recommended. Chloride [Moles/Vol] 103 mmol/L 98-107 [facility] Eosinophils/100 WBC (Bld) 3.4 % 0-5 [facility] Glucose [Mass/Vol] 90 mg/dL 74-106 [facility] Neutrophils (Bld) [#/Vol] 3.8 10*3/uL 2.0-7.7 [facility] Neutrophils/100 WBC (Bld) 57.8 % 47-70 [facility] Potassium [Moles/Vol] 3.9 mmol/L 3.5-5.1 [facility] Protein [Mass/Vol] 7.5 g/dL 6.4-8.2 [facility] Sodium [Moles/Vol] 138 mmol/L 136-145 [facility] WBC (Bld) [#/Vol] 6.5 10*3/uL 4.4-11.0 [facility] Blood erythrocytes count (nu mber/volume)Ordered By: Chirag Matta on 11-03-2022 RBC (Bld) [#/Vol] 4.11 10*6/uL 4.2-5.4 [facility] Blood hemoglobin measurement (mass/volume)Ordered By: Chirag Matta on 11-03-2022 Hemoglobin (Bld) [Mass/Vol] 13.7 g/dL 12.0-15.0 [facility] Blood lymphocytes/100 leukoc ytesOrdered By: Chirag Matta on 11-03-2022 Lymphocytes/100 WBC (Bld) 27.9 % 19-41 [facility] Blood monocytes/100 leukocyt esOrdered By: Chirag Matta on 11-03-2022 Monocytes/100 WBC (Bld) 9.3 % 0-10 [facility] Blood platelet mean volumeOr dered By: Chirag Matta on 11-03-2022 Platelet mean volume (Bld) [Entitic vol] 9.7 fL 6.2-12.0 [facility] Determination of erythrocyte mean corpuscular volume (MCV)Ordered By: Chirag Matta on 11-03-2022 MCV (RBC) [Entitic vol] 98.1 fL 81-99 [facility] Erythrocyte sedimentation ra teOrdered By: Chirag Matta on 11-03-2022 ESR (Bld) [Velocity] 1 mm/h 0-30 [facility] Hematocrit Auto (Bld) [Volum e fraction]Ordered By: Chirag Matta on 11-03-2022 Hematocrit (Bld) [Volume fraction] 40.3 % 37-47 [facility] Laboratory - Chemistry and C hemistry - challengeOrdered By: Chirag Matta on 11-03-2022 ALP [Catalytic activity/Vol] 76 U/L 45-117 [facility] ALT [Catalytic activity/Vol] 37 U/L 13-56 [facility] CO2 [Moles/Vol] 28.0 mmol/L 21.0-32.0 [facility] Globulin (S) [Mass/Vol] 3.4 g/dL 2.2-4.2 [facility] Urea nitrogen/Creatinine [Mass ratio] 7.1 mg/mg 10-20 [facility] Laboratory - Hematology and Cell countsOrdered By: Chirag Matta on 11-03-2022 Erythrocyte distribution width (RBC) [Entitic vol] 46.5 fL 35.1-43.9 [facility] Erythrocyte distribution width (RBC) [Ratio] 12.9 % 11.6-14.6 [facility] Immature granulocytes/100 WBC (Bld) 0.500 % 0.0-0.9 [facility] Comment on above: IG% - Immature Granu locytes (promyelocytes, myelocytes and metamyelocytes) > 1% indicates that a LEFT SHIFT is Present. MCH (RBC) [Entitic mass] 33.3 pg 27.0-32.0 [facility] Nucleated RBC/100 WBC (Bld) [Ratio] 0 % 0-5 [facility] MCHC Auto (RBC) [Mass/Vol]Or dered By: Chirag Matta on 11-03-2022 MCHC (RBC) [Mass/Vol] 34.0 g/dL 32-36 [facility] No Panel InformationOrdered By: Chirag Matta on 11-03-2022 Stool Pancreatic Elastase [address] >200 [facility] Comment on above: Result Units: ug Domonique st./gResults verified by repeat testing Severe Pancreatic Insufficiency: <100 Moderate Pancreatic Insufficiency: 100 - 200 Normal: >200Performed at: [employer] [id number] Director: Epifanio Horne MD, Phone: [phone] Stool Calprotectin 22 ug/g 0-120 [facility] Comment on above: Concentration Interp retation Follow-Up<16 - 50 ug/g Normal None>50 -120 ug/g Borderline Re-evaluate in 4-6 weeks >120 ug/g Abnormal Repeat as clinically indicatedPerformed at: [employer] [id number] Director: Epifanio Horne MD, Phone: [phone] Endomysial IgA Antibody Negative Negative [facility] Estimated GFR (MDRD) Amer 116 mL/min >60 [facility] Comment on above: GFR Calc Estimated GFR (MDRD) Non-Af Amer 96 mL/min >60 [facility] Comment on above: Non- GFR Calc Platelets bldOrdered By: Misael Matta on 11-03-2022 Platelets (Bld) [#/Vol] 323 10*3/uL 150-450 [facility] Serum IgA measurement (units /volume)Ordered By: Chirag Matta on 11-03-2022 IgA Qn (S) 129 mg/dL 87-352 [facility] Comment on above: Performed at: [address] Director: Chele Simms PhD, Phone: [phone] Serum or plasma C reactive p rotein measurement (mass/volume)Ordered By: Chirag Matta on 11-03-2022 CRP [Mass/Vol] mg/L 0.0-3.0 [facility] Comment on above: C-Reactive Protein ( CRP) provides useful information for thediagnosis, therapy and monitoring of inflammatory processesand associated diseases. For the evaluation of Relative Riskfor Cardiovascular Disease, a High Sensitivity CRP (HSCRP)should be ordered. Serum or plasma albumin abby urement (mass/volume)Ordered By: Chirag Matta on 11-03-2022 Albumin [Mass/Vol] 4.1 g/dL 3.2-5.0 [facility] Serum or plasma albumin/glob ulin mass ratioOrdered By: Chirag Matta on 11-03-2022 Albumin/Globulin [Mass ratio] 1.2 {ratio} 0.9-2.4 [facility] Serum or plasma calcium abby urement (mass/volume)Ordered By: Chirag Matta on 11-03-2022 Calcium [Mass/Vol] 8.6 mg/dL 8.5-10.1 [facility] Serum or plasma creatinine m easurement (mass/volume)Ordered By: Chirag Matta on 11-03-2022 Creatinine [Mass/Vol] 0.70 mg/dL 0.55-1.02 [facility] Comment on above: The validity of the calculated GFR & GFRAA in patients over 70 years has not been determined. Clinical correlation is essential. Serum or plasma urea nitroge n measurement (mass/volume)Ordered By: Chirag Matta on 11-03-2022 Urea nitrogen [Mass/Vol] 5 mg/dL 7-18 [facility] Serum tissue transglutaminas e IgA antibody assay (units/volume)Ordered By: Chirag Matta on 11-03-2022 tTG IgA Qn (S) <2 U/mL 0-3 [facility] Comment on above: Negative 0 - 3 Weak Positive 4 - 10 Positive >10 Tissue Transglutaminase (tTG) has been identified as the endomysial antigen. Studies have demonstr- ated that endomysial IgA antibodies have over 99% specificity for gluten sensitive enteropathy. Stool lactoferrin detection by immunoassayOrdered By: Chirag Matta on 11-03-2022 Lactoferrin IA Ql (Stl) [facility] Thin prep Papanicolaou smear with manual screeningOrdered By: Chirag Matta on 11-03-2022 Thin prep Papanicolaou smear with manual screening 22 U/L 15-37 [facility] Thin prep Papanicolaou smear with manual screening 7 5-15 [facility] ALBINO SCREENING W Carole 05-10 [facility] No Panel Informationon 10-10 Miscellaneous Test See comment [facility] Work Phone: Comment on above: TEST RESULT LIMITSPa ncreatic Elastase, Fecal 214 ug Elast./g >200 Severe Pancreatic Insufficiency: <100 Moderate Pancreatic Insufficiency: 100 - 200 Normal: >200 [facility] ORIGINAL REPORT ON FILE IN LAB CONTAINS ADDITIONAL TEST SITE INFORMATION. HIV 1 and HIV-2 antibody ass ay with HIV-1 p24 antigen detectionon 10-05-2021 HIV 1+2 Ab+HIV1 p24 Ag IA Ql Non-Reactive Nonreactive [facility] Work Phone: Giardia lamblia ag stool EIA on 09-08-2021 G. lamblia Ag IA Ql (Stl) Negative Negative [facility] Work Phone: Comment on above: Performed at: [facility] [employer] [id number] Director: Chele Simms PhD, Phone: [phone] No Panel Informationon 09-08 Enteric Bacteriology Norovirus [facility] Work Phone: Miscellaneous Test See comment [facility] Work Phone: Comment on above: TEST RESULT LIMITSPa ncreatic Elastase, Fecal 67 Low ug Elast./g >200 Results verified by repeat testing Severe Pancreatic Insufficiency: <100 Moderate Pancreatic Insufficiency: 100 - 200 Normal: >200 TESTING PERFORMED AT [facility]. ORIGINAL REPORT ON FILE IN LAB CONTAINS ADDITIONAL TEST SITE INFORMATION. Stool Calprotectin <16 ug/g [facility] Work Phone: Comment on above: Concentration Interp retation Follow-Up<16 - 50 ug/g Normal None>50 -120 ug/g Borderline Re-evaluate in 4-6 weeks >120 ug/g Abnormal Repeat as clinically indicatedPerformed at: [facility] [employer] [id number] [id number] Director: Chele Simms PhD, Phone: [phone] at: [address], [place], [place] [id number] Director: Epifanio Horne MD, Phone: [phone] Stool Neutral Fats Normal [facility] Work Phone: Comment on above: Normal (<60 Droplets /HPF) Qualitative fecal fat or lip idson 09-08-2021 Fat Ql (Stl) Normal [facility] Work Phone: Comment on above: Normal (<100 Droplet s/HPF) Atypical perinuclear antineu trophil cytoplasmic antibodies measurementon 09-07-2021 Neutrophil cytoplasmic Ab.perinuclear.atypical IF (S) [Titer] <1:20 titer Neg:<1:20 [facility] Work Phone: Comment on above: The atypical pANCA p attern has been observed in asignificant percentage of patients with ulcerative colitis,primary sclerosing cholangitis and autoimmune hepatitis. Basophil percentageon 2021 Basophil percentage 0.2 AI [facility] Work Phone: Basophil percentage < 0.2 AI [facility] Work Phone: Erythrocyte sedimentation ra kalpana 09-07-2021 ESR (Bld) [Velocity] 8 mm/h 0-30 [facility] Work Phone: Laboratory - Chemistry and C hemistry - challengeon 09-07-2021 Cobalamin (Vitamin B12) [Mass/Vol] 537 pg/mL 211-911 [facility] Work Phone: No Panel Informationon 09-07 Centromere B Antibody <0.2 AI [facility] Work Phone: Endomysial IgA Antibody Negative Negative [facility] Work Phone: Immunoglobulin E 50 IU/mL [facility] Work Phone: DATA INTEGRITY ANALYST Antibody 0.[address] [facility] Work Phone: Thyroid Stimulating Hormone (TSH) 2.56 uIU/mL 0.358-3.74 [facility] Work Phone: Serum DNA double strand anti body assay (units/volume)on 09-07-2021 DNA double strand Ab Qn (S) 2 [IU]/mL [facility] Work Phone: Comment on above: Negative <5 Equivoca l 5 - 9 Positive >9 Serum Trisha-1 antibody assay (u nits/volume)on 09-07-2021 Trisha-1 extractable nuclear Ab Qn (S) <0.[address] [facility] Work Phone: Serum Scl-70 extractable nuc lear antibody assay (units/volume)on 09-07-2021 SCL-70 extractable nuclear Ab Qn (S) <0.2 [facility] Work Phone: Serum Ash extractable nucl ear antibody detectionon 09-07-2021 Ash extractable nuclear Ab Ql (S) <0.2 [facility] Work Phone: Serum classic neutrophil cyt oplasmic antibody assay (units/volume)on 09-07-2021 Neutrophil cytoplasmic Ab.classic Qn (S) <1:20 titer Neg:<1:20 [facility] Work Phone: Serum cyclic citrullinated p eptide IgG antibody assay (units/volume)on 09-07-2021 Cyclic citrullinated peptide IgG Qn [address] [facility] Work Phone: Comment on above: Negative <20 Weak po sitive 20 - 39 Moderate positive 40 - 59 Strong positive >59 Serum or plasma C reactive p rotein measurement (mass/volume)on 09-07-2021 CRP [Mass/Vol] mg/L 0.0-3.0 [facility] Work Phone: Comment on above: C-Reactive Protein ( CRP) provides useful information for thediagnosis, therapy and monitoring of inflammatory processesand associated diseases. For the evaluation of Relative Riskfor Cardiovascular Disease, a High Sensitivity CRP (HSCRP)should be ordered. Serum or plasma IgA measurem ent (mass/volume)on 09-07-2021 IgA [Mass/Vol] 95 mg/dL [facility] Work Phone: Serum or plasma IgG measurem ent (mass/volume)on 09-07-2021 IgG [Mass/Vol] 895 mg/dL [facility] Work Phone: Serum or plasma IgM measurem ent (mass/volume)on 09-07-2021 IgM [Mass/Vol] 92 mg/dL [facility] Work Phone: Comment on above: Performed at: - [employer] [address] [id number] Director: Chele Simms PhD, Phone: [phone] at: [facility] [id number] Director: Epifanio Horne MD, Phone: [phone] Serum perinuclear neutrophil cytoplasmic antibody titer by immunofluorescenceon 09-07-2021 Neutrophil cytoplasmic Ab.perinuclear IF (S) [Titer] <1:20 titer Neg:<1:20 [facility] Work Phone: Comment on above: The presence of posi tive fluorescence exhibiting P-ANCA orC-ANCA patterns alone is not specific for the diagnosis ofWegener's Granulomatosis (WG) or microscopic polyangiitis.Decisions about treatment should not be based solely onANCA IFA results. The International ANCA Group Consensusrecommends follow up testing of positive sera with both VT-3 and MPO-ANCA enzyme immunoassays. As many as 5% serumsamples are positive only by EIA. Ref. AM J Clin [place]4801;111:507-513. Serum rheumatoid factor dete ctionon 09-07-2021 Rheumatoid factor Ql (S) < 10.0 IU/mL <15 [facility] Work Phone: Serum tissue transglutaminas e IgA antibody assay (units/volume)on 09-07-2021 tTG IgA Qn (S) <2 U/mL [facility] Work Phone: Comment on above: Negative 0 - 3 Weak Positive 4 - 10 Positive >10 Tissue Transglutaminase (tTG) has been identified as the endomysial antigen. Studies have demonstr- ated that endomysial IgA antibodies have over 99% specificity for gluten sensitive enteropathy. Thin prep Papanicolaou smear with manual screeningon 09-07-2021 Thin prep Papanicolaou smear with manual screening 84 U/L 84-246 [facility] Work Phone: CNPRosey 05-13-2021 CNPN Telephone (UCWSTR) ZACHARIAH SPEARS ([id number]) 1975 F Date Time Provider Department 05/13/21 [facility]NSON [facility] During your visit today, we recorded the [...] Status:Closed by MADISON JOHNSON on 05/13/21 Normal [facility] CBC and Differentialon 05-12 Abs Baso 0.09 k/uL Normal <0.11 [facility] Comment on above: Performed By: #### C BCDIF #### [id number] [place], [place] [address] Abs Crane 0.69 k/uL Normal <0.87 [facility] Comment on above: Performed By: #### C BCDIF #### [address] [place], [place] [address] Abs Neut 4.89 k/uL Normal 1.45-7.50 [facility] Comment on above: Performed By: #### C BCDIF #### [address] [place], [place] [address] Absolute nRBC <0.01 Normal <0.01 [facility] Comment on above: Performed By: #### C BCDIF #### [facility] [employer] [address] [place], [place] [address] Basophils/100 WBC (Bld) 1.1 % Normal C [facility] Comment on above: Performed By: #### C BCDIF #### [facility] [employer] [address] [place], [place] [address] DTYPE Auto Diff Normal [facility] Comment on above: Performed By: #### C BCDIF #### [address] [place], [place] [address] Eosinophils (Bld) [#/Vol] 0.19 10*3/uL Normal <0.46 [facility] Comment on above: Performed By: #### C BCDIF #### [facility] [address] [place], [place] [address] Eosinophils/100 WBC (Bld) 2.4 % Normal [facility] Comment on above: Performed By: #### C BCDIF #### [address] [place], [place] [address] Erythrocyte distribution width (RBC) [Ratio] 12.8 % Normal 11.5-15.0 [facility] Comment on above: Performed By: #### C BCDIF #### [address] [place], [place] [address] Hematocrit (Bld) [Volume fraction] 39.1 % Normal 36.0-46.0 [facility] Comment on above: Performed By: #### C BCDIF #### [facility] [address] [place] [address] Hemoglobin (Bld) [Mass/Vol] 12.6 g/dL Normal 11.5-15.5 [facility] Comment on above: Performed By: #### C BCDIF #### [facility] [address] [place], [place] [address] Lymphocytes (Bld) [#/Vol] 2.00 10*3/uL Normal 1.00-4.00 [facility] Comment on above: Performed By: #### C BCDIF #### [facility] [address] [place] [address] Lymphocytes/100 WBC (Bld) 25.4 % Normal [facility] Comment on above: Performed By: #### C BCDIF #### [facility] [address] [place] [address] MCH 31.1 pG Normal 26.0-34.0 [facility] Comment on above: Performed By: #### C BCDIF #### [facility] [address] [place], [place] [address] MCHC (RBC) [Mass/Vol] 32.2 g/dL Normal 30.5-36.0 [facility] Comment on above: Performed By: #### C BCDIF #### [address] [place] [address] MCV (RBC) [Entitic vol] 96.5 fL Normal 80.0-100.0 [facility] Comment on above: Performed By: #### C BCDIF #### [address] [place] [address] Monocytes/100 WBC (Bld) 8.8 % Normal [facility] Comment on above: Performed By: #### C BCDIF #### [address] [place] [id number] Neutrophils/100 WBC (Bld) 62.3 % Normal [facility] Comment on above: Performed By: #### C BCDIF #### [address] [place] [phone] NRBCs 0.0 /100 WBC Normal 0 [facility] Comment on above: Performed By: #### C BCDIF #### [address] [place] [address] Platelet mean volume (Bld) [Entitic vol] 10.8 fL Normal 9.0-12.7 [facility] Comment on above: Performed By: #### C BCDIF #### [address] [place], [place] [address] Platelets (Bld) [#/Vol] 315 10*3/uL Normal 150-400 [facility] Comment on above: Performed By: #### C BCDIF #### [address] [place], [place] [address] RBC (Bld) [#/Vol] 4.05 10*6/uL Normal 3.90-5.20 [facility] Comment on above: Performed By: #### C BCDIF #### [facility] [address] [place], [place] [address] WBC (Bld) [#/Vol] 7.86 10*3/uL Normal 3.70-11.00 [facility] Comment on above: Performed By: #### C BCDIF #### [facility] [address] [place], [place] [address] CNOVon 05-12-2021 CNOV Office Visit (UCWSTR ) ZACHARIAH SPEARS ([id number]) 1975 F Date Time Provider Department 05/12/21 12:30 PM [facility] During your visit today, we recorded the following information about you: Temperature Pulse Respiration Blood pressure 98.2 degrees 82/minute 14/minute 112/72 Weight 76.7 kg Madison Johnson APRN.LUBRICATION TECHNICIAN 05/12/2021 1:37 PM Signed Will check cbc [...] to follow up with Dr. Roopa Johnson APRN.LUBRICATION TECHNICIAN 05/12/2021 1:42 PM Signed Subjective The history is provided by the patient. No speech language specialist was used. HPI Zachariah Spears is a [...] have confirmed and edited as necessary, the [facility] Review of Systems Constitutional: Negative for chills [...] detail warranting prompt ER evaluation. Madison Johnson APRN.LUBRICATION TECHNICIAN Referring Provider: SELF [200] Allergies As of Date: 05/12/2021 Noted Allergy Reaction AMOXICILLIN 09/21/2015 16 - Unknown CORTISONE 09/30/2015 4 - Hives DOXYCYCLINE 09/21/2015 16 - Unknown PENICILLINS 03/09/2005 16 - Unknown Comments: childhood Date Reviewed: 05/12/2021 Reviewed by: Ankita Bates MA - Fully Assessed Reason for Visit: Neck Pain [135] Cmt: L (more content not included)... Normal [facility] DIAGNOSTIC BILon 020 [facility] DIAGNOSTIC ESAU * * *Final Report* * * DATE OF EXAM: Oct 08 2019 1:42PM GINGERW 0620 - [facility] DIAGNOSTIC ESAU / PROCEDURE REASON: Breast pain, left * * * * Physician Interpretation * * * * #[id number] - [facility] DIAGNOSTIC ESAU #[id number] - [facility] US BREAST LTD LT BILATERAL DIGITAL DIAGNOSTIC MAMMOGRAM WITH CAD: 10/08/2019 HISTORY: Patient presents with left breast pain. RESULT: TECHNIQUE: The study was acquired using full field digital technology and interpreted from soft copy. Current study was also evaluated with a Computer Aided Detection (CAD). Comparison is made to exams dated: 11/05/2018 mammogram, 10/26/2017 mammogram, 05/15/2017 mammogram, and 03/08/2016 mammogram - [facility]. There are scattered fibroglandular elements in [...] mammogram, 05/15/2017 mammogram, and 03/08/2016 mammogram - [facility]. Real-time ultrasound of the left breast 5-7 [...] Health, Family Medicine, and Medical/Surgical Oncology, the [facility] has carefully reviewed the data and reached [...] their providers when to stop screening mammograms. Lactation Coordinator(s): Pavan Lara)(M), [facility]; Jodi Luna R.D.MRobertoS., [facility] OVERALL STUDY BIRADS: 1 Negative Grants Analyst: Mati Transcribe Date/Time: Oct 08 2019 1:42P Dictated by : NELIA LARES MD This examination was interpreted and the report reviewed and electronically signed by: NELIA LARES MD on Oct 08 2019 2:46PM EST Normal [facility] [employer] US BREAST LTD LTon 10-07 [employer] US BREAST LTD LT * * *Final Report* * * DATE OF EXAM: Oct 08 2019 2:47PM AAW 0593 - [employer] US BREAST LTD LT / PROCEDURE REASON: Breast pain, left * * * * Physician Interpretation * * * * #[id number] - [facility] DIAGNOSTIC ESAU #[id number] - [employer] US BREAST LTD LT BILATERAL DIGITAL DIAGNOSTIC MAMMOGRAM WITH CAD: 10/08/2019 HISTORY: Patient presents with left breast pain. RESULT: TECHNIQUE: The study was acquired using full field digital technology and interpreted from soft copy. Current study was also evaluated with a Computer Aided Detection (CAD). Comparison is made to exams dated: 11/05/2018 mammogram, 10/26/2017 mammogram, 05/15/2017 mammogram, and 03/08/2016 mammogram - [facility]. There are scattered fibroglandular elements in both [...] mammogram, 05/15/2017 mammogram, and 03/08/2016 mammogram - [facility]. Real-time ultrasound of the left breast 5-7 [...] Health, Family Medicine, and Medical/Surgical Oncology, the [facility] has carefully reviewed the data and reached [...] their providers when to stop screening mammograms. Lactation Coordinator(s): Donn Lara(R)(M), [facility]; Jodi Luna R.D.M.S., [facility] OVERALL STUDY BIRADS: 1 Negative Grants Analyst: Mati Transcribe Date/Time: Oct 08 2019 1:42P Dictated by : NELIA LARES MD This examination was interpreted and the report reviewed and electronically signed by: NELIA LARES MD on Oct 08 2019 2:46PM EST Normal [facility] DIAGNOSTIC LTon 05-20-20 [facility] DIAGNOSTIC LT * * *Final Report* * * * * * SEE BOTTOM OF REPORT FOR ADDENDED TEXT * * * DATE OF EXAM: May 20 2019 11:07AM AAW 0621 - [facility] DIAGNOSTIC LT / PROCEDURE REASON: Abnormal finding on breast imaging * * * * Physician Interpretation * * * * FINAL REPORT #[id number] - [facility] US BIOPSY BREAST LT #[id number] - [facility] DIAGNOSTIC LT #[id number] - MRI BREAST CLIP PLACEMENT LT - ULTRASOUND GUIDED BIOPSY LEFT BREAST WITH MARKING [...] undergo the procedure. Dr. Lares and a fish technologist were present throughout the entire procedure. Audible Time Out Time: 1019 Procedure Start Time: 1021 Procedure Stop Time: 1037 Dr. Lares performed the entire procedure without an appeals assistant. PROCEDURE: Correlation is made to exams dated: 05/13/2019 ultrasound - [facility] and 05/06/2019 breast MRI - Mri [facility]. An ultrasound guided biopsy using real-time ultrasound [...] Nelia aldana/mati:05/22/2019 15:53:34 Attending Technologist(s): Delores Victoria, [facility] Lactation Coordinator(s): Donn Travis(MR), [facility]; Ana Garcia, [facility], [facility]; Patricia Torres, [facility] Multiple national specialty organizations have released breast cancer screening guidelines for women at average risk for developing breast cancer - guidelines that are based on both evidence and opinion, yet differ on when to start and how often to screen for breast cancer. With representation from Breast Imaging, Internal Medicine, Women's Health, Family Medicine, and Medical/Surgical Oncology, the [facility] has carefully reviewed the data and reached [...] their providers when to stop screening mammograms. Grants Analyst: Mati Transcribe Date/Time: May 20 2019 9:46A Dictated by : NELIA LARES MD This examination was interpreted and the report reviewed and electronically signed by: NELIA LARES MD on May 20 2019 1:39PM EST This document has been addended by: NELIA LARES MD on May 22 2019 3:53PM EST Normal [facility] US BIOPSY BREAST LTon [facility] US BIOPSY BREAST LT * * *Final Repor t* * * * * * SEE BOTTOM OF REPORT FOR ADDENDED TEXT * * * DATE OF EXAM: May 20 2019 10:44AM AAW 0597 - [facility] US BIOPSY BREAST LT / PROCEDURE REASON: Abnormal finding on breast imaging * * * * Physician Interpretation * * * * FINAL REPORT #[id number] - [facility] US BIOPSY BREAST LT #[id number] - [facility] LT #[id number] - MRI BREAST CLIP PLACEMENT LT -NB [...] undergo the procedure. Dr. Lares and a fish technologist were present throughout the entire procedure. Audible Time Out Time: 1019 Procedure Start Time: 1021 Procedure Stop Time: 1037 Dr. Lares performed the entire procedure without an appeals assistant. PROCEDURE: Correlation is made to exams dated: 05/13/2019 ultrasound - [facility] and 05/06/2019 breast MRI - Mri [facility]. An ultrasound guided biopsy using real-time ultrasound [...] Nelia aldana/mati:05/22/2019 15:53:34 Attending Technologist(s): Delores Victoria, [facility] Lactation Coordinator(s): Donn Travis(), [facility]; Ana Garcia [facility], [facility] [place]; Patricia Torres, [facility] [place] Multiple national specialty organizations have released breast cancer screening guidelines for women at average risk for developing breast cancer - guidelines that are based on both evidence and opinion, yet differ on when to start and how often to screen for breast cancer. With representation from Breast Imaging, Internal Medicine, Women's Health, Family Medicine, and Medical/Surgical Oncology, the [facility] has carefully reviewed the data and reached [...] their providers when to stop screening mammograms. Grants Analyst: Mati Transcribe Date/Time: May 20 2019 9:46A Dictated by : NELIA LARES MD This examination was interpreted and the report reviewed and electronically signed by: NELIA LARES MD on May 20 2019 1:39PM EST This document has been addended by: NELIA LARES MD on May 22 2019 3:53PM EST Normal [facility] MRI BREAST CLIP PLACEMENT LT -NBon 05-20-2019 MRI BREAST CLIP PLACEMENT LT -NB * * *Final Report* * * * * * SEE BOTTOM OF REPORT FOR ADDENDED TEXT * * * DATE OF EXAM: May 20 2019 11:40AM [place] 0765 - MRI BREAST CLIP PLACEMENT LT -NB / PROCEDURE REASON: Breast lump * * * * Physician Interpretation * * * * FINAL REPORT #[id number] - [facility] US BIOPSY BREAST LT #[id number] - [facility] LT #[id number] - MRI BREAST CLIP PLACEMENT LT -NB [...] undergo the procedure. Dr. Lares and a fish technologist were present throughout the entire procedure. Audible Time Out Time: 1019 Procedure Start Time: 1021 Procedure Stop Time: 1037 Dr. Lares performed the entire procedure without an appeals assistant. PROCEDURE: Correlation is made to exams dated: 05/13/2019 ultrasound - [facility] and 05/06/2019 breast MRI - Mri [facility]. An ultrasound guided biopsy using real-time ultrasound [...] location, three cores were obtained using a [employer] biopsy device. A coil type clip was [...] Nelia aldana/mati:05/22/2019 15:53:34 Attending Technologist(s): Delores Victoria, [facility] Lactation Coordinator(s): Donn Travis(MR), [facility]; Ana Garcia [facility], [facility] [place]; Patricia Torres, [facility] Multiple national specialty organizations have released breast cancer screening guidelines for women at average risk for developing breast cancer - guidelines that are based on both evidence and opinion, yet differ on when to start and how often to screen for breast cancer. With representation from Breast Imaging, Internal Medicine, Women's Health, Family Medicine, and Medical/Surgical Oncology, the [facility] has carefully reviewed the data and reached [...] their providers when to stop screening mammograms. Grants Analyst: Mati Transcribe Date/Time: May 20 2019 9:46A Dictated by : NELIA LARES MD This examination was interpreted and the report reviewed and electronically signed by: NELIA LARES MD on May 20 2019 1:39PM EST This document has been addended by: NELIA LARES MD on May 22 2019 3:53PM EST Normal [facility] Surgical Tissue Examon 05-20 Surgical Tissue Exam Test performed at [place] [address] NAME: ZACHARIAH SPEARS REQUESTING: DILCIA DELUCA M.D. COPY TO: NELIA LARES; [facility] FINAL DIAGNOSIS: BREAST, LEFT, CORE [...] PRINTED: 05/22/2019 Page 1 of 1 Normal [facility] Comment on above: Performed By: #### S URG #### [address] US BREAST LTD LTon 05-13 [employer] US BREAST LTD LT * * *Final Report* * * DATE OF EXAM: May 13 2019 2:01PM LETY 0593 - [employer] US BREAST LTD LT / PROCEDURE REASON: Abnormal finding on breast imaging * * * * Physician Interpretation * * * * #[id number] - [facility] US BREAST LTD LT LIMITED ULTRASOUND OF LEFT BREAST: 05/13/2019 HISTORY: Second look ultrasound following abnormal MRI. RESULT: Comparison is made to exam dated: 05/06/2019 breast MRI - Mri [facility]. Color flow, real-time, and continuous wave Doppler [...] consent in the office today. Dr. Neeraj Rojo M.D. aneudy/mati:05/13/2019 14:10:35 Lactation Coordinator(s): Aura Torre R.D.M.S., [facility] Ultrasound BI-RADS: 4 Suspicious finding - [...] Health, Family Medicine, and Medical/Surgical Oncology, the [facility] has carefully reviewed the data and reached [...] their providers when to stop screening mammograms. Grants Analyst: Mati Transcribe Date/Time: May 13 2019 12:48P Dictated by : NEERAJ ROJO MD This examination was interpreted and the report reviewed and electronically signed by: NEERAJ ROJO MD on May 13 2019 2:10PM EST Normal [facility] MRI BREAST WO/W IVCON BILon 05-06-2019 MRI BREAST WO/W IVCON ESAU * * *Final Report* * * DATE OF EXAM: May 06 2019 2:14PM AWM 0773 - MRI BREAST WO/W IVCON ESAU / PROCEDURE REASON: multiple diagnoses * * * * Physician Interpretation * * * * #[id number] - MRI BREAST WO/W IVCON ESAU SCREENING BREAST MRI OF BOTH BREASTS- WITH CAD: 05/06/2019 CLINICAL: Patient at documented high risk for breast cancer, presenting for MRI screening exam. Comparison is made to exams dated: 05/04/2018 breast MRI, 10/12/2017 breast MRI, 09/26/2016 breast MRI, 09/11/2015 breast MRI - Mri [facility], 10/26/2017 MRI biopsy - Mri [facility], and 11/05/2018 mammogram - [facility] [place]. Interpretation of this MRI was correlated with [...] results and follow up. Nelia aldana/mati:05/06/2019 15:39:55 Lactation Coordinator(s): RT Karina (R) (MR), [facility] MRI BI-RADS: 4a Suspicious abnormality - low suspicion for malignancy Grants Analyst: Mati Transcribe Date/Time: May 06 2019 1:48P Dictated by : NELIA LARES MD This examination was interpreted and the report reviewed and electronically signed by: NELIA LARES MD on May 06 2019 3:39PM EST Normal [facility] Vital Signs Date Time Vital Sign Value Performing Clinician Tashi lamont 12-30-2024 16:15-0400 Body temperature 98.7 [degF] Indy Barajas LEVELER HELPER-C Work Phone: [facility] 12-30-2024 16:15-0400 Diastolic blood pressure 80 mm[Hg] Indy Barajas LEVELER HELPER-C Work Phone: [facility] 12-30-2024 16:15-0400 Heart rate 87 /min Indy Barajas LEVELER HELPER-C Work Phone: [facility] 12-30-2024 16:15-0400 Respiratory rate 15 /min Indybrice Barajas LEVELER HELPER-C Work Phone: [facility] 12-30-2024 16:15-0400 SaO2% (BldA) [Mass fraction] 98 % Indy Barajas LEVELER HELPER-C Work Phone: [facility] 12-30-2024 16:15-0400 Systolic blood pressure 128 mm[Hg] Indybrcie Barajas LEVELER HELPER-C Work Phone: [facility] 12-30-2024 12:04-0400 Body mass index (BMI) [Ratio] 28.8 kg/m2 Indy Karl LEVELER HELPER-C Work Phone: [facility] 12-30-2024 12:04-0400 Body weight 71.6 kg Indy Karl LEVELER HELPER-C Work Phone: [facility] 12-30-2024 10:38-0400 Body height 157.48 cm Indy Karl LEVELER HELPER-C Work Phone: [facility] 12-13-2024 00:04-0400 Body temperature 97.9 [degF] Indy Karl LEVELER HELPER-C Work Phone: [facility] 12-13-2024 00:04-0400 Diastolic blood pressure 63 mm[Hg] Indy Karl LEVELER HELPER-C Work Phone: [facility] 12-13-2024 00:04-0400 Heart rate 116 /min Indy Karl LEVELER HELPER-C Work Phone: [facility] 12-13-2024 00:04-0400 Respiratory rate 20 /min Indy Bowmangar LEVELER HELPER-C Work Phone: [facility] 12-13-2024 00:04-0400 SaO2% (BldA) [Mass fraction] 100 % Indy Karl LEVELER HELPER-C Work Phone: [facility] 12-13-2024 00:04-0400 Systolic blood pressure 113 mm[Hg] Indy Karl LEVELER HELPER-C Work Phone: [facility] 12-12-2024 21:03-0400 Body height 157.48 cm Indy Karl LEVELER HELPER-C Work Phone: [facility] 12-12-2024 21:03-0400 Body mass index (BMI) [Ratio] 28.9 kg/m2 Indy Karl LEVELER HELPER-C Work Phone: [facility] 12-12-2024 21:03-0400 Body weight 71.75 kg Indy Barajas LEVELER HELPER-C Work Phone: [facility] 02-15-2024 09:03-0400 Body height 157.5 cm Vinita Tobar MD Work Phone: [facility] 02-15-2024 09:03-0400 Body mass index (BMI) [Ratio] 28.9 kg/m2 Vinita Tobar MD Work Phone: [facility] 02-15-2024 09:03-0400 Body weight 71.67 kg Vinita Tobar MD Work Phone: [facility] 02-15-2024 09:03-0400 Diastolic blood pressure 97 mm[Hg] Vinita Tobar MD Work Phone: [facility] 02-15-2024 09:03-0400 Heart rate 77 /min Vinita Tobar MD Work Phone: [facility] 02-15-2024 09:03-0400 Systolic blood pressure 147 mm[Hg] Vinita Tobar MD Work Phone: [facility] 09-14-2023 08:58-0400 Body height 157.48 cm LEVELER HELPER-C Indy Barajas Work Phone: [facility] 09-14-2023 08:58-0400 Body mass index (BMI) [Ratio] 29.1 kg/m2 LEVELER HELPER-C Indy Barajas Work Phone: [facility] 09-14-2023 08:58-0400 Body weight 72.34 kg LEVELER HELPER-C Indy Barajas Work Phone: [facility] 05-11-2023 10:01-0500 Body height 160 cm Dilcia Deluca MD Work Phone: [facility] 05-11-2023 10:01-0500 Body weight 70.31 kg Dilcia Deluca MD Work Phone: [facility] 05-11-2023 10:01-0500 Diastolic blood pressure 80 mm[Hg] Dilcia Deluca MD Work Phone: [facility] 05-11-2023 10:01-0500 Heart rate 81 /min Dilcia Deluca MD Work Phone: [facility] 05-11-2023 10:01-0500 Systolic blood pressure 115 mm[Hg] Dilcia Deluca MD Work Phone: [facility] 05-11-2022 11:33-0500 Body temperature 98.6 [degF] Dr. Oscar Blas Work Phone: [facility] Work Phone: 05-11-2022 11:33-0500 Diastolic blood pressure 80 mm[Hg] Dr. Oscar Blas Work Phone: [facility] Work Phone: 05-11-2022 11:33-0500 Heart rate 78 /min Dr. Oscar Blas Work Phone: [facility] Work Phone: 05-11-2022 11:33-0500 Respiratory rate 18 /min Dr. Oscar Blas Work Phone: [facility] Work Phone: 05-11-2022 11:33-0500 SaO2% (BldA) [Mass fraction] 94 % Dr. Oscar Blas Work Phone: [facility] Work Phone: 05-11-2022 11:33-0500 Systolic blood pressure 114 mm[Hg] Dr. Oscar Blas Work Phone: [facility] Work Phone: 05-11-2022 11:22-0500 Body height 160.[address] Oscar Blas Work Phone: [facility] Work Phone: 05-11-2022 10:21-0500 Body mass index (BMI) [Ratio] 28.5 kg/m2 Dr. Oscar Blas Work Phone: [facility] Work Phone: 05-11-2022 10:21-0500 Body weight [address] Oscar Blas Work Phone: [facility] Work Phone: 02-21-2022 07:11-0400 Body mass index (BMI) [Ratio] 29.6 kg/m2 Dr. Oscar Blas Work Phone: [facility] Work Phone: 02-21-2022 07:11-0400 Body temperature 98.5 [degF] Dr. Oscar Blas Work Phone: [facility] Work Phone: 02-21-2022 07:11-0400 Body weight 73.[address] Oscar Blas Work Phone: [facility] Work Phone: 02-21-2022 07:11-0400 Diastolic blood pressure 72 mm[Hg] Dr. Oscar Blas Work Phone: [facility] Work Phone: 02-21-2022 07:11-0400 Heart rate 86 /min Dr. Oscar Blas Work Phone: [facility] Work Phone: 02-21-2022 07:11-0400 Respiratory rate 14 /min Dr. Oscar Blas Work Phone: [facility] Work Phone: 02-21-2022 07:11-0400 SaO2% (BldA) [Mass fraction] 99 % Dr. Oscar Blas Work Phone: [facility] Work Phone: 02-21-2022 07:11-0400 Systolic blood pressure 124 mm[Hg] Dr. Oscar Blas Work Phone: [facility] Work Phone: 01-17-2022 14:07-0400 Body mass index (BMI) [Ratio] 30.6 kg/m2 Dr. Oscar Blas Work Phone: [facility] Work Phone: 01-17-2022 14:07-0400 Body temperature 97.9 [degF] Dr. Oscar Blas Work Phone: [facility] Work Phone: 01-17-2022 14:07-0400 Body weight 75.[address] Oscar Blas Work Phone: [facility] Work Phone: 01-17-2022 14:07-0400 Diastolic blood pressure 75 mm[Hg] Dr. Oscar Blas Work Phone: [facility] Work Phone: 01-17-2022 14:07-0400 Heart rate 70 /min Dr. Oscar Blas Work Phone: [facility] Work Phone: 01-17-2022 14:07-0400 Respiratory rate 18 /min Dr. Oscar Blas Work Phone: [facility] Work Phone: 01-17-2022 14:07-0400 SaO2% (BldA) [Mass fraction] 98 % Dr. Oscar Blas Work Phone: [facility] Work Phone: 01-17-2022 14:07-0400 Systolic blood pressure 123 mm[Hg] Dr. Oscar Blas Work Phone: [facility] Work Phone: 11-24-2021 07:31-0400 Body temperature 97.2 [degF] Dr. Marium Jeffery Work Phone: [facility] Work Phone: 11-24-2021 07:31-0400 Diastolic blood pressure 78 mm[Hg] Dr. Marium Jefefry Work Phone: [facility] Work Phone: 11-24-2021 07:31-0400 Heart rate 77 /min Dr. Marium Jeffery Work Phone: [facility] Work Phone: 11-24-2021 07:31-0400 Respiratory rate 16 /min Dr. Marium Jeffery Work Phone: [facility] Work Phone: 11-24-2021 07:31-0400 SaO2% (BldA) [Mass fraction] 98 % Dr. Marium Jeffery Work Phone: [facility] Work Phone: 11-24-2021 07:31-0400 Systolic blood pressure 110 mm[Hg] Dr. Marium Jeffery Work Phone: [facility] Work Phone: 11-24-2021 05:57-0400 Body height 160.[address] Marium Jeffery Work Phone: [facility] Work Phone: 11-24-2021 05:57-0400 Body mass index (BMI) [Ratio] 29.2 kg/m2 Dr. Marium Jeffery Work Phone: [facility] Work Phone: 11-24-2021 05:57-0400 Body weight [address] Marium Jeffery Work Phone: [facility] Work Phone: Encounters Encounter Date Encounter Type Care Provider Facility Start: 01-15-2025 ambulatory Shannon Johnson Facility:[facility] Start: 01-06-2025 End: 01-06-2025 ambulatory Indy Barajas LEVELER HELPER-C Work Phone: -Mesha Pierson [facility] Start: 01-06-2025 End: 01-06-2025 Patient encounter procedure Indy Barajas LEVELER HELPER-C -Laboratory Eda Pierson [facility] Start: 01-06-2025 End: 01-06-2025 ambulatory Indy Barajas Facility:[facility] Start: 12-30-2024 End: 12-30-2024 Emergency department patient visit Indy Barajas LEVELER HELPER-C Work Phone: -Emergency Department Work Phone: Start: 12-13-2024 End: 12-13-2024 ambulatory Indy Barajas LEVELER HELPER-C Work Phone: [facility] Work Phone: Start: 12-13-2024 End: 12-13-[address] Abdullahi Martinez MD -[facility] Start: 12-12-2024 End: 12-13-2024 Emergency department patient visit Indy Barajas LEVELER HELPER-C Work Phone: -Emergency Department Work Phone: Start: 02-15-2024 End: 02-15-2024 Telephone encounter Vinita Tobar MD Work Phone: [facility] Comment on above: Release Of Medical R ecords (Thyroid function test) Start: 02-15-2024 End: 02-15-2024 Patient encounter procedure Vinita Tobar MD Work Phone: [facility] Comment on above: Acquired hypothyroid ism (Primary Dx); Intestinal malabsorption, unspecified type Start: 02-15-2024 End: 02-15-2024 ambulatory CHIRAG B FRIEND Facility:[facility] Start: 01-29-2024 End: 01-29-2024 ambulatory Indy Barajas Facility:[facility] Start: 01-29-2024 End: 01-29-2024 ambulatory Indy Barajas Facility:[facility] Start: 10-23-2023 End: 10-23-2023 ambulatory LEVELER HELPER-C Indy Barajas Work Phone: [facility] Work Phone: Start: 10-23-2023 End: 10-23-2023 Discharged Recurring LEVELER HELPER-C Indy Barajas [facility] Work [facility]: Start: 09-14-2023 End: 09-14-2023 Patient encounter procedure LEVELER HELPER-C Indy Barajas Work Phone: [facility] Work Phone: Start: 09-11-2023 End: 09-11-2023 ambulatory LEVELER HELPER-C Indy Barajas Work Phone: [facility] Work Phone: Start: 09-11-2023 End: 09-11-2023 Patient encounter procedure LEVELER HELPER-C Indy Barajas Work Phone: [facility] [place] Work Phone: Start: 08-03-2023 End: 08-03-2023 Patient encounter procedure LEVELER HELPER-C Indy Barajas Work Phone: [facility] Work Phone: Start: 05-26-2023 End: 05-26-[address] Moore [facility] Work Phone: Start: 05-26-2023 End: 05-26-[address] [facility] Start: 05-22-2023 End: 05-22-[address] Moore [facility] Work Phone: Start: 05-22-2023 End: 05-22-[address] [facility] Start: 05-11-2023 Documentation procedure Mammog priyank Coordinator [facility] Start: 05-11-2023 Letter encounter Mammography Coordinator [facility] NOT LISTED Start: 05-11-2023 End: 05-11-2023 Patient encounter procedure Dilcia Deluca MD Work Phone: [facility] Comment on above: Fibrocystic breast d isease (FCBD) in female, unspecified laterality (Primary Dx); Visit for screening mammogram Start: 05-11-2023 End: 05-11-2023 ambulatory DILCIA DELUCA Facility:[facility] Start: 05-11-2023 End: 05-11-2023 Subsequent hospital visit by physician Screen Mammo [facility] RADIO MAMMO REFLE[facility] Comment on above: screen Start: 05-09-2023 End: 05-09-[address] [facility]as [facility] Work Phone: Start: 05-09-2023 End: 05-09-[address] Oscar Blas [facility] Work Phone: Start: 11-16-2022 End: 11-16-[address] Oscar Blas Work Phone: [facility] Work Phone: Start: 11-16-2022 End: 11-16-[address] [facility] Start: 11-03-2022 End: 11-03-[address] Oscar Blas Work Phone: [facility] Start: 08-18-2022 End: 08-18-[address] Oscar Blas Work Phone: [facility] Start: 05-11-2022 End: 05-11-[address] Oscar Blas Work Phone: [facility] Start: 05-11-2022 Non-patient / Non-visit Dr. Rios Blas Work Phone: [facility] Start: 05-11-2022 End: 05-11-2022 Admission to same day surgery center Dr. Oscar Blas Work Phone: [facility] Start: 05-11-2022 End: 05-11-[address] Oscar Blas Work Phone: [facility] Work Phone: Start: 05-10-2022 End: 05-10-2022 Subsequent hospital visit by physician Screen M[facility] RADIO MAMMO REFLECTIONS [facility] Comment on above: Visit for screening mammogram [Z12.31] Start: 03-03-2022 End: 03-03-[address] Oscar Blas Work Phone: [facility] Start: 02-21-2022 End: 02-21-[address] Oscar Blas Work Phone: [facility] Start: 01-17-2022 End: 01-17-[address] Oscar Blas Work Phone: [facility] Start: 12-03-2021 End: 12-03-[address] Marium Jeffery Work Phone: [facility] Start: 11-24-2021 Non-patient / Non-visit Dr. Davie Jeffery Work Phone: [facility] Start: 11-24-2021 End: 11-24-2021 Admission to same day surgery center Dr. Marium Jeffery Work Phone: [facility] Start: 10-21-2021 End: 10-21-[address] Marium Jeffery Work Phone: [facility] Start: 10-11-2021 End: 10-11-[address] Marium Jeffery Work Phone: [facility] Start: 10-05-2021 End: 10-05-[address] Marium Jeffery Work Phone: [facility] Start: 09-09-2021 End: 09-09-[address] Marium Jeffery Work Phone: [facility] Start: 09-07-2021 End: 09-07-[address] Marium Jeffery Work Phone: [facility] Start: 09-07-2021 End: 09-07-[address] Marium Jeffery Work Phone: [facility] Start: 09-01-2021 End: 09-01-[address] Marium Jeffery Work Phone: [facility] Start: 05-15-2009 Patient encounter status [facility] Work Phone: Procedures Date Procedure Procedure Detail Performing Clinician Start: 12-30-2024 CT angiography of chest with contrast Indy Barajas LEVELER HELPER-C Work Phone: Start: 12-30-2024 D-dimer assay, quantitative Indy Barajas LEVELER HELPER-C Work Phone: Comment on above: CRITICAL VALUE CALLED TO Lex MEDEL ER12/30/24 1211 Pamela Alfaro.RESULTS READ BACK BY SAME. D-Dimer ELEVATED (>0.49): Additional studies and clinicalassessments are indicated to conclude diagnosis of:Deep Vein Thrombosis (DVT) or Pulmonary Embolism (PE) Start: 12-30-2024 Estimated creatinine clearance Indy powers LEVELER HELPER-C Work Phone: Start: 12-30-2024 X-ray of chest, PA and lateral views Indy Barajas LEVELER HELPER-C Work Phone: Start: 12-13-2024 X-ray of lumbosacral spine Indy Barajas LEVELER HELPER-C Work Phone: Start: 12-12-2024 CT of head without contrast Indy Barajas LEVELER HELPER-C Work Phone: Start: 09-14-2023 X-ray of lumbosacral spine LEVELER HELPER-C Indy E dgar Work Phone: Start: 09-11-2023 Radiography of thoracic spine LEVELER HELPER-C Racpillo l Karl Work Phone: Start: 09-11-2023 X-ray of lumbosacral spine LEVELER HELPER-C Indy E dgar Work Phone: Start: 05-11-2023 Screening digital breast tomosynthesis bi Dilcia Deluca MD Work Phone: Start: 05-11-[address] Oscar valadez Work Phone: Start: 05-10-2022 ALBINO SCREENING W MANUELA Dilcia Deluca MD Work Phone: Start: 05-10-2022 Mammography [...] Treatment Date Care Activity Detail Author Start: 01-06-[address] [facility] Start: 12-30-2024 [facility] Start: 12-30-2024 [facility] Start: 12-13-2024 X-ray of lumbosacral spine L/S Spine Min [address] [facility] Start: 12-13-2024 XR Spine Lumbar and Sacrum GE [address] [facility] Start: 12-12-2024 [facility] Start: 05-21-2024 End: 05-21-2024 Patient encounter procedure 05/21/2024 11:40 AM EST Office Visit [facility] [address] [place] [address] Vinita Tobar MD [address] [place] [address] 3 months [facility] Comment on above: 3 months Start: 05-17-2024 End: 08-13-2024 Thyrotropin [Units/volume] in Serum or Plasma THYROID STIMULATING HORMONE Lab Routine Acquired hypothyroidism Expected: 05/17/2024 (Approximate), Expires: 08/13/2024 [facility] Work Phone: Comment on above: Expected: 05/17/2024 (Approximate), Expires: 08/13/2024 Start: 05-17-2024 End: 08-13-2024 Thyroxine (T4) free [Mass/volume] in Serum or Plasma T4 FREE/FREE THYROXINE Lab Routine Acquired hypothyroidism Expected: 05/17/2024 (Approximate), Expires: 08/13/2024 [facility] Comment on above: Expected: 05/17/2024 (Approximate), Expires: 08/13/2024 Start: 05-11-2024 Mammography Mammogram Screening [facility] Start: 05-11-2024 Screening for malign ant neoplasm of breast Mammogram Screening [facility] Start: 02-25-2024 Influenza vaccination Influenza Vacc ine (#1) [facility] Start: 09-14-2023 Patient referral [facility] Work Phone: Start: 09-14-2023 X-ray of lumbosacral spine L/S Spine Bending Flex/Ext [facility] Start: 09-14-2023 XR Spine Lumbar and Sacrum Views [facility] Start: 05-26-2023 [facility] Start: 05-10-2023 Mammography MAMMOGRAM [facility] Start: 05-09-2023 [facility] Start: 02-24-2023 Covid-19 Vaccine ( season) Covid-19 Vaccine () [facility] Start: 02-24-2023 Influenza vaccination Influenza Vacc ine (#1) [facility] Start: 06-26-2022 Depression Assessment Depression Ass essment [facility] Start: 05-11-2022 Patient discharge [facility] Work Phone: Start: 02-24-2022 Influenza vaccination INFLUENZA (#1) [facility] Start: 11-24-2021 Colonoscopy w/biopsy single/multiple COLONOSCOPY AND BIOPSY [facility] Work Phone: Start: 11-24-2021 Colsc flx w/rmvl of tumor polyp lesion snare tq COLONOSCOPY W/LESION REMOVAL [facility] Work Phone: Start: 11-24-2021 Egd transoral biopsy single/multiple EGD BIOPSY SINGLE/MULTIPLE [facility] Work Phone: Start: 2021 COLOGUARD (FIT-DNA) COLOGUARD (FIT-D NA) [facility] Start: 2021 Colonoscopy COLONOSCOPY [facility] Start: 2021 COLORECTAL CANCER SCREENING COLORECTAL CANCER SCREENING [facility] Start: [address] COLONOGRAPHY [facility] Start: 2021 DIABETES SCREEN DIABETES SCREEN [facility] Start: 2021 Diabetes Screening Diabetes Screenin g [facility] Start: 2021 FECAL OCCULT BLOOD FECAL OCCULT BLOO D [facility] Start: 2021 Lipid 1996 panel - Serum or Plasma Lipid Screening [facility] Start: 2021 Lipid panel Lipid Screening [facility] Start: 2021 LIPID SCREEN LIPID SCREEN [facility] Start: 2021 Screening for malign ant neoplasm of colon [facility] Start: 2021 SIGMOIDOSCOPY SIGMOIDOSCOPY [facility] Start: 09-19-2021 COVID-19 VACCINE (4 - Booster for Moderna series) COVID-19 VACCINE (4 - Booster for Moderna series) [facility] Start: 06-26-2021 DEPRESSION ASSESSMENT DEPRESSION ASS ESSMENT [facility] Start: 08-23-2020 Urine microalbumin profile [facility] Start: 11-28-2015 PAP TESTING PAP TESTING [facility] Start: 11-28-2015 Screening for malign ant neoplasm of cervix Cervical Cancer Screening [facility] Start: 2006 HPV TESTING HPV TESTING [facility] Start: 10-15-1995 Hepatitis B Vaccine (1 of 3 - 19+ 3-dose series) Hepatitis B Vaccine (1 of 3 - 19+ 3-dose series) [facility] Start: 10-15-1995 Shingrix Vaccine (1 of 2) Shingrix Vaccine (1 of 2) [facility] Start: 1994 ANNUAL PCP TEAM BULK PALLET BUILDER [place]MA DISEASE VISIT ANNUAL PCP TEAM CHRONIC DISEASE VISIT [facility] Start: 1994 Anxiety Screening Anxiety Screening [facility] Start: 1994 Depression Screening Depression Scre ening [facility] Start: 1994 HEPATITIS C SCREENING HEPATITIS C [facility] Start: 1994 Hepatitis C screening Hepatitis C [facility] Start: 1994 HIV SCREENING HIV SCREENING [facility] Start: 1994 HIV screening HIV Screening [facility] Start: 1982 Pneumococcal vaccination Pneumococcal Vaccine (1 of 2 - PCV) [facility] Start: 1976 HEPATITIS B (1 of 3 - 3-dose series) HEPATITIS B (1 of 3 - 3-dose series) [facility] Start: 1976 Hepatitis B Vaccine (1 of 3 - 3-dose series) Hepatitis B Vaccine (1 of 3 - 3-dose series) [facility] Alternaria alternata IgE Ab [Units/volume] in Serum [facility] Macanese Cockroach I gE Ab [Units/volume] in Serum [facility] Macanese house dust mite IgE Ab [Units/volume] in Serum [facility] Aspergillus fumigatu s RAST [facility] Bahia grass IgE Ab [Units/volume] in Serum [facility] Beef IgE Ab [Units/volume] in Serum [facility] Bermuda grass IgE Ab [Units/volume] in Serum [facility] Box elder RAST [facility] C reactive protein [Mass/volume] in Serum or Plasma [facility] Work Phone: Cat dander IgE Ab [Units/volume] in Serum [facility] Chocolate IgE Ab [Units/volume] in Serum [facility] Cladosporium herbaru m IgE Ab [Units/volume] in Serum [facility] Codfish IgE Ab [Units/volume] in Serum [facility] Common Ragweed IgE A b [Units/volume] in Serum [facility] Knippa IgE Ab [Units/volume] in Serum [facility] Cow milk IgE Ab [Units/volume] in Serum [facility] Dog epithelium IgE A b [Units/volume] in Serum [facility] Erythrocyte sedimentation rate [facility] Work Phone: house dust mite IgE Ab [Units/volume] in Serum [facility] Hazelnut Pollen IgE Ab [Units/volume] in Serum [facility] Carlos grass IgE Ab [Units/volume] in Serum [facility] Kentucky blue grass IgE Ab [Units/volume] in Serum [facility] Laboratory data interpretation [facility] Lactoferrin [Presenc e] in Stool by Immunoassay [facility] Work Phone: End: 06-09-2024 ALBINO SCREENING W MANUELA ALBINO SCREENING W MANUELA Radiology Routine Visit for screening mammogram 1 Occurrences starting 05/11/2023 until 06/09/2024 [facility] Work Phone: Comment on above: 1 Occurrences starti ng 05/11/2023 until 06/09/2024 Mountain Juniper IgE Ab [Units/volume] in Serum [facility] MR Lumbar spine [facility] MR Lumbar spine [facility] Mucor racemosus IgE Ab [Units/volume] in Serum [facility] Mugwort IgE Ab [Units/volume] in Serum [facility] [place] RAST [facility] Nettle IgE Ab [Units/volume] in Serum [facility] Patient Education [facility] Work Phone: Patient referral [facility] Work Phone: Peanut IgE Ab [Units/volume] in Serum [facility] Penicillium notatum IgE Ab [Units/volume] in Serum [facility] Plantain (Kenyan) RAST [facility] Pork IgE Ab [Units/volume] in Serum [facility] Protein measurement [facility] Work Phone: Rough Pigweed IgE Ab [Units/volume] in Serum [facility] Indianola IgE Ab [Units/volume] in Serum [facility] Sheep [place] IgE Ab [Units/volume] in Serum [facility] Shrimp IgE Ab [Units/volume] in Serum [facility] Soybean IgE Ab [Units/volume] in Serum [facility] Stemphylium botryosu m IgE Ab [Units/volume] in Serum [facility] Sweet gum [facility] Tree pollen RAST [facility] Tuna IgE Ab [Units/volume] in Serum [facility] Wheat IgE Ab [Units/volume] in Serum [facility] White Elm IgE Ab [Units/volume] in Serum [facility] White [place] IgE Ab [Units/volume] in Serum [facility] Barton IgE Ab [Units/volume] in Serum [facility] Whole Egg IgE Ab [Units/volume] in Serum [facility] Immunizations Immunization Date Immunization Notes Care Provider Roxy zurita 03-26-[address] Marium Jeffery Work Phone: [facility] 08-23-2010 tetanus toxoid, redu juliette diphtheria toxoid, and acellular pertussis vaccine, adsorbed [facility] Work Phone: Payers Date Payer Category Payer Self-pay [id number] 2021 Unknown [id number] 2021 Unknown [id number] Unknown [id number] 2.16.8 [id number] Unknown [id number] 2.16.8 [id number] Unknown [id number] 2.16.8 [id number] Unknown [id number] 2.16.8 [id number] Unknown [id number] 2.16.8 [id number] Unknown [id number] 2.16.8 [id number] Unknown [id number] 2.16.8 [id number] Unknown [id number] 2.16.8 [id number] Social History Date Type Detail Facility Start: 09-07-2021 End: 09-14-2023 Tobacco smoking status NDIS Unknown if ever smoked [facility] Start: 1975 Sex Assigned At Female W [facility] Start: 05-10-2022 Tobacco smoking stat us NDIS Ex-smoker [facility] End: 12-11-2018 History of tobacco use Current smoker [facility] Start: 12-12-2007 End: 12-11-2018 History of tobacco use Cigarette Smoker [facility] Start: 05-10-2022 End: 05-11-2023 Cigarettes smoked current (pack per day) - Reported 0.5 [facility] Start: 05-10-2022 End: 02-15-2024 Tobacco use and exposure Smokeless tobacco non-user [facility] Start: 05-10-2022 End: 02-15-2024 Alcohol intake Current non-drinker of alcohol (finding) [facility] Start: 05-10-2022 Tobacco Comment started 25yo V aping Still vaping [facility] Start: 1975 Sex Assigned At Not on file C [facility] Start: 04-30-2022 End: 05-10-2022 Exposure to SARS-CoV-2 (event) Not sure [facility] Start: 05-11-2023 End: 02-15-2024 Tobacco use panel [facility] National Score (1-10 0), lower number is lower risk 72 [facility] Start: 02-15-2024 End: 12-30-2024 Tobacco smoking status NHIS Smokes tobacco daily [facility] Goals Date Patient Goal Desired Activity /State Mental Status Date Assessment Result Facility 12-30-2024 Cognitive function Awake;Alert;A ppropriate;Follow s Commands [facility] Work Phone: 12-12-2024 Cognitive function Level Of Cons ciousness Awake;Alert;Appropriate;Follow s Commands [facility] Work Phone: 05-11-2022 Cognitive function Voice/Name [facility] Work Phone: 11-24-2021 Cognitive function Voice/Name [facility] Work Phone: 11-24-2021 Cognitive function Patient Orien tation Person;Place;Time [facility] Work Phone: Clinical Notes 05-12-2021 to 12-30-2024 Note Date & Type Note Facility 12-30-2024 Radiology Diagnostic study note [facility] Imaging Services [address] [place], [place] [id number] CTA Chest W/WO Contrast MR#: [id number] Acct: [id number] Name: ZACHARIAH SPEARS Rep #: [id number] : 1975 F 49 From: Osmin Zarate MD PCP: JOHN Melchor Status: REG ER Study:CTA Chest W/WO Contrast Date of Exam: 12/30/24 Exam# [id number] Ordering Dr: Dane Amaro DO PROCEDURE: CTA CHEST W/WO CONTRAST 12/30/2024 REASON FOR EXAM: PE Elevated D-dimer and chest pain. TECHNIQUE: CTA CHEST W/WO CONTRAST Multiplanar Sagittal and Coronal images were obtained. One or more dose reduction techniques were used (e.g., Automated exposure control, adjustment of the mA and/or kV according to patient size, use of iterative reconstruction technique). CONTRAST: Isovue 370 VOLUME: 100 mL RADIATION DOSE SUMMARY: CTDlvol: 11.6 mGy DLP: 399.01 mGycm COMPARISON: Prior chest radiograph done earlier in the day. FINDINGS: Hardware: None Lymph nodes: None Heart: Unremarkable. No evidence of coronary artery calcification. Thoracic Aorta: Unremarkable Pulmonary Vessels: No evidence of pulmonary embolism. Lungs and Airways: Lungs are clear. No focal infiltrate is seen. Pleura: No pleural effusion. Upper Abdomen: Unremarkable. Bones: Degenerative changes of the thoracic spine. CT/CTA Chest W/WO Contrast IMPRESSION: No acute abnormality is seen. Reading Location: [facility] CC: JOHN Barajas; Dr. Dane Bush DO ~ Grants Analyst: Signed [facility] 12-30-2024 Radiology Diagnostic study note [facility] Imaging Services [address] [place] [address] [id number] Chest PA and Lateral MR#: [id number] Acct: [id number] Name: ZACHARIAH SPEARS Rep #: [id number] : 1975 F 49 From: Osmin Zarate MD PCP: JOHN Melchor Status: REG ER Study:Chest PA and Lateral Date of Exam: 12/30/24 Exam# [id number] Ordering Dr: Dane Amaro DO PROCEDURE: CHEST PA AND LATERAL 12/30/2024 REASON FOR EXAM: CHEST PAIN TECHNIQUE: CHEST PA AND LATERAL COMPARISON: None FINDINGS: Hardware: EKG electrodes are seen. Heart: The heart size is normal. Mediastinum: The mediastinal contour is unremarkable. Lungs: The lungs are clear. Bones: The bones are unremarkable. RAD/Chest PA and Lateral IMPRESSION: NO ACUTE FINDINGS. Reading Location: [facility] CC: JOHN Barajas; Dr. Dane Bush DO ~ Grants Analyst: Signed [facility] 12-13-2024 Evaluation note Diagnosis Onset Date Resolution Lumbar radiculopathy acute December 13, 2024 10:16am Pars defect with spondylolisthesis acute December 13 10:16am [facility] Work Phone: [phone] 141-192006-19-2025 Discharge summary [facility] Medical Records Department [address] [place] [address] Emergency Department Summary 12/12/24 MR#: [id number] Acct: [id number] Name: ZACHARIAH SPEARS Rep #:[id number] : 1975 49 From: Iglesai Gurrola DO PCP: JOHN Melchor Status:REG ER Location: ED HPI History of Present Illness Chief Complaint: Headache Informant: patient and family Narrative Narrative: Patient is a 49-year-old female with past med history of anxiety depression Crohn's disease and migraine headache. She states roughly 12 hours ago she began with a generalized frontal headache that is sensitive to light and sound. She states the headache came on gradually and increased over the course of hours. She denies any recent trauma. She denies any recent sick symptoms or travel outside the country. She states she took medication without any symptom improvement and the headache has continued to worsen. Secondary to this she presents for evaluation [facility] Medical History History of Crohn's disease Wears glasses Depression Anxiety Alcohol use Blister Thyroid disease Anemia Restless legs Back pain Migraine headache History of IBS Smoker Shortness of breath on exertion Leg cramps Pancreatic insufficiency Abdominal pain, vomiting, and diarrhea Home Medications ?Medication ?Instructions ?Recorded ?Last Taken ?Type escitalopram oxalate 20 mg tablet 20 mg PO DAILY 02/0912/12/24 History bupropion HCl 150 mg tablet,12 hr 150 mg PO BID 12/12/24 History sustained-release folic acid 800 mcg tablet 0.8 mg PO DAILY #30 tabs 12/12/24 Rx levothyroxine 175 mcg tablet 250 mcg PO DAILY 09/14/23 12/12/24 History naproxen 500 mg tablet 500 mg PO BID 09/14/23 Unkno wn History budesonide 3 mg 6 mg (2 x 3 mg) PO DAILY #60 caps 06/24/24 12/12/24 Rx capsule,delayed,extended release sulfasalazine 500 mg 0.5 g PO BID #60 tabs 12/12/24 Rx tablet,delayed release Allergy/AdvReac Type Severity Reaction Status Date / Time Penicillins Allergy Unknown PT UNSURE Verified 12/12/24 21:03 OF REACTION cortisone Allergy Hives Verified 12/12/24 21:03 Family History (Updated 09/14/23 @ 09:07 by Julianne Ortiz MA) Mother Cancer Arthritis Lumbar spondylosis Surgical History Hx of appendectomy Hx of colonoscopy History of lumpectomy of right breast History of lumpectomy of left breast History of Hx of shoulder surgery Hx of breast biopsy Hx of hysterectomy Social History (Updated 09/14/23 @ 09:08 by Julianne Ortiz MA) household members: spouse and children Smoking Status: Current every day smoker tobacco type: cigarettes alcohol intake: current ROS ROS ED Constitutional Constitutional ED: Denies chills or fever(s) Eyes Eyes: Reports other Details: Positive photophobia ENT ENT ED: Denies ear pain, rhinorrhea or sore throat Cardiovascular Cardiovascular: Denies chest pain Respiratory/Chest Respiratory/Chest: Denies cough or dyspnea Gastrointestinal Gastrointestinal: Reports nausea; Denies abdominal pain, diarrhea or vomiting Genitourinary Genitourinary ED: Denies dysuria Musculoskeletal Musculoskeletal: Denies neck pain Integumentary Denies rash Neurologic Neurologic: Reports headache(s); Denies paresthesias or weakness Psychiatric Psychiatric: Reports anxiety and depression Hematologic/Lymphatic Hematologic/Lymphatic: Denies easy bleeding or easy bruising EXAM Physical Exam Const Vital Signs: 12/12/24 21:03 Temperature 98 F Temperature Source Oral Pulse Rate 90 Respiratory Rate 16 Blood Pressure 126/84 H Blood Pressure Mean 98 Pulse Ox 98 Oxygen Delivery Method Room Air Positive well nourished and well developed General Appearance ED: well developed; Negative for pallor HEENT HEENT Narrative: Normocephalic atraumatic No tongue or lip swelling no oral lesions no airway edema or compromise Posterior pharynx without secondary findings to suggest infection Eyes PERRL and EOMs intact bilaterally Neck supple Neck Narrative: No nuchal rigidity or meningeal signs Resp normal respiratory effort and clear to auscultation bilaterally Cardio regular rate and regular rhythm Extremity normal to inspection Neuro oriented x3, CN's II-XII intact bilaterally and no sensory deficits noted Neuro Narrative: GCS of 15 Cranial nerves II through XII are grossly intact without focal neurologic deficit No pronator drift no dysmetria no truncal ataxia NIH stroke scale score of 0 Sensorium / Orientation: alert Motor Exam: strength 5/5 throughout Psych mental status grossly normal Skin no rashes or lesions noted and no wounds General Skin Exam: Negative for jaundice or pallor MDM MDM MDM Narrative Medical decision making narrative: Patient arrived to the ER with stable vitals and a nonfocal neurologic exam. There is no report or signs of trauma and no physical exam findings to suggest infections I lower concern for meningitis or subarachnoid or subdural hemorrhage. However as she did report her headache was more intense than her previous/normal headaches I did elect to perform a head CT. Head CT revealed noacute brain pathology. After receiving IV fluids Toradol Benadryl and Reglan patient reported resolution of her headache. Her vitals remained stable and herneurologic exam normal. Therefore at this time with resolution of symptoms and a normal neurologic exam as well as normal head CT there is no need for further workup and patient is otherwise safe for discharge History & Record Review Discussion w/independent historian: Patient and Family Radiography Diagnostic Testing: Clinical Impression(s) from Imaging Studies Brain CT 12/12/24 22:09 IMPRESSION: Unremarkable CT scan of the brain. Reading Location: [place] [address] Discharge Plan Triage Chief Complaint: Headache ED Provider: Iglesia Gurrola Dx/Rx/DC Orders Clinical Impression: Cephalgia, Crohn disease, Anxiety and depression, Hypothyroidism Instructions: ED Headache Unspecified Prescriptions: No Action naproxen 500 mg tablet 500 mg PO BID escitalopram oxalate 20 MG tablet 20 mg PO DAILY Patient Comments: DEPRESSION levothyroxine 175 mcg tablet 250 mcg PO DAILY bupropion HCl 150 MG tablet sustained-release 12 hr 150 mg PO BID Patient Comments: DEPRESSION folic acid 800 mcg tablet 0.8 mg PO DAILY Qty: 30 2RF budesonide 3 mg capsule,delayed,extend.release 6 mg PO DAILY Qty: 60 3RF sulfasalazine 500 mg tablet,delayed release (DR/EC) 0.5 g PO BID Qty: 60 2RF Primary Care Provider: Karl,Indy Referrals: Indy Barajas NP-C [Primary Care Provider] - Activity Restrictions/Additional Instructions: Your head CT showed no sign of intracranial process indicating your headache is just a more intenseversion of your migraines. Continue your home medication asdirected by your doctor and return to the ER should you have any further concerns. Print Language: Kenyan Disposition Disposition: Home, Self Care What to do if you have Problems For any increased pain, shortness of breath, bleeding, nausea or vomiting, chestpain, or any unexpected problems, contact your Primary Care Provider. Call [facility] ([phone]) or report tothe closest Emergency Room. Call 911 if necessary. 12/12/24 0619 Cosigner Signature (if applicable): CC: JOHN Barajas ~ Signed [facility]06-19-2025 Radiology Diagnostic study note [facility] Imaging Services [address] [place], [place] [address] Brain/Head without Contrast MR#: [id number] Acct: [id number] Name: ZACHARIAH SPEARS Brice Rep #: [id number] 22 : 1975 F 49 From: Halima Perez MD PCP: JOHN Melchor Status: REG ER Study:Brain/Head without Contrast Date of Exa m: 12/12/24 Exam# [id number] Ordering Dr: Catrachita Gurrola DO PROCEDURE: BRAIN/HEAD WITHOUT CONTRAST 12/12/2024 REASON FOR EXAM: HEADACHE TECHNIQUE: BRAIN/HEAD WITHOUT CONTRAST Coronal and Sagittal reconstruction series were provided. One or more dose reduction techniques were used (e.g., Automated exposure control, adjustment of the mA and/or kV according to patient size, use of iterative reconstruction technique. RADIATION DOSE SUMMARY: CTDlvol: 44.99 mGy DLP: 863.60 mGycm COMPARISON: None FINDINGS: CT SCAN OF THE BRAIN WITHOUT IV CONTRAST CLINICAL INDICATION: Migraine headache TECHNIQUE: Axial and reformatted sagittal and coronal images of the brain obtained without IV contrast administration. Normal size of the ventricles and extra-axial spaces for the patient's age. Normal white matter tracts of the supratentorial brain. Normal basal ganglia and thalami. Normal brainstem. Normal cerebellum. There is no demonstrated extra-axial, intraparenchymal, or intraventricular hemorrhage. There are no findings of an acute ischemic infarction. Normal calvarium. There is no demonstrated fracture. Normal soft tissue structures. Normal visualized paranasal sinuses. CT/Brain/Head without Contrast IMPRESSION: Unremarkable CT scan of the brain. Reading Location: [place] [address] CC: LEVELER HELPER-C Indy Barajas; Iglesia Gurrola DO ~ Grants Analyst: Signed [facility]06-19-2025 Discharge summary Author Iglesia Gurrola [facility] Note Date/Time December 12, 2024 11:4 7pm [facility] Medical Records Department [address] [place] [address] Emergency Department Summary 12/12/24 MR#: [id number] Acct: [id number] Name: ZACHARIAH SPEARS Rep #:[id number] 01 : 1975 49 From: Iglesia Gurrola DO PCP: JOHN Melchor Status:REG ER Location: ED HPI History of Present Illness Chief Complaint: Headache Informant: patient and family Narrative Narrative: Patient is a 49-year-old female with past med history of anxiety depression Crohn's disease and migraine headache. She states roughly 12 hours ago she began with a generalized frontal headache that is sensitive to light and sound. She states the headache came on gradually and increased over the course of hours. She denies any recent trauma. She denies any recent sick symptoms or travel outside the country. She states she took medication without any symptom improvement and the headache has continued to worsen. Secondary to this she presents for evaluation [facility] Medical History History of Crohn's disease Wears glasses Depression Anxiety Alcohol use Blister Thyroid disease Anemia Restless legs Back pain Migraine headache History of IBS Smoker Shortness of breath on exertion Leg cramps Pancreatic insufficiency Abdominal pain, vomiting, and diarrhea Home Medications ?Medication ?Instructions ?Recorded ?Last Taken ?Type escitalopram oxalate 20 mg tablet 20 mg PO DAILY 02/0912/12/24 History bupropion HCl 150 mg tablet,12 hr 150 mg PO BID 12/12/24 History sustained-release folic acid 800 mcg tablet 0.8 mg PO DAILY #30 tabs 12/12/24 Rx levothyroxine 175 mcg tablet 250 mcg PO DAILY 09/14/23 12/12/24 History naproxen 500 mg tablet 500 mg PO BID 09/14/23 Unkno wn History budesonide 3 mg 6 mg (2 x 3 mg) PO DAILY #60 caps 06/24/24 12/12/24 Rx capsule,delayed,extended release sulfasalazine 500 mg 0.5 g PO BID #60 tabs 12/12/24 Rx tablet,delayed release Allergy/AdvReac Type Severity Reaction Status Date / Time Penicillins Allergy Unknown PT UNSURE Verified 12/12/24 21:03 OF REACTION cortisone Allergy Hives Verified 12/12/24 21:03 Family History (Updated 09/14/23 @ 09:07 by Julianne Ortiz MA) Mother Cancer Arthritis Lumbar spondylosis Surgical History Hx of appendectomy Hx of colonoscopy History of lumpectomy of right breast History of lumpectomy of left breast History of Hx of shoulder surgery Hx of breast biopsy Hx of hysterectomy Social History (Updated 09/14/23 @ 09:08 by Julianne Ortiz MA) household members: spouse and children Smoking Status: Current every day smoker tobacco type: cigarettes alcohol intake: current ROS ROS ED Constitutional Constitutional ED: Denies chills or fever(s) Eyes Eyes: Reports other Details: Positive photophobia ENT ENT ED: Denies ear pain, rhinorrhea or sore throat Cardiovascular Cardiovascular: Denies chest pain Respiratory/Chest Respiratory/Chest: Denies cough or dyspnea Gastrointestinal Gastrointestinal: Reports nausea; Denies abdominal pain, diarrhea or vomiting Genitourinary Genitourinary ED: Denies dysuria Musculoskeletal Musculoskeletal: Denies neck pain Integumentary Denies rash Neurologic Neurologic: Reports headache(s); Denies paresthesias or weakness Psychiatric Psychiatric: Reports anxiety and depression Hematologic/Lymphatic Hematologic/Lymphatic: Denies easy bleeding or easy bruising EXAM Physical Exam Const Vital Signs: 12/12/24 21:03 Temperature 98 F Temperature Source Oral Pulse Rate 90 Respiratory Rate 16 Blood Pressure 126/84 H Blood Pressure Mean 98 Pulse Ox 98 Oxygen Delivery Method Room Air Positive well nourished and well developed General Appearance ED: well developed; Negative for pallor HEENT HEENT Narrative: Normocephalic atraumatic No tongue or lip swelling no oral lesions no airway edema or compromise Posterior pharynx without secondary findings to suggest infection Eyes PERRL and EOMs intact bilaterally Neck supple Neck Narrative: No nuchal rigidity or meningeal signs Resp normal respiratory effort and clear to auscultation bilaterally Cardio regular rate and regular rhythm Extremity normal to inspection Neuro oriented x3, CN's II-XII intact bilaterally and no sensory deficits noted Neuro Narrative: GCS of 15 Cranial nerves II through XII are grossly intact without focal neurologic deficit No pronator drift no dysmetria no truncal ataxia NIH stroke scale score of 0 Sensorium / Orientation: alert Motor Exam: strength 5/5 throughout Psych mental status grossly normal Skin no rashes or lesions noted and no wounds General Skin Exam: Negative for jaundice or pallor MDM MDM MDM Narrative Medical decision making narrative: Patient arrived to the ER with stable vitals and a nonfocal neurologic exam. There is no report or signs of trauma and no physical exam findings to suggest infections I lower concern for meningitis or subarachnoid or subdural hemorrhage. However as she did report her headache was more intense than her previous/normal headaches I did elect to perform a head CT. Head CT revealed noacute brain pathology. After receiving IV fluids Toradol Benadryl and Reglan patient reported resolution of her headache. Her vitals remained stable and herneurologic exam normal. Therefore at this time with resolution of symptoms and a normal neurologic exam as well as normal head CT there is no need for further workup and patient is otherwise safe for discharge History & Record Review Discussion w/independent historian: Patient and Family Radiography Diagnostic Testing: Clinical Impression(s) from Imaging Studies Brain CT 12/12/24 22:09 IMPRESSION: Unremarkable CT scan of the brain. [facility] Discharge Plan Triage Chief Complaint: Headache ED Provider: Iglesia Gurrola Dx/Rx/DC Orders Clinical Impression: Cephalgia, Crohn disease, Anxiety and depression, Hypothyroidism Instructions: ED Headache Unspecified Prescriptions: No Action naproxen 500 mg tablet 500 mg PO BID escitalopram oxalate 20 MG tablet 20 mg PO DAILY Patient Comments: DEPRESSION levothyroxine 175 mcg tablet 250 mcg PO DAILY bupropion HCl 150 MG tablet sustained-release 12 hr 150 mg PO BID Patient Comments: DEPRESSION folic acid 800 mcg tablet 0.8 mg PO DAILY Qty: 30 2RF budesonide 3 mg capsule,delayed,extend.release 6 mg PO DAILY Qty: 60 3RF sulfasalazine 500 mg tablet,delayed release (DR/EC) 0.5 g PO BID Qty: 60 2RF Primary Care Provider: Indy Barajas Referrals: Indy Barajas, JOHN [Primary Care Provider] - Activity Restrictions/Additional Instructions: Your head CT showed no sign of intracranial process indicating your headache is just a more intense version of your migraines. Continue your home medication asdirected by your doctor and return to the ER should you have any further concerns. Print Language: Kenyan Disposition Disposition: Home, Self Care What to do if you have Problems For any increased pain, shortness of breath, bleeding, nausea or vomiting, chestpain, or any unexpected problems, contact your Primary Care Provider. Call [facility] ([phone]) or report to the closest Emergency Room. Call 911 if necessary. 12/12/248 <Electronically signed by Iglesia Gurrola DO> Cosigner Signature (if applicable): CC: JOHN Barajas ~ Signed [facility] Work Phone: 1(135) 915-671608-22-2024 Telephone encounter Note* Telephone Encounter - Marci Chau - 02/15/2024 2:06 PM EDT I called the PCP to get thyroid labs records LVM in there office General family medicine # [phone]. Marci Chau February 15, 2024 2:07 PM [facility]08-22-2024 Miscellaneous Notes* Telephone Encounter - Marci Chau - 02/15/2024 2:06 PM EDT I called the PCP to get thyroid labs records LVM in there office General family medicine # [phone]. Marci Chau February 15, 2024 2:07 PM * Telephone Encounter - Vinita Tobar MD - 02/15/2024 10:48 AM EDT Please obtain the most recent thyroid labs from PCP, or from [facility] lab documented in [facility] Telephone encounter Note * Telephone Encounter - Vinita Tobar MD - 02/15/2024 10:48 AM EDT Please obtain the most recent thyroid labs from PCP, or from [facility] lab [facility] Work Phone: [phone] Instructions* Patient Instructions* Vinita Tobar MD - 02/15/2024 9:45 AM [...] after taking levothyroxine, as coffee has been shownto interfere with its absorption. Separation from Other [...] Please be aware that the use of tgwz-klm-[id number] Biotin (in high doses) can interfere with the thyroid hormone level results. Biotin can be found in Biotin supplements, Lalc-jmha-xnix vitamin formulations, and some B-Complex vitamins. Please refrain from taking any of the biotin supplements in any form for at least 48-72 hours priorto any lab tests. Monitoring thyroid levels: Kindly complete the blood test, if feasible, in the week preceding your appointment. This will enable timely dose adjustment during the appointment if needed. documented in this encounterGerman Hospital08-[facility]24 History of Present illness Narrative* Jonathan Owens MD - 02/15/2024 9:00 AM EDT PCP: Oscar Blas MD. Referring Provider: Chirag Matta DO. Gastroenterology Subjective The history is provided [...] galactorr[place] breast in 2008 [place] At that time TSH was elevated to 21, states that she was already on Synthroid at that time. Underwent milk ducts removal surgery in right breast. No other albs found in [facility] prior to 2008. Follows with Gynecology for yearly mammogram, has a lump in left breast and fibrocystic disease, has undergone breast biopsies in past consistent with fibroadenoma, fibrocystic disease and benign breast tissue. Diagnosed with Crohn's disease 2 years ago- On Budesonide and Sulfasalazine. She had multiple labs done at [facility], records currently unavailable in [facility], will try to get records. During [...] 2009. Menses are regular. Hysterectomy 2016 at [facility], had endometrial biopsies and LEEP due to [...] Objective BP 147/97 Pulse 77 Ht 5' 2" (1.58m) Wt 158 lb (71.7kg) LMP 01/21/2013 [...] and imaging data: Reviewed 01/02/2009- TSH -21.6 ([facility]) during workup for galactorrhea- right nipple discharge, startedon Synthroid 150 mcg, surgery on right breast 01/15/2009- OV with PCP- synthroid decreased to 100 mcg 03/13/2009- TSH-3.38 (0.50-6.0) [place] 03/16/2009- Synthroid increased to 112 mcg 05/15/2009- [...] issue Will try to obtain records from [facility] Follow up in 3 months. Labs before [...] AM This note was partially generated using [employer] voice recognition system, and there may be some incorrect words, spellings, and punctuation that were not intended as it appear in the note. documented in this encounterGerman Hospital08-22-2024 NoteHNO ID: [id number] Author: VINITA TOBAR MD Service: ? Author Type: Resident Type: Progress Notes Filed: 02/15/2024 10:46 Note Text: PCP: Oscar Blas MD. Referring Provider: Chirag Matta, . Gastroenterology Subjective The history is provided by [...] galactorrhea [place] breast in [place] At that time TSH was elevated to 21, states that she was already on Synthroid at that time. Underwent milk ducts removal surgery in right breast. No other albs found in [facility] prior to 2008. Follows with Gynecology for yearly mammogram, has a lump in left breast and fibrocystic disease, has undergone breast biopsies in past consistent with fibroadenoma, fibrocystic disease and benign breast tissue. Diagnosed with Crohn's disease 2 years ago- On Budesonide and Sulfasalazine. She had multiple labs done at [facility], records currently unavailable in [facility], will try to get records. During [...] 2009. Menses are regular. Hysterectomy 2015 at [facility], had endometrial biopsies and LEEP due to [...] 12/12/2007 Last attempt to (more content not included)...[facility] 10-23-2023 Discharge summary Author Jodi Pennington [facility] October 23, 2023 7:16am Note Date/Time October 23, 2023 7:[address] [facility] Physical Therapy [facility] [address] [place] [address] / REHABILITATION SERVICES DISCHARGE SUMMARY MR#: [id number] Acct: [id number] Name: ZACHARIAH SPEARS Rep #: [id number] : 1975 48 From: Jodi Nolasco Referring Dr.: Dr. Fran Pride MD Status: [...] please feel free to call me at [phone]. Thank you for the referral of thispatient. Sincerely, Jodi Pennington, DPT Balance/Gait/Functional tests Balance/Special Test Scores Oswestry Low Back Score: 22 Improvement % Improvement: 50 <Electronically signed by Jodi Pennington DPT> 10/23/23 0716 CC: JOHN Barajas; Dr. Fran Pride MD ~ ELR Signed [facility] Work Phone: 1(887) 736-443111-16-2023 Miscellaneous Notes* Letter - Coordinator, Mammography - 05/11/2023 2:49 PM EST [facility] [address] [place] [address] May 11, 2023 PID: [id number] Zachariah Spears [address] [place] [address] Dear Ms. Spears, We are pleased to [...] report will be kept on file at [facility] as part of your permanent medical record and are available for your continuing care. Thank you for allowing us to help in meeting your health care needs. Sincerely, Dr. Luna Interpreting Radiologist [facility] (Normal over 40) documented in this encounterGerman Hospital11-16-2023 NoteHNO ID: [id number] Author: Dilcia Deluca MD Service: ? Author Type: Physician Type: Progress Notes Filed: 05/11/2023 4:41 PM Note Text: Dilcia Deluca MD Breast [facility] [address] [place] [address] HPI: Ms. Spears is a White 47 [...] DELIVERY ONLY 05/28/2010 , low transverse Dr. Shriner I AND D ABSCESS 12/01/11 anal abscess [...] mammogram, 05/10/2022 mammogram, and 11/05/2018 mammogram - [facility]. There are scattered areas of fibroglandular density. [...] screening mammogram is recommended. Juno carlos/mati:05/11/2023 14:49:26 Lactation Coordinator(s): RT Gokul(Yoli)(M), [facility] letter sent: Normal over 40 Mammogram BI-RADS: 2 Benign finding Review of Systems Constitutional: Negative for chills and fever. PHYSICAL EXAMINATION: BP 115/80 Pulse 81 Ht 160 cm (5' 3") Wt 70.3 kg (155 lb) LMP 01/21/2013 [...] consistent with fibrocystic di (more content not included)...[facility] 05-11-2023 History of Present illness Narrative* Dilcia Deluca MD - 05/11/2023 10:19 AM EST Images from the original note were not included. Dilcia Deluca MD [facility] [address] [place] [address] HPI: Ms. Spears is a White 47 [...] mammogram, 05/10/2022 mammogram, and 11/05/2018 mammogram - [facility]. There are scattered areas of fibroglandular density. [...] screening mammogram is recommended. Juno carlos/mati:05/11/2023 14:49:26 Lactation Coordinator(s): RT Gokul(R)(M), [facility] letter sent: Normal over 40 Mammogram BI-RADS: 2 Benign finding Review of Systems Constitutional: Negative for chills and fever. PHYSICAL EXAMINATION: BP 115/80 Pulse 81 Ht 160 cm (5' 3") Wt 70.3 kg (155 lb) LMP 01/21/2013 [...] theplan. Dilcia Deluca MD documented in this [facility]11-16-2023 Nurse Note* Aspen Ann NA - 05/11/2023 10:02 AM EST Patient presents for follow up after imaging. Denies any new concerns. KRYSTEN Chun documented in this [facility]11-16-2023 History of Present illness Narrative* Claire Tomlin RT(R) - 05/11/2023 9:00 AM EST Radiology Service [...] PERIPHERAL IV DATA: Not applicable SIGNED BY: WINSOME Hodgson) May 11, 2023 9:11 AM documented in this [facility]11-16-2023 NoteHNO ID: [id number] Author: Claire Tomlin RT(R) Service: ? Author Type: Technologist Type: Progress [...] IV DATA: Not applicable SIGNED BY: RT Gokul(R) May 11, 2023 9:11 [facility] History of Present illness Narrative* WINSOME Choi) - 05/10/2022 9:30 AM EST Radiology Service [...] IV DATA: Not applicable SIGNED BY: RT Reid(Yoli) May 10, 2022 9:52 AM documented in this encounterGerman Hospital11-17-2021 NoteHNO ID: [id number] Author: Madison Johnson APRN.LUBRICATION TECHNICIAN Service: ? Author Type: Nurse Practitioner Type: Progress Notes Filed: 05/12/2021 1:42 PM Note Text: Subjective The history is provided by the patient. No speech language specialist was used. HPI Zachariah Spears is a [...] have confirmed and edited as necessary, the [facility] Review of Systems Constitutional: Negative for chills [...] detail warranting prompt ER evaluation. Madison Johnson APRN.[facility] Hamilton[facility] note* Diagnosis Onset Date Resolution Status Abdominal pain, vomiting, and diarrhea [facility] Work Phone: Evaluation note* Diagnosis Visit for screening mammogram Other screening mammogram documented in this encounter [facility] note* Diagnosis Onset Date Resolution Status Anal fissure acute Acute left otitis media acut e Crohn disease chronic Gastric intestinal metaplasia [facility] Work Phone: Evaluation note* Diagnosis Onset Date Resolution Status Diarrhea acute Crohn disease chronic Gastric intestinal metaplasia chronic Diarrhea acute Crohn disease chronic Gastric intestinal metaplasia [facility] Work Phone: Evaluation note* Diagnosis Onset Date Resolution Status Crohn disease chronic Diarrhea chronic Gastric intestinal metaplasia [facility] Work Phone: Evaluation note* Diagnosis Fibrocystic breast disease (FCBD) in female, unspecified laterality- Primary Visit for screening mammogram Other screening mammogram documented in this encounter [facility] note* Diagnosis Visit for screening mammogram Other screening mammogram documented in this encounter [facility] note* Diagnosis Onset Date Resolution Status Crohn disease chronic Diarrhea chronic Gastric intestinal metaplasia chronic Spondylolisthesis, lumbar region acute [facility] Work Phone: Evaluation note* Diagnosis Acquired hypothyroidism- Primary Unspecified hypothyroidism Intestinal malabsorption, unspecified type documented in this encounter [facility] noteNo assessment information availableWooHenry County Hospital Work Phone: Hospital Discharge instructionsAmbulatory Orders* Physical Therapy Referral Location: None Selected [facility] Work Phone: Hospital Discharge instructions Additional Instructions Your head CT showed no sign of intracranial process indicating your headache is just a more intense version of your migraines. Continue your home medication as directed by your doctor and return to the ER should you have any further concerns.[facility] Work Phone: Hospital Discharge instructionsAdditional Instructions Follow-up with your primary care physician as well as cardiology. Return back to the ED if symptoms change or worsen. Your BNP was elevated here in the emergency departments you need to follow-up with your primary care physician and cardiology for this.[facility] Work Phone: Reason for referral (narrative)* Diagnostic Procedure Only (Routine) - Closed Specialty Diagnoses / Procedures Referred By Yevgeniy nolasco Referred To Contact [facility] Diagnoses Visit for screening mammogram Procedures ALBINO SCREENING W MANUELA SCREENING BREAST DGTL MANUELA UNI/BILAT ADD ON SCREENING MAMMOGRAPHY BI 2-VIEW BREAST INC Dilcia Riojas MD [address] [place] [address] [facility] [address] [place] [address] Referral ID Status Reason Start Date Expiration Date V isits Requested Visits Authorized [id number] Closed Auto-Generate d Referral 05/06/2021 06/05/2022 1 1 [facility] for referral (narrative)* Diagnostic Procedure Only (Routine) - Pending Review Specialty Diagnoses / Procedures Referred By Yevgeniy nolasco Referred To Contact [facility] Diagnoses Visit for screening mammogram Procedures ALBINO SCREENING W MANUELA SCREENING DIGITAL BREAST TOMOSYNTHESIS BI SCREENING MAMMOGRAPHY BI 2-VIEW BREAST INC Dilcia Riojas MD [address] [place] [address] [facility] [address] [place] [address] Referral ID Status Reason Start Date Expiration Date Visits Requested Visits Authorized [id number] Pending Review Auto-Generat ed Referral 3 06/09/2024 1 1 [facility] for referral (narrative)* Diagnostic Procedure Only (Routine) - Closed Specialty Diagnoses / Procedures Referred By Contac t Referred To Contact [facility] Diagnoses Visit for screening mammogram Procedures ALBINO SCREENING W MANUELA SCREENING DIGITAL BREAST TOMOSYNTHESIS BI SCREENING MAMMOGRAPHY BI 2-VIEW BREAST INC Dilcia Riojas MD [address] [place] [address] [facility] [address] [place] [address] Referral ID Status Reason Start Date Expiration Date V isits Requested Visits Authorized [id number] Closed Auto-Generate d Referral 05/10/2022 06/09/2023 1 1 [facility] for referral (narrative)No reason for referral information [facility]: Reason for visit Narrative* Diagnostic Procedure Only (Routine) - Closed Specialty Diagnoses / Procedures Referred By Yevgeniy nolasco Referred To Contact [facility] Diagnoses Visit for screening mammogram Procedures ALBINO SCREENING W MANUELA SCREENING BREAST DGTL MANUELA UNI/BILAT ADD ON SCREENING MAMMOGRAPHY BI 2-VIEW BREAST INC Dilcia Riojas MD [address] [place] [address] [facility] [address] [place] [address] Referral ID Status Reason Start Date Expiration Date V isits Requested Visits Authorized [id number] Closed Auto-Generate d Referral 05/06/2021 06/05/2022 1 1 [facility] for visit Narrative* Diagnostic Procedure Only (Routine) - Closed Specialty Diagnoses / Procedures Referred By Yevgeniy t Referred To Contact [facility] Diagnoses Visit for screening mammogram Procedures ALBINO SCREENING W MANUELA SCREENING DIGITAL BREAST TOMOSYNTHESIS BI SCREENING MAMMOGRAPHY BI 2-VIEW BREAST INC Dilcia Riojas MD [address] [place] [address] [facility] [address] [place] [address] Referral ID Status Reason Start Date Expiration Date V isits Requested Visits Authorized [id number] Closed Auto-Generate d Referral 05/10/2022 06/09/2023 1 1 [facility] Summary Purpose Family History No Family History Records Found Relationship Condition Age at Onset Recorded Date/T shane mother Malignant neoplasm Unknown Arthritis Unknown Spondylosis of lumbar spine Unknown Advance Directives No Advanced Directives Records Found Advance Directive Response Recorded Date/ Time Advance Directives No April 1:44pm Living Will No October 17, 2016 1:19pm Power of Field Adjuster No October 17 1:19pm Advance Directive Response Recorded Date/ Time Advance Directives No April 1:44pm Living Will No November 17, 2021 2 :47pm Power of Field Adjuster No November 17, 2021 2:47pm Advance Directive Response Recorded Date/ Time Advance Directives No April 11:22am Living Will No May 11, 022 11:22am Power of Field Adjuster No May 11, 2022 11:22am Advance Directive Response Recorded Date/ Time Advance Directives No April 12:22pm Living Will No May 11, 022 12:22pm Power of Field Adjuster No May 11, 2022 12:22pm Advance Directive Response Recorded Date/ Time Do you have a Healthcare Power of Field Adjuster? No December 12, 2024 9:48pm Advance Directives No April 12:22pm Advance Directive Response Recorded Date/ Time Do you have a Healthcare Power of Field Adjuster? No December 30, 2024 12:01pm Do you have a Healthcare Power of Field Adjuster? No December 12, 2024 9:48pm Advance Directives No April 12:22pm Chief Complaint and Reason for Visit [...] intestinal metaplasia Spondylolisthesis, lumbar region Chief Complaint Admit Date headache December 12, 2024 9:03 pm Chief Complaint Admit Date headache December 12, 2024 9:03 pm LUMBAR SPINE December 13, 2024 10:1 6am room 2 December 13, 2024 10:2 6am Chief Complaint Admit Date headache December 12, 2024 9:03 pm LUMBAR SPINE December 13, 2024 10:1 6am room 2 December 13, 2024 10:2 6am chest December 30, 2024 10:37 am Reason for Visit Admit Date Lumbar radiculopathy December 13, 2024 10: 16am Pars defect with spondylolisthesis December 13, 2024 10:16am Additional Source Comments INFORMATION SOURCE (unrecogn ized section and content) DATE CREATED AUTHOR 11/28/2019 [facility] DATE CREATED AUTHOR AUTHOR'S ORGANIZ ATION 07/24/2021 [facility] DATE CREATED AUTHOR AUTHOR'S ORGANIZ ATION 02/22/2024 [facility] DATE CREATED AUTHOR AUTHOR'S ORGANIZ ATION 01/14/2025 [facility] Goals (unrecognized section and content) Goals may [...] or prosecute any alcohol or drug abuse patient.[facility] HospitalIn the event this information is protected by the Federal Confidentiality of Alcohol and Drug Abuse Patient Records regulations: The Federal rules restrict any use of the information to criminally investigate or prosecute any alcohol or drug abuse patient.[facility] HospitalIn the event this information is protected by the Federal Confidentiality of Alcohol and Drug Abuse Patient Records regulations: The Federal rules restrict any use of the information to criminally investigate or prosecute any alcohol or drug abuse patient.[facility] HospitalIn the event this information is protected by the Federal Confidentiality of Alcohol and Drug Abuse Patient Records regulations: The Federal rules restrict any use of the information to criminally investigate or prosecute any alcohol or drug abuse patient.[facility] HospitalIn the event this information is protected by the Federal Confidentiality of Alcohol and Drug Abuse Patient Records regulations: The Federal rules restrict any use of the information to criminally investigate or prosecute any alcohol or drug abuse patient.[facility] HospitalIn the event this information is protected by the Federal Confidentiality of Alcohol and Drug Abuse Patient Records regulations: The Federal rules restrict any use of the information to criminally investigate or prosecute any alcohol or drug abuse patient.[facility] Care Teams (unrecognized sec tion and content) Admitting Coordinator Relationship Specialty Start Date End Date Oscar Blas MD PCP - General Family Medicine 02/06/14 Team Status: Active Member Role Status Dates Dr. Oscar Blas MD Family Provider Active JOHN Melchor Primary Care Provider Active Team Status: Inactive Member Role Status Dates Dr. Oscar Blas MD Primary Care Provider, Referring Provider Active Dr. Chirag Matta DO Attending Provider Active Team Status: Inactive Member Role Status Dates Indy Barajas LEVELER HELPER-C Primary Care Provider Active Dr. Chirag Matta DO Attending Provider, Referring Provider Active Team Status: Inactive Member Role Status Dates Indy Barajas LEVELER HELPER-C Primary Care Provide r, Attending Provider, Referring Provider Active Team Status: Inactive Member Role Status Dates Dr. Oscar Blas MD Referring Provider Active Dr. Chirag Matta DO Attending Provider Active Indy Barajas [employer]EVELER HELPER-C Primary Care Provider Active Admitting Coordinator Relationship Specialty Start Date End Date Oscar Blas MD PCP - General Family Medicine 02/06/14 Admitting Coordinator Relationship Specialty Start Date End Date Oscar Blas MD PCP - General Family Medicine 02/06/14 Admitting Coordinator Relationship Specialty Start Date End Date Oscar Blas MD PCP - General Family Medicine 02/06/14 Team Status: Inactive Member Role Status Dates Indy Barajas LEVELER HELPER-C Primary Care Provider, Attending P rovider Active Team Status: Inactive Member Role Status Dates Indy Barajas LEVELER HELPER-C Primary Care Provider, Referring P rovider Active Dr. Chirag Matta DO Attending Provider Active Team Status: Inactive Member Role Status Dates Indy Barajas LEVELER HELPER-C Primary Care Provider, Referring P rovider Active Dr. Fran Pride MD Attending Provider Active Team Status: Inactive Member Role Status Dates Indy Barajas [employer]EVEL[employer] HELPER-C Primary Care Provider Active Dr. Abdullahi Martinez MD Attending Provider Active Team Status: Inactive Member Role Status Dates Indy Barajas , LEVELER HELPER-C Primary Care Provider Active Dr. Fran Pride MD Attending Provider, Referring Pr ovider Active Admitting Coordinator Relationship Specialty Start Date End Date Oscar Blas MD PCP - General Family Medicine 02/06/14 Admitting Coordinator Relationship Specialty Start Date End Date Oscar Blas MD PCP - General Family Medicine 02/06/14 Team Status: Active Member Role Status Dates Indy Karl , LEVELER HELPER-C Primary Care Provider Active Team Status: Inactive Member Role Status Dates Indy Karl , LEVELER HELPER-C Primary Care Provider Active Start: December 12, 2024 End: December 13, 2024 Dr. Iglesia Gurrola DO Emergency Provider Active Start: December 12, 2024 End: December 13, 2024 Team Status: Active Member Role Status Dates Indy Karl , LEVELER HELPER-C Primary Care Provider Active Start: December 13, 2024 Indy Karl , LEVELER HELPER-C Referring Provider Active St art: December 13, 2024 JASPER Spicer Attending Provider Active Star t: December 13, 2024 Team Status: Inactive Member Role Status Dates Indy Karl , LEVELER HELPER-C Primary Care Provider Active Start: December 13, 2024 End: December 13, 2024 Dr. Abdullahi Martinez MD Attending Provider Active S tart: December 13, 2024 End: December 13, 2024 Team Status: Inactive Member Role Status Dates Indy Karl , LEVELER HELPER-C Primary Care Provider Active Start: December 13, 2024 End: December 13, 2024 Indy Karl , LEVELER HELPER-C Referring Provider Active St art: December 13, 2024 End: December 13, 2024 JASPER Spicer Attending Provider Active Star t: December 13, 2024 End: December 13, 2024 Team Status: Active Member Role/Relationship Status Dates Indy Karl , LEVELER HELPER-C Primary Care Provider Active Team Status: Inactive Member Role/Relationship Status Dates Indy Karl , LEVELER HELPER-C Primary Care Provider Active Start: December 12, 2024 End: December 13, 2024 Dr. Iglesia Gurrola DO Attending Provider Active Start: December 12, 2024 End: December 13, 2024 Dr. Iglesia Gurrola DO Emergency Provider Active Start: December 12, 2024 End: December 13, 2024 Team Status: Inactive Member Role/Relationship Status Dates Indy Karl , LEVELER HELPER-C Primary Care Provider Active Start: December 13, 2024 End: December 13, 2024 Indy Karl , LEVELER HELPER-C Referring Provider Active St art: December 13, 2024 End: December 13, 2024 JASPER Spicer Attending Provider Active Star t: December 13, 2024 End: December 13, 2024 Team Status: Inactive Member Role/Relationship Status Dates Indy Barajas , LEVELER HELPER-C Primary Care Provider Active Start: December 13, 2024 End: December 13, 2024 Dr. Abdullahi Martinez MD Attending Provider Active S tart: December 13, 2024 End: December 13, 2024 Team Status: Inactive Member Role/Relationship Status Dates Indy Barajas , LEVELER HELPER-C Primary Care Provider Active Start: December 30, 2024 End: December 30, 2024 Dr. Dane Bush , DO Emergency Provider Activ e Start: December 30, 2024 End: December 30, 2024 Team Status: Inactive Member Role/Relationship Status Dates Indy Barajas , LEVELER HELPER-C Primary Care Provider Active Start: December 30, 2024 End: December 30, 2024 Dr. Dane Bush , DO Attending Provider Activ e Start: December 30, 2024 End: December 30, 2024 Dr. Dane Bush , DO Emergency Provider Activ e Start: December 30, 2024 End: December 30, 2024 Team Status: Inactive Member Role/Relationship Status Dates Indy Barajsa , LEVELER HELPER-C Primary Care Provider Active Start: January 06, 2025 End: January 06, 2025 Indy Barajas LEVELER HELPER-C Attending Provider Active St art: January 06, 2025 End: January 06, 2025 Reason for Visit (unrecogniz ed section and [...] BE BASED ON THE PRIMARY CLINICAL RECORDS. [facility] [employer] [facility]. provides no warranty or guarantee of the accuracy or completeness of information in this document.
== END | disposition home or self-care (01) ==
PROVIDERS: PCP Nurse Practitioner Family; Referring Provider Student in an Organized Health Care Education/Training Program; Visit Provider Student in an Organized Health Care Education/Training Program
DX: M43.10 Spondylolisthesis, site unspecified (principal); M54.50 Low back pain, unspecified; M54.16 Radiculopathy, lumbar region
CPT/HCPCS: 72148

== ENCOUNTER → 2025-04-24 | Outpatient (CLI) | payer BC, SELFPAY ==
[2025-04-24 16:41] LABS: Hematocrit 36.7 % (37-47); Hemoglobin 12.8 g/dL (12.0-15.0); Immature Granulocytes Count 0.020 X10^3/uL (0.0-0.0); Mean Corp Hgb Conc 34.9 g/dL (32-36); Mean Corpuscular Volume 96.6 fL (81-99); Mean Platelet Vol. 9.6 fl (6.2-12.0); NRBC Flagged by Analyzer 0 % (0-5); Platelet Count 357 K/mm3 (150-450); RBC Distribution Width CV 12.7 % (11.6-14.6); RBC Distribution Width SD 45.7 fl (35.1-43.9); Red Blood Count 3.80 M/mm3 (4.2-5.4); White Blood Count 6.0 K/mm3 (4.4-11.0)
[2025-04-24 18:07] LABS: AST(SGOT) 36 U/L (<=31); Alanine Aminotransfer ALT/SGPT 48 U/L (<=34); Albumin, Serum 4.5 g/dL (3.5-5.0); Alkaline Phosphatase 67 U/L (35-104); Anion Gap 12 (5-15); BUN 8 mg/dL (4-19); BUN/Creat Ratio 11.8 RATIO (10-20); Calcium,Total 9.4 mg/dL (7.6-11.0); Carbon Dioxide 23.8 mmol/L (21.0-32.0); Chloride 101 mmol/L (98-108); Globulin 2.8 g/dL (2.2-4.2); Glucose 95 mg/dL (70-99); Potassium 3.8 mmol/L (3.3-5.1)
[2025-04-24 18:10] LABS: CRP < 3.00 mg/L (0.0-3.0)
== END | disposition home or self-care (01) ==
LOC: LAB 15:29
PROVIDERS: PCP Nurse Practitioner Family; Referring Provider Student in an Organized Health Care Education/Training Program; Visit Provider Student in an Organized Health Care Education/Training Program
DX: K50.90 Crohn's disease, unspecified, without complications (principal)
CPT/HCPCS: 36415; 80053; 85025; 85652; 86140